=== PATIENT | male | born 1945 | race Caucasian/White ===

== ENCOUNTER 2019-12-16 12:06 | Outpatient (CLI) | payer OTHER, SELFPAY ==
--- NOTE | 2019-12-16 12:21 | XR_ITS ---
WS: [id number] Chest 2 views, 12/16/2019 Clinical Data: Shortness of breath Comparison: PA and lateral chest, 10/15/2019 Findings: No nodules, masses or effusions are seen. The heart is normal. The pulmonary vascularity is not increased. No pneumonia or pneumothorax is seen. The diaphragms are flattened. The aortic arch a nd descending aorta show tortuosity XR/XR chest 2V* [id number] Impression: Hyperinflation.
[2019-12-16 13:13] LABS: Alanine Aminotransferase 13 U/L (0-41); Albumin Level 4.6 g/dL (3.5-5.2); Alkaline Phosphatase 68 IU/L (40-130); Anion Gap 14.9 (5-19); Aspartate Amino Transferase 14 U/L (0-40); Blood Urea Nitrogen 10 mg/dL (8-23); Calcium 9.3 mg/dL (8.5-10.5); Carbon Dioxide 26 mmol/L (22-29); Chloride 103 mmol/L (98-107); Globulin 2.6 g/dL (1.3-4.6); Glucose 109 mg/dL (65-115); Osmolality Calculated 287 mOsm/kg (285-295); Potassium 3.9 mmol/L (3.5-5.1); Sodium 140 mmol/L (136-145); Total Bilirubin 0.4 mg/dL (0.15-1.2); Total Protein 7.2 g/dL (6.6-8.7)
[2019-12-16 13:24] LABS: Eosinophils # 0.1 10^3/uL (0.0-0.8); Hematocrit 39.5 % (42.0-52.0); Hemoglobin 13.3 g/dL (11.7-16.6); Lymphocytes # 1.2 10^3/uL (0.8-4.8); Lymphocytes % 23.9 %; Mean Corpuscular HGB Conc 33.7 g/dL (30.0-36.0); Mean Corpuscular Hemoglobin 33.4 pg (28.0-34.0); Mean Corpuscular Volume 99.2 fL (80-94); Mean Platelet Volume 10.9 fL (7.4-10.4); Monocytes # 0.5 10^3/uL (0.2-0.9); Monocytes % 10.8 %; Neutrophils # 3.1 10^3/uL (1.8-7.7); Neutrophils % 64.1 %; Nucleated Red Blood Cells % 0 %; Platelet Count 196 10^3/cmm (130-400); Red Blood Count 3.98 10^6/uL (4.1-5.3); Red Cell Distribution Width 11.4 % (12.1-15.1); White Blood Count 4.9 10^3/uL (4.0-10.0)
== END 2019-12-16 12:07 | disposition home or self-care (01) ==
LOC: RAD 12:09
PROVIDERS: Visit Provider Internal Medicine Critical Care Medicine
DX: R06.02 Shortness of breath (principal); J44.9 Chronic obstructive pulmonary disease, unspecified
CPT/HCPCS: 71046; 80053; 85025

== ENCOUNTER 2019-12-20 12:37 | Outpatient (CLI) | payer OTHER, SELFPAY ==
--- NOTE | 2019-12-20 12:45 | USCV_ITS ---
Doroteo Ba Age: 74 Gender: M : 1945 Exam Date: 12/20/2019 12:53 Ordering Phys: Anu Bah MD Technologist: Enrique Chou Exam Location: [facility] [place] Indication: CHEST PAIN BP: 120 / 73 HR: 77 Rhythm: Sinus Technical Quality: Adequate MEASUREMENTS (Male / Female) Normal Values 2D ECHO LV Diastolic Diameter PLAX 3.8 cm 4.2 - 5.9 / 3.9 - 5.3 cm LV Systolic Diameter PLAX 3.0 cm IVS Diastolic Thickness 0.8 cm 0.6 - 1.0 / 0.6 - 0.9 cm IVS Systolic Thickness 1.1 cm LVPW Diastolic Thickness 0.7 cm 0.6 - 1.0 / 0.6 - 0.9 cm LVPW Systolic Thickness 1.1 cm LVOT Diameter 2.1 cm LV Ejection Fraction 2D Teich 44.1 % LV Ejection Fraction MOD 2C 73.3 % LV Ejection Fraction 2C AL 72.4 % LA Diameter 4.2 cm LA Width 3.6 cm LA Height 3.1 cm RA Width 2.9 cm RA Height 3.7 cm Aorta at Sinotubular Diameter 3.4 cm M-MODE LV Diastolic Diameter MM 3.6 cm 4.2 - 5.9 / 3.9 - 5.3 cm LV Systolic Diameter MM 2.6 cm LV Ejection Fraction MM Teich 56.1 % IVS Diastolic Thickness MM 1.2 cm 0.6 - 1.0 / 0.6 - 0.9 cm IVS Systolic Thickness MM 1.3 cm LVPW Diastolic Thickness MM 1.0 cm 0.6 - 1.0 / 0.6 - 0.9 cm LVPW Systolic Thickness MM 1.6 cm RV Diastolic Diameter MM 1.4 cm Aortic Annulus Diameter 3.7 cm LA Ao Ratio MM 1.1 MV E Point Septal Separation 1.4 cm DOPPLER AV Peak Velocity 95.0 cm/s LVOT Peak Velocity 90.0 cm/s AV Area Cont Eq vti 2.7 cm squared AV Area Cont Eq pk 3.2 cm squared MV Area PHT 5.0 cm squared Mitral E to A Ratio 1.0 MV E' Velocity 8.0 cm/s Mitral E to MV E' Ratio 7.0 Mitral E to LV E' Lateral Ratio 8.3 Mitral E to LV E' Septal Ratio 6.0 TR Peak Velocity 121.0 cm/s TR Peak Gradient 5.9 mmHg TV Peak E Velocity 98.0 cm/s Right Atrial Pressure 3.0 mmHg Pulmonary Artery Systolic Pressu 8.9 mmHg FINDINGS Left Ventricle Normal left ventricular cavity size. Normal left ventricular systolic function. No regional wall motion abnormalities. Left ventricular ejection fraction is estimated at 60 %. Grade I/IV diastolic dysfunction (abnormal relaxation filling pattern), normal to mildly elevated filling pressures. Right Ventricle The right ventricle is normal in size and function. Right Atrium The right atrium is normal in size. Left Atrium The left atrium is normal in size. Mitral Valve Structurally normal mitral valve without significant stenosis or prolapse. There is no mitral regurgitation. Aortic Valve Structurally normal aortic valve without significant sclerosis or stenosis. There is no aortic regurgitation. Tricuspid Valve Structurally normal tricuspid valve without significant stenosis or regurgitation. Pulmonary artery systolic pressure is normal. Pulmonic Valve Structurally normal pulmonic valve without significant stenosis. There is no pulmonic regurgitation. Pericardium Normal pericardium without effusion. Aorta Normal ascending aorta dimension. CONCLUSIONS 1-Normal left ventricular cavity size. Normal left ventricular systolic function. No regional wall motion abnormalities. Left ventricular ejection fraction is estimated at 60 %. Grade I/IV diastolic dysfunction (abnormal relaxation filling pattern), normal to mildly elevated filling pressures. 2-No significant valve abnormalities. 3-There is no pericardial effusion. 4-Pulmonary artery systolic pressure is within normal limits. 5-There are no prior echocardiogram studies to compare. Carmen Mack MD (Electronically Signed) Final Date: 20 Dec 2019 16:28 S
== END 2019-12-20 12:38 | disposition home or self-care (01) ==
LOC: RAD 12:39
PROVIDERS: PCP Emergency Medicine Emergency Medical Services; Visit Provider Internal Medicine Critical Care Medicine
DX: R06.02 Shortness of breath (principal); I51.81 Takotsubo syndrome
CPT/HCPCS: 93306

== ENCOUNTER 2020-01-17 08:15 | Outpatient (CLI) | payer OTHER, SELFPAY ==
--- NOTE | 2020-01-17 09:59 | PFTS_ITS ---
Date of Study:01/17/20 Date of Dictation: MECHANICS: Forced vital capacity (FVC) is reduced. Forced expiratory volume in one second (FEV1) is reduced. FEV1/FVC is reduced. FLOW VOLUME LOOP: Reduced flow at all lung volumes with significant scooping. LUNG VOLUMES: Not performed DIFFUSING CAPACITY FOR CARBON MONOXIDE: Severely diminished. INTERPRETATION: The pulmonary function tests are consistent with very severe obstruction. There is significant postbronchodilator response. Gas exchange (DLCO) is severely diminished. MTDD
== END 2020-01-17 08:16 | disposition home or self-care (01) ==
LOC: RT 08:16
PROVIDERS: PCP Emergency Medicine Emergency Medical Services; Visit Provider Internal Medicine Critical Care Medicine
DX: J44.9 Chronic obstructive pulmonary disease, unspecified (principal)
CPT/HCPCS: 94060; 94729; J7611

== ENCOUNTER 2020-01-31 12:32 | Outpatient (CLI) | payer OTHER, SELFPAY ==
--- NOTE | 2020-01-31 13:00 | CT_ITS ---
WS: [id number] CT LUNG CANCER SCREENING DLP: 62.42 mGy.cm DIvol: 1.53 mGy CLINICAL INFORMATION SCREENING VISIT: Baseline COMPARISON: 12/16/2019 and 10/15/2019 FINDINGS Diagnostic quality: Satisfactory Comments: None. Lung Nodules: Round 7 mm nodule LEFT upper lobe. Image 144 of series 3. There are no additional nodul es. Soft tissue nodularity along the LEFT inferior trachea measures 6 mm. There is an additional more rou nded solid nodule in the proximal LEFT main bronchus. This nodule nearly completely obstructs the bro nchus measuring 12 x 10 mm. Lungs: Marked hyperinflation of the lungs from emphysema. There are a few subcentimeter micronodules scattered throughout the lungs. Scarring in the medial LEFT upper lobe. Heart: Normal size heart. Mild anterior pericardial thickening. Other findings: Mild atherosclerosis of aorta. No mediastinal or hilar adenopathy appreciated. Benign calcified RIGHT hilar and subcarinal lymph nodes. Cystic mass in the LEFT upper quadrant of uncertain etiology. Mass measures 9.3 x 7.1 cm. Mass is pos terior to the spleen. CT/CT lung screening [id number] IMPRESSION: LUNG-RADS: 4AS-Probably Suspicious with Significant Findings FOLLOW UP: See Report 1. Bronchoscopy is recommended to evaluate the nodules in the LEFT lateral tra avery and the proximal LEFT mainstem bronchus. 2. Six-month low-dose CT follow-up to reevaluate the LEFT upper lobe pulmonary nodule. This recommendation may change based upon the endobronchial lesion bio psy. 3. CT abdomen and pelvis recommended to evaluate cystic mass in the LEFT upper abdomen. Recommend study to be performed with IV and oral contrast. 4. Severe emphysema.
== END 2020-01-31 12:33 | disposition home or self-care (01) ==
PROVIDERS: PCP Emergency Medicine Emergency Medical Services; Visit Provider Internal Medicine Critical Care Medicine
DX: Z12.2 Encounter for screening for malignant neoplasm of respiratory organs (principal); Z87.891 Personal history of nicotine dependence; R91.1 Solitary pulmonary nodule; J43.9 Emphysema, unspecified
CPT/HCPCS: G0297

== ENCOUNTER 2020-02-13 06:01 | Day surgery (SDC) | payer OTHER, SELFPAY ==
[2020-02-13] VITALS (7 sets, daily range): BP systolic 97–143; BP diastolic 53–98; PULSE 56–93; RESP 17–20; TEMP 36.2–36.7; O2SAT 96–100
[2020-02-13] MEDS: sodium chloride 0.9% 1,000 ML 30 ML IV (06:36)
--- NOTE | 2020-02-13 06:39 | ANES.PREANE2 ---
Pre-Anesthetic Assessment Pre-Anesthetic Assessment: Height/Weight: Height 1.75 m Weight 54.431 kg Temp Pulse Resp BP Pulse Ox 98.0 F 79 17 140/98 96 02/13/20 06:19 02/13/20 06:19 02/13/20 06:19 02/13/20 06:19 02/13/20 06:19 Preop Diagnosis: Endobronchial lesions Proposed Procedure: Operation Date: 02/13/20 07:00 Proposed Procedures p Bronchoscopy(Not Applicable) - Anu Bah MD Was Beta Butch taken within 24 hours: N/A Last intake: Intake Last Liquid Date 02/12/20 Last Liquid Time 18:00 Last Solid Date 02/12/20 Last Solid Time 18:00 Social: Social History: Tobacco Packs per day: Smokes marijuana routinely Exam: Pre-Anes Outpt Exam: alert, oriented x 3, clear to auscultation bilaterally and regular rate & rhythm Airway: Submandibular: WNL Cervical ROM: WNL MP: 1 Pulmonary: Pulmonary: COPD and Cough CV/HEM: CV/HEM: None reported : : None reported Hepatic: Hepatic: None reported GI: GI: None reported Metabolic: Metabolic: None reported Musc/skel: Musc/skel: None reported Neuropsych: Neuropsych: None reported Anesthetic Plan: ASA status: 3 Anesthesia: General Meds/Allergies Current Medications: Current Medications Generic Name Dose Route Start Last Admin Trade Name Freq PRN Reason Stop Dose Admin Sodium Chloride 1,000 mls @ 30 ml s/hr 02/13/20 06:15 02/13/20 06:36 Sodium Chloride 0.9% IV 02/14/20 06:14 30 mls/hr .Q24H IMELDA Administration PFSH Anesthesia PFSH: Medical History Colon cancer COPD (chronic obstructive pulmonary disease) Surgical History History of colon resection Family History Father Lung disease Mother Cancer Social History Smoking and tobacco status: former smoker Quit status (tobacco): has quit using tobacco Year quit tobacco: 2007 - PPD x 50 Years Alcohol intake: never Lives independently: Yes Household members: spouse Marital status: Current occupational status: retired History of recent travel: No Current gender identity: Male Data Anesthesia Cardiac Studies: No Data to Display
--- NOTE | 2020-02-13 06:55 | P.HP_ITS ---
Same Day Surgery H&P Indication for Procedure/HPI DATE OF PROCEDURE: February 13, 2020 CHIEF COMPLAINT/INDICATIONFOR SURGICAL PROCEDURE: Patient with suspected endobronchial lesion on CT scan PREOP DIAGNOSIS: Endobronchial lesions PLANNED PROCEDRUE: Bronchoscopy inspection of the airway, endobronchial ultrasound-guided transbronchial aspiration of lymph nodes, possible endobronchial and transbronchial biopsies. Operation Date: 02/13/20 07:00 Proposed Procedures p Bronchoscopy(Not Applicable) - Anu Bah MD This is 74-year-old gentleman was evaluated in the office for COPD. As a part of low-dose CT scan for lung cancer screening the patient had a CT scan performed which revealed possible endotracheal and left mainstem endobronchial lesion. The patient is here today for bronchoscopic evaluation. Medications/Allergies* Home Medications Medication Instructions Recorded Confirmed Type albuterol sulfate 2.5 mg INHALATION Q4H PRN 11/27/19 02/13/20 History albuterol sulfate 90 mcg/actuation 2 inh INHALATION Q6H PRN 11/27/19 02/13/20 History breath activated powder inhaler budesonide-formoterol HFA 80 2 puff INHALATION BID 11/27/19 02/13/20 History mcg-4.5 mcg/actuation aerosol inhaler montelukast 10 mg tablet 10 mg PO DAILY 11/27/19 02/13/20 History tiotropium bromide 2.5 2 inh INHALATION QAM 11/27/19 02/13/20 History mcg/actuation mist for inhalation Allergies/Adverse Reactions Allergy/AdvReac Type Severity Reaction Status Date / Time morphine AdvReac Severe ADR-Halluci Verified 02/13/20 06:12 nating Current Medications: Generic Name Dose Route Start Last Admin Trade Name Freq PRN Reason Stop Dose Admin Sodium Chloride 1,000 mls @ 30 mls/hr 02/13/20 06:15 02/13/20 06:36 Sodium Chloride 0.9% IV 02/14/20 06:14 30 mls/hr .Q24H IMELDA Administration Pertinent History/Comorbid Conditions* Medical History (Updated 11/27/19 @ 13:47 by Anu Bah MD) Colon cancer COPD (chronic obstructive pulmonary disease) Surgical History (Updated 11/27/19 @ 13:47 by Anu Bah MD) History of colon resection Family History (Updated 11/27/19 @ 13:22 by Catina Lock LPN) Lung disease Father Cancer Mother Social History Smoking and tobacco status: former smoker Quit status (tobacco): has quit using tobacco Year quit tobacco: 2008 - PPD x 50 Years Alcohol intake: never Lives independently: Yes Household members: spouse Marital status: Current occupational status: retired History of recent travel: No Current gender identity: Male Pertinent Exam Findings alert, oriented x 3, clear to auscultation bilaterally and regular rate & rhythm Recommendations Surgery/Procedure today Coding Level of Care Code Acute Nurse Emergency for Blanca Vides
[2020-02-13] MEDS: lidocaine 1% INJ 20 mL XX (07:19)
--- NOTE | 2020-02-13 07:21 | P.OP_ITS ---
Operative Report Date of procedure: February 13, 2020 Pre-op Diagnosis: Endobronchial lesions Post-op Diagnosis: Mucus accumulation throughout the airways Brief History: This is a 74-year-old gentleman who is here today for bronchoscopic evaluation for suspected endobronchial lesion found on low-dose CT scan for lung cancer screening. The plan was to start with inspection bronchoscopy and if there was any evidence of endobronchial lesion the patient was to undergo endobronchial sound guided transbronchial needle aspiration of lymph nodes for staging purposes. Procedure: Name of the procedure: Bronchoscopy with inspection of the airway and control of bleeding. Indication: Questionable endobronchial lesion on the CT scan Anesthesia: General anesthesia Local anesthesia: 1% lidocaine instilled in the jaime and right and left mainstem bronchus. Description of the procedure: The patient was brought to the OR after consent was obtained. He underwent endotracheal intubation for general anesthesia. The bronchoscope was advanced through the ET tube. The jaime and right and left mainstem bronchus were anesthetized with 1% lidocaine. There was visible mucus in the left lower wall of the trachea. This was suctioned out. In a systematic manner the airways were then examined. The bronchoscope was advanced into the left mainstem bronchus and left upper lobe, lingula and lower lobe bronchi were examined up to the third subsegmental level. There was diffuse mucus deposition throughout his airways. The bronchoscope was then advanced into the right m ainstem bronchus. The right upper lobe, middle lobe and lower lobe bronchi were examined up to third subsegmental level. No endobronchial lesion, bleeding or airway abnormalities were identified. The patient was noted to have mucus throughout the airways. Complications: There is no immediate complications. Duration of the procedure: 4 minutes.
== END 2020-02-13 08:35 | disposition home or self-care (01) ==
PROVIDERS: PCP Emergency Medicine Emergency Medical Services; Visit Provider Internal Medicine Critical Care Medicine
PROC: 0BJ08ZZ Inspection of Tracheobronchial Tree, Via Natural or Artificial Opening Endoscopic (ICD-10-PCS; CPT 31622; principal; 2020-02-13 07:00)
DX: J39.8 Other specified diseases of upper respiratory tract (principal); Z85.038 Personal history of other malignant neoplasm of large intestine; J44.9 Chronic obstructive pulmonary disease, unspecified; Z83.6 Family history of other diseases of the respiratory system; Z87.891 Personal history of nicotine dependence; Z90.49 Acquired absence of other specified parts of digestive tract
CPT/HCPCS: 12345; 31625; J0330; J2001; J2250; J2370; J2704; J3010; J3490; J7030

== ENCOUNTER 2020-04-09 16:28 | Outpatient (RCR) | payer OTHER, SELFPAY | END 2020-04-29 23:59 | disposition home or self-care (01) | LOC: PULRHB 16:28 | PROVIDERS: PCP Emergency Medicine Emergency Medical Services; Visit Provider Internal Medicine Critical Care Medicine | DX: J44.9 Chronic obstructive pulmonary disease, unspecified (principal) | CPT/HCPCS: 94618; G0424 ==

== ENCOUNTER 2020-04-30 12:52 | Outpatient (RCR) | payer OTHER, SELFPAY | END 2020-05-30 23:59 | disposition home or self-care (01) | LOC: PULRHB 12:52 | PROVIDERS: PCP Emergency Medicine Emergency Medical Services; Visit Provider Internal Medicine Critical Care Medicine | DX: J44.9 Chronic obstructive pulmonary disease, unspecified (principal) | CPT/HCPCS: G0424 ==

== ENCOUNTER 2020-05-31 06:00 | Outpatient (RCR) | payer OTHER, SELFPAY | END 2020-06-29 23:59 | disposition home or self-care (01) | LOC: PULRHB 06:00 | PROVIDERS: PCP Emergency Medicine Emergency Medical Services; Visit Provider Internal Medicine Critical Care Medicine | DX: J44.9 Chronic obstructive pulmonary disease, unspecified (principal) | CPT/HCPCS: G0424 ==

== ENCOUNTER 2020-06-24 08:30 | Outpatient (CLI) | payer OTHER, SELFPAY ==
--- NOTE | 2020-06-24 08:39 | CT_ITS ---
WS: [id number] CT ABDOMEN AND PELVIS WITH CONTRAST HISTORY: MALIGNANT NEOPLASM OF COLON TECHNIQUE: Imaging performed of the abdomen and pelvis with IV contrast. Single phase imaging of the abdomen. Coronal and sagittal reformats are submitted. All CT scans at [facility] use at least one of these dose optimization techniques: automated exposure control; mA and/or kV adjustment per patient size (includes targeted exams where dose is matched to clinical indication); or iterativ e reconstruction. IV CONTRAST: Omnipaque 300; 95 mL IV. Oral contrast: Yes. DLP: 229.58 mGy.cm COMPARISON: None available. Lower thorax: Severe emphysematous changes at the lung bases. Heart is normal size. Small hiatal humaira ia. Liver/biliary system: Normal size liver. There are several small hypodensities scattered throughout t he liver. Some of these are too small to characterize. The largest measures 12 mm adjacent to the jeannie n portal vein. No bile duct dilatation. Gallbladder: Normal. No gallstones or wall thickening. No pericholecystic fluid. Pancreas: Poorly visualized pancreas. Spleen: Normal size with granulomata. There is a large cystic mass between the spleen and the superio r pole of the RIGHT kidney measuring 11 x 7.5 cm. Mass effect of both the spleen and the kidney. This is probably originating from the kidney. Adrenal glands: Neither very well visualized. Right kidney: Large extrarenal pelvis. No calyceal dilatation. Parapelvic cysts are also likely. Left kidney: Parapelvic cysts and extrarenal pelvis. No calyceal dilatation. Favor these changes are all secondary to cysts and not obstruction. Aorta: Atherosclerosis aorta with ectasia. Lymphadenopathy: Lack of mesenteric and intraperitoneal fat and retroperitoneal fat is limiting asses sment for lymph nodes. Free fluid: None. GI tract: Severe constipation. Patient has a colostomy in the LEFT abdomen. Evaluation of the colon i s significantly limited without fat the loops of GI tract. Abdominal wall: LEFT lower quadrant colostomy. Pelvis: Distended urinary bladder. No free fluid. There is mild thickening of the presacral soft tiss ues. Bones: Osteopenia. No osteoblastic or osteolytic destructive process. CT/CT abdomen pelvis w con* [id number] IMPRESSION: 1. Significantly limited evaluation of the abdomen and pelvic structures and t he colon. Very little fat loops of GI tract and patient is very cach ectic. No prior studies available for comparison. 2. LEFT lower quadrant colostomy. 3. Severe constipation. 4. Scattered hypodensities within the liver. Majority of these are cysts. Some are too small to characterize. Suggest 3-[address] follow-up with IV and oral contrast. 5. Bilateral parapelvic and extrarenal pelves. Favor these changes are not rel ated to hydronephrosis at this the calyces are not dilated. 6. Large cyst in the LEFT upper quadrant. I believe is originating from the RI GHT kidney about the spleen.
[2020-06-24] MEDS: iohexol 300 mg/mL 100 mL Btl IV (10:37)
== END 2020-06-24 08:31 | disposition home or self-care (01) ==
PROVIDERS: PCP Emergency Medicine Emergency Medical Services; Visit Provider Emergency Medicine Emergency Medical Services
DX: C18.9 Malignant neoplasm of colon, unspecified (principal); K59.00 Constipation, unspecified
CPT/HCPCS: 74177; 82565

== ENCOUNTER 2020-06-30 06:00 | Outpatient (RCR) | payer OTHER, SELFPAY | END 2020-07-30 23:59 | disposition home or self-care (01) | LOC: PULRHB 06:00 | PROVIDERS: PCP Emergency Medicine Emergency Medical Services; Visit Provider Internal Medicine Critical Care Medicine | DX: J44.9 Chronic obstructive pulmonary disease, unspecified (principal) | CPT/HCPCS: G0424 ==

== ENCOUNTER 2020-07-31 06:00 | Outpatient (RCR) | payer OTHER, SELFPAY | END 2020-08-30 23:59 | disposition home or self-care (01) | LOC: PULRHB 06:00 | PROVIDERS: PCP Emergency Medicine Emergency Medical Services; Visit Provider Internal Medicine Critical Care Medicine | DX: J44.9 Chronic obstructive pulmonary disease, unspecified (principal) | CPT/HCPCS: G0424 ==

== ENCOUNTER 2020-08-31 06:00 | Outpatient (RCR) | payer OTHER, SELFPAY | END 2020-09-27 23:59 | disposition home or self-care (01) | LOC: PULRHB 06:00 | PROVIDERS: PCP Emergency Medicine Emergency Medical Services; Visit Provider Internal Medicine Critical Care Medicine | DX: J44.9 Chronic obstructive pulmonary disease, unspecified (principal) | CPT/HCPCS: G0424 ==

== ENCOUNTER 2020-08-31 11:00 | Outpatient (CLI) | payer OTHER, SELFPAY | END 2020-08-31 11:01 | disposition home or self-care (01) | LOC: SLEEP 09-02 12:02 | PROVIDERS: PCP Emergency Medicine Emergency Medical Services; Visit Provider Internal Medicine Critical Care Medicine | DX: J44.9 Chronic obstructive pulmonary disease, unspecified (principal) | CPT/HCPCS: 94762 ==

== ENCOUNTER 2020-10-08 08:52 | Outpatient (CLI) | payer OTHER, SELFPAY ==
--- NOTE | 2020-10-08 09:03 | CT_ITS ---
WS: [id number] CT CHEST WITH INTRAVENOUS CONTRAST HISTORY: Endobronchial and nodular lesions. TECHNIQUE: Contiguous 5 mm axial imaging performed on the thorax. Coronal and sagittal reformats are submitted. All CT scans at [facility] use at least one of these dose optimization techniq ues: automated exposure control; mA and/or kV adjustment per patient size (includes targeted exams wh ere dose is matched to clinical indication); or iterative reconstruction. CONTRAST: Omnipaque 300; 95 mL IV. DLP: 763.79 mGycm COMPARISON: 09/23/2020 and 01/31/2020 Lungs and central airway: Marked pulmonary hyperinflation. Solid 7 mm nodule in the anterior LEFT upp er lobe has not changed in size. No new pulmonary nodules or mass. Pleura: Normal. No pleural effusion. Heart and pericardium: Normal size heart with no pericardial effusion. Mediastinum and jo: No mediastinal adenopathy. Densely calcified subcarinal lymph node. Again noted is a soft tissue nodule measuring 8 mm in the LEFT lateral tracheal. The nodule seen in the proximal LEFT mainstem bronchus is no longer present and may have been mucous. Vessels: Mild atherosclerosis aorta. Normal size pulmonary artery. Chest wall and lower neck: No soft tissue masses. Upper abdomen: Very large cyst ridging from the LEFT kidney measures 8.2 x 9.1 cm. No definite LEFT a drenal gland abnormality. There may be some very mild hyperplasia of the gland. RIGHT adrenal gland i s negative. Small cyst within the liver with the largest measuring 11 mm near the evgeny hepatis. No p ancreatic abnormality. Splenic granulomata. Diffuse constipation throughout the visualized colon. Ath erosclerosis aorta. Osseous structures: No destructive process. CT/CT chest w con* [id number] IMPRESSION: 1. Stable solid nodule anterior LEFT upper lobe measures 7 mm. Recommend [address] follow-up. 2. No change in 8mm nodule in the LEFT lateral trachea. Previously described n odule in the proximal LEFT mainstem bronchus is no longer present and this may have been mucous. 3. No adrenal gland mass identified. 4. LEFT renal and hepatic cysts. 5. Severe emphysema.
[2020-10-08] MEDS: iohexol 300 mg/mL 100 mL Btl IV (09:48)
== END 2020-10-08 08:53 | disposition home or self-care (01) ==
LOC: RADWPI 08:55
PROVIDERS: PCP Emergency Medicine Emergency Medical Services; Visit Provider Emergency Medicine Emergency Medical Services
DX: R93.89 Abnormal findings on diagnostic imaging of other specified body structures (principal); R91.1 Solitary pulmonary nodule; Q61.02 Congenital multiple renal cysts; K76.89 Other specified diseases of liver; J43.9 Emphysema, unspecified
CPT/HCPCS: 71260; Q9967

== ENCOUNTER 2020-12-29 06:00 | Outpatient (RCR) | payer OTHER, SELFPAY | END 2021-01-27 23:59 | disposition home or self-care (01) | LOC: PULRHB 06:00 | PROVIDERS: PCP Emergency Medicine Emergency Medical Services; Visit Provider Internal Medicine Critical Care Medicine | DX: J44.9 Chronic obstructive pulmonary disease, unspecified (principal) | CPT/HCPCS: G0424 ==

== ENCOUNTER 2021-01-28 06:00 | Outpatient (RCR) | payer OTHER, SELFPAY | END 2021-02-27 23:59 | disposition home or self-care (01) | LOC: PULRHB 06:00 | PROVIDERS: PCP Emergency Medicine Emergency Medical Services; Visit Provider Internal Medicine Critical Care Medicine | DX: J44.9 Chronic obstructive pulmonary disease, unspecified (principal) | CPT/HCPCS: G0424 ==

== ENCOUNTER 2021-02-28 06:00 | Outpatient (RCR) | payer OTHER, SELFPAY | END 2021-03-30 23:59 | disposition home or self-care (01) | LOC: PULRHB 06:00 | PROVIDERS: PCP Emergency Medicine Emergency Medical Services; Visit Provider Internal Medicine Critical Care Medicine | DX: J44.9 Chronic obstructive pulmonary disease, unspecified (principal) | CPT/HCPCS: G0424 ==

== ENCOUNTER 2021-03-31 06:00 | Outpatient (RCR) | payer OTHER, SELFPAY | END 2021-04-29 23:59 | disposition home or self-care (01) | LOC: PULRHB 06:00 | PROVIDERS: PCP Emergency Medicine Emergency Medical Services; Visit Provider Internal Medicine Critical Care Medicine | DX: J44.9 Chronic obstructive pulmonary disease, unspecified (principal) | CPT/HCPCS: G0424 ==

== ENCOUNTER 2021-04-30 06:00 | Outpatient (RCR) | payer OTHER, SELFPAY | END 2021-05-30 23:59 | disposition home or self-care (01) | LOC: PULRHB 06:00 | PROVIDERS: PCP Emergency Medicine Emergency Medical Services; Visit Provider Internal Medicine Critical Care Medicine | DX: J44.9 Chronic obstructive pulmonary disease, unspecified (principal) | CPT/HCPCS: G0424 ==

== ENCOUNTER 2021-12-07 12:56 | Outpatient (CLI) | payer OTHER, SELFPAY ==
--- NOTE | 2021-12-07 13:09 | US_ITS ---
WS: [id number] BILATERAL 3D TOMOSYNTHESIS DIGITAL DIAGNOSTIC MAMMOGRAPHY WITH CAD CLINICAL INFORMATION: LT BREAST LUMP TECHNIQUE: Bilateral CC, MLO, and ML views. FINDINGS: Scattered fibroglandular densities bilaterally. Palpable marker LEFT breast in the area of concern. U nderlying parenchymal breast tissue is similar in appearance but slightly more prominent compared to the RIGHT side. Ultrasound is pending. ULTRASOUND BREAST LEFT TECHNIQUE: Ultrasound left breast focused area of concern. CLINICAL INFORMATION: LT BREAST LUMP COMPARISON: None. FINDINGS: Ultrasound LEFT breast in the area of concern. Ultrasound subareolar 1:00 position. No discrete under lying mass or lesion. In the area of palpable abnormality is an ovoid region of shadowing and mixed e chogenicity slightly more prominent compared to the RIGHT. 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 Recommend 6 month follow-up to confirm stability. Comparison RIGHT subareolar region is unremarkable. US/US breast LT limited* [id number] IMPRESSION: BI-RADS: 3-Probably Benign FOLLOW UP: 6 Month Follow-up Recommend 6 month follow-up ultrasound LEFT breast to confirm stability.
--- NOTE | 2021-12-07 13:54 | MM_ITS ---
WS: [id number] BILATERAL 3D TOMOSYNTHESIS DIGITAL DIAGNOSTIC MAMMOGRAPHY WITH CAD CLINICAL INFORMATION: LT BREAST LUMP TECHNIQUE: Bilateral CC, MLO, and ML views. FINDINGS: Scattered fibroglandular densities bilaterally. Palpable marker LEFT breast in the area of concern. U nderlying parenchymal breast tissue is similar in appearance but slightly more prominent compared to the RIGHT side. Ultrasound is pending. ULTRASOUND BREAST LEFT TECHNIQUE: Ultrasound left breast focused area of concern. CLINICAL INFORMATION: LT BREAST LUMP COMPARISON: None. FINDINGS: Ultrasound LEFT breast in the area of concern. Ultrasound subareolar 1:00 position. No discrete under lying mass or lesion. In the area of palpable abnormality is an ovoid region of shadowing and mixed e chogenicity slightly more prominent compared to the RIGHT. 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 Recommend 6 month follow-up to confirm stability. Comparison RIGHT subareolar region is unremarkable. MM/[place] [id number] IMPRESSION: BI-RADS: 3-Probably Benign FOLLOW UP: 6 Month Follow-up Recommend 6 month follow-up ultrasound LEFT breast to confirm stability.
== END 2021-12-07 12:57 | disposition home or self-care (01) ==
LOC: RAD 12:59
PROVIDERS: PCP Emergency Medicine Emergency Medical Services; Visit Provider Emergency Medicine Emergency Medical Services
DX: N63.20 Unspecified lump in the left breast, unspecified quadrant (principal)
CPT/HCPCS: 76642; 77062

== ENCOUNTER 2022-03-15 19:58 | Inpatient (IN) | payer OTHER, MEDICARE, SELFPAY ==
[2022-03-15] VITALS (14 sets, daily range): BP systolic 122–161; BP diastolic 62–91; PULSE 81–107; RESP 14–23; TEMP 36.8; O2SAT 100; BMI 17.2; BMI 19.1
--- NOTE | 2022-03-15 20:17 | CTR_ITS ---
PROCEDURE INFORMATION: Exam: CT Abdomen And Pelvis With Contrast Exam date and time: 03/15/2022 8:49 PM Age: 76 years old Clinical indication: Abdominal pain; Prior surgery; Surgery date: 6+ months; Surgery type: Colon; Additional info: Abd pain TECHNIQUE: Imaging protocol: Computed tomography of the abdomen and pelvis with contrast. Radiation optimization: All CT scans at this facility use at least one of these dose optimization techniques: automated exposure control; mA and/or kV adjustment per patient size (includes targeted exams where dose is matched to clinical indication); or iterative reconstruction. Contrast material: OMNIPAQUE 350; Contrast volume: 80 ml; Contrast route: INTRAVENOUS (IV); COMPARISON: CT abdomen pelvis w con* [id number] 06/24/2020 10:26 AM RADIATION DOSE METRICS: Total DLP (mGy-cm): 334.56 FINDINGS: Tubes, catheters and devices: Interval placement of Garcia balloon catheter. Lungs: Hyperaerated lungs consistent with COPD . Liver: Multiple hepatic cysts at least one of which measures larger than 1.0 cm in size. Other low-attenuation lesions in the liver are too small to characterize. Calcified hepatic granulomas. Gallbladder and bile ducts: Normal. No calcified stones. No ductal dilation. Pancreas: Normal. No ductal dilation. Spleen: Calcified splenic granulomas. Adrenal glands: Normal. No mass. Kidneys and ureters: Left renal simple cyst measuring >1.0 cm. Interval resolution of bilateral hydronephrosis. Stomach and bowel: Interval appearance of dilated loops of small bowel up to 4.2 cm in diameter of with no obvious decompressed distal small bowel or transition point most consistent with occult small-bowel obstruction versus ileus/enteritis. Stable left colostomy. Stable rectosigmoid colon resection. Moderate retained feces in the transverse colon and right colon. Appendix: No evidence of appendicitis. Intraperitoneal space: Unremarkable. No free air. No significant fluid collection. Vasculature: Calcification of the abdominal aorta and/or iliac arteries consistent with atherosclerotic vessel disease. Lymph nodes: Unremarkable. No enlarged lymph nodes. Urinary bladder: Unremarkable as visualized. Reproductive: Unremarkable as visualized. Bones/joints: Unremarkable. No acute fracture. Soft tissues: Unremarkable. CT/CT abdomen pelvis w con* [id number] IMPRESSION: 1. Interval appearance of dilated loops of small bowel up to 4.2 cm in diameter of with no obvious decompressed distal small bowel or transition point most consistent with occult small-bowel obstruction versus ileus/enteritis. 2. Stable left colostomy. 3. Stable rectosigmoid colon resection. 4. Moderate retained feces in the transverse colon and right colon. 5. Interval placement of Garcia balloon catheter. 6. Interval resolution of bilateral hydronephrosis. COMMENTS: Consistent with the [employer]'s Incidental Findings Committee white paper (J Am Ar Radiol 2018): Any incidental renal lesion less than 1 cm or classified as too small to characterize, or any incidental cystic renal lesion characterized as simple-appearing, is likely benign. No follow-up imaging is recommended for these lesions per consensus recommendations based on imaging criteria.
--- NOTE | 2022-03-15 20:23 | ED_ITS ---
HPI - Abdominal Pain General: Chief Complaint: Abdominal Pain Stated Complaint: N/V/Coughing up phlegm-sent by Time Seen by Provider: 03/15/22 20:07 Source: patient Mode of arrival: ambulatory Limitations: no limitations History of Present Illness: 76-year-old male who states that he has been having abdominal pain along with nausea vomiting over the last 2 days. He states he is also had a bad taste in his mouth he had a history of a colectomy has a colostomy since 2004 due to colon cancer. He states he had bowel obstruction in the past and this feels similar he states he had some slight gas out of his colostomy but no stool today. States pain is currently a 7 out of 10 has no other complaints at this time. Associated Symptoms: Denies chills, dysuria and fever(s) Review of Systems Const: Denies: fever(s), chills, body aches or change in appetite Eyes: Denies: blurry vision or eye discomfort ENMT: Denies: throat pain or dental pain Card: Denies: chest pain Resp: Denies: dyspnea GI: Reports: abdominal pain : Denies: dysuria Musc: Denies: neck pain or back pain Skin/Breast: Denies: rash Neuro: Denies: headache(s) Psych: Denies: depression Oscar/Lymph: Denies: easy bruising All/Imm: Denies: urticaria PFSH ED PFSH: Medical History COPD (chronic obstructive pulmonary disease) Rectal cancer Surgical History History of colon resection OCT-2004 S/P bronchoscopy Family History Father Lung disease Mother Cancer Social History Smoking and tobacco status: former smoker Quit status (tobacco): has quit using tobacco Year quit tobacco: 2007 - PPD x 50 Years Alcohol intake: never Lives independently: Yes Household members: spouse Marital status: Current occupational status: retired History of recent travel: No Current gender identity: Male Physical Exam Const: COMMON NORMALS: no acute distress, patient oriented x3 and healthy appearing HENMT: COMMON NORMALS: normocephalic and atraumatic HEAD & SCALP: normocephalic and atraumatic Eye: COMMON NORMALS: Equal, round and reactive pupils present and EOMs intact bilaterally PUPIL: Yes Equal, round and reactive pupils present Neck/C-Spine: COMMON NORMALS: full ROM and supple Chest: COMMONS NORMALS: normal inspection of the chest and normal palpation of entire chest wall Resp: COMMON NORMALS: normal respiratory effort, No retractions, No use of accessory muscles and clear to auscultation bilaterally AUSCULTATION: clear to auscultation bilaterally Cardio: COMMON NORMALS: regular rate, regular rhythm and No murmurs present (Cardio) RATE: regular rate RHYTHM: regular rhythm GI: COMMON NORMALS: Normal to inspection, nondistended, normoactive bowel sounds present, Soft to palpation and no masses PALPATION: Yes Soft to palpation OTHER: diffuse tenderness Extremity: COMMON NORMALS: normal to inspection and full ROM Neuro: COMMON NORMALS: patient oriented x3, moves all extremities and no focal motor deficits Psych: COMMON NORMALS: mental status grossly normal, Normal thought process present and cooperative THOUGHT PROCESS: Normal thought process present Skin: COMMON NORMALS: no rashes or lesions noted and no wounds GENERAL SKIN EXAM: no rashes or lesions noted Course Vital Signs: Vital signs: Vital Signs Temperature 98.3 F 03/15/22 20:09 Pulse Rate 84 03/15/22 22:00 Respiratory Rate 14 03/15/22 22:00 Blood Pressure 127/84 03/15/22 22:00 Pulse Oximetry 100 03/15/22 22:00 Oxygen Delivery Me thod 03/15/22 22:00 Oxygen Flow Rate 3 03/15/22 22:00 MDM - Abdominal Pain Medical Decision Making Patient presents with abdominal pain CT shows a likely small bowel obstruction consistent with his symptoms as well patient NG tube placed I spoke to hospitalist surgeon will admit at this time. Lab Data : 03/15/22 20:22 03/15/22 20:22 Labs/Radiology: Radiology Impressions Abdomen/Pelvis CT 03/15/22 20:17 IMPRESSION: 1. Interval appearance of dilated loops of small bowel up to 4.2 cm in diameter of with no obvious decompressed distal small bowel or transition point most consistent with occult small-bowel obstruction versus ileus/enteritis. 2. Stable left colostomy. 3. Stable rectosigmoid colon resection. 4. Moderate retained feces in the transverse colon and right colon. 5. Interval placement of Garcia balloon catheter. 6. Interval resolution of bilateral hydronephrosis. COMMENTS: Consistent with the [employer]'s Incidental Findings Committee white paper (J Am Ar Radiol 2018): Any incidental renal lesion less than 1 cm or classified as too small to characterize, or any incidental cystic renal lesion characterized as simple-appearing, is likely benign. No follow-up imaging is recommended for these lesions per consensus recommendations based on imaging criteria. Laboratory Results WBC 8.9 10^3/uL (4.0-10.0) 03/15/22 20: RBC 3.27 10^6/uL (4.1-5.3) L 03/15/22: Hgb 12.0 g/dL (11.7-16.6) 03/15/22: Hct 34.6 % (42.0-52.0) L 03/15/22: MCV 105.8 fl (80-94) H 03/15/22: MCH 36.7 pg (28.0-34.0) H 03/15/22: MCHC 34.7 g/dL (30.0-36.0) 03/15/22: RDW 11.4 % (12.1-15.1) L 03/15/22 20:22 Plt Count 240 10^3/cmm (130-400) 03/15/22 20:22 MPV 9.6 fL (7.4-10.4) 03/15/22: Neut % (Auto) 85.6 % 03/15/22: Lymph % (Auto) 5.9 % 03/15/22:22 [place] % (Auto) 8.1 % 03/15/22: Eos % (Auto) 0.1 % 03/15/22: Baso % (Auto) 0.1 % 03/15/22:22 Neut # (Auto) 7.65 10^3/uL (1.8-7.7) 03/15/22 20: Lymph # (Auto) 0.5 10^3/uL (0.8-4.8) L 08/16/22 20:22 [place] # (Auto) 0.7 10^3/uL (0.2-0.9) 03/15/22 20:22 Eos # (Auto) 0.0 10^3/uL (0.0-0.8) 03/15/22 20:22 Baso # (Auto) 0.0 10^3/uL (0.0-0.1) 03/15/22 20: Nucleated RBC % (auto) 0 % 03/15/22: Nucleated RBCs # 0.0 /100WBC 03/15/22 20:22 Sodium 138 mmol/L (136-145) 03/15/22 20: Potassium 4.4 mmol/L (3.5-5.1) 03/15/22: Chloride 93 mmol/L (98-107) L 03/15/22 20: Carbon Dioxide 36 mmol/L (22-29) H 03/15/22 20: Anion Gap 13.4 (5-19) 03/15/22 20: BUN 18 mg/dL (8-23) 03/15/22 20: Creatinine 0.7 mg/dL (0.7-1.2) 03/15/22 20: GFR Calculation Not Reportable 03/15/22: Glucose 117 mg/dL (65-115) H 03/15/22 20: Calculated Osmolality 289 mOsm/kg (285-295) 03/15/22: Lactate 1.0 mmol/L (0.5-2.2) 03/15/22: Calcium 10.6 mg/dL (8.5-10.5) H 03/15/22 20:22 Total Bilirubin 0.3 mg/dL (0.15-1.2) 03/15/22 20: AST 15 U/L (0-40) 03/15/22 20: ALT 15 U/L (0-41) 03/15/22 20: Alkaline Phosphatase 76 U/L (40-130) 03/15/22 20:22 Total Protein 8.1 g/dL (6.6-8.7) 03/15/22 20: Albumin 4.6 g/dL (3.5-5.2) 03/15/22:22 Globulin 3.5 g/dL (1.3-4.6) 03/15/22 20:22 Lipase 20 U/L (13-60) 03/15/22 20:22 Discharge Plan Discharge Patient Disposition: Admitted As Inpatient Admit Provider: Blaise Dubose Clinical Impression: Small bowel obstruction Condition: Stable Coding Level of Care Code ED Reception Specialist for Chg Fwd Exam Comprehensive
[2022-03-15 20:29] LABS: Basophils % 0.1 %; Eosinophils % 0.1 %; Hematocrit 34.6 % (42.0-52.0); Lymphocytes # 0.5 10^3/uL (0.8-4.8); Lymphocytes % 5.9 %; Mean Corpuscular HGB Conc 34.7 g/dL (30.0-36.0); Mean Corpuscular Hemoglobin 36.7 pg (28.0-34.0); Mean Corpuscular Volume 105.8 fl (80-94); Mean Platelet Volume 9.6 fL (7.4-10.4); Monocytes # 0.7 10^3/uL (0.2-0.9); Monocytes % 8.1 %; Neutrophils # 7.65 10^3/uL (1.8-7.7); Neutrophils % 85.6 %; Nucleated Red Blood Cells % 0 %; Platelet Count 240 10^3/cmm (130-400); Red Blood Count 3.27 10^6/uL (4.1-5.3); Red Cell Distribution Width 11.4 % (12.1-15.1); White Blood Count 8.9 10^3/uL (4.0-10.0)
[2022-03-15] MEDS: iohexol 350 mg/mL 100 mL Btl IV (20:50)
[2022-03-15 21:07] LABS: Alanine Aminotransferase 15 U/L (0-41); Albumin Level 4.6 g/dL (3.5-5.2); Alkaline Phosphatase 76 U/L (40-130); Anion Gap 13.4 (5-19); Aspartate Amino Transferase 15 U/L (0-40); Blood Urea Nitrogen 18 mg/dL (8-23); Calcium 10.6 mg/dL (8.5-10.5); Carbon Dioxide 36 mmol/L (22-29); Chloride 93 mmol/L (98-107); Creatinine Clr Calc Pharmacy 58.0453; Globulin 3.5 g/dL (1.3-4.6); Glucose 117 mg/dL (65-115); Lipase 20 U/L (13-60); Osmolality Calculated 289 mOsm/kg (285-295); Potassium 4.4 mmol/L (3.5-5.1); Sodium 138 mmol/L (136-145); Total Bilirubin 0.3 mg/dL (0.15-1.2); Total Protein 8.1 g/dL (6.6-8.7)
[2022-03-15] MEDS: ondansetron 2 mg/ML SDV 2 mL 4 MG IVP (21:09)
[2022-03-15] MEDS: HYDROmorphone 1 mg/mL INJ 1 mL 0.5 MG IVP (21:09)
[2022-03-15] MEDS: sodium chloride 0.9% 500 ML IV (21:09)
[2022-03-15] MEDS: midazolam 1 mg/mL INJ 2 mL IVP (22:22)
--- NOTE | 2022-03-15 22:33 | XRR_ITS ---
PROCEDURE INFORMATION: Exam: XR Chest Exam date and time: 03/15/2022 10:35 PM Age: 76 years old Clinical indication: Device placement; Ng tube; Additional info: Ng tube placement TECHNIQUE: Imaging protocol: Radiologic exam of the chest. Views: 1 view. COMPARISON: CT chest w con* [id number] 04/12/2021 1:56 PM FINDINGS: Tubes, catheters and devices: Enteric tube tip is over the gastroesophageal junction. Lungs: Stable COPD . Pleural spaces: Unremarkable. No pleural effusion. No pneumothorax. Heart/Mediastinum: Unremarkable. No cardiomegaly. Bones/joints: Unremarkable. XR/XR chest 1V portable [id number] IMPRESSION: 1. Stable COPD . 2. Enteric tube tip is over the gastroesophageal junction.
--- NOTE | 2022-03-15 22:49 | P.HP_ITS ---
Providers/Chief Complaint Admitting Physician: Blaise Dubose MD Primary Care Provider: Andrea Santiago DO Chief Complaint: N/V/Coughing up phlegm-sent by History of Present Illness Doroteo Ba is a 76 year old male with a past medical history of colon resection for colon cancer, with colostomy in place, COPD, 3 of chronic suprapubic catheter which has recently been having issues and removed, now with Garcia catheter in place, who presents to [facility] due to nausea, vomiting, abdominal pain, decreased stool output from his colostomy. Patient was recently in [facility], seeing his urologist, his suprapubic catheter was having issues, he was placed on chronic antibiotics, he is not sure which exactly, to suppress UTIs, and the suprapubic catheter which was replaced for a Garcia catheter. On his way home he was not feeling well, feeling very nauseous, having diffuse abdominal pain and abdominal bloating. He is not been able to keep down liquids, cannot keep down solids, has nausea and vomiting episodes. He tells me over the next 24 hours, his stool output from his colostomy has dramatically declined, he is still getting some stool output from his colostomy but not as much. No fevers, no chills. He tells me that he has a history of small bowel obstruction, he is never required surgery to alleviate his bowel obstruction, bowel when he had surgery for his cancer he had multiple surgeries multiple complications. Review of Systems Const: Denies: fever(s) Card: Denies: chest pain Resp: Denies: dyspnea GI: Reports: abdominal pain, nausea and vomiting Medications/Allergies Home Medications Medication Instructions Recorded Confirmed Last Taken Type albuterol sulfate 2.5 mg inhalation Q4H PRN 11/27/19 09/28/21 02/12/20 History Shortness Of Breath Or Wheezing albuterol sulfate 90 mcg/actuation 2 inh inhalation Q6H PRN shortness 11/27/19 09/28/21 02/13/20 History breath activated powder inhaler 0400 montelukast 10 mg tablet 10 mg PO DAILY 11/27/19 09/28/21 02/12/20 05:00 History (Singulair) budesonide 0.5 mg/2 mL suspension 0.5 mg (2 mL) inhalation BID 90 05/25/20 09/28/21 Unknown Rx for nebulization (Pulmicort) days #360 mL ipratropium 0.5 mg-albuterol 3 mg 3 ml inhalation QID 30 days #360 mL 05/25/20 09/28/21 Unknown Rx (2.5 mg base)/3 mL nebulization soln Allergies Allergy/AdvReac Type Severity Reaction Status Date / Time morphine AdvReac Severe ADR-Halluci Verified 09/28/21 14:16 nating PFSH Acute PFSH: Medical History COPD (chronic obstructive pulmonary disease) Rectal cancer Surgical History History of colon resection OCT-2004 S/P bronchoscopy Family History Father Lung disease Mother Cancer Social History Smoking and tobacco status: former smoker Quit status (tobacco): has quit using tobacco Year quit tobacco: 2007 - PPD x 50 Years Alcohol intake: never Lives independently: Yes Household members: spouse Marital status: Current occupational status: retired History of recent travel: No Current gender identity: Male Vitals/I&O/Wt Last Vital Signs Temp 98.3 F 03/15/22 20:09 Pulse 84 03/15/22 22:00 Resp 14 03/15/22 22:00 BP 127/84 03/15/22 22:00 Pulse Ox 100 03/15/22 22:00 O2 Del Method 03/15/22 22:00 O2 Flow Rate 3 03/15/22 22:00 03/15/22 03/15/22 03/15/22 06:59 14:59 22:59 Intake Total 500 / 500 Balance 500 / 500 Weight last 48 hrs Weight 53.07 kg Physical Exam Const: COMMON NORMALS: no acute distress and patient oriented x3 HENMT: COMMON NORMALS: normocephalic HEAD & SCALP: normocephalic Eye: COMMON NORMALS: Equal, round and reactive pupils present and EOMs intact bilaterally Neck/C-Spine: COMMON NORMALS: no JVD Resp: COMMON NORMALS: normal respiratory effort, No retractions, No use of accessory muscles and clear to auscultation bilaterally AUSCULTATION: clear to auscultation bilaterally Cardio: COMMON NORMALS: no JVD, regular rate, regular rhythm, S1 normal heart sound present and S2 normal heart sound present RATE: regular rate RHYTHM: regular rhythm HEART SOUNDS: S1 normal heart sound present and S2 normal hea rt sound present GI: PALPATION: Yes Soft to palpation and Yes No hepatosplenomegaly present OTHER: Abdomen soft, distended, decreased bowel sounds, no guarding, no rebound, no rigidity, has diffuse tenderness Extremity: COMMON NORMALS: capillary refill normal, no clubbing, cyanosis or edema, no calf tenderness and no pedal edema Neuro: COMMON NORMALS: patient oriented x3 Psych: COMMON NORMALS: mental status grossly normal Data : 03/15/22 20:22 03/15/22 20:22 A&P Assessment and plan (1) Small bowel obstruction: Status: Acute (2) Chronic obstructive pulmonary disease: Status: Acute Plan Small bowel obstruction 1. Interval appearance of dilated loops of small bowel up to 4.2 cm in diameter of with no obvious decompressed distal small bowel or transition point most consistent with occult small-bowel obstruction versus ileus/enteritis. 2. Stable left colostomy. 3. Stable rectosigmoid colon resection. 4. Moderate retained feces in the transverse colon and right colon. 5. Interval placement of Garcia balloon catheter. 6. Interval resolution of bilateral hydronephrosis. Plan -Admit to general medical floors -IV fluids -Zofran for nausea -Dilaudid for pain control -Monitor colostomy output, serial abdominal exams -N.p.o. -General surgery consulted -Full code -Lovenox for DVT prophylaxis History of suprapubic catheter malfunction, now with Garcia catheter, will obtain a UA COPD, not in exacerbation Attestations Medical Necessity Statement*: Patient requires hospitalization, inpatient, greater than 2 midnights, for small bowel obstruction Coding Level of Care Code Acute Heel Edge Inker Machine for [facility] Fw Diagnoses Small bowel obstruction K56.609 Chronic obstructive pulmonary disease J44.9
[2022-03-15 23:21] LABS: Thyroid Stimulating Hormone 1.45 uIU/mL (0.27-4.20)
--- NOTE | 2022-03-15 23:30 | PC.NURSE ---
Transfer Note Patient transferred to ICU from ER via stretcher. Handoff received from DENISE Jean. Patient oriented to environment and equipment. Covering service notified. Orders reviewed and will continue to monitor. Family and/or sales representative rural power notified. Patient alert/oriented x4 on 3LNC at time of transfer. Patient belongings include house robe, shirt, oxygen tank, inhaler, glassess and house slippers.
[2022-03-15] MEDS: ipratropium-albuterol 3 mL Neb INHALATION (23:43)
[2022-03-15] MEDS: sodium chloride 0.9% 1,000 ML 125 ML IV (23:43)
[2022-03-15] MEDS: pantoprazole 40 mg SDV IVP (23:45)
[2022-03-15] MEDS: enoxaparin 40 mg/0.4 mL Syringe SUBCUT (23:45)
[2022-03-16] VITALS (101 sets, daily range): BP systolic 132–188; BP diastolic 70–99; PULSE 81–117; RESP 13–28; TEMP 36.8–36.9; O2SAT 92–100
[2022-03-16] MEDS: HYDROmorphone 1 mg/mL INJ 1 mL 0.5 MG IVP ×3 (02:55→19:32)
[2022-03-16] MEDS: ipratropium-albuterol 3 mL Neb INHALATION ×4 (03:06→19:55)
[2022-03-16 04:36] LABS: Alanine Aminotransferase 9 U/L (0-41); Albumin Level 3.7 g/dL (3.5-5.2); Alkaline Phosphatase 64 U/L (40-130); Anion Gap 8.4 (5-19); Aspartate Amino Transferase 13 U/L (0-40); Blood Urea Nitrogen 14 mg/dL (8-23); C Reactive Protein 3.8 mg/L (0.0-4.9); Calcium 9.4 mg/dL (8.5-10.5); Carbon Dioxide 38 mmol/L (22-29); Chloride 98 mmol/L (98-107); Globulin 3.1 g/dL (1.3-4.6); Glucose 105 mg/dL (65-115); Magnesium 1.7 mg/dL (1.7-2.3); Osmolality Calculated 291 mOsm/kg (285-295); Phosphorus 3.4 mg/dL (2.5-4.5); Potassium 4.4 mmol/L (3.5-5.1); Sodium 140 mmol/L (136-145); Total Bilirubin 0.3 mg/dL (0.15-1.2); Total Protein 6.8 g/dL (6.6-8.7)
[2022-03-16 05:04] LABS: Procalcitonin 0.07 ng/mL (0-0.5)
[2022-03-16 06:00] LABS: Basophils % 0.3 %; Eosinophils % 0.1 %; Hematocrit 33.1 % (42.0-52.0); Hemoglobin 10.5 g/dL (11.7-16.6); Lymphocytes # 0.6 10^3/uL (0.8-4.8); Lymphocytes % 7.1 %; Mean Corpuscular HGB Conc 31.7 g/dL (30.0-36.0); Mean Corpuscular Volume 100.9 fl (80-94); Monocytes # 0.7 10^3/uL (0.2-0.9); Monocytes % 9.2 %; Neutrophils # 6.57 10^3/uL (1.8-7.7); Neutrophils % 83.2 %; Nucleated Red Blood Cells % 0 %; Platelet Count 219 10^3/cmm (130-400); Red Blood Count 3.28 10^6/uL (4.1-5.3); Red Cell Distribution Width 11.3 % (12.1-15.1); White Blood Count 7.9 10^3/uL (4.0-10.0)
--- NOTE | 2022-03-16 06:52 | PM.CONSULT ---
Providers/Reason For Consult Consulting Physician/Specialty*: Sage Lee MD Reason for Consult*: Abdominal pain associated with bowel obstruction Requesting Physician: Dr. Green Attending Physician: Blaise Dubose MD Primary Care Provider: Andrea Santiago DO History of Present Illness History of Present Illness Mr. Doroteo Ba is a pleasant 76 year old male with abdominal perineal surgery with end colostomy. Patient presented yesterday to the ER with worsening abdominal pain and minimal output of stools per stoma. Patient is well-known with history of COPD and chronic constipation. Also he does have history of urological issues. Patient undergone a CT scan of the abdomen and pelvis in the ER upon evaluation And that did show; 1. Interval appearance of dilated loops of small bowel up to 4.2 cm in diameter of with no obvious decompressed distal small bowel or transition point most consistent with occult small-bowel obstruction versus ileus/enteritis. 2. Stable left colostomy. 3. Stable rectosigmoid colon resection. 4. Moderate retained feces in the transverse colon and right colon. 5. Interval placement of Garcia balloon catheter. 6. Interval resolution of bilateral hydronephrosis. Patient was admitted to the hospitalist service and general surgery was consulted for further evaluation and care.NG was placed in the ER and had minimal output. Patient was scheduled by my partner Dr. Rodrigues to get a colonoscopy but that did not take place ye tAnd the colonoscopy was for screening purposes. Review of Systems General: Reports: 10 or more systems reviewed and unremarkable except in HPI and below Medications/Allergies Home Medications Medication Instructions Recorded Confirmed Last Taken Type albuterol sulfate 2.5 mg inhalation Q6H PRN 11/27/19 03/16/22 02/12/20 History Shortness Of Breath Or Wheezing montelukast 10 mg tablet 10 mg PO QPM 11/27/19 03/16/22 02/12/20 05:00 History (Singulair) albuterol sulfate 90 mcg/actuation 2 puff inhalation QID PRN 03/16/22 03/16/22 Unknown History aerosol inhaler (Ventolin HFA) Shortness Of Breath cholecalciferol (vitamin D3) 50 50 mcg PO DAILY@12 03/16/22 03/16/22 Unknown History mcg (2,000 unit) capsule (Vitamin D3) ciprofloxacin HCl 500 mg tablet 500 mg PO Q12H 03/16/22 03/16/22 03/15/22 History ipratropium 0.5 mg-albuterol 3 mg 3 ml inhalation Q4H 03/16/22 03/16/22 Unknown History (2.5 mg base)/3 mL nebulization soln oxybutynin chloride 10 mg 10 mg PO DAILY 03/16/22 03/16/22 03/13/22 History tablet,extended release 24 hr Allergies Allergy/AdvReac Type Severity Reaction Status Date / Time morphine AdvReac Severe ADR-Halluci Verified 03/16/22 08:49 nating Current Medications Generic Name Dose Route Start Last Admin Trade Name Freq PRN Reason Stop Dose Admin Albuterol/Ipratropium 3 ml 03/15/22 22:55 03/16/22 03:06 Ipratropium-Albuterol 3 Ml Neb INHALATION 3 ml Q4H PRN Administration SHORTNESS OF BREATH Enoxaparin Sodium 40 mg 03/15/22 22:55 03/15/22 23:45 Enoxaparin 40 Mg/0.4 Ml Syringe SUBCUT 40 mg Q24H IMELDA Administration Hydromorphone HCl 0.5 mg 03/15/22 22:55 03/16/22 02:55 Hydromorphone 1 Mg/Ml Inj 1 Ml IVP 0.5 mg Q4H PRN Administration PAIN Sodium Chloride 1,000 mls @ 125 mls/hr 03/15/22 22:55 03/15/22 23:43 Sodium Chloride 0.9% IV 125 mls/hr .Q8H IMELDA Administration Pantoprazole Sodium 40 mg 03/15/22 22:55 03/15/22 23:45 Pantoprazole 40 Mg Sdv IVP 40 mg Q12H IMELDA Administration PFSH Acute PFSH: Medical History COPD (chronic obstructive pulmonary disease) Rectal cancer Surgical History History of colon resection OCT-2004 S/P bronchoscopy Family History Father Lung disease Mother Cancer Social History Smoking and tobacco status: former smoker Quit status (tobacco): has quit using tobacco Year quit tobacco: 2007 - PPD x 50 Years Alcohol intake: never Lives independently: Yes Household members: spouse Marital status: Current occupational status: retired History of recent travel: No Current gender identity: Male Vitals/I&O/Wt Last Vital Signs Temp 98.4 F 03/16/22 05:35 Pulse 85 03/16/22 06:00 Resp 22 H 03/16/22 05:35 BP 153/80 03/16/22 05:35 Pulse Ox 100 03/16/22 05:35 O2 Del Method 03/16/22 05:35 O2 Flow Rate 3 03/16/22 05:35 03/15/22 03/15/22 03/16/22 14:59 22:59 06:59 Intake Total 500 / 500 0 / 500 Output Total 500 / 500 Balance 500 / 500 -500 / 0 Weight last 48 hrs Weight 129 lb 4 oz Weight 117 lb Physical Exam Const: COMMON NORMALS: no acute distress and patient oriented x3 GENERAL APPEARANCE: cooperative ORIENTATION/CONSCIOUSNESS: Yes awake, Yes oriented to person, Yes oriented to place and Yes oriented to time HENMT: COMMON NORMALS: normocephalic HEAD & SCALP: normocephalic and other (NG in place) Eye: COMMON NORMALS: Equal, round and reactive pupils present and no scleral icterus PUPIL: Yes Equal, round and reactive pupils present Lymph: LYMPHATIC: no lymphadenopathy noted Chest: COMMONS NORMALS: normal inspection of the chest Resp: COMMON NORMALS: normal respiratory effort and clear to auscultation bilaterally AUSCULTATION: clear to auscultation bilaterally Cardio: COMMON NORMALS: S1 normal heart sound present and S2 normal heart sound present; negative for No murmurs present (Cardio) HEART SOUNDS: S1 normal heart sound present and S2 normal heart sound present GI: COMMON NORMALS: Soft to palpation; negative for No hepatosplenomegaly present INSPECTION: Yes normal to inspection PALPATION: Yes Soft to palpation, No Firmness to palpation present (GI), No Tenderness to palpation present (GI), No Guarding due to palpation present (GI), No Rigid due to palpation, No No hepatosplenomegaly present and Yes Other GI palpation findings present (Stoma at the left side of the abdomen with sticky brown stool) Neuro: COMMON NORMALS: patient oriented x3 SENSORIUM/ORIENTATION: Yes oriented to person, Yes oriented to place and Yes oriented to time Psych: COMMON NORMALS: mental status grossly normal Skin: COMMON NORMALS: no rashes or lesions noted GENERAL SKIN EXAM: no rashes or lesions noted Data : 03/16/22 03:25 03/16/22 03:25 A&P Assessment and plan (1) Small bowel obstruction: After thorough history physical examination reviewing the chart and images with my personal interpretation. I do not appreciate a transition point and likely the patient's condition is likely due to constipation that got worse. NG to low intermittent wall suction and we will start the patient gently on GoLytely. Repeated physical examination. Strict I's and O's IV fluid resuscitation Family updates Thank you for consulting general surgery to participate taking care Mr. Ba Status: Acute Consult Attestations Medical Necessity Statement: Patient requiring hospitalization in the form of inpatient passing 2 midnights for management of underlying concern about Time Spent in Patient Care: 16 - 35 minutes Coding Level of Care Code Acute Veterinary Technician for [facility] Fwd Exam Comprehensive Diagnoses Small bowel obstruction K56.609
[2022-03-16] MEDS: pantoprazole 40 mg SDV IVP ×2 (09:55→22:15)
[2022-03-16] MEDS: sodium chloride 0.9% 1,000 ML 125 ML IV ×2 (09:56→16:44)
[2022-03-16] MEDS: montelukast sodium 10 mg Tablet PO (09:56)
[2022-03-16] MEDS: peg /e-lyte soln 4,000 mL Btl 1500 ML PO (09:56)
[2022-03-16] MEDS: ondansetron 2 mg/ML SDV 2 mL 4 MG IVP ×2 (10:53→17:51)
--- NOTE | 2022-03-16 11:35 | PC.CHAP ---
Pastoral Care Encounter/Spiritual Assessment Type of Contact [] Declined burn center nurse visit [] Patient/Family/Request visit [] Outpatient visit [] Follow-up visit [] Physician referral [] Code/Alert [x] Routine visit [] Staff referral [] Actively dying [] Patient sleeping [] Family support [] [] Out of room [] Palliative care [] [x] Receiving care in room [] Pre-surgical visit [] Trauma [] Long length of stay x[x] ICU visit [] Other: Relational/Emotional Strength [] Patient feels connected with others/family/visitors/staff [] Distress [] Loneliness/isolation [] Abandonment Spirituality of Patient [] Person of Elif [] Attends Latter Day of their Elif [] Believes in Prayer [] Reads Bible or Quaker materials [] There are Spiritual issues to be addressed Structural Analysis Engineer Interventions [x] Prayer [] Active listening [] Non-anxious presence [] Spiritual/emotional support [] Crisis/trauma care [] Spiritual counseling [] Bereavement support [] Provided bereavement packet [] Provided Bible/devotional materials [] Provided toy/stuffed animal, coloring book to patient or family member [] Provided Communion [] Anointing/[place] [] Salvation [x] Completed spiritual assessment [] Other: Impact on Illness or Injury [] Angry [] Fearful [] Anxious [] Often cries [] Exhaustion [] Unable to work [] Unable to attend druze [] Unable to walk/stand [] Unable to read [] Unable to drive [] Unable to eat/drink [] Unable to sleep [] Unable to be with family [] Patient intubated [] Other: Summary Time spent with patient
[2022-03-16 18:01] LABS: Bilirubin Urine Neg (Negative); Blood Urine 3+ (Negative); Glucose Urine UA Norm (Normal); Ketones Urine 1+ (Negative); Nitrate Urine Negative (Negative); Protein Urine Neg (Negative); Urine Appearance Hazy (CLEAR); Urine Color Yellow (Yellow); pH Urine 6 (5-7)
[2022-03-16 18:02] LABS: Add Urine Microscopic? YES; Leukocyte Esterase Urine Negative (Negative); Urobilinogen Urine Norm (Negative)
[2022-03-16 18:06] LABS: Bacteria Urine 1+ /hpf; RBC Urine 40-50 /hpf (0-2); Squamous Epithelial Cell Urine 0-4 /hpf (0-5); WBC Urine 0-4 /hpf (0-5)
[2022-03-16 18:07] LABS: Add Urine Culture? No
--- NOTE | 2022-03-16 20:33 | PM.PN ---
Subjective Subjective: This morning he initially denied any additional nausea or vomiting. However, later on with GoLytely had an episode of vomiting. Vitals/I&O/Wt Last Vital Signs Temp 98.4 F 03/16/22 05:35 Pulse 92 03/16/22 20:03 Resp 21 H 03/16/22 19:55 BP 173/90 03/16/22 17:00 Pulse Ox 97 03/16/22 19:55 O2 Del Method 03/16/22 19:55 O2 Flow Rate 4 03/16/22 19:55 03/16/22 03/16/22 03/16/22 06:59 14:59 22:59 Intake Total 0 / 500 1000 / 1000 902 / 1902 Output Total 500 / 500 475 / 475 Balance -500 / 0 1000 / 1000 427 / 1427 Weight last 48 hrs Weight 58.627 kg Weight 53.07 kg Physical Exam Const: COMMON NORMALS: patient oriented x3 and alert GENERAL APPEARANCE: cooperative ORIENTATION/CONSCIOUSNESS: Yes awake HENMT: COMMON NORMALS: oropharynx normal OTHER: NGT in place Neck/C-Spine: COMMON NORMALS: no JVD Resp: COMMON NORMALS: normal respiratory effort and clear to auscultation bilaterally AUSCULTATION: clear to auscultation bilaterally Cardio: COMMON NORMALS: no JVD, regular rhythm, S1 normal heart sound present, S2 normal heart sound present and No murmurs present (Cardio) RHYTHM: regular rhythm HEART SOUNDS: S1 normal heart sound present and S2 normal heart sound present GI: COMMON NORMALS: Normal to inspection, nondistended, normoactive bowel sounds present, Soft to palpation and non-tender PALPATION: Yes Soft to palpation Extremity: COMMON NORMALS: no joint enlargement and no pedal edema Neuro: COMMON NORMALS: patient oriented x3 and moves all extremities SENSORIUM/ORIENTATION: Yes alert Skin: COMMON NORMALS: no rashes or lesions noted GENERAL SKIN EXAM: no rashes or lesions noted Data : 03/16/22 03:25 03/16/22 03:25 A&P Assessment and plan (1) Small bowel obstruction: NGT to LIS. This morning had trial of GoLytely, although accompanied with episode of vomiting. Continue n.p.o. bowel rest. Gentle IV hydration. Supportive care, antiemetics. Surgical follow-up. Status: Acute (2) Chronic obstructive pulmonary disease: Status: Acute Plan History of suprapubic catheter malfunction, now with Garcia catheter, will obtain a UA. Was supposed to have suprapubic catheter reinserted on , but canceled the appointment due to need to stay in the hospital. COPD, not in exacerbation Attestations Medical Necessity Statement*: Continue admission for assessment of management of small bowel obstruction. Coding Level of Care Code Acute Bottling Line Attendant for [facility] Diagnoses Small bowel obstruction K56.609 Chronic obstructive pulmonary disease J44.9
[2022-03-16] MEDS: promethazine 25 mg/mL SDV 1 mL IM (21:17)
[2022-03-16] MEDS: enoxaparin 40 mg/0.4 mL Syringe SUBCUT (22:15)
[2022-03-17] VITALS (37 sets, daily range): BP systolic 118–185; BP diastolic 59–101; PULSE 90–126; RESP 16–31; TEMP 36.8–37.4; O2SAT 90–97
[2022-03-17] MEDS: sodium chloride 0.9% 1,000 ML 125 ML IV ×2 (02:29→10:32)
[2022-03-17] MEDS: ipratropium-albuterol 3 mL Neb INHALATION ×4 (02:35→21:07)
[2022-03-17] MEDS: HYDROmorphone 1 mg/mL INJ 1 mL 0.5 MG IVP ×4 (02:51→20:40)
[2022-03-17 04:15] LABS: Basophils % 0.2 %; Hematocrit 32.6 % (42.0-52.0); Hemoglobin 10.3 g/dL (11.7-16.6); Lymphocytes # 0.7 10^3/uL (0.8-4.8); Lymphocytes % 5.8 %; Mean Corpuscular HGB Conc 31.6 g/dL (30.0-36.0); Mean Corpuscular Hemoglobin 33.2 pg (28.0-34.0); Mean Corpuscular Volume 105.2 fl (80-94); Mean Platelet Volume 11.6 fL (7.4-10.4); Monocytes # 0.9 10^3/uL (0.2-0.9); Monocytes % 7.9 %; Neutrophils % 85.7 %; Nucleated Red Blood Cells % 0 %; Platelet Count 162 10^3/cmm (130-400); Red Cell Distribution Width 11.5 % (12.1-15.1); White Blood Count 11.3 10^3/uL (4.0-10.0)
[2022-03-17 06:19] LABS: Alanine Aminotransferase 11 U/L (0-41); Albumin Level 3.7 g/dL (3.5-5.2); Alkaline Phosphatase 63 U/L (40-130); Anion Gap 11.5 (5-19); Aspartate Amino Transferase 19 U/L (0-40); Blood Urea Nitrogen 21 mg/dL (8-23); C Reactive Protein 28.4 mg/L (0.0-4.9); Calcium 8.8 mg/dL (8.5-10.5); Carbon Dioxide 36 mmol/L (22-29); Chloride 97 mmol/L (98-107); Globulin 2.5 g/dL (1.3-4.6); Glucose 114 mg/dL (65-115); Magnesium 1.9 mg/dL (1.7-2.3); Osmolality Calculated 294 mOsm/kg (285-295); Phosphorus 2.9 mg/dL (2.5-4.5); Potassium 4.5 mmol/L (3.5-5.1); Sodium 140 mmol/L (136-145); Total Bilirubin 0.4 mg/dL (0.15-1.2); Total Protein 6.2 g/dL (6.6-8.7)
[2022-03-17 06:25] LABS: Procalcitonin 0.13 ng/mL (0-0.5)
--- NOTE | 2022-03-17 07:10 | PC.NURSE ---
Physician communication Dr. Lee at patient bedside. Colostomy output and decreased urinary output relayed. Verbal order to administer 1500 ml Golytely PO via NG tube over 8 hours. Following administration, permissable to leave NG clamped unless patient complains of nausea; if nauseous, low intermittent suction for comfort.
[2022-03-17] MEDS: peg /e-lyte soln 4,000 mL Btl 1500 ML PO (07:54)
[2022-03-17] MEDS: montelukast sodium 10 mg Tablet PO (08:00)
--- NOTE | 2022-03-17 09:09 | P.PN_ITS ---
Subjective Subjective: Patient was seen and examined today, little progress in response to the GoLytely. Yet patient passing gas Medications: Reviewed: Yes Vitals/I&O/Wt Last Vital Signs Temp 99.3 F 03/17/22 04:00 Pulse 107 H 03/17/22 08:30 Resp 16 03/17/22 08:30 BP 160/87 03/17/22 08:00 Pulse Ox 97 03/17/22 08:30 O2 Del Method 03/17/22 08:30 O2 Flow Rate 3.5 03/17/22 08:30 03/16/22 03/17/22 03/17/22 22:59 06:59 14:59 Intake Total 977 / 1976 1090 / 3067 Output Total 475 / 475 430 / 905 Balance 502 / 1502 660 / 2162 Weight last 48 hrs Weight 129 lb 4 oz Weight 117 lb Physical Exam Narrative: Patient is conscious alert oriented X3 No apparent distress BMI 19 Head and neck examination PERRLA no masses no cervical lymphadenopathy no jaundice NG in place Abdomen nontender mildly distended soft no organomegaly guarding or rigidity/no signs of peritonitis Stoma in place with gas in the bag and minimal output Urinary Catheter Management: Garcia: Cath Placed During This Visit: no Reason for Continuing Indwelling Catheter: Accurate Measurement of Urinary Output in Critically Ill Patients Data : 03/17/22 03:17 03/17/22 05:34 A&P Assessment and plan (1) Small bowel obstruction: We will continue GoLytely slowly Repeated physical examination. Strict I's and O's Continue IV fluid resuscitation Thank you for consulting general surgery to participate taking care Mr. Ba Status: Acute Attestations Medical Necessity Statement*: Patient requiring admission passing 2 midnights during this hospitalization till resolution of bowel obstruction Coding Level of Care Code Acute Branch Lead for [facility] Fwd Diagnoses Small bowel obstruction K56.609
[2022-03-17] MEDS: pantoprazole 40 mg SDV IVP ×2 (10:33→22:12)
--- NOTE | 2022-03-17 12:10 | P.PN_ITS ---
Subjective Subjective: Reports having some vomiting yesterday, no vomiting today. Required pain medication and breathing treatment this morning, and feels now should be able to try to get some sleep. Vitals/I&O/Wt Last Vital Signs Temp 99.3 F 03/17/22 04:00 Pulse 107 H 03/17/22 08:30 Resp 16 03/17/22 08:30 BP 160/87 03/17/22 08:00 Pulse Ox 97 03/17/22 08:30 O2 Del Method 03/17/22 08:30 O2 Flow Rate 3.5 03/17/22 08:30 03/16/22 03/17/22 03/17/22 22:59 06:59 14:59 Intake Total 977 / 1977 1090 / 3067 1000 / 1000 Output Total 475 / 475 430 / 905 Balance 502 / 1502 660 / 2162 1000 / 1000 Weight last 48 hrs Weight 58.627 kg Weight 53.07 kg Physical Exam Const: COMMON NORMALS: patient oriented x3 and alert GENERAL APPEARANCE: cooperative and frail appearing ORIENTATION/CONSCIOUSNESS: Yes awake HENMT: COMMON NORMALS: oropharynx normal OTHER: NGT in place Neck/C-Spine: COMMON NORMALS: no JVD Resp: COMMON NORMALS: normal respiratory effort and clear to auscultation bilaterally AUSCULTATION: clear to auscultation bilaterally Cardio: COMMON NORMALS: no JVD, regular rhythm, S1 normal heart sound present, S2 normal heart sound present and No murmurs present (Cardio) RHYTHM: regular rhythm HEART SOUNDS: S1 normal heart sound present and S2 normal heart sound present GI: COMMON NORMALS: Normal to inspection, nondistended, normoactive bowel sounds present, Soft to palpation and non-tender AUSCULTATION: Yes Hypoactive bowel sounds present PALPATION: Yes Soft to palpation Extremity: COMMON NORMALS: no joint enlargement and no pedal edema Neuro: COMMON NORMALS: patient oriented x3 and moves all extremities SENSORIUM/ORIENTATION: Yes alert Skin: COMMON NORMALS: no rashes or lesions noted GENERAL SKIN EXAM: no latoya hes or lesions noted Urinary Catheter Management: Garcia: Cath Placed During This Visit: no Reason for Continuing Indwelling Catheter: Accurate Measurement of Urinary Output in Critically Ill Patients Data : 03/17/22 03:17 03/17/22 05:34 A&P Assessment and plan (1) Small bowel obstruction: Output from NGT appears lower. Continue bowel rest. Continues with trial of GoLytely per surgery. Gentle IV hydration. Supportive care, antiemetics. Surgical follow-up. Status: Acute (2) Chronic obstructive pulmonary disease: Status: Acute Plan History of suprapubic catheter malfunction, now with Garcia catheter, will obtain a UA. Was supposed to have suprapubic catheter reinserted on , but canceled the appointment due to need to stay in the hospital. COPD, not in exacerbation Attestations Medical Necessity Statement*: Continue admission for assessment management of SBO. Coding Level of Care Code Acute Machine Or Machinery Mechanic for [facility] Fwd Diagnoses Small bowel obstruction K56.609 Chronic obstructive pulmonary disease J44.9
[2022-03-17] MEDS: ondansetron 2 mg/ML SDV 2 mL 4 MG IVP ×3 (12:37→20:40)
[2022-03-17] MEDS: enoxaparin 40 mg/0.4 mL Syringe SUBCUT (22:13)
[2022-03-18] VITALS (16 sets, daily range): BP systolic 129–155; BP diastolic 65–68; PULSE 85–120; RESP 12–24; TEMP 36.7–37.7; O2SAT 91–99
[2022-03-18] MEDS: ipratropium-albuterol 3 mL Neb INHALATION ×5 (00:39→20:53)
[2022-03-18] MEDS: ondansetron 2 mg/ML SDV 2 mL 4 MG IVP (02:36)
[2022-03-18] MEDS: HYDROmorphone 1 mg/mL INJ 1 mL 0.5 MG IVP (02:36)
[2022-03-18 05:04] LABS: Hemoglobin 8.5 g/dL (11.7-16.6); Lymphocytes # 0.4 10^3/uL (0.8-4.8); Lymphocytes % 3.5 %; Mean Corpuscular HGB Conc 30.4 g/dL (30.0-36.0); Mean Corpuscular Hemoglobin 32.1 pg (28.0-34.0); Mean Corpuscular Volume 105.7 fl (80-94); Mean Platelet Volume 10.3 fL (7.4-10.4); Monocytes # 1.1 10^3/uL (0.2-0.9); Monocytes % 10.4 %; Neutrophils # 8.72 10^3/uL (1.8-7.7); Neutrophils % 85.4 %; Nucleated Red Blood Cells % 0 %; Platelet Count 160 10^3/cmm (130-400); Red Blood Count 2.65 10^6/uL (4.1-5.3); Red Cell Distribution Width 11.8 % (12.1-15.1); White Blood Count 10.2 10^3/uL (4.0-10.0)
[2022-03-18 05:11] LABS: Procalcitonin 0.29 ng/mL (0-0.5)
[2022-03-18 05:23] LABS: Alanine Aminotransferase 11 U/L (0-41); Alkaline Phosphatase 48 U/L (40-130); Anion Gap 9.9 (5-19); Aspartate Amino Transferase 18 U/L (0-40); Blood Urea Nitrogen 24 mg/dL (8-23); C Reactive Protein 86.7 mg/L (0.0-4.9); Carbon Dioxide 35 mmol/L (22-29); Chloride 102 mmol/L (98-107); Globulin 2.2 g/dL (1.3-4.6); Glucose 82 mg/dL (65-115); Magnesium 1.8 mg/dL (1.7-2.3); Osmolality Calculated 299 mOsm/kg (285-295); Phosphorus 2.3 mg/dL (2.5-4.5); Potassium 3.9 mmol/L (3.5-5.1); Sodium 143 mmol/L (136-145); Total Bilirubin 0.2 mg/dL (0.15-1.2); Total Protein 5.2 g/dL (6.6-8.7)
[2022-03-18] MEDS: pantoprazole 40 mg SDV IVP ×2 (08:45→21:29)
--- NOTE | 2022-03-18 08:56 | PC.SOCIAL ---
IMM updated Copy of page 2 provided to pt at bedside. Patient verbalized understanding. Initialed, dated, & timed a copy & placed in chart
--- NOTE | 2022-03-18 16:03 | XRR_ITS ---
PROCEDURE INFORMATION: Exam: XR Chest Exam date and time: 03/18/2022 4:09 PM Age: 76 years old Clinical indication: Dyspnea TECHNIQUE: Imaging protocol: Radiologic exam of the chest. Views: 1 view. COMPARISON: CR (CHEST, ) 03/15/2022 10:35 PM FINDINGS: Tubes, catheters and devices: Enteric tube tip terminates in the proximal aspect of the stomach. Side port is located within the distal esophagus. Lungs: Hyperinflated lungs. Medial left basilar opacity, likely reflecting atelectasis. Pleural spaces: Bilateral small volume pleural effusions. Left chest tube noted at the left lung base. No pneumothorax. Heart/Mediastinum: No cardiomegaly. Bones/joints: Visualized osseous structures are intact. XR/XR chest 1V portable [id number] IMPRESSION: 1. Bilateral small volume pleural effusions with left chest tube in place. Medial left basilar opacity, likely reflecting atelectasis. 2. Enteric tube tip is within the proximal stomach with the side port in the distal esophagus. Would suggest advancement of at least 7 cm.
--- NOTE | 2022-03-18 16:06 | P.PN_ITS ---
Subjective Subjective: He has not had any further vomiting. He is trialing some ice chips. He reports he had 2 loose bowel movements yesterday. GoLytely has been stopped. He has been more dyspneic and feels has not been getting oxygen due to clogged right nostril, and NG in the left nostril with a nasal cannula. Discussed with him if needed may hold cannula in his mouth which he tried and it is working for him for now until NG can come out. Vitals/I&O/Wt Last Vital Signs Temp 98.1 F 03/18/22 11:27 Pulse 89 03/18/22 15:14 Resp 22 H 03/18/22 15:14 BP 131/68 03/18/22 11:27 Pulse Ox 99 03/18/22 15:14 O2 Del Method 03/18/22 15:14 O2 Flow Rate 5 03/18/22 15:14 03/18/22 03/18/22 03/18/22 06:59 14:59 22:59 Intake Total 0 / 1000 Output Total 2600 / 2600 Balance -2600 / -1600 Weight last 48 hrs Weight 59.874 kg Physical Exam Const: COMMON NORMALS: patient oriented x3 and alert GENERAL APPEARANCE: cooperative and frail appearing ORIENTATION/CONSCIOUSNESS: Yes awake HENMT: COMMON NORMALS: oropharynx normal OTHER: NGT in place Neck/C-Spine: COMMON NORMALS: no JVD Resp: COMMON NORMALS: normal respiratory effort AUSCULTATION: diminished lung sounds Cardio: COMMON NORMALS: no JVD, regular rhythm, S1 normal heart sound present, S2 normal heart sound present and No murmurs present (Cardio) RHYTHM: regular rhythm HEART SOUNDS: S1 normal heart sound present and S2 normal heart sound present GI: COMMON NORMALS: Normal to inspection, nondistended, normoactive bowel sounds present, Soft to palpation and non-tender AUSCULTATION: Yes Hypoactive bowel sounds present PALPATION: Yes Soft to palpation Extremity: COMMON NORMALS: no joint enlargement and no pedal edema Neuro: COMMON NORMALS: patient oriented x3 and moves all extremities SEN SORIUM/ORIENTATION: Yes alert Skin: COMMON NORMALS: no rashes or lesions noted GENERAL SKIN EXAM: no rashes or lesions noted Urinary Catheter Management: Garcia: Cath Placed During This Visit: no Reason for Continuing Indwelling Catheter: Accurate Measurement of Urinary Output in Critically Ill Patients Data : 03/18/22 03:35 03/18/22 03:35 Micro: Microbiology 03/16/22 17:45 Urine Culture - Preliminary Urine Suprapubic Staphylococcus sp coag neg A&P Assessment and plan (1) Small bowel obstruction: Has had a bowel movement. GoLytely stopped. NG is clamped. He is trialing s ome ice chips. IVF were discontinued as he had no further vomiting, and also was becoming dyspneic. Supportive care, antiemetics. Surgical follow-up. Status: Acute (2) Chronic obstructive pulmonary disease: He is having dyspnea, in part due to congestion in the right nostril, NGT in the left nostril, and feels he is not getting oxygen well enough through the nasal cannula. We tried wearing thickened on his mouth and it is working for him for now. Hopefully NGT may be able to come out soon. As he is more dyspneic, hypoxia requiring more oxygen, 5 L nasal cannula currently, discussed with him also assessing chest x-ray. Aspiration pneumonitis also possibility given recent vomiting episodes. Add scheduled breathing treatments. Status: Acute Plan History of suprapubic catheter malfunction, now with Garcia catheter, will obtain a UA. Was supposed to have suprapubic catheter reinserted on , but canceled the appointment due to need to stay in the hospital. Attestations Medical Necessity Statement*: Continue admission for assessment management of partial bowel obstruction, hypoxia. Coding Level of Care Code Acute Computer Video Game Designer for [facility] Fwd Exam Comprehensive Diagnoses Small bowel obstruction K56.609 Chronic obstructive pulmonary disease J44.9
--- NOTE | 2022-03-18 17:26 | P.PN_ITS ---
Subjective Subjective: Patient had multiple bowel movements per stoma and feels a whole lot better, NG output is minimal and has been clamped Medications: Reviewed: Yes Vitals/I&O/Wt Last Vital Signs Temp 98.2 F 03/18/22 16:00 Pulse 92 03/18/22 16:00 Resp 16 03/18/22 16:00 BP 152/65 03/18/22 16:00 Pulse Ox 96 03/18/22 16:00 O2 Del Method 03/18/22 16:00 O2 Flow Rate 5 03/18/22 16:00 03/18/22 03/18/22 03/18/22 06:59 14:59 22:59 Intake Total 0 / 1000 Output Total 2600 / 2600 800 / 800 Balance -2600 / -1600 -800 / -800 Weight last 48 hrs Weight 132 lb Physical Exam Narrative: Patient is conscious alert oriented X3 No apparent distress BMI 19 Head and neck examination PERRLA no masses no cervical lymphadenopathy no jaundice NG in place Abdomen nontender,nondistended soft no organomegaly guarding or rigidity/no signs of peritonitis Stoma in place with gas in the bag and minimal output Urinary Catheter Management: Garcia: Cath Placed During This Visit: no Reason for Continuing Indwelling Catheter: Accurate Measurement of Urinary Output in Critically Ill Patients Data : 03/18/22 03:35 03/18/22 03:35 Micro: Microbiology 03/16/22 17:45 Urine Culture - Preliminary Urine Suprapubic Staphylococcus sp coag neg A&P Assessment and plan (1) Small bowel obstruction: DC NG tube Start the patient on clear liquid Patient can be discharged home tomorrow once he continues to tolerate p.o. in take Education regarding stool softeners and hydration Return to surgery office for colonoscopy arrangement Thank you for consulting general surgery to participate taking care Mr. Ba Status: Acute Attestations Medical Necessity Statement*: Per admitting service Coding Level of Care Code Acute Float Builder for [facility] Diagnoses Small bowel obstruction K56.609
[2022-03-18] MEDS: enoxaparin 40 mg/0.4 mL Syringe SUBCUT (21:30)
[2022-03-19] VITALS (17 sets, daily range): BP systolic 75–179; BP diastolic 67–86; PULSE 68–90; RESP 13–22; TEMP 36.6–37.1; O2SAT 95–98
[2022-03-19] MEDS: ipratropium-albuterol 3 mL Neb INHALATION ×7 (00:19→23:16)
[2022-03-19 04:52] LABS: Basophils % 0.1 %; Eosinophils % 0.1 %; Hematocrit 28.3 % (42.0-52.0); Hemoglobin 9.2 g/dL (11.7-16.6); Lymphocytes # 0.6 10^3/uL (0.8-4.8); Lymphocytes % 6.5 %; Mean Corpuscular HGB Conc 32.5 g/dL (30.0-36.0); Mean Corpuscular Hemoglobin 35.4 pg (28.0-34.0); Mean Corpuscular Volume 108.8 fl (80-94); Mean Platelet Volume 9.8 fL (7.4-10.4); Monocytes # 0.8 10^3/uL (0.2-0.9); Monocytes % 8.7 %; Neutrophils # 7.22 10^3/uL (1.8-7.7); Neutrophils % 84.1 %; Nucleated Red Blood Cells % 0 %; Platelet Count 154 10^3/cmm (130-400); Red Cell Distribution Width 11.7 % (12.1-15.1); White Blood Count 8.6 10^3/uL (4.0-10.0)
[2022-03-19 05:22] LABS: Anion Gap 9.7 (5-19); Blood Urea Nitrogen 18 mg/dL (8-23); Calcium 8.5 mg/dL (8.5-10.5); Carbon Dioxide 36 mmol/L (22-29); Chloride 100 mmol/L (98-107); Glucose 81 mg/dL (65-115); Osmolality Calculated 295 mOsm/kg (285-295); Potassium 3.7 mmol/L (3.5-5.1); Sodium 142 mmol/L (136-145)
[2022-03-19] MEDS: pantoprazole 40 mg SDV IVP ×2 (12:27→21:56)
--- NOTE | 2022-03-19 15:34 | PM.PN ---
Subjective Subjective: His NGT has been removed. He is tolerating clear liquid diet. However, he has been persistently dyspneic. Getting dyspneic with minimal activity. Without chest pain or pressure. Vitals/I&O/Wt Last Vital Signs Temp 97.9 F 03/19/22 12:00 Pulse 79 03/19/22 12:00 Resp 19 H 03/19/22 12:00 BP 75/71 03/19/22 12:00 Pulse Ox 97 03/19/22 12:00 O2 Del Method 03/19/22 11:46 O2 Flow Rate 4 03/19/22 11:46 03/19/22 03/19/22 03/19/22 06:59 14:59 22:59 Intake Total 120 / 1480 720 / 720 Output Total 350 / 1500 Balance -230 / -20 720 / 720 Weight last 48 hrs Weight 59.874 kg Physical Exam Const: COMMON NORMALS: patient oriented x3 and alert GENERAL APPEARANCE: cooperative and frail appearing ORIENTATION/CONSCIOUSNESS: Yes awake HENMT: COMMON NORMALS: oropharynx normal OTHER: NGT in place Neck/C-Spine: COMMON NORMALS: no JVD Resp: COMMON NORMALS: normal respiratory effort AUSCULTATION: wheezes (Faint wheeze RLE) and diminished lung sounds Cardio: COMMON NORMALS: no JVD, regular rhythm, S1 normal heart sound present, S2 normal heart sound present and No murmurs present (Cardio) RHYTHM: regular rhythm HEART SOUNDS: S1 normal heart sound present and S2 normal heart sound present GI: COMMON NORMALS: Normal to inspection, nondistended, normoactive bowel sounds present, Soft to palpation and non-tender AUSCULTATION: Yes Hypoactive bowel sounds present PALPATION: Yes Soft to palpation Extremity: COMMON NORMALS: no joint enlargement and no pedal edema Neuro: COMMON NORMALS: patient oriented x3 and moves all extremities SENSORIUM/ORIENTATION: Yes alert Skin: COMMON NORMALS: no rashes or lesions noted GENERAL SKIN EXAM: no rashes or lesions noted Urinary Catheter Management: Garcia: Cath Placed During This Visit: no Reason for Continuing Indwelling Catheter: Acute Urinary Retention or Obstruction Data : 03/19/22 04:35 03/19/22 04:35 A&P Assessment and plan (1) Chronic obstructive pulmonary disease: COPD with exacerbation, more wheezing, dyspnea with minimal exertion. Does not appear fluid overloaded at least at this time. Discussed with him and his spouse. We will add IV steroid, empirically add ceftriaxone for now as well. Breathing treatments were added scheduled, continue as needed as well. Continue his home oxygen 4 L nasal cannula. Aspiration pneumonitis also possibility given recent vomiting episodes. Status: Acute (2) Small bowel obstruction: So far is improved. NGT had been removed. Tolerating clear liquids. From this perspective he is doing better. Status: Acute Plan History of suprapubic catheter malfunction, now with Garcia catheter, will obtain a UA. Was supposed to have suprapubic catheter reinserted on , but canceled the appointment due to need to stay in the hospital. Attestations Medical Necessity Statement*: Continue admission for this management of worsened dyspnea, COPD exacerbation, possible aspiration pneumonitis. Coding Level of Care Code Acute Form Setter Steel Pan Forms for [facility] Fwd Exam Comprehensive Diagnoses Chronic obstructive pulmonary disease J44.9 Small bowel obstruction K56.609
[2022-03-19] MEDS: cefTRIAXone 1,000 MG in sodium chloride 0.9% (plus) 50 ML 100 MG IV (17:53)
[2022-03-19] MEDS: enoxaparin 40 mg/0.4 mL Syringe SUBCUT (21:56)
[2022-03-20] VITALS (12 sets, daily range): BP systolic 156–184; BP diastolic 64–87; PULSE 76–88; RESP 16–18; TEMP 36.5–36.8; O2SAT 93–100
[2022-03-20] MEDS: ipratropium-albuterol 3 mL Neb INHALATION ×6 (03:08→23:36)
[2022-03-20 04:42] LABS: Hemoglobin 10.5 g/dL (11.7-16.6); Lymphocytes # 0.2 10^3/uL (0.8-4.8); Lymphocytes % 4.3 %; Mean Corpuscular HGB Conc 32.8 g/dL (30.0-36.0); Mean Corpuscular Hemoglobin 33.8 pg (28.0-34.0); Mean Corpuscular Volume 102.9 fl (80-94); Monocytes # 0.1 10^3/uL (0.2-0.9); Monocytes % 1.2 %; Neutrophils # 4.79 10^3/uL (1.8-7.7); Neutrophils % 94.1 %; Nucleated Red Blood Cells % 0 %; Platelet Count 162 10^3/cmm (130-400); Red Blood Count 3.11 10^6/uL (4.1-5.3); Red Cell Distribution Width 11.4 % (12.1-15.1); White Blood Count 5.1 10^3/uL (4.0-10.0)
[2022-03-20 07:48] LABS: Anion Gap 7.5 (5-19); Blood Urea Nitrogen 11 mg/dL (8-23); Calcium 8.5 mg/dL (8.5-10.5); Carbon Dioxide 40 mmol/L (22-29); Chloride 97 mmol/L (98-107); Glucose 152 mg/dL (65-115); Osmolality Calculated 292 mOsm/kg (285-295); Potassium 4.5 mmol/L (3.5-5.1); Sodium 140 mmol/L (136-145)
--- NOTE | 2022-03-20 09:17 | PC.SOCIAL ---
IMM Updated Updated pt on IMM. No questions voiced. Provided pt a copy. Initialed, dated, & timed copy in chart.
[2022-03-20] MEDS: pantoprazole 40 mg SDV IVP ×2 (09:27→22:10)
--- NOTE | 2022-03-20 12:16 | PM.PN ---
Subjective Subjective: Pain controlled. Denies any nausea or emesis. Positive BM/flatus Vitals/I&O/Wt Last Vital Signs Temp 98.2 F 03/20/22 08:00 Pulse 80 03/20/22 11:23 Resp 18 03/20/22 11:23 BP 184/84 03/20/22 08:00 Pulse Ox 99 03/20/22 11:23 O2 Del Method 03/20/22 11:23 O2 Flow Rate 4 03/20/22 11:23 03/19/22 03/20/22 03/20/22 22:59 06:59 14:59 Intake Total 530 / 1250 140 / 1390 Output Total 850 / 850 375 / 1225 Balance -320 / 400 -235 / 165 Physical Exam Narrative: Patient is conscious alert oriented X3 No apparent distress BMI 19 Head and neck examination PERRLA no masses no cervical lymphadenopathy no jaundice Abdomen nontender,nondistended soft no organomegaly guarding or rigidity/no signs of peritonitis Stoma in place with gas in the bag and minimal output Urinary Catheter Management: Garcia: Cath Placed During This Visit: no Reason for Continuing Indwelling Catheter: Acute Urinary Retention or Obstruction Data : 03/20/22 04:06 03/20/22 06:53 Micro: Microbiology 03/16/22 17:45 Urine Culture - Final Urine Suprapubic Staphylococcus epidermidis A&P Assessment and plan (1) Small bowel obstruction: Advance to soft diet Surgically stable for discharge if tolerating soft diet Follow-up in office with Dr. Lee for colonoscopy Status: Acute Attestations Medical Necessity Statement*: Further hospitalization per hospitalist Coding Level of Care Code Acute Retail Service Specialist for [facility] Diagnoses Small bowel obstruction K56.609
[2022-03-20] MEDS: cefTRIAXone 1,000 MG in sodium chloride 0.9% (plus) 50 ML 100 MG IV (18:18)
--- NOTE | 2022-03-20 20:24 | PM.PN ---
Subjective Subjective: He is feeling somewhat better today. He is coughing up thick beige/red purulent appearing sputum. Today he feels he is not getting quite as dyspneic with exertion. Tolerating oral intake. Requests to advance his diet. Vitals/I&O/Wt Last Vital Signs Temp 98 F 03/20/22 20:00 Pulse 77 03/20/22 20:00 Resp 16 03/20/22 20:00 BP 171/64 03/20/22 20:00 Pulse Ox 98 03/20/22 20:00 O2 Del Method 03/20/22 19:59 O2 Flow Rate 4 03/20/22 19:59 03/20/22 03/20/22 03/20/22 06:59 14:59 22:59 Intake Total 140 / 1390 120 / 120 50 / 170 Output Total 375 / 1225 Balance -235 / 165 120 / 120 50 / 170 Physical Exam Narrative: at bedside. Const: COMMON NORMALS: patient oriented x3 and alert GENERAL APPEARANCE: cooperative and frail appearing ORIENTATION/CONSCIOUSNESS: Yes awake HENMT: COMMON NORMALS: oropharynx normal Neck/C-Spine: COMMON NORMALS: no JVD Resp: COMMON NORMALS: normal respiratory effort AUSCULTATION: wheezes (Faint BL LL wheeze) and diminished lung sounds Cardio: COMMON NORMALS: no JVD, regular rhythm, S1 normal heart sound present, S2 normal heart sound present and No murmurs present (Cardio) RHYTHM: regular rhythm HEART SOUNDS: S1 normal heart sound present and S2 normal heart sound present GI: COMMON NORMALS: Normal to inspection, nondistended, normoactive bowel sounds present, Soft to palpation and non-tender AUSCULTATION: Yes Hypoactive bowel sounds present PALPATION: Yes Soft to palpation Extremity: COMMON NORMALS: no joint enlargement and no pedal edema Neuro: COMMON NORMALS: patient oriented x3 and moves all extremities SENSORIUM/ORIENTATION: Yes alert Skin: COMMON NORMALS: no rashes or lesions noted GENERAL SKIN EXAM: no rashes or lesions noted Urinary Catheter Management: Garcia: Cath Placed During This Visit: no Reason for Continuing Indwelling Catheter: Acute Urinary Retention or Obstruction Data : 03/20/22 04:06 03/20/22 06:53 Micro: Microbiology 03/16/22 17:45 Urine Culture - Final Urine Suprapubic Staphylococcus epidermidis A&P Assessment and plan (1) Chronic obstructive pulmonary disease: COPD exacerbation showing gradual improvement. He is still coughing, coughing up thick purulent appearing sputum with mixed red blood. Requesting sputum culture. Add Mucinex. Monitor for any worsening of hemoptysis. Symptomatically he is feeling better, not quite as dyspneic, not with minimal exertion. If continues to do better, perhaps may be able to transition to oral steroid, possibly discharge home within the next day or 2. COPD with exacerbation, more wheezing, dyspnea with minimal exertion. Does not appear fluid overloaded at least at this time. Ceftriaxone, breathing treatments Continue his home oxygen 4 L nasal cannula. Aspiration pneumonitis also possibility given recent vomiting episodes. Status: Acute (2) Small bowel obstruction: So far is improved. NGT had been removed. Trial of advancing diet. Status: Acute Plan History of suprapubic catheter malfunction, now with Garcia catheter, will obtain a UA. Was supposed to have suprapubic catheter reinserted on , but canceled the appointment due to need to stay in the hospital. Attestations Medical Necessity Statement*: Continue admission for assessment of management of COPD exacerbation with severe dyspnea. Coding Level of Care Code Acute Riffler Tender for [facility] Fwd Diagnoses Chronic obstructive pulmonary disease J44.9 Small bowel obstruction K56.609
[2022-03-20] MEDS: enoxaparin 40 mg/0.4 mL Syringe SUBCUT (22:10)
[2022-03-21] VITALS (12 sets, daily range): BP systolic 147–156; BP diastolic 70–80; PULSE 71–91; RESP 16–19; TEMP 36.7–37.1; O2SAT 95–100
[2022-03-21] MEDS: ipratropium-albuterol 3 mL Neb INHALATION ×5 (03:28→21:25)
[2022-03-21 05:06] LABS: Hematocrit 28.2 % (42.0-52.0); Hemoglobin 9.6 g/dL (11.7-16.6); Lymphocytes # 0.2 10^3/uL (0.8-4.8); Lymphocytes % 3.1 %; Mean Corpuscular Volume 105.6 fl (80-94); Mean Platelet Volume 10.3 fL (7.4-10.4); Monocytes # 0.5 10^3/uL (0.2-0.9); Monocytes % 6.9 %; Neutrophils # 6.74 10^3/uL (1.8-7.7); Neutrophils % 89.7 %; Nucleated Red Blood Cells % 0 %; Platelet Count 205 10^3/cmm (130-400); Red Blood Count 2.67 10^6/uL (4.1-5.3); Red Cell Distribution Width 11.1 % (12.1-15.1); White Blood Count 7.5 10^3/uL (4.0-10.0)
[2022-03-21 05:36] LABS: Blood Urea Nitrogen 13 mg/dL (8-23); Calcium 8.4 mg/dL (8.5-10.5); Chloride 97 mmol/L (98-107); Glucose 141 mg/dL (65-115); Osmolality Calculated 290 mOsm/kg (285-295); Sodium 139 mmol/L (136-145)
[2022-03-21 05:42] LABS: Carbon Dioxide 41 mmol/L (22-29)
[2022-03-21] MEDS: pantoprazole 40 mg SDV IVP ×2 (08:37→21:33)
--- NOTE | 2022-03-21 16:24 | XRR_ITS ---
PROCEDURE INFORMATION: Exam: XR Chest Exam date and time: 03/21/2022 4:38 PM Age: 76 years old Clinical indication: Dyspnea; Additional info: Worsening dyspnea TECHNIQUE: Imaging protocol: Radiologic exam of the chest. Views: 1 view. COMPARISON: CR XR chest 1V portable [id number] 03/18/2022 4:09 PM FINDINGS: Lungs: Hyperinflated lungs. Curvilinear opacity along the peripheral left lung base likely atelectasis or scarring. Pleural spaces: No evident pleural effusion. No pneumothorax. Heart/Mediastinum: Unremarkable. No cardiomegaly. Bones/joints: Visualized osseous structures are intact. XR/XR chest 1V portable [id number] IMPRESSION: No acute findings.
[2022-03-21] MEDS: cefTRIAXone 1,000 MG in sodium chloride 0.9% (plus) 50 ML 100 MG IV (16:26)
--- NOTE | 2022-03-21 16:26 | USCV_ITS ---
BaWalkerDoroteo Age: 76 Gender: M : 1945 Exam Date: 03/21/2022 19:51 Ordering Phys: Rebecca Crespo MD Technologist: BELKIS [place] [facility] [place]: worsening dyspnea BP: 150 / 71 HR: 84 Rhythm: Sinus Technical Quality: Adequate MEASUREMENTS (Male / Female) Normal Values 2D ECHO LV Diastolic Diameter PLAX 3.4 cm 4.2 - 5.9 / 3.9 - 5.3 cm LV Systolic Diameter PLAX 2.1 cm IVS Diastolic Thickness 1.4 cm 0.6 - 1.0 / 0.6 - 0.9 cm IVS Systolic Thickness 1.7 cm LVPW Diastolic Thickness 1.0 cm 0.6 - 1.0 / 0.6 - 0.9 cm LVPW Systolic Thickness 1.5 cm LVOT Diameter 2.0 cm LV Ejection Fraction 2D Teich 70.7 % LV Ejection Fraction MOD 2C 62.1 % LV Ejection Fraction 2C AL 63.6 % LA Diameter 3.0 cm LA Width 3.1 cm LA Height 3.2 cm RA Width 4.5 cm RA Height 3.9 cm Aorta at Sinotubular Diameter 3.4 cm IVC Diameter 1.8 cm M-MODE Aortic Annulus Diameter 3.8 cm LA Ao Ratio MM 0.8 MV E Point Septal Separation 0.4 cm DOPPLER AV Peak Velocity 108.0 cm/s LVOT Peak Velocity 74.0 cm/s AV Area Cont Eq vti 2.2 cm squared AV Area Cont Eq pk 2.1 cm squared MV Peak Velocity 103.0 cm/s MV Area PHT 4.4 cm squared Mitral E to A Ratio 0.7 MV E' Velocity 34.0 cm/s Mitral E to MV E' Ratio 15.1 Mitral E to LV E' Lateral Ratio 11.7 Mitral E to LV E' Septal Ratio 21.9 TR Peak Velocity 269.0 cm/s TR Peak Gradient 28.9 mmHg TV Peak E Velocity 60.0 cm/s Right Atrial Pressure 5.0 mmHg Pulmonary Artery Systolic Pressu 33.9 mmHg PV Peak Velocity 94.0 cm/s RV Acceleration Time 0.1 s RV Ejection Time 0.3 s RV AcT/ET 0.4 FINDINGS Left Ventricle Left ventricle is normal in size. LV systolic function is normal with EF 60 to 65%. No regional wall motion abnormalities are seen. Mild left ventricular hypertrophy is noted. Grade 1 diastolic dysfunction is seen Right Ventricle Normal in size and function Right Atrium Normal in size Left Atrium Normal in size Mitral Valve Structurally normal mitral valve. Mild mitral regurgitation. Aortic Valve Aortic valve is thickened. No significant aortic stenosis or regurgitation is seen. Tricuspid Valve Trace tricuspid regurgitation. Insufficient TR jet to calculate RVSP Pulmonic Valve Grossly normal. Trace pulmonary insufficiency seen Pericardium Trace pericardial effusion is seen Aorta Normal in size IVC CONCLUSIONS LV systolic function is normal with EF of 60 to 65%. Mild left ventricular hypertrophy is seen. Grade 1 diastolic dysfunction is noted Mild mitral regurgitation seen. Trace tricuspid regurgitation seen. Trace pulmonary insufficiency noted. Trace pericardial effusion is noted. Compared to prior echocardiogram from 2019, no significant changes seen Marquis Mishra MD (Electronically Signed) Final Date: 22 March 2022 11:25 S
--- NOTE | 2022-03-21 16:27 | PM.PN ---
Subjective Subjective: Complains of worsening dyspnea. Patient has required extra nebulization today. He has bilateral wheezing at the time of examination. Also bringing up more sputum than usual. Medications: Reviewed: Yes Vitals/I&O/Wt Last Vital Signs Temp 98.7 F 03/21/22 12:00 Pulse 89 03/21/22 15:53 Resp 16 03/21/22 15:50 BP 150/71 03/21/22 15:48 Pulse Ox 98 03/21/22 15:50 O2 Del Method 03/21/22 15:50 O2 Flow Rate 4 03/21/22 15:50 03/21/22 03/21/22 03/21/22 06:59 14:59 22:59 Intake Total 550 / 550 Output Total 900 / 900 Balance -900 / -610 550 / 550 Physical Exam Narrative: General: No acute distress, AO x3 HEENT: PERRLA, pupils bilaterally equal and reactive, pallors not present Chest: Bilateral wheezing to auscultation CVS: S1-S2 regular, no murmurs, no tachycardia, no gallops, no rubs Abdomen: Soft, nontender, no organomegaly, bowel sounds present Neuro: No focal deficits, no facial deformity, AO x3, power 5/5 in all limbs Urinary Catheter Management: Garcia: Cath Placed During This Visit: no Reason for Continuing Indwelling Catheter: Acute Urinary Retention or Obstruction Data : 03/21/22 04:45 03/21/22 04:45 A&P Assessment and plan (1) Chronic obstructive pulmonary disease: COPD exacerbation showing gradual improvement. He is still coughing, coughing up thick purulent appearing sputum with mixed red blood. Requesting sputum culture. Add Mucinex. Monitor for any worsening of hemoptysis. Symptomatically he is feeling better, not quite as dyspneic, not with minimal exertion. If continues to do better, perhaps may be able to transition to oral steroid, possibly discharge home within the next day or 2. COPD with exacerbation, more wheezing, dyspnea with minimal exertion. Does not appear fluid overloaded at least at this time. Ceftriaxone, breathing treatments Continue his home oxygen 4 L nasal cannula. Aspiration pneumonitis also possibility given recent vomiting episodes. Plan for today: Add levofloxacin for atypical coverage, check EKG, echocardiogram to assess for pulmonary hypertension as being the cause of progressively worsening dyspnea in a patient with advanced COPD. Check COVID rapid antigen, influenza antigen which may be driving COPD exacerbation. Additionally screen with D-dimer for possibility of PE. Status: Acute (2) Small bowel obstruction: Resolved, he is tolerating p.o. intake Status: Acute Plan History of suprapubic catheter malfunction, now with Garcia catheter, will obtain a UA. Was supposed to have suprapubic catheter reinserted on , but canceled the appointment due to need to stay in the hospital. 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
--- NOTE | 2022-03-21 16:34 | ECG_ITS ---
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 Measurements Intervals [place] Rate: 91 P: 88 WI: 119 QRS: 70 QRSD: 110 T: 80 QT: 323 QTc: 399 Interpretive Statements SINUS RHYTHM WITH SHORT WI INTERVAL POSSIBLE ANTERIOR MYOCARDIAL INFARCTION , OF INDETERMINATE AGE [30 ms Q WAVE IN V3/V4, OR R < 0.2 mV IN V4] No previous ECG available for comparison Electronically Signed On 03-22-2022 7:31:07 CDT by Aspen Caba M.D. [id number]
[2022-03-21 17:59] LABS: D Dimer 4.67 ug/mIFEU (0-0.59)
[2022-03-21 20:34] LABS: Influenza A by IFA Negative (Negative); Influenza B by IFA Negative (Negative); SARS Covid-2 Antigen Negative (Negative)
[2022-03-21] MEDS: enoxaparin 40 mg/0.4 mL Syringe SUBCUT (21:33)
[2022-03-21] MEDS: hyDROXYzine 25 mg Capsule PO (21:33)
--- NOTE | 2022-03-21 22:56 | CTR_ITS ---
PROCEDURE INFORMATION: Exam: CTA Chest With Contrast Exam date and time: 03/21/2022 11:23 PM Age: 76 years old Clinical indication: Dyspnea; Additional info: Worsening dyspnea, elevated d dimer TECHNIQUE: Imaging protocol: Computed tomographic angiography of the chest with contrast. 3D rendering (Not supervised by radiologist): MIP and/or 3D reconstructed images were created by the technologist. Radiation optimization: All CT scans at this facility use at least one of these dose optimization techniques: automated exposure control; mA and/or kV adjustment per patient size (includes targeted exams where dose is matched to clinical indication); or iterative reconstruction. Contrast material: OMNI 350; Contrast volume: 95 ml; Contrast route: INTRAVENOUS (IV); COMPARISON: CT chest w con* [id number] 04/12/2021 1:56 PM RADIATION DOSE METRICS: Total DLP (mGy-cm): 209.21 FINDINGS: Pulmonary arteries: Small burden of acute pulmonary emboli in a segmental branch of the right upper lobe. Aorta: Unremarkable. No aortic aneurysm. No aortic dissection. Lungs: Calcified pulmonary nodule/nodules, consistent with prior granulomatous disease. Left lower lobe consolidation concerning for pneumonia. Pleural spaces: Small bilateral pleural effusions. Heart: Unremarkable. No cardiomegaly. No pericardial effusion. Heart RV/LV ratio: RV/LV ratio = 0.8. Lymph nodes: Calcified lymph nodes are present, secondary to prior granulomatous disease. Liver: 1.9 cm hepatic cyst. Kidneys and ureters: 10 cm left renal cyst. Bones/joints: Unremarkable. No acute fracture. Soft tissues: Unremarkable. CT/CT angio chest PE protcl [id number] IMPRESSION: 1. Small burden of acute pulmonary emboli. No right heart strain. 2. Small bilateral pleural effusions. 3. Left lower lobe consolidation concerning for pneumonia. COMMENTS: Consistent with the [employer]'s Incidental Findings Committee white paper (J Am Ar Radiol 2018): Any incidental renal lesion less than 1 cm or classified as too small to characterize, or any incidental cystic renal lesion characterized as simple-appearing, is likely benign. No follow-up imaging is recommended for these lesions per consensus recommendations based on imaging criteria.
[2022-03-21] MEDS: iohexol 350 mg/mL 100 mL Btl 95 ML IV (23:31)
[2022-03-22] VITALS (16 sets, daily range): BP systolic 132–166; BP diastolic 71–92; PULSE 77–96; RESP 16–20; TEMP 36.3–36.8; O2SAT 91–99
--- NOTE | 2022-03-22 00:23 | PC.NURSE ---
Patient asking for something to help him sleep. Dr. Dubose ordered Vistaril x1.
[2022-03-22] MEDS: enoxaparin 60 mg/0.6 mL Syringe 20 MG SUBCUT (00:33)
[2022-03-22] MEDS: ipratropium-albuterol 3 mL Neb INHALATION ×5 (03:16→20:49)
[2022-03-22] MEDS: predniSONE 20 mg Tablet 40 MG PO (04:16)
[2022-03-22] MEDS: pantoprazole 40 mg SDV IVP ×2 (08:56→20:29)
[2022-03-22] MEDS: levoFLOXacin 750 mg Tablet PO (08:57)
--- NOTE | 2022-03-22 09:12 | USCV_ITS ---
Doroteo Ba Age: 76 Gender: M : 1945 Exam Date: 03/22/2022 09:33 Ordering Phys: Rebecca Crespo MD Technologist: SAM [place] [facility] [place]/O PE HISTORY: Pulmonary embolism. PROCEDURES: Venous duplex imaging was performed in bilateral lower extremities. The following venous structures were evaluated: common femoral vein, profunda vein, proximal portion of the greater saphenous vein, superficial femoral vein, and the popliteal vein. In addition, the posterior tibial and peroneal trunk were evaluated. Serial compression, augmentation maneuvers, and spectral Doppler flow evaluation were performed. FINDINGS: Normal 2-D Doppler and augmentation and compressibility throughout the lower extremity venous structures. Additional imaging through the proximal calf veins also reveals no thrombus. Limited evaluation of the greater saphenous vein is patent with no thrombus. CONCLUSIONS No DVT bilateral lower extremities. Dr. Katherine James DO (Electronically Signed) Final Date: 22 March 2022 09:59 S
--- NOTE | 2022-03-22 10:53 | PC.SOCIAL ---
IMM update IMM updated with patient. Verbalized an understanding. Copy pg 2 provided. Initialled, dated, timed, and placed in chart.
--- NOTE | 2022-03-22 11:47 | PM.PN ---
Subjective Subjective: Patient continues to feel short of breath. Yesterday evening additional work-up was ordered given dyspnea that was out of proportion to physical findings. D-dimer was elevated which was followed up with a CTA and patient has been found to have a pulmonary embolism. Lower extremity Doppler has been ordered and taken this morning. Results are still pending. He was started on Lovenox overnight. Echocardiogram results are additionally pending to assess for right heart strain. Additionally noted to have left lower lobe consolidation. Medications: Reviewed: Yes Vitals/I&O/Wt Last Vital Signs Temp 98.0 F 03/22/22 11:40 Pulse 79 03/22/22 11:44 Resp 18 03/22/22 11:42 BP 132/73 03/22/22 11:40 Pulse Ox 96 03/22/22 11:42 O2 Del Method 03/22/22 11:42 O2 Flow Rate 4 03/22/22 11:42 03/21/22 03/22/22 03/22/22 22:59 06:59 14:59 Intake Total 490 / 1040 360 / 360 Output Total 1250 / 1250 Balance 490 / 1040 -1250 / -210 360 / 360 Physical Exam Narrative: General: No acute distress, AO x3 HEENT: PERRLA, pupils bilaterally equal and reactive, pallors not present Chest: Bilateral wheezing lower lung lucas. CVS: S1-S2 regular, no murmurs, no tachycardia, no gallops, no rubs Abdomen: Soft, nontender, no organomegaly, bowel sounds present, colostomy in place Neuro: No focal deficits, no facial deformity, AO x3, power 5/5 in all limbs Urinary Catheter Management: Garcia: Cath Placed During This Visit: no Reason for Continuing Indwelling Catheter: Acute Urinary Retention or Obstruction Data : 03/21/22 04:45 03/21/22 04:45 Other Labs: Radiology Impressions Abdomen/Pelvis CT 03/15/22 20:17 IMPRESSION: 1. Interval appearance of dilated loops of small bowel up to 4.2 cm in diameter of with no obvious decompressed distal small bowel or transition point most consistent with occult small-bowel obstruction versus ileus/enteritis. 2. Stable left colostomy. 3. Stable rectosigmoid colon resection. 4. Moderate retained feces in the transverse colon and right colon. 5. Interval placement of Garcia balloon catheter. 6. Interval resolution of bilateral hydronephrosis. COMMENTS: Consistent with the [employer]'s Incidental Findings Committee white paper (J Am Ar Radiol 2018): Any incidental renal lesion less than 1 cm or classified as too small to characterize, or any incidental cystic renal lesion characterized as simple-appearing, is likely benign. No follow-up imaging is recommended for these lesions per consensus recommendations based on imaging criteria. Chest X-Ray 03/21/22 16:24 IMPRESSION: No acute findings. Chest CTA 03/21/22 22:56 IMPRESSION: 1. Small burden of acute pulmonary emboli. No right heart strain. 2. Small bilateral pleural effusions. 3. Left lower lobe consolidation concerning for pneumonia. COMMENTS: Consistent with the [employer]'s Incidental Findings Committee white paper (J Am Ar Radiol 2018): Any incidental renal lesion less than 1 cm or classified as too small to characterize, or any incidental cystic renal lesion characterized as simple-appearing, is likely benign. No follow-up imaging is recommended for these lesions per consensus recommendations based on imaging criteria. ADDENDUM: 03/22/22 0023 THIS REPORT CONTAINS FINDINGS THAT MAY BE CRITICAL TO PATIENT CARE. The findings were verbally communicated by me to Dr euceda via telephone conference at 12:22 AM CDT on 03/22/2022. The findings were acknowledged and understood. Laboratory Results WBC 7.5 10^3/uL (4.0-10.0) 03/21/22 04:45 RBC 2.67 10^6/uL (4.1-5.3) L 03/21/22 04:45 Hgb 9.6 g/dL (11.7-16.6) L 03/21/22 04:45 Hct 28.2 % (42.0-52.0) L 03/21/22 04:45 MCV 105.6 fl (80-94) H 03/21/22 04:45 MCH 36.0 pg (28.0-34.0) H 03/21/22 04:45 MCHC 34.0 g/dL (30.0-36.0) 03/21/22 04:45 RDW 11.1 % (12.1-15.1) L 03/21/22 04:45 Plt Count 205 10^3/cmm (130-400) 03/21/22 04:45 MPV 10.3 fL (7.4-10.4) 03/21/22 04:45 Neut % (Auto) 89.7 % 03/21/22 04:45 Lymph % (Auto) 3.1 % 03/21/22 04:45 [place] % (Auto) 6.9 % 03/21/22 04:45 Eos % (Auto) 0.0 % 03/21/22 04:45 Baso % (Auto) 0.0 % 03/21/22 04:45 Neut # (Auto) 6.74 10^3/uL (1.8-7.7) 03/21/22 04:45 Lymph # (Auto) 0.2 10^3/uL (0.8-4.8) L 03/21/22 04:45 [facility] # (Auto) 0.5 10^3/uL (0.2-0.9) 03/21/22 04:45 Eos # (Auto) 0.0 10^3/uL (0.0-0.8) 03/21/22 04:45 Baso # (Auto) 0.0 10^3/uL (0.0-0.1) 03/21/22 04:45 Nucleated RBC % (auto) 0 % 03/21/22 04:45 Nucleated RBCs # 0.0 /100WBC 03/21/22 04:45 D-Dimer 4.67 ug/mIFEU (0-0.59) H 03/21/22 16:46 Sodium 139 mmol/L (136-145) 03/21/22 04:45 Potassium 4.0 mmol/L (3.5-5.1) 03/21/22 04:45 Chloride 97 mmol/L (98-107) L 03/21/22 04:45 Carbon Dioxide 41 mmol/L (22-29) H 03/21/22 04:45 Anion Gap 5.0 (5-19) 03/21/22 04:45 BUN 13 mg/dL (8-23) 03/21/22 04:45 Creatinine 0.5 mg/dL (0.7-1.2) L 03/21/22 04:45 GFR Calculation Not Reportable 03/21/22 04:45 Glucose 141 mg/dL (65-115) H 03/21/22 04:45 Calculated Osmolality 290 mOsm/kg (285-295) 03/21/22 04:45 Lactate 1.0 mmol/L (0.5-2.2) 03/15/22 20:22 Calcium 8.4 mg/dL (8.5-10.5) L 03/21/22 04:45 Phosphorus 2.3 mg/dL (2.5-4.5) L 03/18/22 03:35 Magnesium 1.8 mg/dL (1.7-2.3) 03/18/22 03:35 Total Bilirubin 0.2 mg/dL (0.15-1.2) 03/18/22 03:35 AST 18 U/L (0-40) 03/18/22 03:35 ALT 11 U/L (0-41) 03/18/22 03:35 Alkaline Phosphatase 48 U/L (40-130) 03/18/22 03:35 C-Reactive Protein 86.7 mg/L (0.0-4.9) H 03/18/22 03:35 Total Protein 5.2 g/dL (6.6-8.7) L 03/18/22 03:35 Albumin 3.0 g/dL (3.5-5.2) L 03/18/22 03:35 Globulin 2.2 g/dL (1.3-4.6) 03/18/22 03:35 Lipase 20 U/L (13-60) 03/15/22 20:22 Procalcitonin 0.29 ng/mL (0-0.5) 03/18/22 03:35 TSH 1.45 uIU/mL (0.27-4.20) 03/15/22 20:22 Urine Color Yellow (Yellow) 03/16/22 17:45 Urine Appearance Hazy (CLEAR) A 03/16/22 17:45 Urine pH 6 (5-7) 03/16/22 17:45 Ur Specific [place] 1.020 (1.005-1.030) 03/16/22 17:45 Urine Protein Neg (Negative) 03/16/22 17:45 Urine Glucose (UA) Norm (Normal) 03/16/22 17:45 Urine Ketones 1+ (Negative) H 03/16/22 17:45 Urine Blood 3+ (Negative) H 03/16/22 17:45 Urine Nitrate Negative (Negative) 03/16/22 17:45 Urine Bilirubin Neg (Negative) 03/16/22 17:45 Urine Urobilinogen Norm mg/dL (Negative) 03/16/22 17:45 Ur Leukocyte Esterase Negative (Negative) 03/16/22 17:45 Urine RBC 40-50 /hpf (0-2) H 03/16/22 17:45 Urine WBC 0-4 /hpf (0-5) H 03/16/22 17:45 Ur Squamous Epith Cells 0-4 /hpf (0-5) H 03/16/22 17:45 Amorphous Sediment Not Reportable 03/16/22 17:45 Urine Bacteria 1+ /hpf (NONE) H 03/16/22 17:45 Influenza Type A Ag Negative (Negative) 03/21/22 18:30 Influenza Type B Ag Negative (Negative) 03/21/22 18:30 SARS-CoV-2 Ag (Rapid) Negative (Negative) 03/21/22 18:30 A&P Assessment and plan (1) Chronic obstructive pulmonary disease: Status: Acute (2) Small bowel obstruction: Status: Acute Plan Patient admitted to the hospital on March 15, 2022 with [facility] colon cancer, with colostomy in place, COPD, chronic suprapubic catheter?recently changed for a Garcia, presented with SBO which has since resolved with medical management. Hospital course has been complicated by persisting dyspnea which has worsened during the course of his admission here. Patient was being treated for a COPD exacerbation with scheduled nebulization and IV steroids transition to p.o., however continued to have worsening dyspnea. Given that his dyspnea. Out of proportion with his wheezing and other COPD type symptoms, screening D-dimer was obtained which was elevated and a follow-up CTA was performed. His CTA shows he does have a PE and a left lower lobe consolidation. He is currently on antibiotic coverage with ceftriaxone and levofloxacin for the left lower lobe pneumonia. Sputum culture was taken 2 days ago, however it appears the specimen is not currently in the lab. We will send the specimen again today. For the PE he has been started on anticoagulation with Lovenox 1 mg/kg every 12 hours subcutaneously. Plan to transition this to Eliquis at the time of discharge. Covid Ag and influenza Ag negative. Echocardiogram has been ordered to evaluate for right heart strain and pulmonary hypertension given his advanced COPD which could additionally explain his persisting and worsening dyspnea. Results are currently awaited. 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
[2022-03-22] MEDS: enoxaparin 100 mg/mL Syringe 60 MG SUBCUT ×2 (12:31→20:29)
[2022-03-22] MEDS: cefTRIAXone 1,000 MG in sodium chloride 0.9% (plus) 50 ML 100 MG IV (16:29)
[2022-03-22] MEDS: ALPRAZolam 0.5 mg Tablet PO (20:29)
[2022-03-23] VITALS (14 sets, daily range): BP systolic 121–158; BP diastolic 64–79; PULSE 75–102; RESP 15–20; TEMP 36.3–36.6; O2SAT 94–100
[2022-03-23] MEDS: ipratropium-albuterol 3 mL Neb INHALATION ×5 (00:16→20:35)
[2022-03-23 05:06] LABS: Eosinophils # 0.1 10^3/uL (0.0-0.8); Eosinophils % 1.3 %; Hematocrit 29.4 % (42.0-52.0); Hemoglobin 9.1 g/dL (11.7-16.6); Lymphocytes # 0.7 10^3/uL (0.8-4.8); Lymphocytes % 16.1 %; Mean Corpuscular Volume 103.5 fl (80-94); Mean Platelet Volume 9.7 fL (7.4-10.4); Monocytes # 0.7 10^3/uL (0.2-0.9); Monocytes % 15.5 %; Neutrophils # 3.02 10^3/uL (1.8-7.7); Neutrophils % 66.7 %; Nucleated Red Blood Cells % 0 %; Platelet Count 208 10^3/cmm (130-400); Red Blood Count 2.84 10^6/uL (4.1-5.3); White Blood Count 4.5 10^3/uL (4.0-10.0)
[2022-03-23 05:25] LABS: Alanine Aminotransferase 16 U/L (0-41); Albumin Level 2.7 g/dL (3.5-5.2); Alkaline Phosphatase 47 U/L (40-130); Anion Gap 1.4 (5-19); Aspartate Amino Transferase 12 U/L (0-40); Blood Urea Nitrogen 11 mg/dL (8-23); Calcium 8.1 mg/dL (8.5-10.5); Chloride 95 mmol/L (98-107); Globulin 2.5 g/dL (1.3-4.6); Glucose 89 mg/dL (65-115); Osmolality Calculated 287 mOsm/kg (285-295); Potassium 3.4 mmol/L (3.5-5.1); Sodium 139 mmol/L (136-145); Total Bilirubin 0.2 mg/dL (0.15-1.2); Total Protein 5.2 g/dL (6.6-8.7)
[2022-03-23 05:45] LABS: Carbon Dioxide 46 mmol/L (22-29)
[2022-03-23] MEDS: predniSONE 20 mg Tablet 40 MG PO (09:25)
[2022-03-23] MEDS: levoFLOXacin 750 mg Tablet PO (09:25)
[2022-03-23] MEDS: pantoprazole 40 mg SDV IVP (09:26)
[2022-03-23 10:02] LABS: ABG PH Result 7.42 (7.35-7.45); Base Excess ABG 17.5 mmol/L (-2.0-2.0); Blood Gas Allen Test Pos; Blood Gas Operator Identificat GD; Blood Gas Sample Site Radial, left; Blood Gas Sample Type Arterial; HCO3 ABG 44.6 mmol/L (22-26); Oxygen Device NC
[2022-03-23 10:03] LABS: ABG PCO2 69.2 mmHg (35-45)
[2022-03-23] MEDS: enoxaparin 100 mg/mL Syringe 60 MG SUBCUT (12:10)
--- NOTE | 2022-03-23 12:30 | PM.PN ---
Subjective Subjective: Patient reports his breathing is slightly better today, however he is still noted to be extremely dyspneic right after working with PT. His respiratory rate at the current time is 36/min and he looks winded. There is minimal airflow bilaterally. Lower extremity Doppler performed yesterday was negative for DVT. Echocardiogram returned with EF of 60 to 65%, grade 1 diastolic function, trace tricuspid regurgitation and trace pulmonary insufficiency. No significant change compared to echocardiogram from 2020. Medications: Reviewed: Yes Vitals/I&O/Wt Last Vital Signs Temp 97.9 F 03/23/22 11:34 Pulse 102 H 03/23/22 11:34 Resp 18 03/23/22 11:34 BP 132/68 03/23/22 11:34 Pulse Ox 96 03/23/22 11:34 O2 Del Method 03/23/22 11:34 O2 Flow Rate 4 03/23/22 08:00 03/22/22 03/23/22 03/23/22 22:59 06:59 14:59 Intake Total 490 / 1090 120 / 1210 360 / 360 Output Total 225 / 925 Balance 490 / 390 -105 / 285 360 / 360 Physical Exam Narrative: General: Tachypneic on exam having recently just worked with physical therapy. Respiratory rate is at 36. HEENT: PERRLA, pupils bilaterally equal and reactive, pallors not present, NC in place Chest: Normal vesicular breath sounds, no added sounds, equal good air entry bilaterally CVS: S1-S2 regular, no murmurs, no tachycardia, no gallops, no rubs Abdomen: Soft, nontender, no organomegaly, bowel sounds present Neuro: No focal deficits, no facial deformity, AO x3, power 5/5 in all limbs Extremities: No clubbing edema or lymphadenopathy. Urinary Catheter Management: Garcia: Cath Placed During This Visit: no Reason for Continuing Indwelling Catheter: Acute Urinary Retention or Obstruction Data : 03/23/22 04:53 03/23/22 04:53 Micro: Microbiology 03/22/22 12:25 Legionella Urinary Antigen - Final Urine,Voided Bacterial Antigens - Final A&P Assessment and plan (1) Chronic obstructive pulmonary disease: Status: Acute (2) Small bowel obstruction: Status: Acute (3) Pulmonary embolism: Status: Acute (4) Chronic respiratory failure with hypoxia: Status: Acute Plan Patient admitted to the hospital on March 15, 2022 with PMH colon cancer, with colostomy in place, COPD, chronic suprapubic catheter?recently changed for a Garcia, presented with SBO which has since resolved with medical management. Hospital course has been complicated by persisting dyspnea which has worsened during the course of his admission here. Patient was being treated for a COPD exacerbation with scheduled nebulization and IV steroids transition to p.o., however continued to have worsening dyspnea. CTA was performed which showed PE and a left lower lobe consolidation. He is currently on antibiotic coverage with ceftriaxone and levofloxacin for the left lower lobe pneumonia. Sputum culture is pending. Bacterial antigen and urine Legionella antigen are negative. For the PE he has been started on anticoagulation with Lovenox 1 mg/kg every 12 hours subcutaneously. This will be transitioned to Eliquis 10 mg p.o. twice daily Covid Ag and influenza Ag negative. Echocardiogram negative for right heart strain and pulmonary hypertension Lower extremity [place] initially negative. Patient is still significantly dyspneic with minimal exertion. We will transition anticoagulation today and monitor him over the next 24 hours. Additionally noted to have increasing bicarb on his CMP. ABG was obtained which shows compensated chronic hypercapnic respiratory failure. Attestations Medical Necessity Statement*: Transition anticoagulation today. 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
[2022-03-23] MEDS: cefTRIAXone 1,000 MG in sodium chloride 0.9% (plus) 50 ML 100 MG IV (17:54)
[2022-03-23] MEDS: pantoprazole DR 40 mg Tablet PO (17:55)
[2022-03-23] MEDS: ALPRAZolam 0.5 mg Tablet PO (20:44)
[2022-03-24] VITALS (11 sets, daily range): BP systolic 126–177; BP diastolic 71–103; PULSE 62–102; RESP 15–22; TEMP 36.6–36.7; O2SAT 96–99
[2022-03-24] MEDS: enoxaparin 100 mg/mL Syringe 60 MG SUBCUT (00:52)
[2022-03-24] MEDS: ipratropium-albuterol 3 mL Neb INHALATION ×6 (04:00→21:16)
[2022-03-24] MEDS: montelukast sodium 10 mg Tablet PO (09:42)
[2022-03-24] MEDS: levoFLOXacin 750 mg Tablet PO (09:42)
[2022-03-24] MEDS: predniSONE 20 mg Tablet 40 MG PO (09:42)
[2022-03-24] MEDS: pantoprazole DR 40 mg Tablet PO ×2 (09:42→18:21)
--- NOTE | 2022-03-24 13:05 | PM.PN ---
Subjective Subjective: Patient seen after working with physical therapy again today. Tachypneic with minimal exertion with respiratory rate at 40/min. He is having small-volume hemoptysis over the last 5 to 6 days. Not worsened since starting enoxaparin however no improvement either. Noted to have less wheezing today. Better aeration bilateral lungs. Medications: Reviewed: Yes Vitals/I&O/Wt Last Vital Signs Temp 97.9 F 03/24/22 08:00 Pulse 92 03/24/22 11:31 Resp 17 03/24/22 11:25 BP 126/71 03/24/22 08:00 Pulse Ox 98 03/24/22 11:25 O2 Del Method 03/24/22 11:25 O2 Flow Rate 4 03/24/22 11:25 03/23/22 03/24/22 03/24/22 22:59 06:59 14:59 Intake Total 290 / 890 Output Total 1400 / 1400 950 / 2350 Balance -1110 / -510 -950 / -1460 Physical Exam Narrative: General: Tachypneic on exam. HEENT: PERRLA, pupils bilaterally equal and reactive, pallors not present, NC in place Chest: Normal vesicular breath sounds, aeration appears to be improved bilaterally today. CVS: S1-S2 regular, no murmurs, no tachycardia, no gallops, no rubs Abdomen: Soft, nontender, no organomegaly, colostomy in place Neuro: No focal deficits, no facial deformity, AO x3, power 5/5 in all limbs Extremities: No clubbing edema or lymphadenopathy. Urinary Catheter Management: Garcia: Cath Placed During This Visit: no Reason for Continuing Indwelling Catheter: Acute Urinary Retention or Obstruction Data : 03/23/22 04:53 03/23/22 04:53 Micro: Microbiology 03/21/22 Unknown Gram Stain - Final Sputum - Expectorated Sputum Sputum Culture - Preliminary 03/22/22 12:25 Legionella Urinary Antigen - Final Urine,Voided Bacterial Antigens - Final A&P Assessment and plan (1) Chronic obstructive pulmonary disease: Status: Acute (2) Small bowel obstruction: Status: Acute (3) Pulmonary embolism: Status: Acute (4) Chronic respiratory failure with hypoxia: Status: Acute Plan Patient admitted to the hospital on March 15, 2022 with H colon cancer, with colostomy in place, COPD, chronic suprapubic catheter?recently changed for a Garcia, presented with SBO which has since resolved with medical management. Hospital course has been complicated by persisting dyspnea which has worsened during the course of his admission here. He has additionally developed small-volume hemoptysis over the past 5 days. Patient was being treated for a COPD exacerbation with scheduled nebulization and IV steroids transitioned to p.o., however continued to have worsening dyspnea. CTA was performed which small segmental PE and a left lower lobe consolidation. He is currently on antibiotic coverage with ceftriaxone and levofloxacin for the left lower lobe pneumonia. Sputum culture is pending. Bacterial antigen and urine Legionella antigen are negative. For the PE he has been started on anticoagulation with Lovenox 1 mg/kg every 12 hours subcutaneously. He continues to have intermittent small volume hemoptysis. Holding anticoagulation today. We will consult pulmonology. Covid Ag and influenza Ag negative. Echocardiogram negative for right heart strain and pulmonary hypertension Lower extremity duplex negative. Patient is still significantly dyspneic with minimal exertion. Continues to have hemoptysis additionally. Attestations Medical Necessity Statement*: Continues to be significantly dyspneic, having hemoptysis. Consult pulmonology. Coding Level of Care Code Acute Insights Manager for [facility] Diagnoses Chronic obstructive pulmonary disease J44.9 Small bowel obstruction K56.609 Pulmonary embolism I26.99 Chronic respiratory failure with hypoxia J96.11
--- NOTE | 2022-03-24 14:27 | PC.SOCIAL ---
IMM Update pg 2 of IMM updated and reviewed w/ patient. Copy provided and copy in chart dated and initialed.
--- NOTE | 2022-03-24 15:35 | PM.CONSULT ---
Providers/Reason For Consult Consulting Physician/Specialty*: Pulmonary critical care medicine Reason for Consult*: Worsening respiratory failure Requesting Physician: Rebecca Crespo MD Attending Physician: Rebecca Crespo MD Primary Care Provider: Andrea Santiago DO History of Present Illness History of Present Illness Doroteo Ba is a 76 year old male who is well-known to me from his previous office visits. The patient has gold class B COPD. His pulmonary function test from December 2019 revealed very severe airflow obstruction with an FEV1 of 28%. His DLCO is severely reduced at 35%. The patient has severe emphysema on chest imaging. When I last saw him in September 2021, the patient was on 2 L oxygen at baseline. The patient was on DuoNeb and Pulmicort nebulization at home. The patient was hospitalized on March 15 with small bowel obstruction. The CT scan of the abdomen and pelvis did not reveal any transition point. The patient was managed conservatively with subsequent improvement. Unfortunately, although his small bowel obstruction had gotten better, the patient has been developing worsening respiratory failure. The patient had a CT angiogram of the chest on March 21 which revealed left lower lobe pneumonia, bilateral pleural effusion and small right upper lobe segmental pulmonary embolism. Lower extremity Doppler was negative for any DVT. There was no evidence of RV dysfunction. The patient has an ejection fraction of 60 to 65%. Grade 1 diastolic dysfunction. Mild left ventricular hypertrophy and mild mitral regurgitation. He has been receiving antibiotic and was treated for COPD exacerbation since then. Unfortunately, the patient has been extremely short of breath with minimal exertion. His oxygen requirement has been approximately 4 L with oxygen saturation between 94 to 98%. The patient complained of cough, hemoptysis, wheezing and exertional shortness of breath. The patient started having hemoptysis approximately 5 days ago. This is before any anticoagulation was started for the right upper lobe pulmonary embolism. On admission his hemoglobin was 12 today at 9.1. The more acute rate initial starting point is likely 10.5. I had performed a bedside ultrasound. The patient has bilateral pleural effusion with lung atelectasis. I did not appreciate any air bronchogram. His IVC is dilated without any respirophasic variation. Review of Systems Narrative: General: No fevers or chills. The patient reports fatigue Skin: No rash HEENT: No nasal congestion, rhinitis, sinusitis Neck: There is no neck swelling Respiratory: Cough, sputum production, hemoptysis, wheezing and exertional shortness of breath Cardiovascular: No chest pain, positive for orthopnea palpitation or lower extremity edema. Gastrointestinal: No abdominal pain, nausea, vomiting Musculoskeletal: No joint pain or swelling Neurological: Patient is awake alert and oriented x3, no paralysis, gross motor function is normal. Psychiatric: No anxiety or depression. Medications/Allergies Home Medications Medication Instructions Recorded Confirmed Last Taken Type albuterol sulfate 2.5 mg inhalation Q6H PRN 11/27/19 03/16/22 02/12/20 History Shortness Of Breath Or Wheezing montelukast 10 mg tablet 10 mg PO QPM 11/27/19 03/16/22 02/12/20 05:00 History (Singulair) albuterol sulfate 90 mcg/actuation 2 puff inhalation QID PRN 03/16/22 03/16/22 Unknown History aerosol inhaler (Ventolin HFA) Shortness Of Breath cholecalciferol (vitamin D3) 50 50 mcg PO DAILY@12 03/16/22 03/16/22 Unknown History mcg (2,000 unit) capsule (Vitamin D3) ciprofloxacin HCl 500 mg tablet 500 mg PO Q12H 03/16/22 03/16/22 03/15/22 History ipratropium 0.5 mg-albuterol 3 mg 3 ml inhalation Q4H 03/16/22 03/16/22 Unknown History (2.5 mg base)/3 mL nebulization soln oxybutynin chloride 10 mg 10 mg PO DAILY 03/16/22 03/16/22 03/13/22 History tablet,extended release 24 hr Allergies Allergy/AdvReac Type Severity Reaction Status Date / Time morphine AdvReac Severe ADR-Halluci Verified 03/16/22 08:49 nating Current Medications Generic Name Dose Route Start Last Admin Trade Name Freq PRN Reason Stop Dose Admin Albuterol/Ipratropium 3 ml 03/15/22 22:55 03/21/22 21:25 Ipratropium-Albuterol 3 Ml Neb INHALATION 3 ml Q4H PRN Administration SHORTNESS OF BREATH Albuterol/Ipratropium 3 ml 03/18/22 20:00 03/24/22 11:25 Ipratropium-Albuterol 3 Ml Neb INHALATION 3 ml Q4H.RESPIRATORY IMELDA Administration Alprazolam 0.5 mg 03/22/22 09:13 03/23/22 20:44 Alprazolam 0.5 Mg Tablet PO 0.5 mg BEDTIME PRN Administration anxiety Enoxaparin Sodium 60 mg 03/22/22 12:20 03/24/22 00:52 Enoxaparin 100 Mg/Ml Syringe 1 mg/kg (60 mg) 60 mg SUBCUT Administration Q12H IMELDA Hydroxyzine Pamoate 25 mg 03/21/22 21:23 03/21/22 21:33 Hydroxyzine 25 Mg Capsule PO 25 mg ONCE PRN Administration ANXIETY Ceftriaxone Sodium 1,000 mg/ 50 mls @ 100 mls/hr 03/19/22 16:00 03/23/22 18:24 Sodium Chloride IV Infused Q24H IMELDA Infusion Protocol Levofloxacin 750 mg 03/22/22 09:00 03/24/22 09:42 Levofloxacin 750 Mg Tablet PO 750 mg DAILY IMELDA Administration Protocol Montelukast Sodium 10 mg 03/16/22 09:00 03/24/22 09:42 Montelukast Sodium 10 Mg Tablet PO 10 mg DAILY IMELDA Administration Pantoprazole Sodium 40 mg 03/23/22 18:00 03/24/22 09:[address] 40 Mg Tablet PO 40 mg BID IMELDA Administration Prednisone 40 mg 03/22/22 06:00 03/24/22 09:42 Prednisone 20 Mg Tablet PO 40 mg DAILY IMELDA Administration PFSH Acute PFSH: Medical History COPD (chronic obstructive pulmonary disease) Rectal cancer Surgical History History of colon resection OCT-2004 S/P bronchoscopy Family History Father Lung disease Mother Cancer Social History Smoking and tobacco status: former smoker Quit status (tobacco): has quit using tobacco Year quit tobacco: 2007 - PPD x 50 Years Alcohol intake: never Lives independently: Yes Household members: spouse Marital status: Current occupational status: retired History of recent travel: No Current gender identity: Male Vitals/I&O/Wt Last Vital Signs Temp 97.9 F 03/24/22 08:00 Pulse 90 03/24/22 12:00 Resp 18 08/25/22 12:00 BP 131/75 03/24/22 12:00 Pulse Ox 98 03/24/22 12:00 O2 Del Method 03/24/22 11:25 O2 Flow Rate 4 03/24/22 11:25 03/24/22 03/24/22 03/24/22 06:59 14:59 22:59 Intake Total 480 / 480 Output Total 950 / 2350 Balance -950 / -1460 480 / 480 Physical Exam Narrative: General: Patient is awake alert and oriented, short of breath with minimal exertion Neck: Jugular venous distention Respiratory: Auscultation: Reduced breath sound bilaterally, no crackles wheezing or rhonchi Cardiovascular: Regular rate and rhythm, S1-S2 present, distant heart sound, no murmur, no peripheral edema. Abdomen: Soft, nontender, nondistended, positive bowel sound, colostomy site is intact Musculoskeletal: No obvious joint deformity Skin: No rash Neuro: Mental status is normal, no gross cranial nerve deficit, normal motor and coordination. Urinary Catheter Management: Garcia: Cath Placed During This Visit: no Reason for Continuing Indwelling Catheter: Acute Urinary Retention or Obstruction Data : 03/23/22 04:53 03/23/22 04:53 Micro: Microbiology 03/21/22 Unknown Gram Stain - Final Sputum - Expectorated Sputum Sputum Culture - Final Other data: I have reviewed the patient's laboratory, microbiologic and radiologic data. The patient does not have any significant leukocytosis. The patient has chronic hypercapnic respiratory failure and additional metabolic alkalosis. His creatinine is normal. A&P Assessment and plan (1) Acute and chronic respiratory failure with hypoxia: The patient has developed acute on chronic hypoxic respiratory failure. At baseline, the patient used to be on 2 L oxygen. Currently the patient is on 4 L oxygen. His oxygen saturation is in the mid to high 90s. The primary problem that the patient is experiencing is severe exertional shortness of breath. The patient has an FEV1 of 28% and is likely developing dynamic hyperinflation with tachypnea associated with exertion. Additionally, the patient has been in bed for nearly 10 days and the associated deconditioning is also contributing to his shortness of breath. Patient does not seem to be suffering from an acute exacerbation at this time. I think we can safely stop the prednisone and continue with budesonide and DuoNeb nebulization. The bedside ultrasound did reveal bilateral pleural effusion, dilated IVC. The patient likely has some degree of fluid retention likely secondary to pulmonary hypertension which would be expected in a patient with an FEV1 of 28%. Going to start the patient on 20 mg of IV Lasix given his creatinine of 0.5. He will receive a one-time dose of acetazolamide which will likely prevent further increase in the bicarb level. I am giving him 40 mEq of KCl orally as well. Once the patient is negative we will reassess. Status: Acute (2) Chronic hypercapnic respiratory failure: The patient has chronic hypercapnic respiratory failure. His baseline PCO2 is 70 at this point. I have discussed the possibility of starting him on BiPAP tonight and see how he does. We will start that today. Status: Acute (3) Pleural effusion: The patient has bilateral pleural effusion. This was also present on the CT scan on the for pulmonary embolism evaluation. However there was no pleural effusion when the patient presented to the hospital with small bowel obstruction. In the pleural space there was very mild fibrinous stranding on the left side. The patient however does not have any clinical findings that would be consistent with empyema. For now, we will diurese the patient and then reassess. Status: Acute (4) Pulmonary embolism: The patient has small right upper lobe segmental pulmonary embolism. The patient is clearly having hemoptysis that has worsened in the setting of diuretics. Given the absence of any DVT and any right ventricular strain, I think for the time being we can give the patient prophylactic dose Lovenox. In the next 48 hours once the hemoptysis has resolved, we can start with more intense anticoagulation. Status: Acute (5) Pneumonia: The patient was found to have left lower lobe pneumonia on the CT scan of the chest. He has been receiving antibiotic therapy. Status: Acute Coding Level of Care Code Acute Process Validation Engineer for [facility] Diagnoses Acute and chronic respiratory failure with hypoxia J96.21 Chronic hypercapnic respiratory failure J96.12 Pleural effusion J90 Pulmonary embolism I26.99 Pneumonia J18.9
[2022-03-24] MEDS: potassium chloride oral liq 20 mEq/15 mL UDC 40 MEQ PO (16:56)
[2022-03-24] MEDS: benzonatate 100 mg Capsule PO ×2 (16:57→20:53)
[2022-03-24] MEDS: FUROsemide 10 mg/mL SDV 2mL 20 MG IVP (16:57)
[2022-03-24] MEDS: acetaZOLAMIDE 250 mg Tablet 500 MG PO (17:10)
[2022-03-24] MEDS: cefTRIAXone 1,000 MG in sodium chloride 0.9% (plus) 50 ML 100 MG IV (17:10)
[2022-03-24] MEDS: ALPRAZolam 0.5 mg Tablet PO (20:53)
[2022-03-24] MEDS: budesonide 0.5 mg/2 mL Neb INHALATION (21:16)
[2022-03-25] VITALS (19 sets, daily range): BP systolic 120–132; BP diastolic 69–79; PULSE 73–97; RESP 13–23; TEMP 36.4–37.2; O2SAT 94–100
[2022-03-25] MEDS: ipratropium-albuterol 3 mL Neb INHALATION ×7 (00:12→23:47)
[2022-03-25 05:10] LABS: Alanine Aminotransferase 31 U/L (0-41); Alkaline Phosphatase 51 U/L (40-130); Anion Gap 8.3 (5-19); Aspartate Amino Transferase 21 U/L (0-40); Blood Urea Nitrogen 15 mg/dL (8-23); Calcium 8.5 mg/dL (8.5-10.5); Carbon Dioxide 35 mmol/L (22-29); Chloride 96 mmol/L (98-107); Globulin 2.7 g/dL (1.3-4.6); Glucose 104 mg/dL (65-115); Osmolality Calculated 283 mOsm/kg (285-295); Potassium 3.3 mmol/L (3.5-5.1); Sodium 136 mmol/L (136-145); Total Bilirubin 0.2 mg/dL (0.15-1.2); Total Protein 5.7 g/dL (6.6-8.7)
[2022-03-25 05:19] LABS: Basophils % 0.2 %; Eosinophils % 0.3 %; Hematocrit 33.5 % (42.0-52.0); Hemoglobin 10.4 g/dL (11.7-16.6); Lymphocytes # 0.8 10^3/uL (0.8-4.8); Lymphocytes % 11.9 %; Mean Corpuscular Hemoglobin 31.8 pg (28.0-34.0); Mean Corpuscular Volume 102.4 fl (80-94); Mean Platelet Volume 9.8 fL (7.4-10.4); Monocytes # 0.7 10^3/uL (0.2-0.9); Monocytes % 10.5 %; Neutrophils # 4.89 10^3/uL (1.8-7.7); Neutrophils % 76.8 %; Nucleated Red Blood Cells % 0 %; Platelet Count 271 10^3/cmm (130-400); Red Blood Count 3.27 10^6/uL (4.1-5.3); White Blood Count 6.4 10^3/uL (4.0-10.0)
[2022-03-25] MEDS: budesonide 0.5 mg/2 mL Neb INHALATION ×2 (08:01→20:34)
[2022-03-25] MEDS: pantoprazole DR 40 mg Tablet PO ×2 (08:18→18:03)
[2022-03-25] MEDS: montelukast sodium 10 mg Tablet PO (08:18)
[2022-03-25] MEDS: levoFLOXacin 750 mg Tablet PO (08:18)
[2022-03-25] MEDS: benzonatate 100 mg Capsule PO ×3 (08:18→20:16)
[2022-03-25] MEDS: FUROsemide 10 mg/mL SDV 2mL 40 MG IVP (10:23)
[2022-03-25] MEDS: potassium chloride ER 20 mEq Tablet 60 MEQ PO (10:23)
--- NOTE | 2022-03-25 14:58 | PM.PN ---
Subjective Subjective: Patient thinks his breathing is easier today than the past 2 days. He did receive diuresis with acetazolamide and Lasix yesterday. Lasix is being continued today. Medications: Reviewed: Yes Vitals/I&O/Wt Last Vital Signs Temp 98.2 F 03/25/22 11:16 Pulse 89 03/25/22 11:59 Resp 18 03/25/22 11:53 BP 125/78 03/25/22 11:16 Pulse Ox 99 03/25/22 11:53 O2 Del Method 03/25/22 11:53 O2 Flow Rate 4 03/25/22 11:53 03/24/22 03/25/22 03/25/22 22:59 06:59 14:59 Intake Total 650 / 1530 240 / 1770 480 / 480 Output Total 1025 / 1025 Balance 650 / 1530 -785 / 745 480 / 480 Physical Exam Narrative: General: No acute distress, AO x3, sitting in bed comfortably. He does become tachypneic in conversation, however appears slightly better compared to yesterday. HEENT: PERRLA, pupils bilaterally equal and reactive, pallors not present Chest: Normal vesicular breath sounds, no added sounds, equal good air entry bilaterally CVS: S1-S2 regular, no murmurs, no tachycardia, no gallops, no rubs Abdomen: Soft, nontender, no organomegaly, bowel sounds present Neuro: No focal deficits, no facial deformity, AO x3, power 5/5 in all limbs Extremities: No edema clubbing or cyanosis Urinary Catheter Management: Garcia: Cath Placed During This Visit: no Reason for Continuing Indwelling Catheter: Acute Urinary Retention or Obstruction Data : 03/25/22 04:23 03/25/22 04:23 Micro: Microbiology 03/21/22 Unknown Gram Stain - Final Sputum - Expectorated Sputum Sputum Culture - Final A&P Assessment and plan (1) Chronic obstructive pulmonary disease: Status: Acute (2) Small bowel obstruction: Status: Acute (3) Pulmonary embolism: Status: Acute (4) Chronic respiratory failure with hypoxia: Status: Acute (5) Pulmonary embolism: Status: Acute Plan Patient admitted to the hospital on March 15, 2022 with H colon cancer, with colostomy in place, COPD, chronic suprapubic catheter?recently changed for a Garcia, presented with SBO which has since resolved with medical management. Hospital course has been complicated by persisting dyspnea which has worsened during the course of his admission here. He has additionally developed small-volume hemoptysis. He has been treated for a COPD exacerbation with scheduled nebulization and IV steroids transitioned to p.o., steroids have now been discontinued. Additionally noted to have small segmental PE for which a/c was initiated but currently on hold due to persisting hemoptysis. B/L pleural effusions on CTA chest TRial of iv diuresis with lasix while monitoring renal function. He received 40mg iv lasix and acetazolamide, states feeling better today. Continue iv lasix 40mg daily Overall also noted to have deconditioning from prolonged hospitalization. He received antibiotic coverage with ceftriaxone and levofloxacin for left lower lobe pneumonia. Sputum culture with resp bartolome on gram stain. Bacterial antigen and urine Legionella antigen are negative. D/c ceftriaxone. Covid Ag and influenza Ag negative. Echocardiogram negative for right heart strain and pulmonary hypertension, however has dilated IVC on bedside US. Lower extremity duplex negative. Appreciate pulmonology recommendations Trial of Bipap overnight DVT ppx: Lovenox 40 GI ppx: protonix 40mg Attestations Medical Necessity Statement*: ongoing iv diuresis, trial of bipap, monitor respiratory status Coding Level of Care Code Acute Air Export Logistics Manager for [facility] Fwd Diagnoses Chronic obstructive pulmonary disease J44.9 Small bowel obstruction K56.609 Pulmonary embolism I26.99 Chronic respiratory failure with hypoxia J96.11 Pulmonary embolism I26.99
[2022-03-25] MEDS: enoxaparin 40 mg/0.4 mL Syringe SUBCUT (18:03)
[2022-03-25] MEDS: ALPRAZolam 0.5 mg Tablet PO (20:16)
[2022-03-26] VITALS (18 sets, daily range): BP systolic 121–138; BP diastolic 69–84; PULSE 81–101; RESP 15–23; TEMP 36.4–37.3; O2SAT 93–100
[2022-03-26] MEDS: ipratropium-albuterol 3 mL Neb INHALATION ×6 (03:16→23:33)
[2022-03-26 06:36] LABS: Alanine Aminotransferase 45 U/L (0-41); Albumin Level 3.5 g/dL (3.5-5.2); Alkaline Phosphatase 62 U/L (40-130); Aspartate Amino Transferase 32 U/L (0-40); Blood Urea Nitrogen 21 mg/dL (8-23); Calcium 9.4 mg/dL (8.5-10.5); Carbon Dioxide 34 mmol/L (22-29); Chloride 98 mmol/L (98-107); Globulin 2.8 g/dL (1.3-4.6); Glucose 107 mg/dL (65-115); Total Bilirubin 0.3 mg/dL (0.15-1.2); Total Protein 6.3 g/dL (6.6-8.7)
[2022-03-26 06:50] LABS: Anion Gap 8.9 (5-19); Osmolality Calculated 287 mOsm/kg (285-295); Potassium 3.9 mmol/L (3.5-5.1); Sodium 137 mmol/L (136-145)
[2022-03-26 07:10] LABS: Basophils % 0.2 %; Eosinophils # 0.2 10^3/uL (0.0-0.8); Eosinophils % 2.6 %; Hematocrit 36.4 % (42.0-52.0); Hemoglobin 11.1 g/dL (11.7-16.6); Lymphocytes # 0.6 10^3/uL (0.8-4.8); Mean Corpuscular Hemoglobin 31.5 pg (28.0-34.0); Mean Corpuscular Volume 103.4 fl (80-94); Mean Platelet Volume 10.1 fL (7.4-10.4); Monocytes # 0.6 10^3/uL (0.2-0.9); Monocytes % 10.4 %; Neutrophils # 4.34 10^3/uL (1.8-7.7); Neutrophils % 75.5 %; Nucleated Red Blood Cells % 0 %; Platelet Count 286 10^3/cmm (130-400); Red Blood Count 3.52 10^6/uL (4.1-5.3); Red Cell Distribution Width 11.6 % (12.1-15.1); White Blood Count 5.8 10^3/uL (4.0-10.0)
[2022-03-26 07:13] LABS: Mean Corpuscular HGB Conc 30.5 g/dL (30.0-36.0)
[2022-03-26] MEDS: budesonide 0.5 mg/2 mL Neb INHALATION ×2 (07:18→19:43)
[2022-03-26] MEDS: pantoprazole DR 40 mg Tablet PO ×2 (08:47→16:28)
[2022-03-26] MEDS: levoFLOXacin 750 mg Tablet PO (08:47)
[2022-03-26] MEDS: montelukast sodium 10 mg Tablet PO (08:47)
[2022-03-26] MEDS: benzonatate 100 mg Capsule PO ×3 (08:47→20:52)
--- NOTE | 2022-03-26 09:53 | PC.SOCIAL ---
IMM update IMM Updated with patient at bedside. Verbalized understanding. Copy Pg 2 provided. Initialled, dated, timed, and placed in chart
[2022-03-26] MEDS: enoxaparin 40 mg/0.4 mL Syringe SUBCUT (16:28)
--- NOTE | 2022-03-26 17:25 | P.PN_ITS ---
Subjective Subjective: Patient reports feeling subjectively improved today. He has had total output of 1700 cc, he is net -860 mL. Hemoptysis is also improving. He has had 1 episode last night but none since. Medications: Reviewed: Yes Vitals/I&O/Wt Last Vital Signs Temp 97.8 F 03/26/22 16:00 Pulse 100 03/26/22 16:00 Resp 18 03/26/22 16:00 BP 135/80 03/26/22 16:00 Pulse Ox 99 03/26/22 16:00 O2 Del Method 03/26/22 16:00 O2 Flow Rate 4 03/26/22 15:31 FiO2 35 03/26/22 11:21 03/26/22 03/26/22 03/26/22 06:59 14:59 22:59 Intake Total 240 / 840 600 / 600 Output Total 400 / 1600 900 / 900 Balance -160 / -760 600 / 600 -900 / -300 Weight last 48 hrs Weight 53.751 kg Physical Exam Narrative: General: No acute distress, AO x3, sitting in bed comfortably. He does become tachypneic in conversation, however appears slightly better compared to yesterday. HEENT: PERRLA, pupils bilaterally equal and reactive, pallors not present Chest: Normal vesicular breath sounds, no added sounds, equal good air entry bilaterally CVS: S1-S2 regular, no murmurs, no tachycardia, no gallops, no rubs Abdomen: Soft, nontender, no organomegaly, bowel sounds present Neuro: No focal deficits, no facial deformity, AO x3, power 5/5 in all limbs Extremities: No edema clubbing or cyanosis Urinary Catheter Management: Garcia: Cath Placed During This Visit: no Reason for Continuing Indwelling Catheter: Acute Urinary Retention or Obstruction Data : 03/26/22 05:08 03/26/22 05:08 A&P Assessment and plan (1) Chronic obstructive pulmonary disease: Status: Acute (2) Small bowel obstruction: Status: Acute (3) Pulmonary embolism: Status: Acute (4) Chronic respiratory failure with hypoxia: Status: Acute Plan Patient admitted to the hospital on March 15, 2022 with PMH colon cancer, with colostomy in place, COPD, chronic suprapubic catheter?recently changed for a Garcia, presented with SBO which has since resolved with medical management. Hospital course has been complicated by persisting dyspnea which has worsened during the course of his admission here. He has additionally developed small- volume hemoptysis. He has been treated for a COPD exacerbation with scheduled nebulization and IV steroids transitioned to p.o., steroids have now been discontinued. Additionally noted to have small segmental PE for which a/c was initiated but currently on hold due to persisting hemoptysis. B/L pleural effusions on CTA chest TRial of iv diuresis with lasix while monitoring renal function. He received 40mg iv lasix and acetazolamide, states feeling better today. Continue iv lasix 40mg daily Overall also noted to have deconditioning from prolonged hospitalization. He received antibiotic coverage with ceftriaxone and levofloxacin for left lower lobe pneumonia. Sputum culture with resp bartolome on gram stain. Bacterial antigen and urine Legionella antigen are negative. D/c ceftriaxone. Covid Ag and influenza Ag negative. Echocardiogram negative for right heart strain and pulmonary hypertension, however has dilated IVC on bedside US. Lower extremity duplex negative. Appreciate pulmonology recommendations Trial of Bipap overnight Plan for today: Lasix 40 mg IV again today with goal to keep patient net negative, follow kidney function. Discontinue levofloxacin. BiPAP at night. DVT ppx: Lovenox 40 GI ppx: protonix 40mg Attestations Medical Necessity Statement*: Ongoing need for IV diuresis, slowly appears to be improving today. Coding Level of Care Code Acute Spring Assembler Supervisor for [facility] Diagnoses Chronic obstructive pulmonary disease J44.9 Small bowel obstruction K56.609 Pulmonary embolism I26.99 Chronic respiratory failure with hypoxia J96.11
[2022-03-26] MEDS: FUROsemide 10 mg/mL SDV 4mL 40 MG IVP (17:39)
[2022-03-26] MEDS: ALPRAZolam 0.5 mg Tablet PO (20:52)
[2022-03-27] VITALS (15 sets, daily range): BP systolic 127–149; BP diastolic 71–84; PULSE 75–97; RESP 14–24; TEMP 36.2–36.7; O2SAT 98–100
[2022-03-27] MEDS: ipratropium-albuterol 3 mL Neb INHALATION ×6 (03:31→23:47)
[2022-03-27] MEDS: acetaminophen 325 mg Tablet 650 MG PO (05:20)
[2022-03-27 05:24] LABS: Alanine Aminotransferase 39 U/L (0-41); Albumin Level 3.3 g/dL (3.5-5.2); Alkaline Phosphatase 63 U/L (40-130); Aspartate Amino Transferase 21 U/L (0-40); Blood Urea Nitrogen 24 mg/dL (8-23); Carbon Dioxide 33 mmol/L (22-29); Chloride 95 mmol/L (98-107); Globulin 2.7 g/dL (1.3-4.6); Glucose 87 mg/dL (65-115); Osmolality Calculated 283 mOsm/kg (285-295); Sodium 135 mmol/L (136-145); Total Bilirubin 0.2 mg/dL (0.15-1.2)
[2022-03-27 07:26] LABS: Basophils % 0.2 %; Eosinophils # 0.1 10^3/uL (0.0-0.8); Eosinophils % 1.6 %; Hematocrit 35.4 % (42.0-52.0); Hemoglobin 10.9 g/dL (11.7-16.6); Lymphocytes # 0.7 10^3/uL (0.8-4.8); Lymphocytes % 11.2 %; Mean Corpuscular HGB Conc 30.8 g/dL (30.0-36.0); Mean Corpuscular Hemoglobin 31.8 pg (28.0-34.0); Mean Corpuscular Volume 103.2 fl (80-94); Mean Platelet Volume 9.8 fL (7.4-10.4); Monocytes # 0.8 10^3/uL (0.2-0.9); Monocytes % 12.8 %; Neutrophils % 73.7 %; Nucleated Red Blood Cells % 0 %; Platelet Count 275 10^3/cmm (130-400); Red Blood Count 3.43 10^6/uL (4.1-5.3); Red Cell Distribution Width 11.7 % (12.1-15.1); White Blood Count 6.2 10^3/uL (4.0-10.0)
[2022-03-27] MEDS: montelukast sodium 10 mg Tablet PO (07:37)
[2022-03-27] MEDS: benzonatate 100 mg Capsule PO ×3 (07:38→20:25)
[2022-03-27] MEDS: pantoprazole DR 40 mg Tablet PO ×2 (07:38→16:55)
[2022-03-27] MEDS: budesonide 0.5 mg/2 mL Neb INHALATION ×2 (07:56→19:28)
--- NOTE | 2022-03-27 13:30 | XRR_ITS ---
PROCEDURE INFORMATION: Exam: XR Abdomen Exam date and time: 03/27/2022 2:09 PM Age: 76 years old Clinical indication: Constipation and other: Constipation; Additional info: Evalute for ileus TECHNIQUE: Imaging protocol: Radiologic exam of the abdomen. Views: Frontal supine view of the abdomen. 1 View. COMPARISON: CT abdomen pelvis w con* [id number] 03/15/2022 8:49 PM FINDINGS: Lungs: probable pulmonary hyperinflation/emphysema. Gastrointestinal tract: Moderate-large stool burden. No obvious bowel obstruction or pneumatosis however prior CT demonstrated dilated small bowel loops suspicious for obstruction which could not be well seen on the waste duster image due to fluid-filled lumen. An ostomy is noted in the left mid abdomen. Bones/joints: No acute findings. Other findings: Two views submitted. XR/XR abdomen 1V* [id number] IMPRESSION: Moderate-large stool burden with no obvious bowel dilatation however please see discussion above. Clinical correlation should be obtained. CT correlation may be helpful.
[2022-03-27] MEDS: FUROsemide 10 mg/mL SDV 4mL 40 MG IVP (14:46)
[2022-03-27] MEDS: enoxaparin 40 mg/0.4 mL Syringe SUBCUT (14:47)
[2022-03-27] MEDS: polyethylene glycol 3350 Pkt 17 gm PO (14:47)
--- NOTE | 2022-03-27 15:22 | PM.PN ---
Subjective Subjective: Patient continues to report improvement. Renal function is stable. Urine output of 2.8 L. Net -1.2 L thus far. Has been constipated for 4 days. No abdominal distention or abdominal pain. He is passing gas into his colostomy. Hemoptysis improving. Had a few blood streak bouts of expectoration today. Medications: Reviewed: Yes Vitals/I&O/Wt Last Vital Signs Temp 98.1 F 03/27/22 12:00 Pulse 88 03/27/22 15:03 Resp 18 03/27/22 15:03 BP 130/76 03/27/22 12:00 Pulse Ox 98 03/27/22 15:03 O2 Del Method 03/27/22 15:03 O2 Flow Rate 4 03/27/22 15:03 FiO2 35 03/26/22 19:51 03/27/22 03/27/22 03/27/22 06:59 14:59 22:59 Intake Total 360 / 1720 460 / 460 Output Total 350 / 2850 Balance 10 / -1130 460 / 460 Weight last 48 hrs Weight 53.751 kg Physical Exam Narrative: General: No acute distress, AO x3, sitting comfortably in chair, getting up to work with PT. HEENT: PERRLA, pupils bilaterally equal and reactive, pallors not present Chest: Normal vesicular breath sounds, no added sounds, equal good air entry bilaterally CVS: S1-S2 regular, no murmurs, no tachycardia, no gallops, no rubs Abdomen: Soft, nontender colostomy in place. No gross distention. Neuro: No focal deficits, no facial deformity, AO x3, power 5/5 in all limbs Extremities: No edema clubbing or cyanosis Urinary Catheter Management: Agrcia: Cath Placed During This Visit: no Reason for Continuing Indwelling Catheter: Acute Urinary Retention or Obstruction Data : 03/27/22 04:22 03/27/22 04:22 A&P Assessment and plan (1) Chronic obstructive pulmonary disease: Status: Acute (2) Small bowel obstruction: Status: Acute (3) Pulmonary embolism: Status: Acute (4) Chronic respiratory failure with hypoxia: Status: Acute Plan Patient admitted to the hospital on March 15, 2022 with H colon cancer, with colostomy in place, COPD, chronic suprapubic catheter?recently changed for a Garcia, presented with SBO which has since resolved with medical management. Hospital course has been complicated by persisting dyspnea which has worsened during the course of his admission here. He has additionally developed small-volume hemoptysis. He has been treated for a COPD exacerbation with scheduled nebulization and IV steroids transitioned to p.o., steroids have now been discontinued. Additionally noted to have small segmental PE for which a/c was initiated but currently on hold due to persisting hemoptysis. B/L pleural effusions on CTA chest Trial of IV Lasix is being given due to suspected pulmonary hypertension and pleural effusions. Patient reports feeling better after initiation of diuresis. He is currently net -1.2 L. Continue iv lasix 40mg today, transition to oral Lasix dosing tomorrow. Overall also noted to have deconditioning from prolonged hospitalization. He received antibiotic coverage with ceftriaxone and levofloxacin for left lower lobe pneumonia for 7 days. Sputum culture with resp bartolome on gram stain. Bacterial antigen and urine Legionella antigen are negative. Antibiotics have now been discontinued as he has completed an adequate empiric course. Covid Ag and influenza Ag negative. Echocardiogram LV systolic function is normal with EF of 60 to 65%. Mild left ventricular hypertrophy is seen. ?Grade 1 diastolic dysfunction is noted Lower extremity duplex negative. Appreciate pulmonology recommendations Doing well with BiPAP overnight He has now also developed constipation. No signs of recurrent SBO currently. He is passing flatus and his colostomy bag. Will obtain abdominal x-ray to rule out underlying ileus or recurrent SBO. Start MiraLAX and docusate for constipation. DVT ppx: Lovenox 40 GI ppx: protonix 40mg Disposition: Working with physical therapy. Significant deconditioning due to prolonged hospitalization. Dispo will be home with home health versus SNF. Attestations Medical Necessity Statement*: Starting to improve with regard to dyspnea. Transition diuretics to oral tomorrow. If hemoptysis remains improving, will reinitiate anticoagulation. Coding Level of Care Code Acute Support Group Manager for [facility] Fwd Diagnoses Chronic obstructive pulmonary disease J44.9 Small bowel obstruction K56.609 Pulmonary embolism I26.99 Chronic respiratory failure with hypoxia J96.11
[2022-03-27] MEDS: docusate sodium 100 mg Capsule PO (16:55)
[2022-03-27] MEDS: ALPRAZolam 0.5 mg Tablet PO (20:25)
[2022-03-28] VITALS (13 sets, daily range): BP systolic 120–146; BP diastolic 64–78; PULSE 72–104; RESP 13–18; TEMP 36.6–36.8; O2SAT 92–100
[2022-03-28] MEDS: ipratropium-albuterol 3 mL Neb INHALATION ×4 (03:29→15:14)
[2022-03-28 05:52] LABS: Alanine Aminotransferase 29 U/L (0-41); Albumin Level 3.2 g/dL (3.5-5.2); Alkaline Phosphatase 64 U/L (40-130); Anion Gap 8.3 (5-19); Aspartate Amino Transferase 16 U/L (0-40); Blood Urea Nitrogen 23 mg/dL (8-23); Calcium 8.9 mg/dL (8.5-10.5); Carbon Dioxide 39 mmol/L (22-29); Chloride 93 mmol/L (98-107); Globulin 2.7 g/dL (1.3-4.6); Glucose 84 mg/dL (65-115); Osmolality Calculated 285 mOsm/kg (285-295); Potassium 4.3 mmol/L (3.5-5.1); Sodium 136 mmol/L (136-145); Total Bilirubin 0.3 mg/dL (0.15-1.2); Total Protein 5.9 g/dL (6.6-8.7)
[2022-03-28 07:05] LABS: Basophils % 0.1 %; Eosinophils # 0.2 10^3/uL (0.0-0.8); Eosinophils % 2.2 %; Hemoglobin 10.7 g/dL (11.7-16.6); Lymphocytes # 0.6 10^3/uL (0.8-4.8); Lymphocytes % 9.3 %; Mean Corpuscular HGB Conc 31.5 g/dL (30.0-36.0); Mean Corpuscular Hemoglobin 31.9 pg (28.0-34.0); Mean Corpuscular Volume 101.5 fl (80-94); Mean Platelet Volume 9.8 fL (7.4-10.4); Monocytes # 0.9 10^3/uL (0.2-0.9); Monocytes % 12.7 %; Neutrophils # 5.02 10^3/uL (1.8-7.7); Neutrophils % 75.4 %; Nucleated Red Blood Cells % 0 %; Platelet Count 286 10^3/cmm (130-400); Red Blood Count 3.35 10^6/uL (4.1-5.3); Red Cell Distribution Width 11.7 % (12.1-15.1); White Blood Count 6.7 10^3/uL (4.0-10.0)
[2022-03-28] MEDS: budesonide 0.5 mg/2 mL Neb INHALATION (08:00)
[2022-03-28] MEDS: polyethylene glycol 3350 Pkt 17 gm PO (09:56)
[2022-03-28] MEDS: benzonatate 100 mg Capsule PO ×2 (09:57→15:05)
[2022-03-28] MEDS: montelukast sodium 10 mg Tablet PO (09:57)
[2022-03-28] MEDS: docusate sodium 100 mg Capsule PO (09:57)
[2022-03-28] MEDS: pantoprazole DR 40 mg Tablet PO (09:57)
--- NOTE | 2022-03-28 11:26 | PC.SOCIAL ---
IMM Update pg 2 of IMM updated and reviewed w/ patient. Copy provided and Copy in chart dated and initialed.
--- NOTE | 2022-03-28 14:02 | PC.NURSE ---
Report called Gerson at [facility] at this time.
--- NOTE | 2022-03-28 14:48 | PM.DCS ---
Discharge Providers Date of Admission: 03/15/22 21:57 Date of Discharge: March 28, 2022 Attending Provider at Admission: Blaise Dubose MD Attending Provider at Discharge: Rebecca Crespo MD Consults: Anu Bah MD/pulmonary medicine Keven Patterson MD/ General surgery Primary Care Provider: Andrea Santiago DO Diagnoses at Discharge Discharge Diagnosis (1) Chronic obstructive pulmonary disease: Status: Acute (2) Small bowel obstruction: Status: Acute (3) Pulmonary embolism: Status: Acute (4) Chronic respiratory failure with hypoxia: Status: Acute Reason for Visit Reason for Visit: N/V/Coughing up phlegm-sent by dr Keri Course Hospital Course 76M with h/o gold class B COPD, colon resection for colon cancer, with colostomy in place, chronic suprapubic catheter (changed to Renteria recently) admitted to the hospital on March 15, 2022 with SBO which has since resolved with medical management. Hospital course was complicated by persisting dyspnea which worsened during the course of his admission here.? He additionally developed small-volume hemoptysis. He was treated for COPD exacerbation with scheduled nebulization and IV steroids transitioned to p.o., steroids have now been discontinued. Additionally noted to have small segmental PE for which a/c was initiated with Lovenox and transitioned to Eliquis 5mg po BID at discharge once hemoptysis improved. Loading dose of 10mg BID not given due to recent hemoptysis and small clot size. B/L pleural effusions additionally noted on CTA chest. He was started on diuresis with IV Lasix due to suspected pulmonary hypertension and pleural effusions.? He had dilated IVC on beside US. Patient reports feeling much better after initiation of diuresis.?He is transitioned to Lasix 40mg po daily at discharge. Additionally was given trial of Bipap at night time which also improved his symptoms. Bipap for home use is being arranged by pulmonology office. He is noted to have deconditioning from prolonged hospitalization. He received antibiotic coverage with ceftriaxone and levofloxacin for left lower lobe pneumonia for 7 days.? Sputum culture with resp bartolome. ? Bacterial antigen and urine Legionella antigen are negative.? Covid Ag and influenza Ag negative. Echocardiogram?showed LV systolic function is normal with EF of 60 to 65%. Mild left ventricular hypertrophy is seen. ?Grade 1 diastolic dysfunction is noted Lower extremity duplex negative. Patient improved with above interventions and is being discharged in stable condition. Physical Exam Narrative: General: No acute distress, AO x3 HEENT: PERRLA, pupils bilaterally equal and reactive, pallors not present Chest: Normal vesicular breath sounds, no added sounds, equal good air entry bilaterally CVS: S1-S2 regular, no murmurs, no tachycardia, no gallops, no rubs Abdomen: Soft, nontender, no organomegaly, bowel sounds present Neuro: No focal deficits, no facial deformity, AO x3, power 5/5 in all limbs Urinary Catheter Management: Renteria: Cath Placed During This Visit: no Reason for Continuing Indwelling Catheter: Acute Urinary Retention or Obstruction Discharge Data Studies Completed and Pending Completed Studies During Hospitalization Category Date Time Status CT abdomen pelvis w con* [id number] Stat Cat Scan 03/15/22 20:17 Completed CTA PE [CT angio chest PE protcl [id number]] Routine Cat Scan 03/21/22 22:56 Completed CXRP [XR chest 1V portable [id number]] Routine Exams 03/18/22 16:03 Completed CXRP [XR chest 1V portable [id number]] Routine Exams 03/21/22 16:24 Completed XR abdomen 1V* [id number] Routine Exams 03/27/22 13:30 Completed XR chest 1V portable [id number] Routine Exams 03/15/22 22:33 [place] [id number] Routine Ultrasound 03/22/22 09:12 Completed CV. echo complete* [id number] Routine Ultrasound 03/21/22 16:26 Completed Radiology Impressions Abdomen/Pelvis CT 03/15/22 20:17 IMPRESSION: 1. Interval appearance of dilated loops of small bowel up to 4.2 cm in diameter of with no obvious decompressed distal small bowel or transition point most consistent with occult small-bowel obstruction versus ileus/enteritis. 2. Stable left colostomy. 3. Stable rectosigmoid colon resection. 4. Moderate retained feces in the transverse colon and right colon. 5. Interval placement of Renteria balloon catheter. 6. Interval resolution of bilateral hydronephrosis. COMMENTS: Consistent with the [employer]'s Incidental Findings Committee white paper (J Am Ar Radiol 2018): Any incidental renal lesion less than 1 cm or classified as too small to characterize, or any incidental cystic renal lesion characterized as simple-appearing, is likely benign. No follow-up imaging is recommended for these lesions per consensus recommendations based on imaging criteria. Chest X-Ray 03/21/22 16:24 IMPRESSION: No acute findings. Chest CTA 03/21/22 22:56 IMPRESSION: 1. Small burden of acute pulmonary emboli. No right heart strain. 2. Small bilateral pleural effusions. 3. Left lower lobe consolidation concerning for pneumonia. COMMENTS: Consistent with the [employer]'s Incidental Findings Committee white paper (J Am Ar Radiol 2018): Any incidental renal lesion less than 1 cm or classified as too small to characterize, or any incidental cystic renal lesion characterized as simple-appearing, is likely benign. No follow-up imaging is recommended for these lesions per consensus recommendations based on imaging criteria. ADDENDUM: 03/22/22 0023 THIS REPORT CONTAINS FINDINGS THAT MAY BE CRITICAL TO PATIENT CARE. The findings were verbally communicated by me to Dr dubose via telephone conference at 12:22 AM CDT on 03/22/2022. The findings were acknowledged and understood. Abdomen X-Ray 03/27/22 13:30 IMPRESSION: Moderate-large stool burden with no obvious bowel dilatation however please see discussion above. Clinical correlation should be obtained. CT correlation may be helpful. Laboratory Results WBC 6.7 10^3/uL (4.0-10.0) 03/28/22 05:17 RBC 3.35 10^6/uL (4.1-5.3) L 03/28/22 05:17 Hgb 10.7 g/dL (11.7-16.6) L 03/28/22 05:17 Hct 34.0 % (42.0-52.0) L 03/28/22 05:17 MCV 101.5 fl (80-94) H 03/28/22 05:17 MCH 31.9 pg (28.0-34.0) 03/28/22 05:17 MCHC 31.5 g/dL (30.0-36.0) 03/28/22 05:17 RDW 11.7 % (12.1-15.1) L 03/28/22 05:17 Plt Count 286 10^3/cmm (130-400) 03/28/22 05:17 MPV 9.8 fL (7.4-10.4) 03/28/22 05:17 Neut % (Auto) 75.4 % 03/28/22 05:17 Lymph % (Auto) 9.3 % 03/28/22 05:17 Coleman % (Auto) 12.7 % 03/28/22 05:17 Eos % (Auto) 2.2 % 03/28/22 05:17 Baso % (Auto) 0.1 % 03/28/22 05:17 Neut # (Auto) 5.02 10^3/uL (1.8-7.7) 03/28/22 05:17 Lymph # (Auto) 0.6 10^3/uL (0.8-4.8) L 03/28/22 05:17 Coleman # (Auto) 0.9 10^3/uL (0.2-0.9) 03/28/22 05:17 Eos # (Auto) 0.2 10^3/uL (0.0-0.8) 03/28/22 05:17 Baso # (Auto) 0.0 10^3/uL (0.0-0.1) 03/28/22 05:17 Nucleated RBC % (auto) 0 % 03/28/22 05:17 Nucleated RBCs # 0.0 /100WBC 03/28/22 05:17 D-Dimer 4.67 ug/mIFEU (0-0.59) H 03/21/22 16:46 Specimen Type Arterial 03/23/22 09:45 Sample Site Radial, left 03/23/22 09:45 ABG pH 7.42 (7.35-7.45) 03/23/22 09:45 ABG pCO2 69.2 mmHg (35-45) H* 03/23/22 09:45 ABG pO2 103.0 mmHg (80.0-100.0) H 03/23/22 09:45 ABG HCO3 44.6 mmol/L (22-26) H 03/23/22 09:45 ABG Base Excess 17.5 mmol/L (-2.0-2.0) H 03/23/22 09:45 Payam Test Pos 03/23/22 09:45 Hematocrit 29.0 % (42-52) L 03/23/22 09:45 O2 Delivery Device Nc 03/23/22 09:45 O2 Liters/Min 4.0 % 03/23/22 09:45 FiO2 36.0 % 03/23/22 09:45 Independent Contractor ID Gd 03/23/22 09:45 Sodium 136 mmol/L (136-145) 03/28/22 05:17 Potassium 4.3 mmol/L (3.5-5.1) 03/28/22 05:17 Chloride 93 mmol/L (98-107) L 03/28/22 05:17 Carbon Dioxide 39 mmol/L (22-29) H 03/28/22 05:17 Anion Gap 8.3 (5-19) 03/28/22 05:17 BUN 23 mg/dL (8-23) 03/28/22 05:17 Creatinine 0.6 mg/dL (0.7-1.2) L 03/28/22 05:17 GFR Calculation Not Reportable 03/28/22 05:17 Glucose 84 mg/dL (65-115) 03/28/22 05:17 Calculated Osmolality 285 mOsm/kg (285-295) 03/28/22 05:17 Lactate 1.0 mmol/L (0.5-2.2) 03/15/22 20:22 Calcium 8.9 mg/dL (8.5-10.5) 03/28/22 05:17 Phosphorus 2.3 mg/dL (2.5-4.5) L 03/18/22 03:35 Magnesium 1.8 mg/dL (1.7-2.3) 03/18/22 03:35 Total Bilirubin 0.3 mg/dL (0.15-1.2) 03/28/22 05:17 AST 16 U/L (0-40) 03/28/22 05:17 ALT 29 U/L (0-41) 03/28/22 05:17 Alkaline Phosphatase 64 U/L (40-130) 03/28/22 05:17 C-Reactive Protein 86.7 mg/L (0.0-4.9) H 03/18/22 03:35 Total Protein 5.9 g/dL (6.6-8.7) L 03/28/22 05:17 Albumin 3.2 g/dL (3.5-5.2) L 03/28/22 05:17 Globulin 2.7 g/dL (1.3-4.6) 03/28/22 05:17 Lipase 20 U/L (13-60) 03/15/22 20:22 Procalcitonin 0.29 ng/mL (0-0.5) 03/18/22 03:35 TSH 1.45 uIU/mL (0.27-4.20) 03/15/22 20:22 Urine Color Yellow (Yellow) 03/16/22 17:45 Urine Appearance Hazy (CLEAR) A 03/16/22 17:45 Urine pH 6 (5-7) 03/16/22 17:45 Ur Specific Sanford 1.020 (1.005-1.030) 03/16/22 17:45 Urine Protein Neg (Negative) 03/16/22 17:45 Urine Glucose (UA) Norm (Normal) 03/16/22 17:45 Urine Ketones 1+ (Negative) H 03/16/22 17:45 Urine Blood 3+ (Negative) H 03/16/22 17:45 Urine Nitrate Negative (Negative) 03/16/22 17:45 Urine Bilirubin Neg (Negative) 03/16/22 17:45 Urine Urobilinogen Norm mg/dL (Negative) 03/16/22 17:45 Ur Leukocyte Esterase Negative (Negative) 03/16/22 17:45 Urine RBC 40-50 /hpf (0-2) H 03/16/22 17:45 Urine WBC 0-4 /hpf (0-5) H 03/16/22 17:45 Ur Squamous Epith Cells 0-4 /hpf (0-5) H 03/16/22 17:45 Amorphous Sediment Not Reportable 03/16/22 17:45 Urine Bacteria 1+ /hpf (NONE) H 03/16/22 17:45 Influenza Type A Ag Negative (Negative) 03/21/22 18:30 Influenza Type B Ag Negative (Negative) 03/21/22 18:30 SARS-CoV-2 Ag (Rapid) Negative (Negative) 03/21/22 18:30 Vitals Last Vital Signs Temp 98.0 F 03/28/22 11:22 Pulse 104 H 03/28/22 11:37 Resp 18 03/28/22 11:29 BP 120/64 03/28/22 11:22 Pulse Ox 99 03/28/22 11:29 O2 Del Method 03/28/22 11:29 O2 Flow Rate 4 03/28/22 11:29 FiO2 35 03/27/22 19:37 Discharge Plan Discharge Patient Disposition: Home Health Service Condition: Stable Prescriptions: New furosemide 40 mg Tablet 40 mg PO DAILY@0800 15 Days Qty: 15 0RF polyethylene glycol 3350 17 gram Powder In Packet 17 g PO DAILY 14 Days Qty: 14 0RF alprazolam 0.5 mg Tablet 0.5 mg PO BEDTIME PRN (Reason: anxiety) 7 Days Qty: 7 0RF benzonatate 100 mg Capsule 100 mg PO TID 15 Days Qty: 45 0RF pantoprazole 40 mg Tablet,Delayed Release (Dr/Ec) 40 mg PO BID 15 Days Qty: 30 0RF budesonide 0.5 mg/2 mL Suspension For Nebulization 0.5 mg inhalation BID.RESPIRATORY 14 Days Qty: 28 0RF Eliquis 5 mg tablet 5 mg PO BID 30 Days Qty: 60 0RF Continued montelukast [Singulair] 10 mg tablet 10 mg PO QPM albuterol sulfate 2.5 mg /3 mL (0.083 %) solution for nebulization 2.5 mg INHALATION Q6H PRN (Reason: Shortness Of Breath Or Wheezing) ipratropium-albuterol 0.5 mg-3 mg(2.5 mg base)/3 mL Solution For Nebulization 3 ml INHALATION Q4H oxybutynin chloride 10 mg tablet extended release 24 hr 10 mg PO DAILY Ventolin HFA 90 mcg/actuation Hfa Aerosol Inhaler 2 puff INHALATION QID PRN (Reason: Shortness Of Breath) Vitamin D3 50 mcg (2,000 unit) Capsule 50 mcg PO DAILY@12 Discontinued ciprofloxacin HCl 500 mg tablet 500 mg PO Q12H Rx Instructions: for 10 days (rx filled 03/09/22) Discharge Orders: Discharge Order (Routine); Ordered 03/28/22 Ordered By: Rebecca Crespo Other Ambulatory Orders: DME: [facility] (Order) Location: None Selected Ordered By: Kodi MCKINNEY: [facility] (Order) Location: None Selected Ordered By: Rebecca Crespo Referrals: [facility] [Other] Sage Lee MD [Physician] - 04/06/22 1:00 pm (Return to surgery office in 1 week to discuss colonoscopy) Andrea Santiago DO [Primary Care Provider] - 04/05/22 11:30 am Anu Bah MD [Physician] - 04/06/22 10:45 am (per Dr. Bah. Hospital discharge follow up to be seen in one week ) Discharge Diet: Usual diet Discharge Activity: Resume usual activity Patient Instructions: Benzonatate (By mouth), Furosemide (By mouth), Alprazolam (By mouth), Pantoprazole (By mouth), Polyethylene Glycol 3350 (By mouth), Budesonide (By mouth), Apixaban (By mouth), Pulmonary Embolism (ED), Opioid Safety, Pneumonia Stoplight, Pneumonia - Viral Discharge Attestations Time Spent in Discharge Care*: greater than 30 min Quality Metrics Clinical Quality Measures [ Venous Thromboembolism { Contraindication to Overlap Therapy: None; Overlap threrpy ordered; VTE Discharge Education: Education about anticoagulant therapy/Care Notes given;}] Coding Level of Care Code Acute Chg [facility] note Diagnoses Chronic obstructive pulmonary disease J44.9 Small bowel obstruction K56.609 Pulmonary embolism I26.99 Chronic respiratory failure with hypoxia J96.11
[2022-03-28] MEDS: FUROsemide 40 mg Tablet PO (15:05)
--- NOTE | 2022-03-28 15:59 | PC.NURSE ---
IV removed. Patient tolerated well. Patient is A&Ox3. Respirations even and non-labored on 4 liters via NC. Patient's discharge reviewed with patient and . Patient and verbalized understanding of discharge instruction and follow up appointments and changes to medications. Patient was assisted into wheel chair and pushed to private car. Patient's colostomy bag was changed before discharge.
== END 2022-03-28 16:00 | disposition home health service (06) | DRG 388 ==
LOC: ER 22:05 → ICU 22:09 → MEDSURG 03-17 14:58
PROVIDERS: Internal Medicine; Admitting Provider Family Medicine; Emergency Provider Emergency Medicine; PCP Emergency Medicine Emergency Medical Services; Visit Provider Student in an Organized Health Care Education/Training Program
DX: K56.600 Partial intestinal obstruction, unspecified as to cause (principal); I26.99 Other pulmonary embolism without acute cor pulmonale; J18.9 Pneumonia, unspecified organism; J96.21 Acute and chronic respiratory failure with hypoxia; J44.0 Chronic obstructive pulmonary disease with (acute) lower respiratory infection; J44.1 Chronic obstructive pulmonary disease with (acute) exacerbation; R04.2 Hemoptysis; J90 Pleural effusion, not elsewhere classified; J98.11 Atelectasis; Z85.048 Personal history of other malignant neoplasm of rectum, rectosigmoid junction, and anus; Z90.49 Acquired absence of other specified parts of digestive tract; Z93.3 Colostomy status; Z96.0 Presence of urogenital implants; Z87.891 Personal history of nicotine dependence; K59.00 Constipation, unspecified; Z99.81 Dependence on supplemental oxygen; Z79.51 Long term (current) use of inhaled steroids; I27.20 Pulmonary hypertension, unspecified
CPT/HCPCS: 36415; 36600; 71045; 71275; 74018; 74177; 80048; 80053; 81001; 82803; 83605; 83690; 83735; 84100; 84145; 84443; 85025; 85378; 86140; 86403; 87070; 87077; 87086; 87186; 87205; 87426; 87449; 87804; 93005; 93306; 93970; 94640; 94660; 94762; 96361; 96372; 96374; 96375; 97110; 97116; 97161; 97530; 99285; C9113; J0696; J1170; J1650; J1940; J2250; J2405; J2550; J2930; J3475; J7030; J7040; J7512; J7626; Q9967

== ENCOUNTER → 2022-04-06 11:02 | Outpatient (BNVA) | payer OTHER, SELFPAY | PROVIDERS: PCP Emergency Medicine Emergency Medical Services; Visit Provider Internal Medicine Critical Care Medicine | DX: J44.9 Chronic obstructive pulmonary disease, unspecified (principal); J90 Pleural effusion, not elsewhere classified; J96.12 Chronic respiratory failure with hypercapnia; R91.1 Solitary pulmonary nodule; J96.11 Chronic respiratory failure with hypoxia; Z87.891 Personal history of nicotine dependence; Z86.711 Personal history of pulmonary embolism; Z79.01 Long term (current) use of anticoagulants; Z99.81 Dependence on supplemental oxygen; N28.1 Cyst of kidney, acquired; Z09 Encounter for follow-up examination after completed treatment for conditions other than malignant neoplasm; R19.4 Change in bowel habit | CPT/HCPCS: 36415; 85025; 99213; 99214 ==

== ENCOUNTER 2022-06-07 10:01 | Outpatient (CLI) | payer OTHER, SELFPAY ==
--- NOTE | 2022-06-07 10:13 | FL_ITS ---
WS: [id number] Barium enema, 06/07/2022 Clinical Data: CONSTIPATION Comparison: None. Fluoroscopy time: 4min [id number] # of spot films: 4 Findings: The barium was introduced in a retrograde fashion through the left lower quadrant colostomy. The molina um proceeded very slowly. The barium did traverse much of the transverse colon but no barium achieved the ascending colon. The visualized colon was the transverse colon and the descending colon to the c olostomy site. No polyps, masses or obstruction was seen. The haustral pattern was normal. The patien t asked to terminate the examination because he did not feel comfortable completing the examination. FL/FL barium enema [id number] Impression: 1. Limited barium enema outlining much of the transverse colon and the remainin g descending colon to the colostomy. 2. Negative for mucosal abnormalities or obstructive lesions.
== END 2022-06-07 10:02 | disposition home or self-care (01) ==
LOC: RAD 10:02
PROVIDERS: PCP Emergency Medicine Emergency Medical Services; Visit Provider Surgery
DX: K59.00 Constipation, unspecified (principal); Z93.3 Colostomy status
CPT/HCPCS: 74270

== ENCOUNTER → 2022-06-15 16:42 | Outpatient (BNVA) | payer OTHER, SELFPAY | PROVIDERS: PCP Emergency Medicine Emergency Medical Services; Visit Provider Surgery | DX: Z09 Encounter for follow-up examination after completed treatment for conditions other than malignant neoplasm (principal); R19.4 Change in bowel habit | CPT/HCPCS: 99212 ==

== ENCOUNTER 2022-07-06 13:02 | Outpatient (CLI) | payer OTHER, SELFPAY ==
--- NOTE | 2022-07-06 13:10 | MM_ITS ---
WS: [id number] LEFT 3D TOMOSYNTHESIS DIGITAL MAMMOGRAPHY WITH CAD CLINICAL INFORMATION: 6M FOLLOW UP COMPARISON: December 07, 2021 TECHNIQUE: 3 views of the left breast were obtained. FINDINGS: Scattered fibroglandular densities of the left breast. Underlying parenchymal tissue in the LEFT grec[address] is similar in appearance to prior examination. No other new findings. Ultrasound described below. ULTRASOUND BREAST LEFT TECHNIQUE: Ultrasound left breast focused area of concern. CLINICAL INFORMATION: 6M FOLLOW UP FINDINGS: Ultrasound LEFT areola. RIGHT for comparison. Normal underlying parenchymal tissue. Previously descri bed prominent breast tissue appears more symmetric today. No suspicious underlying mass or lesion. Fi ndings have a benign appearance. No suspicious cystic or solid lesion to target for biopsy. No need f or further follow-up unless new symptoms arise. MM/[place] [id number] BI-RADS: 2-Benign FOLLOW UP: See Report
== END 2022-07-06 13:03 | disposition home or self-care (01) ==
LOC: RAD 13:04
PROVIDERS: PCP Emergency Medicine Emergency Medical Services; Visit Provider Emergency Medicine Emergency Medical Services
DX: R92.8 Other abnormal and inconclusive findings on diagnostic imaging of breast (principal)
CPT/HCPCS: 76642; 77061; G0279

== ENCOUNTER → 2022-12-07 15:07 | Outpatient (BNVA) | payer OTHER, SELFPAY | PROVIDERS: PCP Emergency Medicine Emergency Medical Services; Visit Provider Internal Medicine Pulmonary Disease | DX: J44.9 Chronic obstructive pulmonary disease, unspecified (principal); I26.99 Other pulmonary embolism without acute cor pulmonale; J90 Pleural effusion, not elsewhere classified; J96.12 Chronic respiratory failure with hypercapnia; R91.1 Solitary pulmonary nodule; J96.11 Chronic respiratory failure with hypoxia; Z99.81 Dependence on supplemental oxygen; Z87.891 Personal history of nicotine dependence; Z79.01 Long term (current) use of anticoagulants | CPT/HCPCS: 99214 ==

== ENCOUNTER → 2023-04-10 14:08 | Outpatient (BNVA) | payer OTHER, SELFPAY | PROVIDERS: PCP Emergency Medicine Emergency Medical Services; Visit Provider Internal Medicine Pulmonary Disease | DX: I26.99 Other pulmonary embolism without acute cor pulmonale (principal); J44.9 Chronic obstructive pulmonary disease, unspecified; J90 Pleural effusion, not elsewhere classified; J96.12 Chronic respiratory failure with hypercapnia; R91.1 Solitary pulmonary nodule; J96.11 Chronic respiratory failure with hypoxia; N28.1 Cyst of kidney, acquired; Z79.01 Long term (current) use of anticoagulants; Z87.891 Personal history of nicotine dependence | CPT/HCPCS: 99214 ==

== ENCOUNTER 2023-07-08 12:01 | Inpatient (IN) | payer OTHER, SELFPAY ==
[2023-07-08] VITALS (42 sets, daily range): BP systolic 86–200; BP diastolic 56–106; PULSE 82–125; RESP 15–36; TEMP 36.7–36.8; O2SAT 86–100; BMI 17.4
--- NOTE | 2023-07-08 12:23 | XRR_ITS ---
PROCEDURE INFORMATION: Exam: XR Chest Exam date and time: 07/08/2023 12:43 PM Age: 77 years old Clinical indication: Cough and dyspnea; Additional info: Dyspnea/cough TECHNIQUE: Imaging protocol: Radiologic exam of the chest. Views: 1 view. COMPARISON: 1. CT angio chest PE protcl [id number] 03/21/2022 11:23 PM 2. CR XR chest 1V portable [id number] 03/21/2022 4:38 PM 3. CR XR chest 1V portable [id number] 03/18/2022 4:09 PM FINDINGS: Lungs: Hyperinflated lungs with flattening of the hemidiaphragms. No consolidation. Pleural spaces: Mild blunting of the costophrenic sulci. No pneumothorax. Heart/Mediastinum: Unremarkable. No cardiomegaly. Bones/joints: Unremarkable. XR/XR chest 1V portable [id number] IMPRESSION: 1. Possible small bilateral pleural effusions versus atelectasis or scarring. 2. Emphysema.
--- NOTE | 2023-07-08 12:23 | ECG_ITS ---
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 Measurements Intervals [place] Rate: 101 P: 86 TN: 182 QRS: 87 QRSD: 106 T: 83 QT: 328 QTc: 426 Interpretive Statements SINUS TACHYCARDIA POSSIBLE RIGHT ATRIAL ENLARGEMENT [0.25mV P-WAVE] LEFT ATRIAL ENLARGEMENT [-0.15mV P-WAVE IN V1/V2] INCOMPLETE RIGHT BUNDLE BRANCH BLOCK [90+ ms QRS DURATION, TERMINAL R IN V1/V2, 40+ ms S IN I/aVL/V4/V5/V6] ANTEROSEPTAL MYOCARDIAL INFARCTION , OF INDETERMINATE AGE [40+ ms Q WAVE IN V1-V4] Compared to ECG 03/21/2022 16:34:26 Atrial abnormality now present Incomplete right bundle-branch block now present Sinus rhythm no longer present Myocardial infarct finding still present Electronically Signed On 07-09-2023 8:35:12 LCSW by Renato Bronson M.D. [email or web address] [email or web address]/store/[id number] [email or web address]
--- NOTE | 2023-07-08 12:32 | ED_ITS ---
HPI - SOB/Dyspnea 2 General: Chief Complaint: Shortness of Breath/Dyspnea Stated Complaint: sob,cough,fever Time Seen by Provider: 07/08/23 12:12 Source: patient Mode of arrival: ambulatory History of Present Illness: HPI Narrative: 77-year-old male presents to the emergen cy room shortness of breath the last several days with increasing oxygen need. He has a history of end-stage COPD and is normally on 2 L by nasal cannula he is on multiple inhalers. He is reporting a subjective fever with increasing thick tenacious sputum in the last several days denies chest or abdominal pain. In addition to his COPD he has a history of colon cancer which resulted in a colostomy he had difficulty with urination and had a suprapubic catheter placed. A few months ago during an attempt to change his suprapubic catheter the catheter dissected out of the fistula and perforated part of his bowel this was treated conservatively and he now has a Garcia in place. He has noted significant weight loss the last several months as well. MD elicited complaint: shortness of breath and cough Pertinent past history: COPD Onset (ago): day(s) (3) Timing: constant Severity: moderate Exacerbating factors: exertion and coughing Relieving factors: nothing Known history of: COPD Associated symptoms: Reports chest congestion, chest pain, cough and nausea; Deny abdominal pain, diaphoresis, dizziness, extremity pain, fever(s), hemoptysis, lightheadedness, myalgias, orthopnea, palpitations, paresthesias, polydipsia, polyuria, rash, sense of impending doom, syncope or vomiting Treatment prior to arrival: none Related Data: Home oxygen amount: 2 liters Review of Systems 2 Const: Denies: fever(s), chills or diaphoresis Card: Reports: chest pain; Denies: palpitations, lightheadedness, syncope or orthopnea Resp: Reports: chest congestion; Denies: dyspnea or hemoptysis GI: Reports: nausea; Denies: abdominal pain or vomiting : Denies: dysuria, urinary frequency or urinary urgency Musc: Denies: neck pain, back pain or extremity pain Skin/Breast: Denies: rash Neuro: Denies: dizziness Endo: Denies: polyuria or polydipsia PFSH ED 2 PFSH: Medical History Rectal cancer COPD (chronic obstructive pulmonary disease) Surgical History S/P bronchoscopy History of colon resection OCT-2004 Family History Father Lung disease Mother Cancer Social History Smoking and tobacco/nicotine status: former use of tobacco/nicotine Quit status (tobacco/nicotine): has quit using Year quit tobacco: 2007 PPD x 50 Years Alcohol intake: never Substance/Drug Use: never Lives independently: Yes Household members: spouse Marital status: Current occupational status: retired Do you think of yourself as: Straight/Heterosexual Current gender identity: Male Physical Exam 2 Const: COMMON NORMALS: no acute distress GENERAL APPEARANCE: cooperative and comfortable ORIENTATION/CONSCIOUSNESS: Yes awake, Yes oriented to person, Yes oriented to place and Yes oriented to time HENMT: COMMON NORMALS: normocephalic, atraumatic and hearing grossly normal bilaterally HEAD & SCALP: normocephalic and atraumatic Resp: COMMON NORMALS: normal respiratory effort, No retractions, No use of accessory muscles and clear to auscultation bilaterally AUSCULTATION: clear to auscultation bilaterally Cardio: COMMON NORMALS: regular rate, regular rhythm and No murmurs present (Cardio) RATE: regular rate RHYTHM: regular rhythm GI: COMMON NORMALS: Soft to palpation and No hepatosplenomegaly present A USCULTATION: Yes normoactive bowel sounds PALPATION: Yes Soft to palpation, No Tenderness to palpation present (GI), No Guarding due to palpation present (GI) and Yes No hepatosplenomegaly present Extremity: COMMON NORMALS: normal to inspection, capillary refill normal, no clubbing, cyanosis or edema, no calf tenderness and no pedal edema Neuro: SENSORIUM/ORIENTATION: Yes oriented to person, Yes oriented to place and Yes oriented to time Skin: COMMON NORMALS: no rashes or lesions noted GENERAL SKIN EXAM: no rashes or lesions noted Course 2 Vital Signs: Vital signs: Vital Signs Temperature 98.2 F 07/08/23 12:03 Pulse Rate 106 H 07/08/23 12:37 Respiratory Rate 18 07/08/23 12:37 Blood Pressure 167/100 07/08/23 12:37 Pulse Oximetry 97 07/08/23 12:37 Oxygen Delivery Me thod Nasal Cannula 07/08/23 12:37 Oxygen Flow Rate 3 07/08/23 12:37 MDM - SOB/Dyspnea Medical Decision Making Chest x-ray does not show any acute infiltrates or effusions. He does have hyperexpansion of the lungs as it be anticipated with his history. Given his productive cough and his blood gas which shows hypercapnia will admit. He is been started on BiPAP will cover with Zithromax and ceftriaxone appropriate cultures including sputum and blood have been done or pending swabs on COVID and flu as well. Discussed with Dr. Polanco. Also discussed with family about CODE STATUS they are uncertain about what they wish to do at this time or tending to think they wish to have all available efforts if you should worsen. For now we will admit him to the ICU as I think he may further deteriorate. Reviewing his chart it list previous pulmonary embolism and his history he had told me not had clots in the past she is not on any anticoagulants. He relates that about a year ago he was admitted for congestive heart failure in the course of the workup they found he had pulmonary embolism he was on anticoagulants for 6 months and they were stopped. Pulmonology note 04/10/23 stated that he was to continue the Eliquis - his state he is no longer taking it. Medical Records I reviewed the patient's medical records. Lab Data I reviewed the patient's lab results. 07/08/23 12:32 07/08/23 12:32 Labs/Radiology: Radiology Impressions Chest X-Ray 07/08/23 12:23 IMPRESSION: 1. Possible small bilateral pleural effusions versus atelectasis or scarring. 2. Emphysema. Laboratory Results WBC 7.11 10^3/uL (3.29-11.43) 07/08/23 12:32 RBC 3.25 10^6/uL (3.85-5.65) L 07/08/23 12:32 Hgb 11.00 g/dL (11.27-16.99) L 07/08/23 12:32 Hct 35.4 % (37-53) L 07/08/23 12:32 MCV 108.9 fl (82-101) H 07/08/23 12:32 MCH 33.8 pg (27-33) H 07/08/23 12:32 MCHC 31.1 g/dL (30-55) 07/08/23 12:32 RDW 12.6 % (12.1-15.1) 07/08/23 12:32 Plt Count 184 10^3/cmm (157-399) 07/08/23 12:32 MPV 9.9 fL (7.4-10.4) 07/08/23 12:32 Neut % (Auto) 81.9 % 07/08/23 12:32 Lymph % (Auto) 3.2 % 07/08/23 12:32 [place] % (Auto) 14.3 % 07/08/23 12:32 Eos % (Auto) 0.0 % 07/08/23 12:32 Baso % (Auto) 0.3 % 07/08/23 12:32 Neut # (Auto) 5.82 10^3/uL (1.8-7.7) 07/08/23 12:32 Lymph # (Auto) 0.2 10^3/uL (0.8-4.8) L 07/08/23 12:32 [place] # (Auto) 1.0 10^3/uL (0.2-0.9) H 07/08/23 12:32 Eos # (Auto) 0.0 10^3/uL (0.0-0.8) 07/08/23 12:32 Baso # (Auto) 0.0 10^3/uL (0.0-0.1) 07/08/23 12:32 Nucleated RBC % (auto) 0 % 07/08/23 12:32 Nucleated RBCs # 0.0 /100WBC 07/08/23 12:32 Specimen Type Arterial 07/08/23 12:50 Sample Site Brachial, right 07/08/23 12:50 ABG pH 7.30 (7.35-7.45) L 07/08/23 12:50 ABG pCO2 85.7 mmHg (35-45) H* 07/08/23 12:50 ABG pO2 83.3 mmHg (80.0-100.0) 07/08/23 12:50 ABG PO2/FiO2 Ratio 0 07/08/23 12:50 ABG HCO3 42.4 mmol/L (22-26) H 07/08/23 12:50 ABG O2 Saturation 97.1 07/08/23 12:50 ABG Base Excess 12.9 mmol/L (-2.0-2.0) H 07/08/23 12:50 Payam Test N/a 07/08/23 12:50 A-a O2 Gradient 5.4 mmHg (5-10) 07/08/23 12:50 Hematocrit 34.2 % (42-52) L 07/08/23 12:50 Hgb O2 Saturation 94.6 % (95-100) L 07/08/23 12:50 Carboxyhemoglobin 2.1 %THgb (0.4-20.1) 07/08/23 12:50 Methemoglobin 0.5 % (0.4-1.5) 07/08/23 12:50 Total Hemoglobin 11.2 g/dL (14-18) L 07/08/23 12:50 Sodium 144.0 mmol/L (131-143) H 07/08/23 12:50 Potassium 4.4 mmol/L (3.5-5.0) 07/08/23 12:50 Glucose 123.0 mg/dL (70-115) H 07/08/23 12:50 Ionized Calcium 1.3 mmol/L (1.1-1.4) 07/08/23 12:50 O2 Delivery Device Nc 07/08/23 12:50 O2 Liters/Min 3.0 % 07/08/23 12:50 FiO2 32.0 % 07/08/23 12:50 Kettle Coordinator ID Amh 07/08/23 12:50 Sodium 136 mmol/L (136-145) 07/08/23 12:32 Potassium 4.5 mmol/L (3.5-5.1) 07/08/23 12:32 Chloride 92 mmol/L (98-107) L 07/08/23 12:32 Carbon Dioxide 38 mmol/L (22-29) H 07/08/23 12:32 Anion Gap 10.5 (5-19) 07/08/23 12:32 BUN 20 mg/dL (8-23) 07/08/23 12:32 Creatinine 0.6 mg/dL (0.7-1.2) L 07/08/23 12:32 GFR Calculation Not Reportable 07/08/23 12:32 Glucose 124 mg/dL (65-115) H 07/08/23 12:32 Calculated Osmolality 286 mOsm/kg (285-295) 07/08/23 12:32 Lactic Acid 1.1 mmol/L (0.5-2.2) 07/08/23 12:32 Calcium 9.8 mg/dL (8.5-10.5) 07/08/23 12:32 Total Bilirubin 0.4 mg/dL (0.15-1.2) 07/08/23 12:32 AST 12 U/L (0-40) 07/08/23 12:32 ALT 11 U/L (0-41) 07/08/23 12:32 Alkaline Phosphatase 82 U/L (40-130) 07/08/23 12:32 Total Protein 8.1 g/dL (6.6-8.7) 07/08/23 12:32 Albumin 3.9 g/dL (3.5-5.2) 07/08/23 12:32 Globulin 4.2 g/dL (1.3-4.6) 07/08/23 12:32 Influenza Type A Ag Cancelled 07/08/23 12:40 Influenza Type B Ag Cancelled 07/08/23 12:40 All radiology interpretation(s) finalized by discharge Discharge Plan Discharge Patient Disposition: Admitted As Inpatient Clinical Impression: Acute and chronic respiratory failure with hypercapnia, Pulmonary embolism, Colon cancer, Acute exacerbation of chronic obstructive airways disease Condition: Stable Prescriptions: No Action (DME) BIPAP See Rx Instructions .Route .MEDSUPPLY Qty: 1 0RF Rx Instructions: Standard Bi-level IPAP 10, EPAP 5 (DME) oxygen See Rx Instructions .Route .MEDSUPPLY Qty: 1 0RF Rx Instructions: 2 LPM in line BIPAP montelukast [Singulair] 10 mg tablet 10 mg PO QPM albuterol sulfate 2.5 mg /3 mL (0.083 %) solution for nebulization 2.5 mg INHALATION Q6H PRN (Reason: Shortness Of Breath Or Wheezing) furosemide 40 mg tablet 40 mg PO DAILY paroxetine HCl 10 mg tablet 10 mg PO DAILY trazodone 50 mg tablet 25 mg PO DAILY pantoprazole 40 mg tablet,delayed release (DR/EC) 40 mg PO DAILY formoterol fumarate [Perforomist] 20 mcg/2 mL solution for nebulization 2 ml inhalation BID Qty: 120 6RF fluticasone propionate [Flonase Allergy Relief] 50 mcg/actuation spray,suspension 1 spray intranasal BID Qty: 18 3RF Rx Instructions: administer into each nostril budesonide 0.5 mg/2 mL suspension for nebulization 0.5 mg inhalation BID Qty: 120 6RF Spiriva Respimat 1.25 mcg/actuation mist 2 puff inhalation DAILY Qty: 4 6RF ipratropium-albuterol 0.5 mg-3 mg(2.5 mg base)/3 mL Solution For Nebulization 3 ml INHALATION Q4H Vitamin D3 50 mcg (2,000 unit) Capsule 50 mcg PO DAILY@12 Referrals: Andrea Santiago DO [Primary Care Provider] - Patient Instructions: Opioid Safety, Pain Management Coding Level of Care Code ED [employer] for Blanca Vides
[2023-07-08 13:01] LABS: Alveolar-Arterial Oxygen Gradi 5.4 mmHg (5-10); Arterial Blood Gas Hematocrit 34.2 % (42-52); Base Excess ABG 12.9 mmol/L (-2.0-2.0); Blood Gas Operator Identificat AMH; Blood Gas Sample Site Brachial, right; Blood Gas Sample Type Arterial; Carboxyhemoglobin 2.1 %THgb (0.4-20.1); HCO3 ABG 42.4 mmol/L (22-26); HGB O2 Sat 94.6 % (95-100); Ionized Calcium Level - ABG 1.3 mmol/L (1.1-1.4); Methemoglobin 0.5 % (0.4-1.5); Oxygen Device NC; Oxygen Saturation ABG 97.1; PO2 ABG 83.3 mmHg (80.0-100.0); PO2 FiO2 Ratio Arterial Blood 0; Potassium Level - ABG 4.4 mmol/L (3.5-5.0); Total Hemoglobin 11.2 g/dL (14-18)
[2023-07-08 13:02] LABS: ABG PCO2 85.7 mmHg (35-45)
[2023-07-08 13:03] LABS: Basophils % 0.3 %; Hematocrit 35.4 % (37-53); Lymphocytes # 0.2 10^3/uL (0.8-4.8); Lymphocytes % 3.2 %; Mean Corpuscular HGB Conc 31.1 g/dL (30-55); Mean Corpuscular Hemoglobin 33.8 pg (27-33); Mean Corpuscular Volume 108.9 fl (82-101); Mean Platelet Volume 9.9 fL (7.4-10.4); Monocytes % 14.3 %; Neutrophils # 5.82 10^3/uL (1.8-7.7); Neutrophils % 81.9 %; Nucleated Red Blood Cells % 0 %; Platelet Count 184 10^3/cmm (157-399); Red Blood Count 3.25 10^6/uL (3.85-5.65); Red Cell Distribution Width 12.6 % (12.1-15.1); White Blood Count 7.11 10^3/uL (3.29-11.43)
[2023-07-08 13:05] LABS: Alanine Aminotransferase 11 U/L (0-41); Albumin Level 3.9 g/dL (3.5-5.2); Alkaline Phosphatase 82 U/L (40-130); Anion Gap 10.5 (5-19); Aspartate Amino Transferase 12 U/L (0-40); Blood Urea Nitrogen 20 mg/dL (8-23); Calcium 9.8 mg/dL (8.5-10.5); Carbon Dioxide 38 mmol/L (22-29); Chloride 92 mmol/L (98-107); Globulin 4.2 g/dL (1.3-4.6); Glucose 124 mg/dL (65-115); Osmolality Calculated 286 mOsm/kg (285-295); Potassium 4.5 mmol/L (3.5-5.1); Sodium 136 mmol/L (136-145); Total Bilirubin 0.4 mg/dL (0.15-1.2); Total Protein 8.1 g/dL (6.6-8.7)
[2023-07-08 13:06] LABS: Creatinine Clr Calc Pharmacy 57.6126; Lactic Sepsis W/Reflex 1.1 mmol/L (0.5-2.2)
[2023-07-08] MEDS: cefTRIAXone 1,000 MG in sodium chloride 0.9% (plus) 50 ML 100 MG IV (13:18)
[2023-07-08 13:22] LABS: D Dimer 5.38 ug/mLFEU (0-0.59)
[2023-07-08] MEDS: ipratropium-albuterol 3 mL Neb 6 ML INHALATION (13:32)
--- NOTE | 2023-07-08 13:39 | CTR_ITS ---
PROCEDURE INFORMATION: Exam: CTA Chest With Contrast Exam date and time: 07/08/2023 2:55 PM Age: 77 years old Clinical indication: Hyperventilation; Additional info: Hypoxia, HX pe TECHNIQUE: Imaging protocol: Computed tomographic angiography of the chest with contrast. Exam focused on the arteries. 3D rendering (Not supervised by radiologist): MIP and/or 3D reconstructed images were created by the technologist. Radiation optimization: All CT scans at this facility use at least one of these dose optimization techniques: automated exposure control; mA and/or kV adjustment per patient size (includes targeted exams where dose is matched to clinical indication); or iterative reconstruction. Contrast material: OMNI 350; Contrast volume: 73 ml; Contrast route: INTRAVENOUS (IV); REPORTING DATA: Count of CT and Cardiac NM exams in prior 12 months: This patient has received 0 known CTs and 0 known cardiac nuclear medicine studies in the 12 months prior to the current study. COMPARISON: 1. CT angio chest PE protcl [id number] 03/21/2022 11:[address] chest w con* [id number] 04/12/2021 1:[address] chest w con* [id number] 10/08/2020 9:39 AM RADIATION DOSE METRICS: Total DLP (mGy-cm): 209.95 FINDINGS: Pulmonary arteries: Normal. No pulmonary emboli. Aorta: Moderate systemic atherosclerosis without aortic aneurysm. Lungs: Mild layering secretions within the trachea and left bronchus with patchy multifocal bilateral airway filling defects and diffuse bronchial thickening. Advanced emphysematous change. 8 mm left upper lobe solid noncalcified nodule on axial image 323 of series 7, previously 7 mm in September 2020. Mild right middle lobe and left greater than right basilar scarring versus subsegmental atelectasis. No consolidation. Pleural spaces: Unremarkable. No pneumothorax. No pleural effusion. Heart: Unremarkable. No cardiomegaly. No pericardial effusion. Lymph nodes: Calcified subcarinal lymph node in keeping with sequela of old granulomatous disease. Enlarged right hilar lymph nodes with index measuring 1 cm in the short axis on axial image 345 of series 7. Prominent left hilar lymph node measures 8 mm on axial image 321 of series 7. Liver: Tiny hepatic calcifications in keeping with sequela of old granulomatous disease. Stable small hepatic cysts. Gallbladder and bile ducts: Mild layering hyperdensity in the gallbladder compatible with sludge. Spleen: Tiny splenic calcifications in keeping with sequela of old granulomatous disease. Adrenal glands: Bilateral adrenal thickening redemonstrated, may be seen in the setting of hyperplasia. Kidneys and ureters: Redemonstrated large fluid density left renal cyst. Bones/joints: No acute fracture. Mild degenerative changes along the spine. Soft tissues: Partially visualized right lower posterior neck/upper back ovoid hypodense subcutaneous lesion with broad dermal abutment suggestive of epidermal inclusion cyst. Bilateral gynecomastia. CT/CT angio chest PE protcl [id number] IMPRESSION: 1. No acute pulmonary emboli. 2. COPD with findings of acute bronchitis with increased diffuse bronchial wall thickening and patchy secretions/mucous impaction. 3. Prominent bilateral hilar lymph nodes are nonspecific but suspected reactive. 4. Slightly increased size of left upper lobe nodule now measuring 8 mm. 5. Additional chronic and incidental findings as above.
--- NOTE | 2023-07-08 13:46 | P.HP_ITS ---
Providers/Chief Complaint 2 Primary Care Provider: Andrea Santiago DO Chief Complaint: sob,cough,fever History of Present Illness Doroteo aB is a 77 year old male With past medical history of COPD, respiratory failure nodules, smoker 2 pack/day x 50 years, Gold class B COPD, small bowel obstruction managed nonsurgically, pulmonary embolism in February 2022, hemoptysis in the past, colon cancer status post colostomy bag, suprapubic catheter which was later converted to a Bolden due to causing a perforation in the colon presented to the hospital today for productive cough with tenacious sputum, fever, shortness of breath which is getting worse. He is chronically on 2 L at home but now requiring 3 L. Over the last few days he has been requiring more more oxygen. Denies chest pain, abdominal pain night sweats, chills. He states his Bolden and colostomy bag are functioning okay. He is supposed to follow-up with colorectal surgery at some point as an outpatient. ED course: Blood pressure 167/100, pulse 106, temperature 98.2, respirate 18, placed on bipap. Checks x-ray does not show any acute infiltrates or effusions. Patient hypercapnic. ER doc had a talk with family about code status, they are undecided on code status. Apparently patient also had a PE last year and was still on Eliquis. Patient's states that he is not taking it anymore. D- dimer is 5.03. CTA chest has been ordered which is pending at this time. COVID test, flu is pending at this time. Medications/Allergies Home Medications Medication Instructions Recorded Confirmed Last Taken Type albuterol sulfate 2.5 mg/3 mL 2.5 mg inhalation Q6H PRN 11/27/19 04/10/23 02/12/20 History (0.083 %) solution for nebulization Shortness Of Breath Or Wheezing montelukast 10 mg tablet 10 mg PO QPM 11/27/19 04/10/23 02/12/20 05:00 History (Singulair) cholecalciferol (vitamin D3) 50 50 mcg PO DAILY@12 03/16/22 04/10/23 Unknown History mcg (2,000 unit) capsule (Vitamin D3) ipratropium 0.5 mg-albuterol 3 mg 3 ml inhalation Q4H 03/16/22 04/10/23 Unknown History (2.5 mg base)/3 mL nebulization soln BIPAP #1 ea 04/06/22 04/10/23 Unknown Rx oxygen #1 ea 04/06/22 04/10/23 Unknown Rx fluticasone propionate 50 1 spray intranasal BID #18 mL 08/17/22 04/10/23 Unknown Rx mcg/actuation nasal spray,suspension (Flonase Allergy Relief) furosemide 40 mg tablet 40 mg PO DAILY 12/07/22 04/10/23 Unknown History pantoprazole 40 mg tablet,delayed 40 mg PO DAILY 12/07/22 04/10/23 Unknown History release paroxetine HCl 10 mg tablet 10 mg PO DAILY 12/07/22 04/10/23 Unknown History trazodone 50 mg tablet 25 mg PO DAILY 12/07/22 04/10/23 Unknown History budesonide 0.5 mg/2 mL suspension 0.5 mg (2 mL) inhalation BID #120 12/28/22 04/10/23 Unknown Rx for nebulization mL formoterol fumarate 20 mcg/2 mL 2 ml inhalation BID #120 mL 04/10/23 04/10/23 Unknown Rx solution for nebulization (Perforomist) tiotropium bromide 1.25 2 puff inhalation DAILY #4 grams 05/08/23 Unknown Rx mcg/actuation mist for inhalation (Spiriva Respimat) Allergies Allergy/AdvReac Type Severity Reaction Status Date / Time morphine AdvReac Severe ADR-Halluci Verified 04/10/23 14:40 nating PFSH Acute 2 PFSH: Medical History Rectal cancer COPD (chronic obstructive pulmonary disease) Surgical History S/P bronchoscopy History of colon resection OCT-2004 Family History Father Lung disease Mother Cancer Social History Smoking and tobacco/nicotine status: former use of tobacco/nicotine Quit status (tobacco/nicotine): has quit using Year quit tobacco: 2007 - PPD x 50 Years Alcohol intake: never Substance/Drug Use: never Lives independently: Yes Household members: spouse Marital status: Current occupational status: retired Do you think of yourself as: Straight/Heterosexual Current gender identity: Male Vitals/I&O/Wt Last Vital Signs Temp 98.2 F 07/08/23 12:03 Pulse 97 07/08/23 13:33 Resp 33 H 07/08/23 13:33 BP 167/100 07/08/23 12:37 Pulse Ox 92 07/08/23 13:33 O2 Del Method BiPAP 07/08/23 13:33 O2 Flow Rate 3 07/08/23 12:37 FiO2 30 07/08/23 13:33 Weight last 48 hrs Weight 53.524 kg Physical Exam 2 Narrative: General: Alert oriented , patient seen sitting up in bed, cachectic appearing HEENT: Normocephalic, atraumatic, EOMI, breathing on bipap 30% fio2 Cardio: Regular rate rhythm, normal S1-S2, Respiratory: decreased b/l air entry, no wheezes but diffuse mild ronchi throughout lung lucas GI: Abdomen soft, nontender, nondistended, bowel sounds +, colostomy bag in place Extremities: no edema Data 07/08/23 12:32 07/08/23 12:32 Micro: Microbiology 07/08/23 12:34 Blood Culture - Preliminary Blood SPECIMEN COLLECTED 07/08/23 12:32 Blood Culture - Preliminary Blood SPECIMEN COLLECTED A&P Assessment and plan (1) Acute exacerbation of chronic obstructive airways disease: (2) Acute and chronic respiratory failure with hypercapnia: (3) Chronic hypercapnic respiratory failure: (4) Chronic respiratory failure with hypoxia: (5) Chronic obstructive pulmonary disease: (6) Colon cancer: (7) Pulmonary nodule: (8) Acute and chronic respiratory failure with hypoxia: (9) Chronic hypercapnic respiratory failure: (10) Fever: (11) Sputum production: Plan #Shortness of breath, fever #COPD #History of respiratory failure #Smoker 2 pack/day x 50 years #History of small bowel obstruction managed conservatively #History of PE in February 2022 #History of colon cancer status post colostomy #Chronic Bolden -D-dimer elevated 5.03, CTA chest pending to rule out PE ? Patient no longer taking Eliquis. Will start on heparin drip ? Chronically on 2 L of oxygen now requiring 3 L. Continue oxygen as needed and wean down to baseline as able ? Check bacterial antigen for Legionella, Streptococcus ? Fever at home. Pneumonia not ruled out. Tenacious sputum production ? Placed on ceftriaxone and azithromycin ? Check MRSA nares swab ? Check flu, COVID swab ? Check echocardiogram ? Continue on DuoNeb every 6 hours as needed ? Solu-Medrol 40 every 8 hours IV ? Patient appears euvolemic. Will continue home Lasix 40 daily ? Check BNP ? Continue Protonix 40 daily - Check blood cultures, sputum culture gram stain, check urine culture, has chronic bolden Full code. Family is okay with intubating the patient if needed. ? DVT prophylaxis: Heparin drip ? GI prophylaxis: Protonix 40 daily Attestations 2 Medical Necessity Statement*: requires inpatient hospitalization for sob Diagnoses Acute exacerbation of chronic obstructive airways disease J44.1 Acute and chronic respiratory failure with hypercapnia J96.22 Chronic hypercapnic respiratory failure J96.12 Chronic respiratory failure with hypoxia J96.11 Chronic obstructive pulmonary disease J44.9 Colon cancer C18.9 Pulmonary nodule R91.1 Acute and chronic respiratory failure with hypoxia J96.21 Fever R50.9 Sputum production R05.8
[2023-07-08] MEDS: azithromycin 500 MG in sodium chloride 0.9% 250 ML 250 MG IV (13:58)
[2023-07-08 14:32] LABS: Adenovirus Not Detected (NOT DETECT); Chlamydia Pneumoniae Not Detected (NOT DETECT); Coronavirus 229E,HKU1,NL63,OC4 Not Detected (NOT DETECT); Human Metapneumovirus Not Detected (NOT DETECT); Human Rhinovirus/Enterovirus Not Detected (NOT DETECT); Influenza A Not Detected (NOT DETECT); Influenza A H1 Not Detected (NOT DETECT); Influenza A H1-2009 Not Detected (NOT DETECT); Influenza A H3 Not Detected (NOT DETECT); Influenza B Not Detected (NOT DETECT); Mycoplasma Pneumoniae Not Detected (NOT DETECT); Parainfluenza Virus Type 1 Not Detected (NOT DETECT); Parainfluenza Virus Type 2 Not Detected (NOT DETECT); Parainfluenza Virus Type 3 Not Detected (NOT DETECT); Parainfluenza Virus Type 4 Not Detected (NOT DETECT); Respiratory Syncytial Virus A Not Detected (NOT DETECT); Respiratory Syncytial Virus B Not Detected (NOT DETECT)
[2023-07-08 14:37] LABS: SARS-COV-2 Detected (NOT DETECT)
[2023-07-08 14:38] LABS: Results from Genmark
[2023-07-08 14:56] LABS: ABG PCO2 69.4 mmHg (35-45); ABG PH Result 7.38 (7.35-7.45); Alveolar-Arterial Oxygen Gradi 7.1 mmHg (5-10); Arterial Blood Gas Hematocrit 30.3 % (42-52); Blood Gas Operator Identificat AMH; Blood Gas Sample Site Brachial, right; Blood Gas Sample Type Arterial; Carboxyhemoglobin 2.1 %THgb (0.4-20.1); HCO3 ABG 41.4 mmol/L (22-26); HGB O2 Sat 94.1 % (95-100); Ionized Calcium Level - ABG 1.3 mmol/L (1.1-1.4); Methemoglobin 0.7 % (0.4-1.5); Oxygen Device BIPAP; Oxygen Saturation ABG 96.8; PO2 ABG 75.2 mmHg (80.0-100.0); PO2 FiO2 Ratio Arterial Blood 0; Potassium Level - ABG 4.2 mmol/L (3.5-5.0); Total Hemoglobin 9.9 g/dL (14-18)
--- NOTE | 2023-07-08 14:57 | PC.PHAR ---
pts verified pts medications-[facility]ed [facility] not open on weekends so medications entered are what pts and pt states he takes
[2023-07-08] MEDS: iohexol 350 mg/mL 500 mL Btl (per mL) IV (15:02)
[2023-07-08] MEDS: remdesivir 200 MG in sodium chloride 0.9% (100 ml) 100 ML 100 MG IV (15:23)
[2023-07-08] MEDS: dexamethasone 4 mg/mL INJ 6 MG IVP (15:25)
--- NOTE | 2023-07-08 15:31 | PC.NURSE ---
PT TAKEN TO ICU ON 4 L NC AND MANUFACTURING AUTOMATION ENGINEER BY THIS NURSE. PATIENT STABLE UPON TRANSFER. RESPIRATORY INFORMED THAT PATIENT GOING TO THE FLOOR. RESPIRATORY VERBALIZED UNDERSTANDING AND STATED SHE WOULD BE THERE SHORTLY WITH BIPAP.
[2023-07-08 15:34] LABS: NT Pro B Type Natriuretic Pept 4189 pg/mL (0-450); Procalcitonin 0.15 ng/mL (0-0.5); Thyroid Stimulating Hormone 1.11 uIU/mL (0.27-4.20)
[2023-07-08] MEDS: dexmedeTOMIDine 0.9 % NaCL 400 MCG/100 ML PREMIX IV (16:15)
--- NOTE | 2023-07-08 16:20 | P.HP_ITS ---
Providers/Chief Complaint 2 Admitting Physician: Palma Polanco MD Primary Care Provider: Andrea Santiago DO Chief Complaint: sob,cough,fever History of Present Illness Doroteo Ba is a 77 year old male with previous history of COPD, oxygen dependent, uses 2 L at baseline, follows up with urology at [facility], recently had bowel perforation when suprapubic catheter was inserted by nurse practitioner, patient is being followed by colorectal surgeon at [facility], they have not recommended any surgical intervention, patient has not experienced any signs of obstruction or bleeding, presenting with chief complaint of worsening of shortness of breath. is at the bedside stating that at baseline Mr. Ba uses 2 L of oxygen, his symptoms started on Monday when they went to the doctor's appointment he was not able to lay flat he was severely anxious and short of breath, he started spiking fever on , for his COPD he uses inhalers and nebulizers, his oxygen requirement worsened a little bit, today in the ER he has been diagnosed with COVID-19, CTA chest rule out PE but it is showing excessive airway secretions no active mucous plug, patient was in hypoxic hypercapnic respiratory failure required BiPAP which showed improvement 1 with change settings to AVAPS At the time of my evaluation patient is on Precedex, no respiratory distress, he is calm able to answer simple questions, is at the bedside, patient is full code, no previous history of CHF or coronary disease, rectal cancer was treated in 2003 and that is in remission, he does have a chronic indwelling catheter Had a detailed discussion with the regarding current clinical scenario and risk of future complications including mucous plug, acute hypoxia worsening, indication for intubation, chances of developing clots, A-fib, cardiac arrest, all questions were answered to her satisfaction, I did encourage her to tell rest of her family members that Mr. Ba is severely sick with COVID-19 infection At baseline he is not a very healthy individual, he has been losing weight, he has significant muscle mass loss, not very physically active at home Review of Systems 2 Const: Reports: fever(s) and chills Eyes: Denies: change in vision ENMT: Denies: throat pain Card: Denies: chest pain Resp: Reports: dyspnea and productive cough GI: Denies: abdominal pain : Denies: difficulty urinating Musc: Denies: neck pain Skin/Breast: Denies: rash Neuro: Denies: headache(s) Psych: Reports: anxiety Endo: Denies: polyuria Medications/Allergies Home Medications Medication Instructions Recorded Confirmed Last Taken Type albuterol sulfate 2.5 mg/3 mL 2.5 mg inhalation Q4H 11/27/19 07/08/23 07/08/23 History (0.083 %) solution for nebulization cholecalciferol (vitamin D3) 50 50 mcg PO BEDTIME 03/16/22 07/08/23 07/07/23 History mcg (2,000 unit) capsule (Vitamin D3) BIPAP #1 ea 04/06/22 07/08/23 Unknown Rx oxygen #1 ea 04/06/22 07/08/23 Unknown Rx furosemide 40 mg tablet 40 mg PO DAILY PRN Edema 12/07/22 07/08/23 Unknown History pantoprazole 40 mg tablet,delayed 40 mg PO BID 12/07/22 07/08/23 Unknown History release paroxetine HCl 10 mg tablet 10 mg PO QAM 12/07/22 07/08/23 07/08/23 History trazodone 50 mg tablet 25 - 50 mg PO BEDTIME 12/07/22 07/08/23 Unknown History budesonide 0.5 mg/2 mL suspension 0.5 mg (2 mL) inhalation BID #120 12/28/22 07/08/23 07/08/23 Rx for nebulization mL tiotropium bromide 1.25 2 puff inhalation DAILY #4 grams 05/08/23 07/08/23 Unknown Rx mcg/actuation mist for inhalation (Spiriva Respimat) albuterol sulfate 90 mcg/actuation 2 puff inhalation QID PRN 07/08/23 07/08/23 Unknown History aerosol inhaler (Ventolin HFA) Shortness Of Breath arformoterol 15 mcg/2 mL solution 2 ml inhalation BID 07/08/23 07/08/23 07/08/23 History for nebulization Allergies Allergy/AdvReac Type Severity Reaction Status Date / Time morphine AdvReac Severe ADR-Halluci Verified 04/10/23 14:40 nating PFSH Acute 2 PFSH: Medical History (Updated 07/08/23 @ 16:43 by Carmen Blankenship MD) Change in bowel habit Chronic hypercapnic respiratory failure Pulmonary embolism Pleural effusion Pulmonary embolism Chronic respiratory failure with hypoxia Colon cancer Pulmonary nodule Rectal cancer COPD (chronic obstructive pulmonary disease) Surgical History S/P bronchoscopy History of colon resection OCT-2004 Family History Father Lung disease Mother Cancer Social History Smoking and tobacco/nicotine status: former use of tobacco/nicotine Quit status (tobacco/nicotine): has quit using Year quit tobacco: 2007 - PPD x 50 Years Alcohol intake: never Substance/Drug Use: never Lives independently: Yes Household members: spouse Marital status: Current occupational status: retired Do you think of yourself as: Straight/Heterosexual Current gender identity: Male Vitals/I&O/Wt Last Vital Signs Temp 98.2 F 07/08/23 12:03 Pulse 125 H 07/08/23 15:57 Resp 36 H 07/08/23 15:45 BP 200/106 07/08/23 15:45 Pulse Ox 86 L 07/08/23 15:45 O2 Del Method Nasal Cannula 07/08/23 16:02 O2 Flow Rate 3 07/08/23 12:37 FiO2 30 07/08/23 14:45 07/08/23 07/08/23 07/08/23 06:59 14:59 22:59 Intake Total 50 / 50 250.089 / 300.089 Balance 50 / 50 250.089 / 300.089 Weight last 48 hrs Weight 53.524 kg Weight 53.524 kg Physical Exam 2 Narrative: Cachectic malnourished male Currently on 30% AVAPS Saturating well Tachycardia sinus rhythm Awake and alert able to answer simple questions Slightly lethargic however able to protect airways Abdomen soft Garcia catheter in place No lower extremity edema is at the bedside S1, S2 tachycardia Bilateral breath sounds with rhonchi Data 07/08/23 12:32 07/08/23 12:32 Micro: Microbiology 07/08/23 12:34 Blood Culture - Preliminary Blood SPECIMEN COLLECTED 07/08/23 12:32 Blood Culture - Preliminary Blood SPECIMEN COLLECTED A&P Assessment and plan (1) Sputum production: (2) Fever: (3) Acute exacerbation of chronic obstructive airways disease: (4) Acute and chronic respiratory failure with hypercapnia: (5) Acute and chronic respiratory failure with hypoxia: (6) Abdominal cyst: (7) COVID-19 determined by clinical diagnostic criteria: (8) Protein calorie malnutrition: Plan Acute on chronic hypoxic hypercarbic respite failure Related to COVID-19 Patient has a lot of airway secretions related to COPD High risk for mucous plug Currently requiring 30% AVAPS Hypercarbic respite failure compensated with AVAPS high risk for intubation he is full code Had detailed discussion with the at the bedside Will use Mucomyst, Xopenex, ipratropium, Decadron, remdesivir, empirical antibiotic coverage Chest vest Wean off Precedex if possible Rectal cancer: Was treated in 2001, currently in remission Recently had colon perforation when suprapubic catheter was being inserted at [place] by a nurse practitioner, patient is following up with the colorectal surgeon at [facility], no plan for intervention as of yet BPH, patient has chronic indwelling catheter Severe protein calorie malnourishment Will benefit from dietary consultation Will recommend Ensure Plus 3 times daily Patient has muscle mass loss with prominent interossei muscle wasting of hands bilaterally Patient not physically very active at home Uses 2 L of oxygen at baseline He is full code was updated and educated about current scenario prognosis future complications risk All questions were answered to his satisfaction Repeat ABG in 1 hour Attestations 2 Medical Necessity Statement*: More than 2 midnights anticipated for management of COVID-19, severe hypoxia hypercapnic respite failure Coding Level of Care Code Critical Care >/= 30 minutes Critical care time (in minutes): 60 The high probability of a clinically significant, sudden or life threatening deterioration, as referenced in this documentation, required my full and direct attention, intervention and personal management. The critical care time shown is in addition to time spent performing any reported separately billable procedures and includes the following: [x] Data and vital sign review and interpretation [x ] Patient assessment, examination and intervention [x] Medication orders and management [x] Patient/Family updates as able [x] Care Coordination and Documentation. Diagnoses Sputum production R05.8 Fever R50.9 Acute exacerbation of chronic obstructive airways disease J44.1 Acute and chronic respiratory failure with hypercapnia J96.22 Acute and chronic respiratory failure with hypoxia J96.21 Abdominal cyst COVID-19 determined by clinical diagnostic criteria U07.1 Protein calorie malnutrition E46
[2023-07-08] MEDS: ipratropium-albuterol 3 mL Neb INHALATION (16:24)
[2023-07-08 17:02] LABS: Lactic Sepsis W/Reflex 1.7 mmol/L (0.5-2.2)
[2023-07-08] MEDS: enoxaparin 60 mg/0.6 mL Syringe 50 MG SUBCUT (17:26)
[2023-07-08 17:51] LABS: ABG PH Result 7.41 (7.35-7.45); Arterial Blood Gas Hematocrit 31.6 % (42-52); Base Excess ABG 12.1 mmol/L (-2.0-2.0); Blood Gas Allen Test Pos; Blood Gas Operator Identificat GD; Blood Gas Sample Site Radial, right; Blood Gas Sample Type Arterial; HCO3 ABG 38.9 mmol/L (22-26); Oxygen Device BIPAP; PO2 ABG 65.6 mmHg (80.0-100.0)
[2023-07-08] MEDS: ipratropium 0.5 mg/2.5 mL Neb INHALATION (19:48)
[2023-07-08] MEDS: levalbuterol 1.25 mg/3 mL Neb INHALATION (19:48)
--- NOTE | 2023-07-08 20:30 | XRR_ITS ---
PROCEDURE INFORMATION: Exam: XR Chest Exam date and time: 07/08/2023 9:44 PM Age: 77 years old Clinical indication: Device placement; Patient HX: Picc placemenet only TECHNIQUE: Imaging protocol: Radiologic exam of the chest. Views: 1 view. COMPARISON: CT angio chest PE protcl [id number] 07/08/2023 2:55 PM FINDINGS: Tubes, catheters and devices: Right PICC with tip near the upper SVC. Lungs: COPD. Refer to same-day CT chest report. Pleural spaces: No pneumothorax. Heart/Mediastinum: Unchanged cardiomediastinal silhouette. Bones/joints: No acute abnormality. XR/XR chest 1V portable [id number] IMPRESSION: Right PICC with tip near the upper SVC.
--- NOTE | 2023-07-08 20:42 | PC.NURSE ---
Consent obtained by myself, , and patient. All risk and benefits discussed. Risk included but not limited to dvt and infection. RUE scanned with US an basilic vein was the best option. Vein was straight, 5 mm, and free of visible clot. Pt draped in usual sterile fashion. Using real time US, lidocaine injected, vein accessed, and picc floated into position. Chest xray obtained and waiting tip confirmation. No bleeding no hematoma. EBL less then 5 ml.
[2023-07-09] VITALS (69 sets, daily range): BP systolic 96–183; BP diastolic 56–98; PULSE 75–114; RESP 9–28; TEMP 36.6–37.4; O2SAT 81–100; BMI 16.7
[2023-07-09] MEDS: ipratropium 0.5 mg/2.5 mL Neb INHALATION ×4 (02:00→19:35)
[2023-07-09] MEDS: levalbuterol 1.25 mg/3 mL Neb INHALATION ×4 (02:00→19:35)
[2023-07-09 04:46] LABS: ABG PCO2 51.2 mmHg (35-45); Arterial Blood Gas Hematocrit 29.5 % (42-52); Base Excess ABG 14.5 mmol/L (-2.0-2.0); Blood Gas Allen Test Pos; Blood Gas Operator Identificat CAK; Blood Gas Sample Site Radial, left; Blood Gas Sample Type Arterial; HCO3 ABG 39.5 mmol/L (22-26); Oxygen Device BIPAP; PO2 FiO2 Ratio Arterial Blood 0
[2023-07-09] MEDS: enoxaparin 60 mg/0.6 mL Syringe 50 MG SUBCUT ×2 (04:49→15:58)
[2023-07-09 06:58] LABS: Alanine Aminotransferase 10 U/L (0-41); Albumin Level 3.6 g/dL (3.5-5.2); Alkaline Phosphatase 71 U/L (40-130); Anion Gap 12.7 (5-19); Aspartate Amino Transferase 11 U/L (0-40); Blood Urea Nitrogen 32 mg/dL (8-23); C Reactive Protein 187.5 mg/L (0.0-4.9); Calcium 9.8 mg/dL (8.5-10.5); Carbon Dioxide 36 mmol/L (22-29); Chloride 97 mmol/L (98-107); Glucose 110 mg/dL (65-115); Magnesium 2.1 mg/dL (1.7-2.3); Osmolality Calculated 302 mOsm/kg (285-295); Potassium 3.7 mmol/L (3.5-5.1); Sodium 142 mmol/L (136-145); Total Bilirubin 0.3 mg/dL (0.15-1.2); Total Protein 7.6 g/dL (6.6-8.7)
[2023-07-09 07:08] LABS: Lymphocytes # 0.5 10^3/uL (0.8-4.8); Lymphocytes % 9.9 %; Mean Corpuscular HGB Conc 31.5 g/dL (30-55); Mean Corpuscular Hemoglobin 32.7 pg (27-33); Mean Corpuscular Volume 103.8 fl (82-101); Monocytes # 0.8 10^3/uL (0.2-0.9); Monocytes % 15.7 %; Neutrophils # 3.88 10^3/uL (1.8-7.7); Neutrophils % 74.2 %; Nucleated Red Blood Cells % 0 %; Platelet Count 209 10^3/cmm (157-399); Red Blood Count 3.18 10^6/uL (3.85-5.65); Red Cell Distribution Width 12.9 % (12.1-15.1); White Blood Count 5.23 10^3/uL (3.29-11.43)
[2023-07-09] MEDS: cefTRIAXone 1,000 MG in sodium chloride 0.9% (plus) 50 ML 100 MG IV (09:55)
--- NOTE | 2023-07-09 13:48 | P.PN_ITS ---
Subjective 2 Subjective: Seen this morning. Patient is currently on BiPAP. Does not tolerate being off of BiPAP for more than a few seconds. Therefore unable to eat. 30% FiO2. Unable to bring up much phlegm. CT chest reviewed. It shows COPD with findings of acute bronchitis with increased diffuse bronchial wall thickening and patchy secretions mucus impaction. Also COVID-positive. Vitals/I&O/Wt Last Vital Signs Temp 98.2 F 07/08/23 12:03 Pulse 89 07/08/23 23:04 Resp 16 07/08/23 19:50 BP 146/88 07/08/23 16:15 Pulse Ox 96 07/08/23 23:04 O2 Del Method BiPAP 07/08/23 19:50 O2 Flow Rate 3 07/08/23 12:37 FiO2 30 07/08/23 23:04 07/08/23 07/08/23 07/09/23 14:59 22:59 06:59 Intake Total 50 / 50 350.089 / 400.089 Balance 50 / 50 350.089 / 400.089 Weight last 48 hrs Weight 53.524 kg Weight 53.524 kg Physical Exam 2 Narrative: Cachectic malnourished male Currently on 30% AVAPS Saturating well Tachycardia sinus rhythm Awake and alert able to answer simple questions Awake alert able to protect airway at this time. Abdomen soft Garcia catheter in place No lower extremity edema is at the bedside, daughter at bedside. S1, S2 tachycardia Bilateral breath sounds with rhonchi Data 07/09/23 06:20 07/09/23 06:20 Micro: Microbiology 07/08/23 17:30 Bacterial Antigens - Final Urine,Clean Catch 07/08/23 17:30 Legionella Urinary Antigen - Final Urine Catheterized 07/08/23 12:34 Blood Culture - Preliminary Blood SPECIMEN COLLECTED 07/08/23 12:32 Blood Culture - Preliminary Blood SPECIMEN COLLECTED A&P Assessment and plan (1) Sputum production: (2) Fever: (3) Acute exacerbation of chronic obstructive airways disease: (4) Acute and chronic respiratory failure with hypercapnia: (5) Acute and chronic respiratory failure with hypoxia: (6) Abdominal cyst: (7) COVID-19 determined by clinical diagnostic criteria: (8) Protein calorie malnutrition: Plan Acute on chronic hypoxic hypercarbic respite failure Related to COVID-19 Patient has a lot of airway secretions related to COPD High risk for mucous plug Currently requiring 30% AVAPS Hypercarbic respite failure compensated with AVAPS high risk for intubation he is full code Had detailed discussion with the at the bedside Will use Mucomyst, Xopenex, ipratropium, Decadron, remdesivir, empirical antibiotic coverage Chest vest Wean off Precedex if possible Continue management as above at this time. Patient may require repeat bronchoscopy for therapeutic purposes however we do not have a roll on worker available today. He has had a history of mucous before. Patient on DuoNeb 4 times daily and Pulmicort nebulization daily at home. Consider pulmonology consult in AM. He sees Dr. Duarte as an outpatient. Rectal cancer: Was treated in 2001, currently in remission Recently had colon perforation when suprapubic catheter was being inserted at [place] by a nurse practitioner, patient is following up with the colorectal surgeon at [facility], no plan for intervention as of yet BPH, patient has chronic indwelling catheter Severe protein calorie malnourishment Will benefit from dietary consultation Will recommend Ensure Plus 3 times daily Patient has muscle mass loss with prominent interossei muscle wasting of hands bilaterally Patient not physically very active at home Uses 2 L of oxygen at baseline He is full code Had a goals of care discussion with patient and family. He is to remain a full code at this time and they are okay with intubation if needed. I did however make clear that due to patient's underlying baseline lungs he will be a very difficult extubation. Patient may do poorly. Patient does have severe emphysema. He has had a bronc done in the past as well which revealed mucus. Family understands the situation but would like to proceed with intubation if required. Attestations 2 Medical Necessity Statement*: Requires ICU level stay at this time. Critical Care Time: The high probability of a clinically significant, sudden or life threatening deterioration of the patient's [respiratory] system(s) required my full and direct attention, intervention and personal management. The critical care time is as shown. This time is in addition to time spent performing any reported procedures but includes the following: [x] Data and vital sign review and interpretation [x] Patient assessment, examination and intervention [x] Documentation [x] Medication orders and management Critical Care Time (min): 45 Coding Level of Care Code Critical Care >/= 30 minutes Critical care time (in minutes): 45 The high probability of a clinically significant, sudden or life threatening deterioration, as referenced in this documentation, required my full and direct attention, intervention and personal management. The critical care time shown is in addition to time spent performing any reported separately billable procedures and includes the following: [x] Data and vital sign review and interpretation [x ] Patient assessment, examination and intervention [x] Medication orders and management [x] Patient/Family updates as able [x] Care Coordination and Documentation. Diagnoses Sputum production R05.8 Fever R50.9 Acute exacerbation of chronic obstructive airways disease J44.1 Acute and chronic respiratory failure with hypercapnia J96.22 Acute and chronic respiratory failure with hypoxia J96.21 Abdominal cyst COVID-19 determined by clinical diagnostic criteria U07.1 Protein calorie malnutrition E46
[2023-07-09] MEDS: dexamethasone 4 mg/mL INJ 6 MG IVP (15:57)
[2023-07-09] MEDS: dexmedeTOMIDine 0.9 % NaCL 400 MCG/100 ML PREMIX 5.35 MCG IV (15:58)
[2023-07-09] MEDS: remdesivir 100 MG in sodium chloride 0.9% (100 ml) 100 ML IV (17:52)
[2023-07-09] MEDS: piperacillin-tazobactam 3.375 GM in sodium chloride 0.9% (plus) 50 ML IV (19:07)
[2023-07-10] VITALS (59 sets, daily range): BP systolic 129–171; BP diastolic 73–118; PULSE 83–124; RESP 10–24; TEMP 36.4–36.9; O2SAT 93–100; BMI 16.0
[2023-07-10] MEDS: levalbuterol 1.25 mg/3 mL Neb INHALATION ×4 (01:59→19:54)
[2023-07-10] MEDS: ipratropium 0.5 mg/2.5 mL Neb INHALATION ×4 (01:59→19:54)
[2023-07-10] MEDS: enoxaparin 60 mg/0.6 mL Syringe 50 MG SUBCUT ×2 (03:48→15:07)
[2023-07-10] MEDS: piperacillin-tazobactam 3.375 GM in sodium chloride 0.9% (plus) 50 ML IV ×3 (03:48→18:26)
--- NOTE | 2023-07-10 04:39 | PC.NURSE ---
Dilaudid Patient complaining of severe abdominal pain at a 7 on a numerical 1-[address] Blankenship notified of increasing pain, allergy to morphine, and NPO status; order received for 0.2 mg dilaudid IVP Q4HR PRN for pain. See MAR for details.
[2023-07-10] MEDS: HYDROmorphone 1 mg/mL INJ 1 mL 0.2 MG IVP ×2 (05:25→10:51)
[2023-07-10 06:03] LABS: Anion Gap 14.1 (5-19); Blood Urea Nitrogen 35 mg/dL (8-23); Calcium 10.1 mg/dL (8.5-10.5); Carbon Dioxide 37 mmol/L (22-29); Chloride 101 mmol/L (98-107); Glucose 99 mg/dL (65-115); Magnesium 2.4 mg/dL (1.7-2.3); Osmolality Calculated 314 mOsm/kg (285-295); Potassium 4.1 mmol/L (3.5-5.1); Sodium 148 mmol/L (136-145)
[2023-07-10] MEDS: FUROsemide 40 mg Tablet PO (07:54)
[2023-07-10] MEDS: acetaminophen 325 mg Tablet 650 MG PO (07:54)
[2023-07-10] MEDS: ascorbic acid 500 mg Tablet 1000 MG PO ×2 (07:55→18:25)
[2023-07-10] MEDS: metoprolol tartrate 25 mg Tablet PO ×2 (10:50→20:04)
[2023-07-10 11:46] LABS: Basophils % 0.2 %; Hematocrit 35.9 % (37-53); Lymphocytes # 0.7 10^3/uL (0.8-4.8); Lymphocytes % 6.6 %; Mean Corpuscular HGB Conc 30.6 g/dL (30-55); Mean Corpuscular Hemoglobin 33.2 pg (27-33); Mean Corpuscular Volume 108.5 fl (82-101); Mean Platelet Volume 12.3 fL (7.4-10.4); Monocytes # 0.9 10^3/uL (0.2-0.9); Monocytes % 8.6 %; Neutrophils # 8.82 10^3/uL (1.8-7.7); Neutrophils % 84.3 %; Nucleated Red Blood Cells % 0 %; Platelet Count 167 10^3/cmm (157-399); Red Blood Count 3.31 10^6/uL (3.85-5.65); Red Cell Distribution Width 16.9 % (12.1-15.1); White Blood Count 10.46 10^3/uL (3.29-11.43)
--- NOTE | 2023-07-10 12:01 | PC.SOCIAL ---
IMM Update pg 2 of IMM updated and reviewed w/ patient and his . Copy left @ bedside and copy dated, initialed and placed in chart.
[2023-07-10] MEDS: dexamethasone 4 mg/mL INJ 6 MG IVP (15:07)
[2023-07-10] MEDS: ALPRAZolam 0.5 mg Tablet PO (15:10)
[2023-07-10] MEDS: remdesivir 100 MG in sodium chloride 0.9% (100 ml) 100 ML IV (18:26)
--- NOTE | 2023-07-10 18:57 | PC.NURSE ---
Shift summary: Pt has rested in bed throughout the shift. He was able to work with PT some today. He wore the BIPAP at 30% FIO2 until about. Then he wore NC at 2-3lpm until shortly before 1800 when he expressed he was getting tire and would like the mask back on. He was started on clear liquid diet this evening, but by that time he was wearing BIPap again. He did drink water today. He asked for chicken broth this afternoon but picked at it. He is very thin. His bottom is very bony, blanchable reddened areas noted. He is using an egg crate from home to sit on. 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 Colostomy reinforced with tape today. urine output only 275ml this shift. Family has been at bedside throughout the shift.
[2023-07-10] MEDS: ondansetron 2 mg/ML SDV 2 mL 4 MG IVP (20:12)
--- NOTE | 2023-07-10 20:40 | XRR_ITS ---
PROCEDURE INFORMATION: Exam: XR Abdomen Exam date and time: 07/10/2023 10:43 PM Age: 77 years old Clinical indication: Abdominal pain; Acute; Prior surgery; Surgery date: 6+ months; Surgery type: Colon; Additional info: N/v, recent bowel perf; HX of suprapub cath, colostomy TECHNIQUE: Imaging protocol: Radiologic exam of the abdomen. Views: Frontal supine view of the abdomen. 1 View. COMPARISON: CR XR abdomen 1V* [id number] 03/27/2022 2:09 PM FINDINGS: Gastrointestinal tract: Multiple loops of dilated small bowel up to 3.7 cm. There is mildly increased fecal retention in the right colon measuring up to 5.6 cm. However no generalized fecal retention. An ostomy is again noted in the left abdomen. Intraperitoneal space: A catheter lies transversely across the pelvis Bones/joints: Mild degenerative change. XR/XR abdomen 1V* [id number] IMPRESSION: Dilated small bowel which could be due to distal obstruction or ileus.
--- NOTE | 2023-07-10 21:00 | PC.NURSE ---
Nausea Patient complained of nausea; bipap mask removed and nasal cannula placed on patient. Patient vomited brown liquid. Zofran administered per SEP. Dr. Hayes notified of perfed bowel, abdominal pain throughout the day, and new nausea. Order received for abdominal xray.
--- NOTE | 2023-07-10 23:57 | P.PN_ITS ---
Subjective 2 Subjective: feeling improved today. trasitioned bipap to 3lpm via HFNC today. Medications: Reviewed: Yes Vitals/I&O/Wt Last Vital Signs Temp 98.4 F 07/10/23 20:00 Pulse 83 07/10/23 23:09 Resp 16 07/10/23 21:30 BP 152/80 07/10/23 21:30 Pulse Ox 95 07/10/23 23:09 O2 Del Method BiPAP 07/10/23 21:30 O2 Flow Rate 3 07/10/23 16:30 FiO2 30 07/10/23 23:09 07/10/23 07/10/23 07/11/23 14:59 22:59 06:59 Intake Total 210 / 210 250 / 460 Output Total 275 / 275 Balance 210 / 210 -25 / 185 Weight last 48 hrs Weight 49.232 kg Weight 51.5 kg Physical Exam 2 Urinary Catheter Management: Garcia: Cath Placed During This Visit: no Reason for Continuing Indwelling Catheter: Chronic Indwelling Urinary Catheter on Admission Data 07/10/23 08:56 07/10/23 03:29 Micro: Microbiology 07/08/23 13:21 Gram Stain - Final Sputum - Expectorated Sputum Sputum Culture - Final Klebsiella pneumoniae Haemophilus Influenzae A&P Assessment and plan (1) Sputum production: (2) Fever: (3) Acute exacerbation of chronic obstructive airways disease: (4) Acute and chronic respiratory failure with hypercapnia: (5) Acute and chronic respiratory failure with hypoxia: (6) Abdominal cyst: (7) COVID-19 determined by clinical diagnostic criteria: (8) Protein calorie malnutrition: Plan Acute on chronic hypoxic hypercarbic respite failure Related to COVID-19 Patient has a lot of airway secretions related to COPD High risk for mucous plug Currently requiring 30% AVAPS Hypercarbic respite failure compensated with AVAPS high risk for intubation he is full code Had detailed discussion with the at the bedside Will use Mucomyst, Xopenex, ipratropium, Decadron, remdesivir, empirical antibiotic coverage Chest vest Wean off Precedex if possible Continue management as above at this time. Patient may require repeat bronchoscopy for therapeutic purposes however we do not have a horticulture supervisor available today. He has had a history of mucous before. Patient on DuoNeb 4 times daily and Pulmicort nebulization daily at home. Consider pulmonology consult in AM. He sees Dr. Duarte as an outpatient. Rectal cancer: Was treated in 2001, currently in remission Recently had colon perforation when suprapubic catheter was being inserted at [place] by a nurse practitioner, patient is following up with the colorectal surgeon at [facility], no plan for intervention as of yet BPH, patient has chronic indwelling catheter Severe protein calorie malnourishment Will benefit from dietary consultation Will recommend Ensure Plus 3 times daily Patient has muscle mass loss with prominent interossei muscle wasting of hands bilaterally Patient not physically very active at home Uses 2 L of oxygen at baseline He is full code Had a goals of care discussion with patient and family. He is to remain a full code at this time and they are okay with intubation if needed. I did however make clear that due to patient's underlying baseline lungs he will be a very difficult extubation. Patient may do poorly. Patient does have severe emphysema. He has had a bronc done in the past as well which revealed mucus. Family understands the situation but would like to proceed with intubation if required. PLAN for today: feels improved today, weaned off bipap to HFNC today. continue current management with iv abx , remdisivir, iv steroids, trend CRP, standing nebs Attestations 2 Medical Necessity Statement*: continued admisiion for optimization of respiratory status, covid pneumonia Coding Level of Care Code Acute Code for Chg Fwd Diagnoses Sputum production R05.8 Fever R50.9 Acute exacerbation of chronic obstructive airways disease J44.1 Acute and chronic respiratory failure with hypercapnia J96.22 Acute and chronic respiratory failure with hypoxia J96.21 Abdominal cyst COVID-19 determined by clinical diagnostic criteria U07.1 Protein calorie malnutrition E46
[2023-07-11] VITALS (56 sets, daily range): BP systolic 119–178; BP diastolic 65–95; PULSE 71–101; RESP 12–31; TEMP 36.2–37.7; O2SAT 79–100; BMI 16.4
[2023-07-11] MEDS: dexamethasone 4 mg/mL INJ 6 MG IVP ×2 (01:00→11:00)
[2023-07-11] MEDS: ipratropium 0.5 mg/2.5 mL Neb INHALATION ×4 (01:14→19:51)
[2023-07-11] MEDS: levalbuterol 1.25 mg/3 mL Neb INHALATION ×4 (01:14→19:51)
[2023-07-11] MEDS: ondansetron 2 mg/ML SDV 2 mL 4 MG IVP ×3 (01:43→22:37)
--- NOTE | 2023-07-11 02:00 | PC.NURSE ---
Nausea Patient complaining of additional nausea; zofran not due to be administered yet. Dr. Hayes contacted and order received to administer 4 mg zofran IV dose early. See MAR for details.
[2023-07-11] MEDS: enoxaparin 60 mg/0.6 mL Syringe 50 MG SUBCUT (04:03)
[2023-07-11] MEDS: piperacillin-tazobactam 3.375 GM in sodium chloride 0.9% (plus) 50 ML IV ×3 (04:03→18:25)
[2023-07-11 04:47] LABS: Alanine Aminotransferase 10 U/L (0-41); Albumin Level 3.2 g/dL (3.5-5.2); Alkaline Phosphatase 75 U/L (40-130); Blood Urea Nitrogen 45 mg/dL (8-23); C Reactive Protein 208.1 mg/L (0.0-4.9); Calcium 9.7 mg/dL (8.5-10.5); Carbon Dioxide 33 mmol/L (22-29); Chloride 98 mmol/L (98-107); Globulin 4.3 g/dL (1.3-4.6); Glucose 121 mg/dL (65-115); Osmolality Calculated 311 mOsm/kg (285-295); Sodium 144 mmol/L (136-145); Total Bilirubin 0.3 mg/dL (0.15-1.2); Total Protein 7.5 g/dL (6.6-8.7)
[2023-07-11 04:49] LABS: Anion Gap 17.3 (5-19); Aspartate Amino Transferase 17 U/L (0-40); Potassium 4.3 mmol/L (3.5-5.1)
[2023-07-11 04:53] LABS: Basophils % 0.1 %; Hematocrit 35.4 % (37-53); Lymphocytes # 0.4 10^3/uL (0.8-4.8); Lymphocytes % 4.2 %; Mean Corpuscular HGB Conc 32.8 g/dL (30-55); Mean Corpuscular Hemoglobin 32.1 pg (27-33); Mean Corpuscular Volume 98.1 fl (82-101); Mean Platelet Volume 10.2 fL (7.4-10.4); Monocytes # 0.4 10^3/uL (0.2-0.9); Monocytes % 3.5 %; Neutrophils # 9.29 10^3/uL (1.8-7.7); Neutrophils % 91.7 %; Nucleated Red Blood Cells % 0 %; Platelet Count 249 10^3/cmm (157-399); Red Blood Count 3.61 10^6/uL (3.85-5.65); Red Cell Distribution Width 13.2 % (12.1-15.1); White Blood Count 10.13 10^3/uL (3.29-11.43)
--- NOTE | 2023-07-11 06:54 | PC.NURSE ---
Nausea Patient complaining of nausea; zofran not due for administration yet. Dr. Hayes contacted and order received for 25 mg phenergan IM once. See MAR for details.
[2023-07-11] MEDS: promethazine 25 mg/mL SDV 1 mL IM (07:25)
--- NOTE | 2023-07-11 08:05 | PC.NURSE ---
Bed not inflation under his bottom very well so beds swapped out
[2023-07-11] MEDS: FUROsemide 40 mg Tablet PO (09:03)
[2023-07-11] MEDS: ascorbic acid 500 mg Tablet 1000 MG PO ×2 (09:03→18:01)
[2023-07-11] MEDS: azithromycin 250 mg Tablet 500 MG PO (09:03)
[2023-07-11] MEDS: metoprolol tartrate 25 mg Tablet PO ×2 (09:03→21:07)
--- NOTE | 2023-07-11 11:24 | CTR_ITS ---
PROCEDURE INFORMATION: Exam: CT Abdomen And Pelvis With Contrast Exam date and time: 07/11/2023 2:27 PM Age: 77 years old Clinical indication: Abdominal pain; Generalized; Prior surgery; Surgery date: 6+ months; Surgery type: Colon, stoma; Patient HX: HX of colon cancer; Additional info: Evalte for obstrcution, C/O abdominal pain, S/P colostomy, S/P spc with ? bladder rupture vs TECHNIQUE: Imaging protocol: Computed tomography of the abdomen and pelvis with contrast. Radiation optimization: All CT scans at this facility use at least one of these dose optimization techniques: automated exposure control; mA and/or kV adjustment per patient size (includes targeted exams where dose is matched to clinical indication); or iterative reconstruction. Contrast material: OMNI 350; Contrast volume: 100 ml; Contrast route: INTRAVENOUS (IV); REPORTING DATA: Count of CT and Cardiac NM exams in prior 12 months: This patient has received [address] and 0 known cardiac nuclear medicine studies in the 12 months prior to the current study. COMPARISON: CT abdomen pelvis w con* [id number] 03/15/2022 8:49 PM RADIATION DOSE METRICS: Total DLP (mGy-cm): 300.77 FINDINGS: Tubes, catheters and devices: Drainage catheter in place with its tip in what appears to be the cecum. Colostomy noted the left abdomen. Lungs: Left lower lobe infiltrate. Liver: Stable small hepatic cysts. Gallbladder and bile ducts: Sludge in gallbladder. Pancreas: Normal. No ductal dilation. Spleen: Calcified splenic granulomata. Adrenal glands: Normal. No mass. Kidneys and ureters: Unchanged large left renal cyst. Stomach and bowel: A number of collapsed small bowel loops are seen in the pelvis in the presacral region. There appears to be a small bowel transition point in this location. Colon is collapsed. Diffuse small bowel dilatation. Appendix: No evidence of appendicitis. Intraperitoneal space: Small amount of free fluid in the pelvis. No free air. Vasculature: Aortoiliac atherosclerotic disease. Lymph nodes: Unremarkable. No enlarged lymph nodes. Urinary bladder: Garcia catheter in bladder. The dome of the bladder is tented by the tip of the Garcia catheter. Air within the bladder likely related to Garcia catheter. Reproductive: Unremarkable as visualized. Bones/joints: Unremarkable. No acute fracture. Soft tissues: Unremarkable. Other findings: Emphysema. CT/CT abdomen pelvis w con* [id number] IMPRESSION: Findings consistent with small bowel obstruction with transition point in presacral region with adjacent free fluid in the pelvis. No free air seen. Air within the urinary bladder with Garcia catheter in place.
[2023-07-11] MEDS: ALPRAZolam 0.5 mg Tablet 0.25 MG PO (11:33)
--- NOTE | 2023-07-11 14:27 | P.PN_ITS ---
Subjective 2 Subjective: Currently requiring 10 L/min supplemental O2. Pain is about the same. Intermittently on BiPAP and nasal cannula oxygen supplementation. Tmax 100 Fahrenheit overnight. Medications: Reviewed: Yes Vitals/I&O/Wt Last Vital Signs Temp 97.8 F 07/11/23 07:30 Pulse 77 07/11/23 13:30 Resp 18 07/11/23 13:30 BP 119/71 07/11/23 13:30 Pulse Ox 97 07/11/23 13:30 O2 Del Method BiPAP 07/11/23 13:30 O2 Flow Rate 8 07/11/23 12:30 FiO2 30 07/11/23 13:30 07/10/23 07/11/23 07/11/23 22:59 06:59 14:59 Intake Total 400 / 610 630 / 1240 320 / 320 Output Total 275 / 275 600 / 875 20 / 20 Balance 125 / 335 30 / 365 300 / 300 Weight last 48 hrs Weight 50.5 kg Weight 49.232 kg Physical Exam 2 Narrative: General: No acute distress, AO x3, chronically ill-appearing HEENT: PERRLA, pupils bilaterally equal and reactive, pallors not present Chest: Diffuse wheezing bilaterally CVS: S1-S2 regular, no murmurs, no tachycardia, no gallops, no rubs Abdomen: Soft, nontender, no organomegaly, bowel sounds present Neuro: No focal deficits, no facial deformity, AO x3, power 5/5 in all limbs Extremities: No clubbing edema or cyanosis Urinary Catheter Management: Garcia: Cath Placed During This Visit: no Reason for Continuing Indwelling Catheter: Chronic Indwelling Urinary Catheter on Admission Data 07/11/23 04:16 07/11/23 04:16 Micro: Microbiology 07/08/23 13:21 Gram Stain - Final Sputum - Expectorated Sputum Sputum Culture - Final Klebsiella pneumoniae Haemophilus Influenzae A&P Assessment and plan (1) COVID-19 determined by clinical diagnostic criteria: (2) Chronic obstructive pulmonary disease: (3) Acute and chronic respiratory failure with hypoxia: (4) Acute and chronic respiratory failure with hypercapnia: (5) Acute exacerbation of chronic obstructive airways disease: (6) Colovesical fistula: Plan Patient is a 77-year-old male with a past medical history of class B COPD, chronic hypoxic hypercapnic respiratory failure typically on home oxygen, 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 History, history of recurrent SBO's notes, past medical history of PE in February 2022. He is not on anticoagulation due to history of disease with anticoagulation on Eliquis. Currently admitted since 07/08/2023 after presenting to the hospital with worsening shortness of breath. Current hospital course is notable for COVID-19 pneumonia and acute on chronic COPD exacerbation. # COVID-19 pneumonia Currently remdisivir 200mg iv x 1 followed by 100mg iv daily Dexamethasone 6mg IVP daily duoneb q6h, budesonide q12h empiric piperacillin/tazobactam and azithromycin sputum culture with Klebsiella pneumoniae and haemophilus influenza. Above antibiotics with adequate coverage. Flutter valve/spirometer at bedside trend inflammatory markers including CRP CTA 07/08 negative for PE, findings of acute bronchitis with increased diffuse bronchial wall thickening and secretions. Nonspecific hilar lymphadenopathy. Slightly increased known left upper lobe nodule. # Acute bronchitis Likely triggered by acute viral infection with COVID-19 Possibility of superadded bacterial infection not excluded. Empiric antibiotic coverage as above. # CRP continues to be persistently elevated at 208. Patient additionally complaining of abdominal pain. Elevated CRP in the 200 range does not appear to correlate clinically with CT and x-ray findings. Will obtain CT of the abdomen and pelvis with contrast today. He has a complicated history of what appears to be colovesical fistula for which she is following with a colorectal surgeon in [place]. Currently he has a suprapubic catheter which has not been in place since February however is nonfunctioning. He also has a Garcia catheter which is changed every 3 weeks or so. He has a colostomy from past history of colon cancer with reduced output currently. X-ray of the abdomen performed earlier today showed dilated bowel loops, nonspecific. CT will further characterize if there may be recurrent SBO versus ileus currently. Additionally possible that patient may have chronic cystitis given his history of recurrent infections. UA and urine culture. Possibly both of these which show early microbes as anticipated with a colovesical fistula. Getting the cultures to a certain if patient may be colonized with any particularly resistant organisms which would warrant broadening of his current antibiotic coverage DVT ppx: Currently on full dose Lovenox which we will discontinue given that CTA is negative for PE. To resume prophylactic dose of Lovenox today. PUD prophylaxis: Start Protonix 40 mg p.o. daily alongside steroids. Full code Attestations 2 Medical Necessity Statement*: continued admission for COVID 19 pNA, optimization of respiratory status, tires easily, high requirements at 10lpm, CT abdomen today Coding Level of Care Code Acute Code for Chg Fwd High MDM includes number and complexity of problems actively addressed during encounter, amount and/or complexity of data reviewed/ordered and described risk of complication, morbidity or mortality of management as documented Diagnoses COVID-19 determined by clinical diagnostic criteria U07.1 Chronic obstructive pulmonary disease J44.9 Acute and chronic respiratory failure with hypoxia J96.21 Acute and chronic respiratory failure with hypercapnia J96.22 Acute exacerbation of chronic obstructive airways disease J44.1 Colovesical fistula N32.1
[2023-07-11] MEDS: iohexol 350 mg/mL 500 mL Btl (per mL) IV (14:35)
--- NOTE | 2023-07-11 14:41 | XR_ITS ---
WS: [id number] Exam: XR chest 1V portable [id number] Date/Time of Exam: 07/11/2023 2:44 PM Reason For Exam: serial follow up on COVID PNA Comparison 07/08/2023. The lungs are hyperinflated and clear. Normal cardiomediastinal silhouette. No pleural effusions. Rig ht-sided PICC line ends in the upper SVC unchanged in location. Monitoring leads superimpose the ches t. Bony structures are intact. IMPRESSION: 1. Pulmonary hyperinflation. No acute process.
[2023-07-11 15:12] LABS: Urine Appearance SL Hazy (CLEAR); Urine Color Yellow (Yellow); pH Urine 5 (5-7)
[2023-07-11 15:13] LABS: Blood Urine 3+ (Negative); Glucose Urine UA Norm (Normal); Ketones Urine 1+ (Negative); Nitrate Urine Negative (Negative); Protein Urine 1+ (Negative)
[2023-07-11 15:14] LABS: Add Urine Microscopic? YES; Bilirubin Urine Neg (Negative); Leukocyte Esterase Urine 1+ (Negative); Urobilinogen Urine Norm (Negative)
[2023-07-11 15:21] LABS: Bacteria Urine TRACE /hpf; Hyaline Casts Urine 0-4 /lpf; Mucus Urine 1+ /hpf; RBC Urine 0-4 /hpf (0-2); Squamous Epithelial Cell Urine 0-4 /hpf (0-5)
[2023-07-11 15:22] LABS: Add Urine Culture? Yes
[2023-07-11 15:23] LABS: Uric Acid Crystals Urine 25-40 /hpf
[2023-07-11] MEDS: pantoprazole DR 40 mg Tablet PO (16:17)
[2023-07-11] MEDS: remdesivir 100 MG in sodium chloride 0.9% (100 ml) 100 ML IV (18:26)
--- NOTE | 2023-07-11 19:00 | XRR_ITS ---
PROCEDURE INFORMATION: Exam: XR Chest Exam date and time: 07/11/2023 8:14 PM Age: 77 years old Clinical indication: Device placement; Ng tube; Prior surgery; Surgery date: 6+ months; Surgery type: Colon; Additional info: Ng placement TECHNIQUE: Imaging protocol: Radiologic exam of the chest. Views: 1 view. COMPARISON: CR XR chest 1V portable [id number] 07/11/2023 3:51 PM FINDINGS: Tubes, catheters and devices: The NG tube is positioned with its tip in the proximal stomach and its side-hole in the distal esophagus. Consider advancing the NG tube 8 cm for optimal positioning. Right-sided PICC redemonstrated. Lungs: Unremarkable. No consolidation. Pleural spaces: Unremarkable. No pleural effusion. No pneumothorax. Heart/Mediastinum: Unremarkable. No cardiomegaly. Bones/joints: Unremarkable. XR/XR chest 1V portable [id number] IMPRESSION: The NG tube is positioned with its tip in the proximal stomach and its side-hole in the distal esophagus. Consider advancing the NG tube 8 cm for optimal positioning.
--- NOTE | 2023-07-11 19:29 | PC.NURSE ---
Shift summary: pt rested in bed throughout the shift. His O2 needs are 6-8 lpm/HFNC. he had more nausea today than yesterday. He was stated back on clear liquid diet today, which he has had an adequate amount each meal. He would try to get as much oral intake aas he could even with the nausea. His abdomen is firm to palpation. NO drainage noted from colostomy this shift. NG inserted at end of shift due to CT/xray results. urine output of 670ml.
[2023-07-11] MEDS: budesonide 0.5 mg/2 mL Neb INHALATION (19:51)
--- NOTE | 2023-07-11 22:20 | PC.NURSE ---
This nurse was in the room when patient was trying to vomit. This nurse immediately took off the patient's Bipap because of aspiration possibility and then Dr. Blankenship was contacted. Doctor ordered for intermittent suction to be initiated and to be taken off Bipap and put on nasal cannula.
[2023-07-12] VITALS (44 sets, daily range): BP systolic 120–174; BP diastolic 64–96; PULSE 75–105; RESP 10–26; TEMP 36.2–37.5; O2SAT 91–100
[2023-07-12] MEDS: dexamethasone 4 mg/mL INJ 6 MG IVP ×2 (00:27→11:21)
--- NOTE | 2023-07-12 00:58 | XRR_ITS ---
PROCEDURE INFORMATION: Exam: XR Abdomen Exam date and time: 07/12/2023 1:41 AM Age: 77 years old Clinical indication: Device placement; Gi device; Nasogastric tube; Additional info: Ng tube placement TECHNIQUE: Imaging protocol: Radiologic exam of the abdomen. Views: Frontal supine view of the abdomen. 1 View. COMPARISON: CT abdomen pelvis w con* [id number] 07/11/2023 2:27 PM FINDINGS: Tubes, catheters and devices: Nasogastric tube with side hole and tip in the stomach. Garcia catheter. Gastrointestinal tract: Multiple dilated loops of small bowel, as seen on same day CT. Bones/joints: No acute findings. XR/XR KUB portable [id number] IMPRESSION: Nasogastric tube with side hole and tip in the stomach. Dilated small bowel loops.
--- NOTE | 2023-07-12 01:59 | PC.NURSE ---
Patient was still nauseated and vomiting even after zofran was given. NG tube was advanced per X-ray. 700 ml of stomach content was aspirated and left out of stomach. Nausea and vomiting were resolved.
[2023-07-12] MEDS: piperacillin-tazobactam 3.375 GM in sodium chloride 0.9% (plus) 50 ML IV ×3 (03:00→18:22)
[2023-07-12] MEDS: metoclopramide 5 mg/mL SDV 2 mL IVP ×2 (03:01→10:48)
[2023-07-12] MEDS: ipratropium 0.5 mg/2.5 mL Neb INHALATION ×4 (03:19→20:02)
[2023-07-12] MEDS: levalbuterol 1.25 mg/3 mL Neb INHALATION ×4 (03:19→20:02)
[2023-07-12 04:59] LABS: C Reactive Protein 134.3 mg/L (0.0-4.9)
[2023-07-12 05:02] LABS: Alanine Aminotransferase 10 U/L (0-41); Albumin Level 3.5 g/dL (3.5-5.2); Alkaline Phosphatase 69 U/L (40-130); Anion Gap 12.7 (5-19); Aspartate Amino Transferase 10 U/L (0-40); Blood Urea Nitrogen 44 mg/dL (8-23); Calcium 9.7 mg/dL (8.5-10.5); Carbon Dioxide 40 mmol/L (22-29); Chloride 97 mmol/L (98-107); Globulin 3.3 g/dL (1.3-4.6); Glucose 130 mg/dL (65-115); Osmolality Calculated 315 mOsm/kg (285-295); Potassium 3.7 mmol/L (3.5-5.1); Sodium 146 mmol/L (136-145); Total Bilirubin 0.3 mg/dL (0.15-1.2); Total Protein 6.8 g/dL (6.6-8.7)
[2023-07-12 05:05] LABS: Basophils % 0.1 %; Hematocrit 36.1 % (37-53); Lymphocytes # 0.5 10^3/uL (0.8-4.8); Mean Corpuscular HGB Conc 31.9 g/dL (30-55); Mean Corpuscular Hemoglobin 32.3 pg (27-33); Mean Corpuscular Volume 101.4 fl (82-101); Monocytes # 0.6 10^3/uL (0.2-0.9); Monocytes % 4.5 %; Neutrophils # 11.64 10^3/uL (1.8-7.7); Nucleated Red Blood Cells % 0 %; Platelet Count 295 10^3/cmm (157-399); Red Blood Count 3.56 10^6/uL (3.85-5.65); White Blood Count 12.79 10^3/uL (3.29-11.43)
[2023-07-12] MEDS: budesonide 0.5 mg/2 mL Neb INHALATION ×2 (08:01→20:02)
[2023-07-12] MEDS: enoxaparin 40 mg/0.4 mL Syringe SUBCUT (08:40)
[2023-07-12] MEDS: metoprolol tartrate 25 mg Tablet PO ×2 (08:40→21:28)
[2023-07-12] MEDS: azithromycin 250 mg Tablet 500 MG PO (08:40)
[2023-07-12] MEDS: pantoprazole DR 40 mg Tablet PO (08:40)
[2023-07-12] MEDS: ascorbic acid 500 mg Tablet 1000 MG PO ×2 (08:40→17:57)
[2023-07-12] MEDS: FUROsemide 40 mg Tablet PO (08:40)
--- NOTE | 2023-07-12 08:40 | PC.NURSE ---
Oral meds admin with little sips of waer. NG clamped. Will monitor for N/V
--- NOTE | 2023-07-12 09:57 | P.CONIM_ITS ---
Providers/Reason For Consult 2 Consulting Physician/Specialty*: Dr. Keven Patterson, D.O./ General Surgery Reason for Consult*: Small bowel obstruction Attending Physician: Rebecca Crespo MD Primary Care Provider: Andrea Santiago DO History of Present Illness History of Present Illness Doroteo Ba is a 77 year old male with a history of rectal cancer status post APR with chemoradiation in 2004. He has an end colostomy and a known suprapubic catheter perforating the bladder and going into the colon. This is being managed by a colorectal surgeon in [place]. He presents the hospital this time with shortness of breath. While in the hospital he developed low output in his colostomy. Eventually output stopped. He reports that he was having impaction at his colostomy site prior to coming to the hospital. He denies any significant abdominal pain nausea or emesis. Review of Systems 2 General: Reports: 10 or more systems reviewed and unremarkable except in HPI and below Medications/Allergies Home Medications Medication Instructions Recorded Confirmed Last Taken Type albuterol sulfate 2.5 mg/3 mL 2.5 mg inhalation Q4H 11/27/19 07/08/23 07/08/23 History (0.083 %) solution for nebulization cholecalciferol (vitamin D3) 50 50 mcg PO BEDTIME 03/16/22 07/08/23 07/07/23 History mcg (2,000 unit) capsule (Vitamin D3) BIPAP #1 ea 04/06/22 07/08/23 Unknown Rx oxygen #1 ea 04/06/22 07/08/23 Unknown Rx furosemide 40 mg tablet 40 mg PO DAILY PRN Edema 12/07/22 07/08/23 Unknown History pantoprazole 40 mg tablet,delayed 40 mg PO BID 12/07/22 07/08/23 Unknown History release paroxetine HCl 10 mg tablet 10 mg PO QAM 12/07/22 07/08/23 07/08/23 History trazodone 50 mg tablet 25 - 50 mg PO BEDTIME 12/07/22 07/08/23 Unknown History budesonide 0.5 mg/2 mL suspension 0.5 mg (2 mL) inhalation BID #120 12/28/22 07/08/23 07/08/23 Rx for nebulization mL tiotropium bromide 1.25 2 puff inhalation DAILY #4 grams 05/08/23 07/08/23 Unknown Rx mcg/actuation mist for inhalation (Spiriva Respimat) albuterol sulfate 90 mcg/actuation 2 puff inhalation QID PRN 07/08/23 07/08/23 Unknown History aerosol inhaler (Ventolin HFA) Shortness Of Breath arformoterol 15 mcg/2 mL solution 2 ml inhalation BID 07/08/23 07/08/23 07/08/23 History for nebulization Allergies Allergy/AdvReac Type Severity Reaction Status Date / Time morphine AdvReac Severe ADR-Halluci Verified 04/10/23 14:40 nating Current Medications Generic Name Dose Route Start Last Admin Trade Name Freq PRN Reason Stop Dose Admin Acetaminophen 650 mg 07/08/23 14:44 07/10/23 07:54 Acetaminophen 325 Mg Tablet PO 650 mg Q6H PRN Administration Mild/Mod Pain Or Temp >/= 101 Alprazolam 0.25 mg 07/10/23 16:05 07/13/23 02:00 Alprazolam 0.5 Mg Tablet PO 0.25 mg TID PRN Administration ANXIETY Ascorbic Acid 1,000 mg 07/08/23 18:00 07/12/23 17:57 Ascorbic Acid 500 Mg Tablet PO 1,000 mg BID IMELDA Administration Azithromycin 500 mg 07/11/23 09:00 07/12/23 08:40 Azithromycin 250 Mg Tablet PO 500 mg DAILY IMELDA Administration Protocol Budesonide 0.5 mg 07/11/23 08:00 07/12/23 20:02 Budesonide 0.5 Mg/2 Ml Neb INHALATION 0.5 mg BID.RESPIRATORY IMELDA Administration Dexamethasone 6 mg 07/10/23 23:57 07/13/23 00:37 Dexamethasone 4 Mg/Ml Inj IVP 6 mg Q12H IMELDA Administration Enoxaparin Sodium 40 mg 07/12/23 08:00 07/12/23 08:40 Enoxaparin 40 Mg/0.4 Ml Syringe SUBCUT 40 mg Q24H IMELDA Administration Furosemide 40 mg 07/09/23 09:00 07/12/23 08:40 Furosemide 40 Mg Tablet PO 40 mg DAILY IMELDA Administration Hydromorphone HCl 0.2 mg 07/10/23 04:37 07/10/23 10:51 Hydromorphone 1 Mg/Ml Inj 1 Ml IVP 0.2 mg Q4H PRN Administration PAIN Dexmedetomidine/Sodium Chloride 400 mcg in 100 mls @ 0 mls/hr 07/08/23 16:00 07/10/23 04:00 Precedex IV 0 mcg/kg/hr .Q0M IMELDA 0 mls/hr Titration Protocol Per Protocol Piperacillin Sod/Tazobactam 50 mls @ 12.5 mls/hr 07/09/23 19:00 07/13/23 03:49 Sod 3.375 gm/ Sodium Chloride IV 12.5 mls/hr Q8H IMELDA Administration Protocol Ipratropium [place] 0.5 mg 07/08/23 20:00 07/13/23 01:56 Ipratropium 0.5 Mg/2.5 Ml Neb INHALATION 0.5 mg Q6H.RESP IMELDA Administration Levalbuterol HCl 1.25 mg 07/08/23 20:00 07/13/23 01:56 Levalbuterol 1.25 Mg/3 Ml Neb INHALATION 1.25 mg Q6H.RESP IMELDA Administration Metoclopramide HCl 5 mg 07/12/23 00:59 07/12/23 10:48 Metoclopramide 5 Mg/Ml Sdv 2 Ml IVP 5 mg Q6H PRN Administration NAUSEA AND VOMITING Metoprolol Tartrate 25 mg 07/10/23 10:25 07/12/23 21:28 Metoprolol Tartrate 25 Mg Tablet PO 25 mg BID@0900,2100 IMELDA Administration Pantoprazole Sodium 40 mg 07/11/23 14:45 07/12/23 08:[address] 40 Mg Tablet PO 40 mg DAILY IMELDA Administration Sodium Chloride 1 spray 07/12/23 10:36 07/12/23 11:19 Saline Nasal [place] 44ml Btl NASAL 1 spray PRN PRN Administration DRYNESS PFSH Acute 2 PFSH: Medical History Change in bowel habit Chronic hypercapnic respiratory failure Pulmonary embolism Pleural effusion Pulmonary embolism Chronic respiratory failure with hypoxia Colon cancer Pulmonary nodule Rectal cancer COPD (chronic obstructive pulmonary disease) Surgical History S/P bronchoscopy History of colon resection OCT-2004 Family History Father Lung disease Mother Cancer Social History Smoking and tobacco/nicotine status: former use of tobacco/nicotine Quit status (tobacco/nicotine): has quit using Year quit tobacco: 2008 - 2 PPD x 50 Years Alcohol intake: never Substance/Drug Use: never Lives independently: Yes Household members: spouse Marital status: Current occupational status: retired Do you think of yourself as: Straight/Heterosexual Current gender identity: Male Vitals/I&O/Wt Last Vital Signs Temp 97.9 F 07/12/23 22:00 Pulse 83 07/13/23 04:00 Resp 25 H 07/13/23 04:00 BP 138/75 07/13/23 04:00 Pulse Ox 99 07/13/23 04:00 O2 Del Method Nasal Cannula 07/13/23 04:00 O2 Flow Rate 4 07/13/23 02:02 FiO2 30 07/11/23 20:30 07/12/23 07/12/23 07/13/23 14:59 22:59 06:59 Intake Total 150 / 150 300 / 450 Output Total 375 / 375 1650 / 5 150 / 2175 Balance -225 / -225 -1350 / -1575 -150 / -1725 Weight last 48 hrs Weight 112 lb Weight 111 lb 5.335 oz Physical Exam 2 Narrative: General : Patient is well developed , no acute distress, oriented x3 Head : Normal cephalic, a-traumatic. Ears : Pinnae and external canal are normal. Hearing is normal. Eyes : PERRLA, Sclera and injection are normal. No conjunctival discharge. Nose : Mucous membranes are without erythema. Throat : buccal mucosa is normal, gums are without significant recession or hypertrophy. Lungs : Equal chest rise bilaterally, no use of accessory muscles, trachea is midline. Cor : Rate and rhythm are normal. Abdomen : Soft, mildly distended, NT, no g/r/m ostomy is pink and patent. It has a very narrow diameter and is difficult to get my pinky finger and it Extremities : No edema, no cyanosis or clubbing, dorsalis pedis pulses are present bilaterally, non-tender to palpation of calves. Upper extremities are normal bilaterally. Back : non-tender to palpation, no CVA tenderness. Neuro : CN II - XII intact, Upper and lower extremities have equal and full strength Urinary Catheter Management: Garcia: Cath Placed During This Visit: no Reason for Continuing Indwelling Catheter: Accurate Measurement of Urinary Output in Critically Ill Patients Data 07/13/23 06:06 07/13/23 06:06 Micro: Microbiology 07/11/23 11:40 Urine Culture - Preliminary Urine Catheterized Gram Negative Rods A&P Assessment and plan (1) Small bowel obstruction: Plan NPO/ NGT to [facility] Conservative management for now. If he does end up needing surgery during this hospital stay, I recommend transfer. Will likely encounter his colovesicular fistula containing a suprapubic catheter that needs to be taken down and we do not have urology at this hospital. Medical management per hospitalist Coding Level of Care Code 98760 Diagnoses Small bowel obstruction K56.609
--- NOTE | 2023-07-12 10:35 | ECG_ITS ---
[facility] Test Date: 2023-07-12 Pat Name: Doroteo Ba Department: Room: ICU10 Gender: Male Flight Data Technician: : 1945 Requested By: Rebecca Crespo Order Number: [id number] Debra MD: Keron Powers M.D. Measurements Intervals [place] Rate: 97 P: 87 FL: 157 QRS: 84 QRSD: 92 T: 76 QT: 322 QTc: 410 Interpretive Statements SINUS RHYTHM RIGHT ATRIAL ENLARGEMENT [0.3mV P-WAVE] POSSIBLE LEFT ATRIAL ENLARGEMENT [-0.1mV P-WAVE IN V1/V2] INCOMPLETE RIGHT BUNDLE BRANCH BLOCK [90+ ms QRS DURATION, TERMINAL R IN V1/V2, 40+ ms S IN I/aVL/V4/V5/V6] ANTEROSEPTAL MYOCARDIAL INFARCTION , OF INDETERMINATE AGE [40+ ms Q WAVE IN V1-V4] Compared to ECG 07/08/2023 12:27:15 Sinus tachycardia no longer present Myocardial infarct finding still present Electronically Signed On 07-12-2023 21:47:14 [employer] S[employer]IOR [employer]GEANT by Keron Powers M.D. [email or web address]
[2023-07-12 10:54] LABS: Methicillin-Resist S.aureu PCR NOT DETECTED (NOT DETECTED)
--- NOTE | 2023-07-12 11:16 | PM.PN ---
Subjective Subjective: 02 requirements improving today. Down tto [address] revealed SBO yesterday, HAs NGT to suction now, put out 350 cc. Wishes to start eating. C/o central chest pressure. Crp trending down Medications: Reviewed: Yes Vitals/I&O/Wt Last Vital Signs Temp 99.5 F 07/12/23 08:09 Pulse 92 07/12/23 10:00 Resp 10 L 07/12/23 10:00 BP 153/86 07/12/23 10:00 Pulse Ox 98 07/12/23 10:00 O2 Del Method High Flow Nasal Cannula 07/12/23 10:00 O2 Flow Rate 5 07/12/23 10:00 FiO2 30 07/11/23 20:30 07/11/23 07/12/23 07/12/23 22:59 06:59 14:59 Intake Total 200 / 520 50 / 50 Output Total 1050 / 1070 1400 / 2470 375 / 375 Balance -850 / -550 -1400 / -1950 -325 / -325 Weight last 48 hrs Weight 50.802 kg Weight 50.5 kg Physical Exam Narrative: General: No acute distress, AO x3, chronically ill-appearing HEENT: PERRLA, pupils bilaterally equal and reactive, pallors not present Chest: Diffuse wheezing bilaterally CVS: S1-S2 regular, no murmurs, no tachycardia, no gallops, no rubs Abdomen: Soft, nontender, no organomegaly, bowel sounds present Neuro: No focal deficits, no facial deformity, AO x3, power 5/5 in all limbs Extremities: No clubbing edema or cyanosis Urinary Catheter Management: Garcia: Cath Placed During This Visit: no Reason for Continuing Indwelling Catheter: Accurate Measurement of Urinary Output in Critically Ill Patients Data 07/12/23 03:51 07/12/23 03:51 Micro: Microbiology 07/11/23 11:40 Urine Culture - Preliminary Urine Catheterized Gram Negative Rods A&P Assessment and plan (1) COVID-19 determined by clinical diagnostic criteria: (2) Chronic obstructive pulmonary disease: (3) Acute and chronic respiratory failure with hypoxia: (4) Acute and chronic respiratory failure with hypercapnia: (5) Acute exacerbation of chronic obstructive airways disease: (6) Colovesical fistula: Plan Patient is a 77-year-old male with a past medical history of class B COPD, chronic hypoxic hypercapnic respiratory failure typically on home oxygen, 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 History, history of recurrent SBO's notes, past medical history of PE in February 2022. He is not on anticoagulation due to history of disease with anticoagulation on Eliquis. Currently admitted since 07/08/2023 after presenting to the hospital with worsening shortness of breath. Current hospital course is notable for COVID-19 pneumonia and acute on chronic COPD exacerbation. # COVID-19 pneumonia Currently remdisivir 200mg iv x 1 followed by 100mg iv daily Dexamethasone 6mg IVP daily duoneb q6h, budesonide q12h empiric piperacillin/tazobactam and azithromycin sputum culture with Klebsiella pneumoniae and haemophilus influenza. Above antibiotics with adequate coverage. Flutter valve/spirometer at bedside trend inflammatory markers including CRP CTA 07/08 negative for PE, findings of acute bronchitis with increased diffuse bronchial wall thickening and secretions. Nonspecific hilar lymphadenopathy. Slightly increased known left upper lobe nodule. # Acute bronchitis Likely triggered by acute viral infection with COVID-19 Possibility of superadded bacterial infection not excluded. Empiric antibiotic coverage as above. # CRP continues to be persistently elevated at 208. Patient additionally complaining of abdominal pain. Elevated CRP in the 200 range does not appear to correlate clinically with CT and x-ray findings. Will obtain CT of the abdomen and pelvis with contrast today. He has a complicated history of what appears to be colovesical fistula for which she is following with a colorectal surgeon in [place]. Currently he has a suprapubic catheter which has not been in place since February however is nonfunctioning. He also has a Garcia catheter which is changed every 3 weeks or so. He has a colostomy from past history of colon cancer with reduced output currently. X-ray of the abdomen performed earlier today showed dilated bowel loops, nonspecific. CT will further characterize if there may be recurrent SBO versus ileus currently. Additionally possible that patient may have chronic cystitis given his history of recurrent infections. UA and urine culture. Possibly both of these which show early microbes as anticipated with a colovesical fistula. Getting the cultures to a certain if patient may be colonized with any particularly resistant organisms which would warrant broadening of his current antibiotic coverage DVT ppx: Currently on full dose Lovenox which we will discontinue given that CTA is negative for PE. To resume prophylactic dose of Lovenox today. PUD prophylaxis: Start Protonix 40 mg p.o. daily alongside steroids. Full code Plan for today 07/12 : oxygen requirements improving. Continue to wean down as tolerated. NGT to suction for SBO. No stool output yet in stoma. General surgery consulted. 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 GNR on urine. No intra abdominal abscess. Pertinent to see if ESBL colonizers. Await cx and susceptibility. continue abx, iv steroids, increased dose to 6mg iv q12h due to persistent high CRP ~200. Trending down today. High CRP may be contributed by SBO additionally. Holding on tocilizumab given clincal improvement. CXR with stable findings, no new infiltrates. Family updated at bedside. Discussed that anticipate prolonged recovery time given baseline severe COPD with severe airflow obstruction. 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 Attestations Medical Necessity Statement*: continued admission for reasons as above, iv steroids, abx, respiratory support . NGT Coding Level of Care Code Acute Code for Chg Fwd High MDM includes number and complexity of problems actively addressed during encounter, amount and/or complexity of data reviewed/ordered and described risk of complication, morbidity or mortality of management as documented Diagnoses COVID-19 determined by clinical diagnostic criteria U07.1 Chronic obstructive pulmonary disease J44.9 Acute and chronic respiratory failure with hypoxia J96.21 Acute and chronic respiratory failure with hypercapnia J96.22 Acute exacerbation of chronic obstructive airways disease J44.1 Colovesical fistula N32.1
[2023-07-12] MEDS: saline nasal spray 44mL Btl 1 SPRAY NASAL (11:19)
[2023-07-12] MEDS: Fleet Enema 133 mL Enema XX (13:02)
[2023-07-12 13:26] LABS: Troponin(5th) Baseline 42 ng/L (0-15)
--- NOTE | 2023-07-12 14:32 | PC.SOCIAL ---
IMM Update pg 2 of IMM updated and reviewed w/ patient. Copy provided and copy dated, initialed and placed in chart.
[2023-07-12 14:34] LABS: Troponin 5 2HR 45.32 ng/L (0-15); Troponin 5 2HR Delta 3.32 ABS# (0-10)
--- NOTE | 2023-07-12 15:09 | ECG_ITS ---
[facility] Test Date: 2023-07-12 Pat Name: Doroteo Ba Department: Room: ICU10 Gender: Male Feed Mill Supervisor: : 1945 Requested By: Rebecca Crespo Order Number: [id number] Debra MD: Keron Powers M.D. Measurements Intervals [place] Rate: 95 P: 88 [place]: 149 QRS: 88 QRSD: 96 T: 80 QT: 353 QTc: 446 Interpretive Statements SINUS RHYTHM WITH SINUS ARRHYTHMIA RIGHT ATRIAL ENLARGEMENT [0.3mV P-WAVE] INDETERMINATE AXIS PATTERN CONSISTENT WITH PULMONARY DISEASE Compared to ECG 07/12/2023 10:50:47 Indeterminate axis now present Incomplete right bundle-branch block no longer present Myocardial infarct finding no longer present Electronically Signed On 07-12-2023 21:53:03 SYSTEMS SUPPORT OFFICER by Keron Powers M.D. [id number]
[2023-07-12] MEDS: remdesivir 100 MG in sodium chloride 0.9% (100 ml) 100 ML IV (17:57)
--- NOTE | 2023-07-12 18:01 | ECG_ITS ---
[facility] Test Date: 2023-07-12 Pat Name: Doroteo Ba Department: Room: ICU10 Gender: Male Production Tester: : 1945 Requested By: Rebecca Crespo Order Number: [id number] Debra MD: Keron Powers M.D. Measurements Intervals [place] Rate: 95 P: 88 VA: 154 QRS: 86 QRSD: 102 T: 77 QT: 340 QTc: 428 Interpretive Statements SINUS RHYTHM WITH SINUS ARRHYTHMIA RIGHT ATRIAL ENLARGEMENT [0.3mV P-WAVE] LEFT ATRIAL ENLARGEMENT [-0.15mV P-WAVE IN V1/V2] INDETERMINATE AXIS INCOMPLETE RIGHT BUNDLE BRANCH BLOCK [90+ ms QRS DURATION, TERMINAL R IN V1/V2, 40+ ms S IN I/aVL/V4/V5/V6] ANTEROSEPTAL MYOCARDIAL INFARCTION , OF INDETERMINATE AGE [40+ ms Q WAVE IN V1-V4] Compared to ECG 07/12/2023 15:09:26 Incomplete right bundle-branch block now present Myocardial infarct finding now present Electronically Signed On 07-12-2023 21:54:59 RAILROAD TRACK INSPECTOR by Keron Powers M.D. [id number]
--- NOTE | 2023-07-12 19:23 | PC.NURSE ---
Shift summary: Pt rested in be for most of the shift. he did want to standup for a few minutes to scratch his bottom' He stood and stretched but no scratching. his O2 needs have decreased to 5lpm/HFNC. His voice sounds much stronger and he can speak longer without getting short of breath today. He ad greenish brown drainage form the NG. He abd is much softer today but BS still very very hypoactive. Per Dr Patterson, pt has hard stool at the stoma sote, so an enema was ordered and admin. Mostly watery output, there were maybe 6 pea to grape size clumps noted in colostomy this evening. Urine output o 650 ml this shift. Per Dr Sheffield Ok for pt to have sips and ice chips, pt going through 16 oz in less than an hour, after pt had be encouraged throughout the day to be sparinly with this as it might cause more nausea. He did have one bout of =nausea today, 2 hr after morning medication admin, his NG had been clamped for 1.5hrs after medications given. reglan admin and seemed effective.
[2023-07-13] VITALS (33 sets, daily range): BP systolic 99–162; BP diastolic 62–89; PULSE 70–100; RESP 16–29; TEMP 36.2–37.6; O2SAT 78–100
[2023-07-13] MEDS: dexamethasone 4 mg/mL INJ 6 MG IVP ×3 (00:37→23:22)
[2023-07-13] MEDS: ipratropium 0.5 mg/2.5 mL Neb INHALATION ×4 (01:56→20:32)
[2023-07-13] MEDS: levalbuterol 1.25 mg/3 mL Neb INHALATION ×4 (01:56→20:32)
[2023-07-13] MEDS: ALPRAZolam 0.5 mg Tablet 0.25 MG PO (02:00)
[2023-07-13] MEDS: piperacillin-tazobactam 3.375 GM in sodium chloride 0.9% (plus) 50 ML IV ×3 (03:49→18:10)
[2023-07-13 06:11] LABS: Basophils % 0.1 %; Hematocrit 39.5 % (37-53); Lymphocytes # 0.5 10^3/uL (0.8-4.8); Lymphocytes % 5.2 %; Mean Corpuscular HGB Conc 31.1 g/dL (30-55); Mean Corpuscular Volume 102.9 fl (82-101); Mean Platelet Volume 9.1 fL (7.4-10.4); Monocytes # 0.4 10^3/uL (0.2-0.9); Neutrophils # 9.16 10^3/uL (1.8-7.7); Neutrophils % 90.2 %; Nucleated Red Blood Cells % 0 %; Platelet Count 300 10^3/cmm (157-399); Red Blood Count 3.84 10^6/uL (3.85-5.65); Red Cell Distribution Width 12.9 % (12.1-15.1); White Blood Count 10.16 10^3/uL (3.29-11.43)
[2023-07-13 06:33] LABS: Alanine Aminotransferase 10 U/L (0-41); Albumin Level 3.4 g/dL (3.5-5.2); Alkaline Phosphatase 72 U/L (40-130); Anion Gap 10.7 (5-19); Aspartate Amino Transferase 10 U/L (0-40); Blood Urea Nitrogen 42 mg/dL (8-23); Calcium 9.7 mg/dL (8.5-10.5); Carbon Dioxide 40 mmol/L (22-29); Chloride 98 mmol/L (98-107); Globulin 3.8 g/dL (1.3-4.6); Glucose 135 mg/dL (65-115); Osmolality Calculated 313 mOsm/kg (285-295); Potassium 3.7 mmol/L (3.5-5.1); Sodium 145 mmol/L (136-145); Total Bilirubin 0.5 mg/dL (0.15-1.2); Total Protein 7.2 g/dL (6.6-8.7)
[2023-07-13] MEDS: budesonide 0.5 mg/2 mL Neb INHALATION ×2 (08:18→20:32)
[2023-07-13] MEDS: ascorbic acid 500 mg Tablet 1000 MG PO ×2 (09:24→18:10)
[2023-07-13] MEDS: FUROsemide 40 mg Tablet PO (09:24)
[2023-07-13] MEDS: metoprolol tartrate 25 mg Tablet PO ×2 (09:25→20:44)
[2023-07-13] MEDS: enoxaparin 40 mg/0.4 mL Syringe SUBCUT (09:25)
[2023-07-13] MEDS: pantoprazole DR 40 mg Tablet PO (09:25)
[2023-07-13] MEDS: azithromycin 250 mg Tablet 500 MG PO (09:25)
--- NOTE | 2023-07-13 12:28 | P.PN_ITS ---
Subjective 2 Subjective: Patient is symptomatically improving today. His stoma has output. NGT has since been removed. SBO appears to be resolving. He has been cleared to tolerated oral intake today. Working with physical therapy this morning. Oxygen requirement at 5 L/min today. Tmax 99.6 Fahrenheit. Urine culture showing Serratia susceptible to Zosyn. Medications: Reviewed: Yes Vitals/I&O/Wt Last Vital Signs Temp 99.6 F 07/13/23 10:12 Pulse 87 07/13/23 08:18 Resp 20 H 07/13/23 08:18 BP 151/82 07/13/23 06:00 Pulse Ox 96 07/13/23 08:18 O2 Del Method Nasal Cannula 07/13/23 08:18 O2 Flow Rate 4 07/13/23 08:18 FiO2 30 07/11/23 20:30 07/12/23 07/13/23 07/13/23 22:59 06:59 14:59 Intake Total 300 / 450 Output Total 1650 / 2025 150 / 2175 Balance -1350 / -1575 -150 / -1725 Weight last 48 hrs Weight 50.802 kg Weight 50.802 kg Physical Exam 2 Narrative: General: No acute distress, AO x3, chronically ill-appearing HEENT: PERRLA, pupils bilaterally equal and reactive, pallors not present Chest: Diffuse wheezing bilaterally CVS: S1-S2 regular, no murmurs, no tachycardia, no gallops, no rubs Abdomen: Soft, nontender, no organomegaly, bowel sounds present Neuro: No focal deficits, no facial deformity, AO x3, power 5/5 in all limbs Extremities: No clubbing edema or cyanosis Urinary Catheter Management: Garcia: Cath Placed During This Visit: no Reason for Continuing Indwelling Catheter: Accurate Measurement of Urinary Output in Critically Ill Patients Data 07/13/23 06:06 07/13/23 06:06 Micro: Microbiology 07/11/23 11:40 Urine Culture - Final Urine Catheterized Serratia marcescens A&P Assessment and plan (1) COVID-19 determined by clinical diagnostic criteria: (2) Chronic obstructive pulmonary disease: (3) Acute and chronic respiratory failure with hypoxia: (4) Acute and chronic respiratory failure with hypercapnia: (5) Acute exacerbation of chronic obstructive airways disease: (6) Colovesical fistula: Plan Patient is a 77-year-old male with a past medical history of class B COPD, chronic hypoxic hypercapnic respiratory failure typically on home oxygen, 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 History, history of recurrent SBO's notes, past medical history of PE in February 2022. He is not on anticoagulation due to history of disease with anticoagulation on Eliquis. Currently admitted since 07/08/2023 after presenting to the hospital with worsening shortness of breath. Current hospital course is notable for COVID-19 pneumonia and acute on chronic COPD exacerbation. # COVID-19 pneumonia Currently remdisivir 200mg iv x 1 followed by 100mg iv daily Dexamethasone 6mg IVP daily duoneb q6h, budesonide q12h empiric piperacillin/tazobactam and azithromycin sputum culture with Klebsiella pneumoniae and haemophilus influenza. Above antibiotics with adequate coverage. Flutter valve/spirometer at bedside trend inflammatory markers including CRP CTA 07/08 negative for PE, findings of acute bronchitis with increased diffuse bronchial wall thickening and secretions. Nonspecific hilar lymphadenopathy. Slightly increased known left upper lobe nodule. # Acute bronchitis Likely triggered by acute viral infection with COVID-19 Possibility of superadded bacterial infection not excluded. Empiric antibiotic coverage as above. # CRP continues to be persistently elevated at 208. Patient additionally complaining of abdominal pain. Elevated CRP in the 200 range does not appear to correlate clinically with CT and x-ray findings. Will obtain CT of the abdomen and pelvis with contrast today. He has a complicated history of what appears to be colovesical fistula for which she is following with a colorectal surgeon in [place]. Currently he has a suprapubic catheter which has not been in place since February however is nonfunctioning. He also has a Garcia catheter which is changed every 3 weeks or so. He has a colostomy from past history of colon cancer with reduced output currently. X-ray of the abdomen performed earlier today showed dilated bowel loops, nonspecific. CT will further characterize if there may be recurrent SBO versus ileus currently. Additionally possible that patient may have chronic cystitis given his history of recurrent infections. UA and urine culture. Possibly both of these which show early microbes as anticipated with a colovesical fistula. Getting the cultures to a certain if patient may be colonized with any particularly resistant organisms which would warrant broadening of his current antibiotic coverage DVT ppx: Currently on full dose Lovenox which we will discontinue given that CTA is negative for PE. To resume prophylactic dose of Lovenox today. PUD prophylaxis: Start Protonix 40 mg p.o. daily alongside steroids. Full code Plan for today 07/12 : oxygen requirements improving. Continue to wean down as tolerated. NGT to suction for SBO. No stool output yet in stoma. General surgery consulted. 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 GNR on urine. No intra abdominal abscess. Pertinent to see if ESBL colonizers. Await cx and susceptibility. continue abx, iv steroids, increased dose to 6mg iv q12h due to persistent high CRP ~200. Trending down today. High CRP may be contributed by SBO additionally. Holding on tocilizumab given clincal improvement. CXR with stable findings, no new infiltrates. Family updated at bedside. Discussed that anticipate prolonged recovery time given baseline severe COPD with severe airflow obstruction. 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 Plan for today 07/13/2023: Oxygen requirements improving. CRP trending down to 130 for now. SBO is resolved. Patient has stool output in the colostomy. NGT removed. Trial of clears. He is participating with physical therapy. Urine culture showing Serratia susceptible to Zosyn. We will continue the same for now. Depending on how patient does with therapy further disposition planning ongoing. Hopefully he is nearing the time he can leave the hospital if he continues to show sustained improvement. Attestations 2 Medical Necessity Statement*: PT OT today. Finishing IV remdesivir. Plan to complete a total 5-day course discharge planning depending on clinical course over the next 24 hours. Coding Level of Care Code Acute Code for Chg Fwd High MDM includes number and complexity of problems actively addressed during encounter, amount and/or complexity of data reviewed/ordered and described risk of complication, morbidity or mortality of management as documented Diagnoses COVID-19 determined by clinical diagnostic criteria U07.1 Chronic obstructive pulmonary disease J44.9 Acute and chronic respiratory failure with hypoxia J96.21 Acute and chronic respiratory failure with hypercapnia J96.22 Acute exacerbation of chronic obstructive airways disease J44.1 Colovesical fistula N32.1
--- NOTE | 2023-07-13 14:21 | P.PN_ITS ---
Subjective 2 Subjective: Patient seen and examined. He has had his ostomy bag emptied 3 times. Denies any nausea Vitals/I&O/Wt Last Vital Signs Temp 99.6 F 07/13/23 10:12 Pulse 83 07/13/23 14:00 Resp 29 H 07/13/23 14:00 BP 99/76 07/13/23 14:00 Pulse Ox 78 L 07/13/23 14:00 O2 Del Method Nasal Cannula 07/13/23 08:18 O2 Flow Rate 4 07/13/23 08:18 FiO2 30 07/11/23 20:30 07/12/23 07/13/23 07/13/23 22:59 06:59 14:59 Intake Total 300 / 450 450 / 450 Output Total 1650 / 2025 150 / 2175 1125 / 1125 Balance -1350 / -1575 -150 / -1725 -675 / -675 Weight last 48 hrs Weight 112 lb Weight 112 lb Physical Exam 2 Narrative: General: No acute distress, awake alert and oriented x 3 Abdomen: Soft, nontender, nondistended, no guarding rebound or masses Ostomy pink patent and producing Urinary Catheter Management: Garcia: Cath Placed During This Visit: no Reason for Continuing Indwelling Catheter: Accurate Measurement of Urinary Output in Critically Ill Patients Data 07/13/23 06:06 07/13/23 06:06 Micro: Microbiology 07/08/23 12:34 Blood Culture - Final Blood NO GROWTH AFTER 5 DAYS 07/08/23 12:32 Blood Culture - Final Blood NO GROWTH AFTER 5 DAYS 07/11/23 11:40 Urine Culture - Final Urine Catheterized Serratia marcescens A&P Assessment and plan (1) Small bowel obstruction: (2) Colovesical fistula: Plan Small bowel obstruction is resolving Discontinue nasogastric tube Clear liquid diet Will follow Medical management per hospitalist I am going on vacation today and Dr. Gardenia andrea will be taking over for me Attestations 2 Medical Necessity Statement*: per primary Coding Level of Care Code 79209 Diagnoses Small bowel obstruction K56.609 Colovesical fistula N32.1
--- NOTE | 2023-07-13 22:12 | PC.NURSE ---
Report was given to DENISE Carr from [facility]. Patient was transported by bed up to [facility]. All belongings were with the patient upon transfer. Transfer was smooth and uneventful.
[2023-07-14] VITALS (15 sets, daily range): BP systolic 114–142; BP diastolic 61–80; PULSE 62–82; RESP 16–17; TEMP 36.3–37.1; O2SAT 96–100; BMI 17.1
[2023-07-14] MEDS: piperacillin-tazobactam 3.375 GM in sodium chloride 0.9% (plus) 50 ML IV ×3 (02:30→18:14)
[2023-07-14] MEDS: ALPRAZolam 0.5 mg Tablet 0.25 MG PO (02:30)
[2023-07-14] MEDS: levalbuterol 1.25 mg/3 mL Neb INHALATION ×4 (04:42→19:58)
[2023-07-14 06:05] LABS: Basophils % 0.1 %; Hematocrit 35.5 % (37-53); Lymphocytes # 0.5 10^3/uL (0.8-4.8); Lymphocytes % 5.3 %; Mean Corpuscular HGB Conc 31.8 g/dL (30-55); Mean Corpuscular Hemoglobin 32.2 pg (27-33); Mean Corpuscular Volume 101.1 fl (82-101); Mean Platelet Volume 9.7 fL (7.4-10.4); Monocytes # 0.4 10^3/uL (0.2-0.9); Monocytes % 4.4 %; Neutrophils # 8.68 10^3/uL (1.8-7.7); Neutrophils % 89.7 %; Nucleated Red Blood Cells % 0 %; Platelet Count 259 10^3/cmm (157-399); Red Blood Count 3.51 10^6/uL (3.85-5.65); Red Cell Distribution Width 12.5 % (12.1-15.1); White Blood Count 9.68 10^3/uL (3.29-11.43)
[2023-07-14 06:27] LABS: Alanine Aminotransferase 9 U/L (0-41); Albumin Level 3.1 g/dL (3.5-5.2); Alkaline Phosphatase 62 U/L (40-130); Anion Gap 11.5 (5-19); Aspartate Amino Transferase 9 U/L (0-40); Blood Urea Nitrogen 38 mg/dL (8-23); C Reactive Protein 34.6 mg/L (0.0-4.9); Carbon Dioxide 36 mmol/L (22-29); Chloride 97 mmol/L (98-107); Globulin 3.2 g/dL (1.3-4.6); Glucose 148 mg/dL (65-115); Osmolality Calculated 304 mOsm/kg (285-295); Potassium 3.5 mmol/L (3.5-5.1); Sodium 141 mmol/L (136-145); Total Bilirubin 0.6 mg/dL (0.15-1.2); Total Protein 6.3 g/dL (6.6-8.7)
[2023-07-14] MEDS: ipratropium 0.5 mg/2.5 mL Neb INHALATION ×3 (07:46→19:58)
[2023-07-14] MEDS: budesonide 0.5 mg/2 mL Neb INHALATION ×2 (07:46→19:58)
[2023-07-14] MEDS: azithromycin 250 mg Tablet 500 MG PO (09:51)
[2023-07-14] MEDS: enoxaparin 40 mg/0.4 mL Syringe SUBCUT (09:51)
[2023-07-14] MEDS: metoprolol tartrate 25 mg Tablet PO ×2 (09:52→21:21)
[2023-07-14] MEDS: pantoprazole DR 40 mg Tablet PO (09:52)
[2023-07-14] MEDS: ascorbic acid 500 mg Tablet 1000 MG PO ×2 (09:52→17:31)
[2023-07-14] MEDS: FUROsemide 40 mg Tablet PO (09:52)
[2023-07-14] MEDS: dexamethasone 4 mg/mL INJ 6 MG IVP ×2 (11:29→15:27)
--- NOTE | 2023-07-14 14:36 | P.PN_ITS ---
Subjective 2 Subjective: Feels well today. On 2 L/min supplemental O2. No new acute events. Stoma has adequate output. Family indicates today that they would like patient to transition to SNF given his extensive deconditioning. Medications: Reviewed: Yes Vitals/I&O/Wt Last Vital Signs Temp 98.7 F 07/14/23 07:54 Pulse 64 07/14/23 13:44 Resp 16 07/14/23 13:44 BP 142/80 07/14/23 12:00 Pulse Ox 96 07/14/23 13:44 O2 Del Method Room Air 07/14/23 13:44 O2 Flow Rate 2 07/14/23 13:44 FiO2 30 07/11/23 20:30 07/13/23 07/14/23 07/14/23 22:59 06:59 14:59 Intake Total 100 / 550 50 / 600 560 / 560 Output Total 1550 / 2675 600 / 3275 Balance -1450 / -2125 -550 / -2675 560 / 560 Weight last 48 hrs Weight 52.662 kg Weight 50.802 kg Physical Exam 2 Narrative: General: No acute distress, AO x3, chronically ill-appearing HEENT: PERRLA, pupils bilaterally equal and reactive, pallors not present Chest: Diffuse wheezing bilaterally CVS: S1-S2 regular, no murmurs, no tachycardia, no gallops, no rubs Abdomen: Soft, nontender, no organomegaly, bowel sounds present Neuro: No focal deficits, no facial deformity, AO x3, power 5/5 in all limbs Extremities: No clubbing edema or cyanosis Urinary Catheter Management: Garcia: Cath Placed During This Visit: no Reason for Continuing Indwelling Catheter: Other Data 07/14/23 06:00 07/14/23 06:00 Micro: Microbiology 07/08/23 12:34 Blood Culture - Final Blood NO GROWTH AFTER 5 DAYS 07/08/23 12:32 Blood Culture - Final Blood NO GROWTH AFTER 5 DAYS 07/11/23 11:40 Urine Culture - Final Urine Catheterized Serratia marcescens A&P Assessment and plan (1) COVID-19 determined by clinical diagnostic criteria: (2) Chronic obstructive pulmonary disease: (3) Acute and chronic respiratory failure with hypoxia: (4) Acute and chronic respiratory failure with hypercapnia: (5) Acute exacerbation of chronic obstructive airways disease: (6) Colovesical fistula: Plan Patient is a 77-year-old male with a past medical history of class B COPD, chronic hypoxic hypercapnic respiratory failure typically on home oxygen, 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 History, history of recurrent SBO's notes, past medical history of PE in February 2022. He is not on anticoagulation due to history of disease with anticoagulation on Eliquis. Currently admitted since 07/08/2023 after presenting to the hospital with worsening shortness of breath. Current hospital course is notable for COVID-19 pneumonia and acute on chronic COPD exacerbation. # COVID-19 pneumonia Currently remdisivir 200mg iv x 1 followed by 100mg iv daily Dexamethasone 6mg IVP daily duoneb q6h, budesonide q12h empiric piperacillin/tazobactam and azithromycin sputum culture with Klebsiella pneumoniae and haemophilus influenza. Above antibiotics with adequate coverage. Flutter valve/spirometer at bedside trend inflammatory markers including CRP CTA 07/08 negative for PE, findings of acute bronchitis with increased diffuse bronchial wall thickening and secretions. Nonspecific hilar lymphadenopathy. Slightly increased known left upper lobe nodule. # Acute bronchitis Likely triggered by acute viral infection with COVID-19 Possibility of superadded bacterial infection not excluded. Empiric antibiotic coverage as above. # CRP continues to be persistently elevated at 208. Patient additionally complaining of abdominal pain. Elevated CRP in the 200 range does not appear to correlate clinically with CT and x-ray findings. Will obtain CT of the abdomen and pelvis with contrast today. He has a complicated history of what appears to be colovesical fistula for which she is following with a colorectal surgeon in [place]. Currently he has a suprapubic catheter which has not been in place since February however is nonfunctioning. He also has a Garcia catheter which is changed every 3 weeks or so. He has a colostomy from past history of colon cancer with reduced output currently. X-ray of the abdomen performed earlier today showed dilated bowel loops, nonspecific. CT will further characterize if there may be recurrent SBO versus ileus currently. Additionally possible that patient may have chronic cystitis given his history of recurrent infections. UA and urine culture. Possibly both of these which show early microbes as anticipated with a colovesical fistula. Getting the cultures to a certain if patient may be colonized with any particularly resistant organisms which would warrant broadening of his current antibiotic coverage DVT ppx: Currently on full dose Lovenox which we will discontinue given that CTA is negative for PE. To resume prophylactic dose of Lovenox today. PUD prophylaxis: Start Protonix 40 mg p.o. daily alongside steroids. Full code Plan for today 07/12 : oxygen requirements improving. Continue to wean down as tolerated. NGT to suction for SBO. No stool output yet in stoma. General surgery consulted. 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 GNR on urine. No intra abdominal abscess. Pertinent to see if ESBL colonizers. Await cx and susceptibility. continue abx, iv steroids, increased dose to 6mg iv q12h due to persistent high CRP ~200. Trending down today. High CRP may be contributed by SBO additionally. Holding on tocilizumab given clincal improvement. CXR with stable findings, no new infiltrates. Family updated at bedside. Discussed that anticipate prolonged recovery time given baseline severe COPD with severe airflow obstruction. 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 Plan for today 07/13/2023: Oxygen requirements improving. CRP trending down to 130 for now. SBO is resolved. Patient has stool output in the colostomy. NGT removed. Trial of clears. He is participating with physical therapy. Urine culture showing Serratia susceptible to Zosyn. We will continue the same for now. Depending on how patient does with therapy further disposition planning ongoing. Hopefully he is nearing the time he can leave the hospital if he continues to show sustained improvement. Plan for today: 07/14/2023. Patient's respiratory status is stable. He is on 2 L/min supplemental O2. CRP continues to trend down. SBO is resolved. Advance diet from clear liquid to GI soft today and assess for tolerability. Participating with PT OT. He is minimum to moderate assist, one-person assist per review of PT notes. Patient was planned to be discharged home this weekend, however now states she feels he is too weak for her to take care of her adequately. Would like to consider patient transitioning to SNF since he has therapy needs. Case management has been updated and working on the same. Attestations 2 Medical Necessity Statement*: Appropriate disposition planning ongoing. Advance diet today. Coding Level of Care Code Acute Code for Chg Fwd Diagnoses COVID-19 determined by clinical diagnostic criteria U07.1 Chronic obstructive pulmonary disease J44.9 Acute and chronic respiratory failure with hypoxia J96.21 Acute and chronic respiratory failure with hypercapnia J96.22 Acute exacerbation of chronic obstructive airways disease J44.1 Colovesical fistula N32.1
--- NOTE | 2023-07-14 16:46 | P.PN_ITS ---
Subjective 2 Subjective: Is a 77-year-old male who has a complex history including a colovesical fistula after placement of suprapubic catheter, for which he is following with colorectal surgery. He currently is admitted for [facility] and he had an episode of SBO, my colleague Dr. Patterson was following the patient and I have been asked to see the patient as he will go medication starting today. Over the last 24 hours patient has been feeling much better abdominal distention resolved ostomy bag was productive of stool and gas. And has been emptied multiple times. Patient overall feeling better, tolerating clear liquid diet plan to give him regular food. Vitals/I&O/Wt Last Vital Signs Temp 98.7 F 07/14/23 07:54 Pulse 64 07/14/23 13:44 Resp 16 07/14/23 13:44 BP 142/80 07/14/23 12:00 Pulse Ox 96 07/14/23 16:00 O2 Del Method Nasal Cannula 07/14/23 16:00 O2 Flow Rate 2 07/14/23 16:00 FiO2 30 07/11/23 20:30 07/14/23 07/14/23 07/14/23 06:59 14:59 22:59 Intake Total 50 / 600 800 / 800 50 / 850 Output Total 600 / 3275 Balance -550 / -2675 800 / 800 50 / 850 Weight last 48 hrs Weight 116 lb 1.6 oz Weight 112 lb Physical Exam 2 GI: OTHER: Abdomen is soft, nontender, ostomy is productive of gas in the stool, there are some feculent material draining around the suprapubic catheter which is consistent with his history of colovesical fistula. Urinary Catheter Management: Garcia: Cath Placed During This Visit: no Reason for Continuing Indwelling Catheter: Other Data 07/14/23 06:00 07/14/23 06:00 Micro: Microbiology 07/08/23 12:34 Blood Culture - Final Blood NO GROWTH AFTER 5 DAYS 07/08/23 12:32 Blood Culture - Final Blood NO GROWTH AFTER 5 DAYS A&P Assessment and plan (1) Small bowel obstruction: (2) Colovesical fistula: Plan I agree with the plan of advancing patient diet, after discharge patient will need to follow-up with colorectal surgery for possible resection, in the case of recurrent SBO consideration to transfer to higher level of care should be made as any type of surgery will also involve a takedown of his colovesical fistula for which urology support and colorectal evaluation are indicated. No interventions planned from the general surgery standpoint at this moment. Attestations 2 Medical Necessity Statement*: Length of the stay guided by primary team, if tolerating diet patient is cleared for placement. Coding Level of Care Code Acute Code for Chg Fwd Diagnoses Small bowel obstruction K56.609 Colovesical fistula N32.1
[2023-07-15] VITALS (15 sets, daily range): BP systolic 123–151; BP diastolic 67–84; PULSE 63–114; RESP 15–22; TEMP 36.5–36.9; O2SAT 93–100; BMI 16.0
[2023-07-15] MEDS: ipratropium 0.5 mg/2.5 mL Neb INHALATION ×4 (02:40→20:47)
[2023-07-15] MEDS: levalbuterol 1.25 mg/3 mL Neb INHALATION ×4 (02:41→20:47)
[2023-07-15] MEDS: piperacillin-tazobactam 3.375 GM in sodium chloride 0.9% (plus) 50 ML IV ×3 (03:07→18:03)
[2023-07-15 05:49] LABS: Basophils % 0.2 %; Hematocrit 31.6 % (37-53); Lymphocytes # 0.8 10^3/uL (0.8-4.8); Lymphocytes % 7.3 %; Mean Corpuscular HGB Conc 32.6 g/dL (30-55); Mean Corpuscular Hemoglobin 31.9 pg (27-33); Mean Corpuscular Volume 97.8 fl (82-101); Mean Platelet Volume 9.6 fL (7.4-10.4); Monocytes # 0.7 10^3/uL (0.2-0.9); Monocytes % 6.5 %; Neutrophils # 9.32 10^3/uL (1.8-7.7); Neutrophils % 85.6 %; Nucleated Red Blood Cells % 0 %; Platelet Count 206 10^3/cmm (157-399); Red Blood Count 3.23 10^6/uL (3.85-5.65); Red Cell Distribution Width 11.9 % (12.1-15.1); White Blood Count 10.88 10^3/uL (3.29-11.43)
[2023-07-15 06:07] LABS: Alanine Aminotransferase 10 U/L (0-41); Albumin Level 2.9 g/dL (3.5-5.2); Alkaline Phosphatase 59 U/L (40-130); Anion Gap 6.3 (5-19); Aspartate Amino Transferase 11 U/L (0-40); Blood Urea Nitrogen 31 mg/dL (8-23); Calcium 8.7 mg/dL (8.5-10.5); Carbon Dioxide 38 mmol/L (22-29); Chloride 97 mmol/L (98-107); Globulin 2.9 g/dL (1.3-4.6); Glucose 120 mg/dL (65-115); Osmolality Calculated 294 mOsm/kg (285-295); Potassium 3.3 mmol/L (3.5-5.1); Sodium 138 mmol/L (136-145); Total Bilirubin 0.4 mg/dL (0.15-1.2); Total Protein 5.8 g/dL (6.6-8.7)
[2023-07-15] MEDS: budesonide 0.5 mg/2 mL Neb INHALATION ×2 (07:32→20:47)
[2023-07-15] MEDS: ascorbic acid 500 mg Tablet 1000 MG PO ×2 (09:30→17:06)
[2023-07-15] MEDS: azithromycin 250 mg Tablet 500 MG PO (09:30)
[2023-07-15] MEDS: metoprolol tartrate 25 mg Tablet PO ×2 (09:30→21:11)
[2023-07-15] MEDS: FUROsemide 40 mg Tablet PO (09:30)
[2023-07-15] MEDS: pantoprazole DR 40 mg Tablet PO (09:31)
[2023-07-15] MEDS: enoxaparin 40 mg/0.4 mL Syringe SUBCUT (09:31)
[2023-07-15 14:27] LABS: C Reactive Protein 16.9 mg/L (0.0-4.9)
[2023-07-15] MEDS: dexamethasone 4 mg/mL INJ 6 MG IVP (16:19)
[2023-07-15] MEDS: ALPRAZolam 0.5 mg Tablet 0.25 MG PO (21:17)
--- NOTE | 2023-07-15 23:11 | PM.PN ---
Subjective Subjective: feels well, no new complains today Vitals/I&O/Wt Last Vital Signs Temp 98.4 F 07/15/23 20:00 Pulse 75 07/15/23 20:47 Resp 20 H 07/15/23 20:47 BP 123/67 07/15/23 20:00 Pulse Ox 99 07/15/23 20:47 O2 Del Method Nasal Cannula 07/15/23 20:47 O2 Flow Rate 2 07/15/23 20:47 FiO2 30 07/11/23 20:30 07/15/23 07/15/23 07/16/23 14:59 22:59 06:59 Intake Total 530 / 530 1070 / 1600 50 / 1650 Output Total 750 / 750 Balance 530 / 530 320 / 850 50 / 900 Weight last 48 hrs Weight 49.442 kg Weight 52.662 kg Physical Exam Narrative: General: No acute distress, AO x3, chronically ill-appearing HEENT: PERRLA, pupils bilaterally equal and reactive, pallors not present Chest: Diffuse wheezing bilaterally CVS: S1-S2 regular, no murmurs, no tachycardia, no gallops, no rubs Abdomen: Soft, nontender, no organomegaly, bowel sounds present Neuro: No focal deficits, no facial deformity, AO x3, power 5/5 in all limbs Extremities: No clubbing edema or cyanosis Urinary Catheter Management: Garcia: Cath Placed During This Visit: no Reason for Continuing Indwelling Catheter: Chronic Indwelling Urinary Catheter on Admission Data 07/16/23 05:45 07/16/23 05:45 A&P Assessment and plan (1) COVID-19 determined by clinical diagnostic criteria: (2) Chronic obstructive pulmonary disease: (3) Acute and chronic respiratory failure with hypoxia: (4) Acute and chronic respiratory failure with hypercapnia: (5) Acute exacerbation of chronic obstructive airways disease: (6) Colovesical fistula: Plan Patient is a 77-year-old male with a past medical history of class B COPD, chronic hypoxic hypercapnic respiratory failure typically on home oxygen, 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 History, history of recurrent SBO's notes, past medical history of PE in February 2022. He is not on anticoagulation due to history of disease with anticoagulation on Eliquis. Currently admitted since 07/08/2023 after presenting to the hospital with worsening shortness of breath. Current hospital course is notable for COVID-19 pneumonia and acute on chronic COPD exacerbation. # COVID-19 pneumonia Currently remdisivir 200mg iv x 1 followed by 100mg iv daily Dexamethasone 6mg IVP daily duoneb q6h, budesonide q12h empiric piperacillin/tazobactam and azithromycin sputum culture with Klebsiella pneumoniae and haemophilus influenza. Above antibiotics with adequate coverage. Flutter valve/spirometer at bedside trend inflammatory markers including CRP CTA 07/08 negative for PE, findings of acute bronchitis with increased diffuse bronchial wall thickening and secretions. Nonspecific hilar lymphadenopathy. Slightly increased known left upper lobe nodule. # Acute bronchitis Likely triggered by acute viral infection with COVID-19 Possibility of superadded bacterial infection not excluded. Empiric antibiotic coverage as above. # CRP continues to be persistently elevated at 208. Patient additionally complaining of abdominal pain. Elevated CRP in the 200 range does not appear to correlate clinically with CT and x-ray findings. Will obtain CT of the abdomen and pelvis with contrast today. He has a complicated history of what appears to be colovesical fistula for which she is following with a colorectal surgeon in [place]. Currently he has a suprapubic catheter which has not been in place since February however is nonfunctioning. He also has a Garcia catheter which is changed every 3 weeks or so. He has a colostomy from past history of colon cancer with reduced output currently. X-ray of the abdomen performed earlier today showed dilated bowel loops, nonspecific. CT will further characterize if there may be recurrent SBO versus ileus currently. Additionally possible that patient may have chronic cystitis given his history of recurrent infections. UA and urine culture. Possibly both of these which show early microbes as anticipated with a colovesical fistula. Getting the cultures to a certain if patient may be colonized with any particularly resistant organisms which would warrant broadening of his current antibiotic coverage DVT ppx: Currently on full dose Lovenox which we will discontinue given that CTA is negative for PE. To resume prophylactic dose of Lovenox today. PUD prophylaxis: Start Protonix 40 mg p.o. daily alongside steroids. Full code Plan for today 07/12 : oxygen requirements improving. Continue to wean down as tolerated. NGT to suction for SBO. No stool output yet in stoma. General surgery consulted. 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 GNR on urine. No intra abdominal abscess. Pertinent to see if ESBL colonizers. Await cx and susceptibility. continue abx, iv steroids, increased dose to 6mg iv q12h due to persistent high CRP ~200. Trending down today. High CRP may be contributed by SBO additionally. Holding on tocilizumab given clincal improvement. CXR with stable findings, no new infiltrates. Family updated at bedside. Discussed that anticipate prolonged recovery time given baseline severe COPD with severe airflow obstruction. 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 Plan for today 07/13/2023: Oxygen requirements improving. CRP trending down to 130 for now. SBO is resolved. Patient has stool output in the colostomy. NGT removed. Trial of clears. He is participating with physical therapy. Urine culture showing Serratia susceptible to Zosyn. We will continue the same for now. Depending on how patient does with therapy further disposition planning ongoing. Hopefully he is nearing the time he can leave the hospital if he continues to show sustained improvement. Plan for today: 07/14/2023. Patient's respiratory status is stable. He is on 2 L/min supplemental O2. CRP continues to trend down. SBO is resolved. Advance diet from clear liquid to GI soft today and assess for tolerability. Participating with PT OT. He is minimum to moderate assist, one-person assist per review of PT notes. Patient was planned to be discharged home this weekend, however now states she feels he is too weak for her to take care of her adequately. Would like to consider patient transitioning to SNF since he has therapy needs. Case management has been updated and working on the same. Plan for today 07.15.23. : clinically better. Continues to feel better. Attempting increased ambulation. Discharge pending disposition planning Attestations Medical Necessity Statement*: ongoing disposiiton planning Coding Level of Care Code Acute Code for Chg Fwd Diagnoses COVID-19 determined by clinical diagnostic criteria U07.1 Chronic obstructive pulmonary disease J44.9 Acute and chronic respiratory failure with hypoxia J96.21 Acute and chronic respiratory failure with hypercapnia J96.22 Acute exacerbation of chronic obstructive airways disease J44.1 Colovesical fistula N32.1
[2023-07-16] VITALS (13 sets, daily range): BP systolic 124–146; BP diastolic 67–80; PULSE 66–88; RESP 14–20; TEMP 36.4–36.8; O2SAT 94–100
[2023-07-16] MEDS: piperacillin-tazobactam 3.375 GM in sodium chloride 0.9% (plus) 50 ML IV ×2 (02:56→11:06)
[2023-07-16] MEDS: ipratropium 0.5 mg/2.5 mL Neb INHALATION ×4 (03:06→21:11)
[2023-07-16] MEDS: levalbuterol 1.25 mg/3 mL Neb INHALATION ×4 (03:06→21:12)
[2023-07-16 05:57] LABS: Eosinophils % 0.1 %; Hematocrit 30.4 % (37-53); Lymphocytes # 0.7 10^3/uL (0.8-4.8); Lymphocytes % 9.3 %; Mean Corpuscular HGB Conc 31.9 g/dL (30-55); Mean Corpuscular Hemoglobin 31.6 pg (27-33); Mean Platelet Volume 10.2 fL (7.4-10.4); Monocytes # 0.5 10^3/uL (0.2-0.9); Monocytes % 6.5 %; Neutrophils # 6.02 10^3/uL (1.8-7.7); Neutrophils % 83.7 %; Nucleated Red Blood Cells % 0 %; Platelet Count 194 10^3/cmm (157-399); Red Blood Count 3.07 10^6/uL (3.85-5.65)
[2023-07-16 06:17] LABS: Alanine Aminotransferase 6 U/L (0-41); Albumin Level 2.9 g/dL (3.5-5.2); Alkaline Phosphatase 61 U/L (40-130); Anion Gap 7.2 (5-19); Aspartate Amino Transferase 11 U/L (0-40); Blood Urea Nitrogen 23 mg/dL (8-23); Calcium 8.5 mg/dL (8.5-10.5); Carbon Dioxide 37 mmol/L (22-29); Chloride 96 mmol/L (98-107); Globulin 2.9 g/dL (1.3-4.6); Glucose 132 mg/dL (65-115); Osmolality Calculated 290 mOsm/kg (285-295); Potassium 3.2 mmol/L (3.5-5.1); Sodium 137 mmol/L (136-145); Total Bilirubin 0.3 mg/dL (0.15-1.2); Total Protein 5.8 g/dL (6.6-8.7)
[2023-07-16] MEDS: ascorbic acid 500 mg Tablet 1000 MG PO ×2 (08:48→16:58)
[2023-07-16] MEDS: metoprolol tartrate 25 mg Tablet PO ×2 (08:48→21:09)
[2023-07-16] MEDS: pantoprazole DR 40 mg Tablet PO (08:48)
[2023-07-16] MEDS: azithromycin 250 mg Tablet 500 MG PO (08:48)
[2023-07-16] MEDS: FUROsemide 40 mg Tablet PO (08:48)
[2023-07-16] MEDS: enoxaparin 40 mg/0.4 mL Syringe SUBCUT (08:48)
[2023-07-16] MEDS: budesonide 0.5 mg/2 mL Neb INHALATION ×2 (09:05→21:11)
[2023-07-16] MEDS: ALPRAZolam 0.5 mg Tablet 0.25 MG PO ×2 (15:00→23:03)
[2023-07-16] MEDS: predniSONE 20 mg Tablet 40 MG PO (16:58)
--- NOTE | 2023-07-16 18:21 | P.PN_ITS ---
Subjective 2 Subjective: He is noted to have some increased wheezing today. He is getting anxious that he may be worsening again. He has a dry nose and had some streaks of blood. Reassured that he is still on 2 L/min. He has scattered wheezing for which we will increase his steroids. No other alarming sign noted. Continues to have good output from his stoma. Medications: Reviewed: Yes Vitals/I&O/Wt Last Vital Signs Temp 98.0 F 07/16/23 16:00 Pulse 78 07/16/23 16:00 Resp 18 07/16/23 16:00 BP 134/73 07/16/23 16:00 Pulse Ox 94 07/16/23 16:00 O2 Del Method Oxymask 07/16/23 16:00 O2 Flow Rate 2 07/16/23 14:00 FiO2 30 07/11/23 20:30 07/16/23 07/16/23 07/16/23 06:59 14:59 22:59 Intake Total 50 / 1650 770 / 770 530 / 1300 Output Total 550 / 1300 350 / 350 400 / 750 Balance -500 / 350 420 / 420 130 / 550 Weight last 48 hrs Weight 51.573 kg Weight 49.442 kg Physical Exam 2 Narrative: General: No acute distress, AO x3, chronically ill-appearing HEENT: PERRLA, pupils bilaterally equal and reactive, pallors not present Chest: Diffuse wheezing bilaterally CVS: S1-S2 regular, no murmurs, no tachycardia, no gallops, no rubs Abdomen: Soft, nontender, no organomegaly, bowel sounds present Neuro: No focal deficits, no facial deformity, AO x3, power 5/5 in all limbs Extremities: No clubbing edema or cyanosis Urinary Catheter Management: Garcia: Cath Placed During This Visit: no Reason for Continuing Indwelling Catheter: Acute Urinary Retention or Obstruction Data 07/16/23 05:45 07/16/23 05:45 A&P Assessment and plan (1) COVID-19 determined by clinical diagnostic criteria: (2) Chronic obstructive pulmonary disease: (3) Acute and chronic respiratory failure with hypoxia: (4) Acute and chronic respiratory failure with hypercapnia: (5) Acute exacerbation of chronic obstructive airways disease: (6) Colovesical fistula: Plan Patient is a 77-year-old male with a past medical history of class B COPD, chronic hypoxic hypercapnic respiratory failure typically on home oxygen, 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 History, history of recurrent SBO's notes, past medical history of PE in February 2022. He is not on anticoagulation due to history of disease with anticoagulation on Eliquis. Currently admitted since 07/08/2023 after presenting to the hospital with worsening shortness of breath. Current hospital course is notable for COVID-19 pneumonia and acute on chronic COPD exacerbation. # COVID-19 pneumonia Currently remdisivir 200mg iv x 1 followed by 100mg iv daily Dexamethasone 6mg IVP daily duoneb q6h, budesonide q12h empiric piperacillin/tazobactam and azithromycin sputum culture with Klebsiella pneumoniae and haemophilus influenza. Above antibiotics with adequate coverage. Flutter valve/spirometer at bedside trend inflammatory markers including CRP CTA 07/08 negative for PE, findings of acute bronchitis with increased diffuse bronchial wall thickening and secretions. Nonspecific hilar lymphadenopathy. Slightly increased known left upper lobe nodule. # Acute bronchitis Likely triggered by acute viral infection with COVID-19 Possibility of superadded bacterial infection not excluded. Empiric antibiotic coverage as above. # CRP continues to be persistently elevated at 208. Patient additionally complaining of abdominal pain. Elevated CRP in the 200 range does not appear to correlate clinically with CT and x-ray findings. Will obtain CT of the abdomen and pelvis with contrast today. He has a complicated history of what appears to be colovesical fistula for which she is following with a colorectal surgeon in [place]. Currently he has a suprapubic catheter which has not been in place since February however is nonfunctioning. He also has a Garcia catheter which is changed every 3 weeks or so. He has a colostomy from past history of colon cancer with reduced output currently. X-ray of the abdomen performed earlier today showed dilated bowel loops, nonspecific. CT will further characterize if there may be recurrent SBO versus ileus currently. Additionally possible that patient may have chronic cystitis given his history of recurrent infections. UA and urine culture. Possibly both of these which show early microbes as anticipated with a colovesical fistula. Getting the cultures to a certain if patient may be colonized with any particularly resistant organisms which would warrant broadening of his current antibiotic coverage DVT ppx: Currently on full dose Lovenox which we will discontinue given that CTA is negative for PE. To resume prophylactic dose of Lovenox today. PUD prophylaxis: Start Protonix 40 mg p.o. daily alongside steroids. Full code Plan for today 07/12 : oxygen requirements improving. Continue to wean down as tolerated. NGT to suction for SBO. No stool output yet in stoma. General surgery consulted. 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 GNR on urine. No intra abdominal abscess. Pertinent to see if ESBL colonizers. Await cx and susceptibility. continue abx, iv steroids, increased dose to 6mg iv q12h due to persistent high CRP ~200. Trending down today. High CRP may be contributed by SBO additionally. Holding on tocilizumab given clincal improvement. CXR with stable findings, no new infiltrates. Family updated at bedside. Discussed that anticipate prolonged recovery time given baseline severe COPD with severe airflow obstruction. 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 Plan for today 07/13/2023: Oxygen requirements improving. CRP trending down to 130 for now. SBO is resolved. Patient has stool output in the colostomy. NGT removed. Trial of clears. He is participating with physical therapy. Urine culture showing Serratia susceptible to Zosyn. We will continue the same for now. Depending on how patient does with therapy further disposition planning ongoing. Hopefully he is nearing the time he can leave the hospital if he continues to show sustained improvement. Plan for today: 07/14/2023. Patient's respiratory status is stable. He is on 2 L/min supplemental O2. CRP continues to trend down. SBO is resolved. Advance diet from clear liquid to GI soft today and assess for tolerability. Participating with PT OT. He is minimum to moderate assist, one-person assist per review of PT notes. Patient was planned to be discharged home this weekend, however now states she feels he is too weak for her to take care of her adequately. Would like to consider patient transitioning to SNF since he has therapy needs. Case management has been updated and working on the same. Plan for today 07.15.23. : clinically better. Continues to feel better. Attempting increased ambulation. Discharge pending disposition planning Plan for today 07/16/2023. Has scattered wheezing bilaterally. However remains on 2 L/min supplemental O2. He is getting nervous about his intermittent wheezing, reassured, Xanax order renewed. Increase steroids to prednisone 80 mg twice daily. I had recently cut him back from every 12 hours of dexamethasone to daily. Discontinue piperacillin/tazobactam and azithromycin has completed an adequate course for possibility of superadded bacterial pneumonia and possible UTI. Ongoing appropriate disposition planning. SBO remains resolved. Attestations 2 Medical Necessity Statement*: Increase steroids today. Ongoing appropriate disposition planning. Coding Level of Care Code Acute Code for [facility] Fwd Diagnoses COVID-19 determined by clinical diagnostic criteria U07.1 Chronic obstructive pulmonary disease J44.9 Acute and chronic respiratory failure with hypoxia J96.21 Acute and chronic respiratory failure with hypercapnia J96.22 Acute exacerbation of chronic obstructive airways disease J44.1 Colovesical fistula N32.1
[2023-07-17] VITALS (11 sets, daily range): BP systolic 118–141; BP diastolic 62–76; PULSE 61–94; RESP 16–18; TEMP 36.4–36.7; O2SAT 98–100
[2023-07-17] MEDS: ipratropium 0.5 mg/2.5 mL Neb INHALATION ×4 (03:00→20:41)
[2023-07-17] MEDS: levalbuterol 1.25 mg/3 mL Neb INHALATION ×4 (03:00→20:41)
[2023-07-17] MEDS: budesonide 0.5 mg/2 mL Neb INHALATION ×2 (07:43→20:41)
[2023-07-17] MEDS: pantoprazole DR 40 mg Tablet PO (08:37)
[2023-07-17] MEDS: FUROsemide 40 mg Tablet PO (08:37)
[2023-07-17] MEDS: ascorbic acid 500 mg Tablet 1000 MG PO ×2 (08:37→17:22)
[2023-07-17] MEDS: predniSONE 20 mg Tablet 40 MG PO ×2 (08:37→17:22)
[2023-07-17] MEDS: metoprolol tartrate 25 mg Tablet PO ×2 (08:37→20:50)
[2023-07-17] MEDS: ALPRAZolam 0.5 mg Tablet 0.25 MG PO ×2 (08:38→20:50)
[2023-07-17] MEDS: enoxaparin 40 mg/0.4 mL Syringe SUBCUT (08:38)
--- NOTE | 2023-07-17 08:51 | PC.NURSE ---
Potassium level 3.2. Dr. Dubose notified and a verbal order of 40meq K[place] was ordered.
[2023-07-17] MEDS: potassium chloride ER 20 mEq Tablet 40 MEQ PO (10:08)
[2023-07-17 11:35] LABS: Alanine Aminotransferase 10 U/L (0-41); Albumin Level 2.9 g/dL (3.5-5.2); Alkaline Phosphatase 66 U/L (40-130); Anion Gap 5.7 (5-19); Aspartate Amino Transferase 10 U/L (0-40); Blood Urea Nitrogen 17 mg/dL (8-23); Calcium 8.7 mg/dL (8.5-10.5); Carbon Dioxide 39 mmol/L (22-29); Chloride 95 mmol/L (98-107); Globulin 3.1 g/dL (1.3-4.6); Glucose 123 mg/dL (65-115); Osmolality Calculated 285 mOsm/kg (285-295); Potassium 3.7 mmol/L (3.5-5.1); Sodium 136 mmol/L (136-145); Total Bilirubin 0.2 mg/dL (0.15-1.2)
--- NOTE | 2023-07-17 12:22 | PC.SOCIAL ---
IMM Updated Updated pt & family on IMM. No questions voiced. Provided pt a copy. Initialed, dated, & timed copy in chart.
[2023-07-17 13:12] LABS: Basophils % 0.1 %; Eosinophils % 0.1 %; Hematocrit 32.6 % (37-53); Lymphocytes # 0.6 10^3/uL (0.8-4.8); Lymphocytes % 6.2 %; Mean Corpuscular Hemoglobin 32.2 pg (27-33); Mean Platelet Volume 10.4 fL (7.4-10.4); Monocytes # 0.6 10^3/uL (0.2-0.9); Monocytes % 6.2 %; Neutrophils # 8.26 10^3/uL (1.8-7.7); Neutrophils % 86.9 %; Nucleated Red Blood Cells % 0 %; Platelet Count 262 10^3/cmm (157-399); Red Blood Count 3.26 10^6/uL (3.85-5.65); Red Cell Distribution Width 11.9 % (12.1-15.1); White Blood Count 9.51 10^3/uL (3.29-11.43)
[2023-07-17 13:13] LABS: Mean Corpuscular HGB Conc 32.2 g/dL (30-55)
--- NOTE | 2023-07-17 16:46 | P.PN_ITS ---
Subjective 2 Subjective: patient countinues to have wheezing, complains of generalized weakness Vitals/I&O/Wt Last Vital Signs Temp 97.6 F 07/17/23 15:22 Pulse 79 07/17/23 15:22 Resp 16 07/17/23 15:22 BP 122/66 07/17/23 15:22 Pulse Ox 98 07/17/23 15:22 O2 Del Method Nasal Cannula 07/17/23 15:22 O2 Flow Rate 2 07/17/23 15:17 FiO2 30 07/11/23 20:30 07/17/23 07/17/23 07/17/23 06:59 14:59 22:59 Intake Total 240 / 1780 720 / 720 Output Total 400 / 2150 Balance -160 / -370 720 / 720 Weight last 48 hrs Weight 50.859 kg Weight 51.573 kg Physical Exam 2 Const: COMMON NORMALS: no acute distress and patient oriented x3 Resp: COMMON NORMALS: normal respiratory effort, No retractions and No use of accessory muscles AUSCULTATION: wheezes Cardio: COMMON NORMALS: regular rate, regular rhythm, S1 normal heart sound present and S2 normal heart sound present RATE: regular rate RHYTHM: r egular rhythm HEART SOUNDS: S1 normal heart sound present and S2 normal heart sound present GI: COMMON NORMALS: Normal to inspection, nondistended, normoactive bowel sounds present and non-tender Extremity: COMMON NORMALS: no pedal edema Neuro: COMMON NORMALS: patient oriented x3 Psych: COMMON NORMALS: mental status grossly normal Urinary Catheter Management: Garcia: Cath Placed During This Visit: no Reason for Continuing Indwelling Catheter: Acute Urinary Retention or Obstruction Data 07/17/23 11:00 07/17/23 11:00 A&P Assessment and plan (1) COVID-19 determined by clinical diagnostic criteria: (2) Chronic obstructive pulmonary disease: (3) Acute and chronic respiratory failure with hypoxia: (4) Acute and chronic respiratory failure with hypercapnia: (5) Acute exacerbation of chronic obstructive airways disease: (6) Colovesical fistula: Plan Patient is a 77-year-old male with a past medical history of class B COPD, chronic hypoxic hypercapnic respiratory failure typically on home oxygen, 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 History, history of recurrent SBO's notes, past medical history of PE in February 2022. He is not on anticoagulation due to history of disease with anticoagulation on Eliquis. Currently admitted since 07/08/2023 after presenting to the hospital with worsening shortness of breath. Current hospital course is notable for COVID-19 pneumonia and acute on chronic COPD exacerbation. # COVID-19 pneumonia completed remdisivir 200mg iv x 1 followed by 100mg iv daily Dexamethasone 6mg IVP daily duoneb q6h, budesonide q12h completed empiric piperacillin/tazobactam and azithromycin sputum culture with Klebsiella pneumoniae and haemophilus influenza. Above antibiotics with adequate coverage. Flutter valve/spirometer at bedside trend inflammatory markers including CRP CTA 07/08 negative for PE, findings of acute bronchitis with increased diffuse bronchial wall thickening and secretions. Nonspecific hilar lymphadenopathy. Slightly increased known left upper lobe nodule. # Acute bronchitis Likely triggered by acute viral infection with COVID-19 Possibility of superadded bacterial infection not excluded. Empiric antibiotic coverage as above. # CRP continues to be persistently elevated at 208. Patient additionally complaining of abdominal pain. Elevated CRP in the 200 range does not appear to correlate clinically with CT and x-ray findings. Will obtain CT of the abdomen and pelvis with contrast today. He has a complicated history of what appears to be colovesical fistula for which she is following with a colorectal surgeon in [place]. Currently he has a suprapubic catheter which has not been in place since February however is nonfunctioning. He also has a Garcia catheter which is changed every 3 weeks or so. He has a colostomy from past history of colon cancer with reduced output currently. X-ray of the abdomen performed earlier today showed dilated bowel loops, nonspecific. CT will further characterize if there may be recurrent SBO versus ileus currently. Additionally possible that patient may have chronic cystitis given his history of recurrent infections. UA and urine culture. Possibly both of these which show early microbes as anticipated with a colovesical fistula. Getting the cultures to a certain if patient may be colonized with any particularly resistant organisms which would warrant broadening of his current antibiotic coverage DVT ppx:prophylactic dose of Lovenox today. PUD prophylaxis: Start Protonix 40 mg p.o. daily alongside steroids. Full code Attestations 2 Medical Necessity Statement*: Patient requires hospitalization for COPD exacerbation, COVID-19 Diagnoses COVID-19 determined by clinical diagnostic criteria U07.1 Chronic obstructive pulmonary disease J44.9 Acute and chronic respiratory failure with hypoxia J96.21 Acute and chronic respiratory failure with hypercapnia J96.22 Acute exacerbation of chronic obstructive airways disease J44.1 Colovesical fistula N32.1
[2023-07-18] VITALS (8 sets, daily range): BP systolic 119–150; BP diastolic 71–77; PULSE 70–82; RESP 16–18; TEMP 36.4–36.5; O2SAT 96–100
[2023-07-18] MEDS: ipratropium 0.5 mg/2.5 mL Neb INHALATION ×2 (02:58→07:47)
[2023-07-18] MEDS: levalbuterol 1.25 mg/3 mL Neb INHALATION ×3 (02:58→12:37)
[2023-07-18 05:08] LABS: Hematocrit 32.7 % (37-53); Lymphocytes # 0.3 10^3/uL (0.8-4.8); Lymphocytes % 3.2 %; Mean Corpuscular HGB Conc 31.8 g/dL (30-55); Mean Corpuscular Hemoglobin 31.5 pg (27-33); Mean Corpuscular Volume 99.1 fl (82-101); Monocytes # 0.2 10^3/uL (0.2-0.9); Monocytes % 2.2 %; Neutrophils # 8.33 10^3/uL (1.8-7.7); Neutrophils % 94.3 %; Nucleated Red Blood Cells % 0 %; Platelet Count 283 10^3/cmm (157-399); Red Cell Distribution Width 11.8 % (12.1-15.1); White Blood Count 8.83 10^3/uL (3.29-11.43)
[2023-07-18 05:27] LABS: Alanine Aminotransferase 12 U/L (0-41); Albumin Level 3.1 g/dL (3.5-5.2); Alkaline Phosphatase 68 U/L (40-130); Anion Gap 5.6 (5-19); Aspartate Amino Transferase 8 U/L (0-40); Blood Urea Nitrogen 16 mg/dL (8-23); Carbon Dioxide 40 mmol/L (22-29); Chloride 94 mmol/L (98-107); Glucose 149 mg/dL (65-115); Magnesium 1.7 mg/dL (1.7-2.3); Osmolality Calculated 284 mOsm/kg (285-295); Phosphorus 1.7 mg/dL (2.5-4.5); Potassium 4.6 mmol/L (3.5-5.1); Sodium 135 mmol/L (136-145); Total Bilirubin 0.2 mg/dL (0.15-1.2); Total Protein 6.1 g/dL (6.6-8.7)
[2023-07-18] MEDS: budesonide 0.5 mg/2 mL Neb INHALATION (07:47)
[2023-07-18] MEDS: predniSONE 20 mg Tablet 40 MG PO (08:56)
[2023-07-18] MEDS: pantoprazole DR 40 mg Tablet PO (08:56)
[2023-07-18] MEDS: ascorbic acid 500 mg Tablet 1000 MG PO (08:56)
[2023-07-18] MEDS: enoxaparin 40 mg/0.4 mL Syringe SUBCUT (08:56)
[2023-07-18] MEDS: ALPRAZolam 0.5 mg Tablet 0.25 MG PO (08:56)
[2023-07-18] MEDS: metoprolol tartrate 25 mg Tablet PO (08:56)
[2023-07-18] MEDS: FUROsemide 40 mg Tablet PO (08:56)
--- NOTE | 2023-07-18 11:19 | P.DS_ITS ---
Discharge Providers Date of Admission: 07/08/23 14:26 Date of Discharge: July 18, 2023 Attending Provider at Admission: Palma Polanco MD Attending Provider at Discharge: Blaise Dubose MD Primary Care Provider: Andrea Santiago DO Diagnoses at Discharge Discharge Diagnosis (1) COVID-19 determined by clinical diagnostic criteria: Status: Acute (2) Chronic obstructive pulmonary disease: Status: Acute (3) Acute and chronic respiratory failure with hypoxia: Status: Acute (4) Acute and chronic respiratory failure with hypercapnia: Status: Acute (5) Acute exacerbation of chronic obstructive airways disease: Status: Acute (6) Colovesical fistula: Status: Acute Reason for Visit Reason for Visit: sob,cough,fever Hospital Course Hospital Course Doroteo Ba is a 77 year old male with previous history of COPD, oxygen dependent, uses 2 L at baseline, follows up with urology at [facility], recently had bowel perforation when suprapubic catheter was inserted by nurse practitioner, patient is being followed by colorectal surgeon at [facility], they have not recommended any surgical intervention, patient has not experienced any signs of obstruction or bleeding, presenting with chief complaint of worsening of shortness of breath. is at the bedside stating that at baseline Mr. Ba uses 2 L of oxygen, his symptoms started on Monday when they went to the doctor's appointment he was not able to lay flat he was severely anxious and short of breath, he started spiking fever on , for his COPD he uses inhalers and nebulizers, his oxygen requirement worsened a little bit, today in the ER he has been diagnosed with COVID-19, CTA chest rule out PE but it is showing excessive airway secretions no active mucous plug, patient was in hypoxic hypercapnic respiratory failure required BiPAP which showed improvement 1 with change settings to AVAPS At the time of my evaluation patient is on Precedex, no respiratory distress, he is calm able to answer simple questions, is at the bedside, patient is full code, no previous history of CHF or coronary disease, rectal cancer was treated in 2003 and that is in remission, he does have a chronic indwelling catheter Had a detailed discussion with the regarding current clinical scenario and risk of future complications including mucous plug, acute hypoxia worsening, indication for intubation, chances of developing clots, A-fib, cardiac arrest, all questions were answered to her satisfaction, I did encourage her to tell rest of her family members that Mr. Ba is severely sick with COVID-19 infection At baseline he is not a very healthy individual, he has been losing weight, he has significant muscle mass loss, not very physically active at home This is a 77-year-old male who presents to [facility] for COVID-19 pneumonia, acute bronchitis, COPD exacerbation required antibiotic therapy, remdesivir, Decadron, clinical monitoring. Overall patient clinically improved, will be discharged on a long prednisone taper due to persistent wheezing and shortness of breath, follow-up with pulmonary as outpatient Patient's hospitalization was complicated with small bowel obstruction, history of colovesicular fistula, general surgery was consulted, he was medically managed, overall clinically improving, having bowel movements, no recurrent abdominal pain Physical Exam Const: COMMON NORMALS: no acute distress and patient oriented x3 Resp: COMMON NORMALS: normal respiratory effort, No retractions, No use of accessory muscles and clear to auscultation bilaterally AUSCULTATION: clear to auscultation bilaterally Cardio: COMMON NORMALS: regular rate, regular rhythm, S1 normal heart sound present and S2 normal heart sound present RATE: regular rate RHYTHM: regular rhythm HEART SOUNDS: S1 normal heart sound present and S2 normal heart sound present GI: COMMON NORMALS: Normal to inspection, nondistended, normoactive bowel sounds present and non-tender Extremity: COMMON NORMALS: no pedal edema Neuro: COMMON NORMALS: patient oriented x3 Psych: COMMON NORMALS: mental status grossly normal Urinary Catheter Management: Garcia: Cath Placed During This Visit: no Reason for Continuing Indwelling Catheter: Acute Urinary Retention or Obstruction Discharge Data Studies Completed and Pending Completed Studies During Hospitalization Category Date Time Status CT abdomen pelvis w con* [id number] Routine Cat Scan 07/11/23 11:[address] angio chest PE protcl [id number] Stat Cat Scan 07/08/23 13:39 Completed CXRP [XR chest 1V portable [id number]] Routine Exams 07/11/23 14:41 Completed CXRP [XR chest 1V portable [id number]] Stat Exams 07/08/23 20:30 Completed XR KUB portable [id number] Stat Exams 07/12/23 00:58 Completed XR abdomen 1V* [id number] Urgent Exams 07/10/23 20:40 Completed XR chest 1V portable [id number] Stat Exams 07/08/23 12:23 Completed XR chest 1V portable [id number] Stat Exams 07/11/23 19:00 Completed Pending at discharge Category Date Time Status Complete Blood Count w/Auto AM LABS Lab 07/19/23 04:00 Ordered Complete Blood Count w/Auto AM LABS Lab 07/20/23 04:00 Ordered Comprehensive Metabolic Panel AM LABS Lab 07/19/23 04:00 Ordered Comprehensive Metabolic Panel AM LABS Lab 07/20/23 04:00 Ordered Magnesium AM LABS Lab 07/19/23 04:00 Ordered Magnesium AM LABS Lab 07/20/23 04:00 Ordered Phosphorus AM LABS Lab 07/19/23 04:00 Ordered Phosphorus AM LABS Lab 07/20/23 04:00 Ordered Radiology Impressions Chest CTA 07/08/23 13:39 IMPRESSION: 1. No acute pulmonary emboli. 2. COPD with findings of acute bronchitis with increased diffuse bronchial wall thickening and patchy secretions/mucous impaction. 3. Prominent bilateral hilar lymph nodes are nonspecific but suspected reactive. 4. Slightly increased size of left upper lobe nodule now measuring 8 mm. 5. Additional chronic and incidental findings as above. Abdomen X-Ray 07/10/23 20:40 IMPRESSION: Dilated small bowel which could be due to distal obstruction or ileus. Abdomen/Pelvis CT 07/11/23 11:24 IMPRESSION: Findings consistent with small bowel obstruction with transition point in presacral region with adjacent free fluid in the pelvis. No free air seen. Air within the urinary bladder with Garcia catheter in place. Chest X-Ray 07/11/23 19:00 IMPRESSION: The NG tube is positioned with its tip in the proximal stomach and its side-hole in the distal esophagus. Consider advancing the NG tube 8 cm for optimal positioning. KUB X-Ray 07/12/23 00:58 IMPRESSION: Nasogastric tube with side hole and tip in the stomach. Dilated small bowel loops. Laboratory Results WBC 8.83 10^3/uL (3.29-11.43) 07/18/23 05:01 Corrected WBC Cancelled 07/13/23 03:52 RBC 3.30 10^6/uL (3.85-5.65) L 07/18/23 05:01 Hgb 10.40 g/dL (11.27-16.99) L 07/18/23 05:01 Hct 32.7 % (37-53) L 07/18/23 05:01 MCV 99.1 fl (82-101) 07/18/23 05:01 MCH 31.5 pg (27-33) 07/18/23 05:01 MCHC 31.8 g/dL (30-55) 07/18/23 05:01 RDW 11.8 % (12.1-15.1) L 07/18/23 05:01 Plt Count 283 10^3/cmm (157-399) 07/18/23 05:01 MPV 9.0 fL (7.4-10.4) 07/18/23 05:01 Gran % Cancelled 07/13/23 03:52 Neut % (Auto) 94.3 % 07/18/23 05:01 Lymph % (Auto) 3.2 % 07/18/23 05:01 [place] % (Auto) 2.2 % 07/18/23 05:01 Eos % (Auto) 0.0 % 07/18/23 05:01 Baso % (Auto) 0.0 % 07/18/23 05:01 Neut # (Auto) 8.33 10^3/uL (1.8-7.7) H 07/18/23 05:01 Lymph # (Auto) 0.3 10^3/uL (0.8-4.8) L 07/18/23 05:01 [place] # (Auto) 0.2 10^3/uL (0.2-0.9) 07/18/23 05:01 Eos # (Auto) 0.0 10^3/uL (0.0-0.8) 07/18/23 05:01 Baso # (Auto) 0.0 10^3/uL (0.0-0.1) 07/18/23 05:01 Absolute Gran (auto) Cancelled 07/13/23 03:52 Nucleated RBC % (auto) 0 % 07/18/23 05:01 Nucleated RBCs # 0.0 /100WBC 07/18/23 05:01 D-Dimer 5.38 ug/mLFEU (0-0.59) H 07/08/23 12:52 Specimen Type Arterial 07/09/23 04:35 Sample Site Radial, left 07/09/23 04:35 ABG pH 7.50 (7.35-7.45) H 07/09/23 04:35 ABG pCO2 51.2 mmHg (35-45) H 07/09/23 04:35 ABG pO2 64.0 mmHg (80.0-100.0) L 07/09/23 04:35 ABG PO2/FiO2 Ratio 0 07/09/23 04:35 ABG HCO3 39.5 mmol/L (22-26) H 07/09/23 04:35 ABG O2 Saturation 96.8 07/08/23 14:45 ABG Base Excess 14.5 mmol/L (-2.0-2.0) H 07/09/23 04:35 Payam Test Pos 07/09/23 04:35 A-a O2 Gradient 7.1 mmHg (5-10) 07/08/23 14:45 Hematocrit 29.5 % (42-52) L 07/09/23 04:35 Hgb O2 Saturation 94.1 % (95-100) L 07/08/23 14:45 Carboxyhemoglobin 2.1 %THgb (0.4-20.1) 07/08/23 14:45 Methemoglobin 0.7 % (0.4-1.5) 07/08/23 14:45 Total Hemoglobin 9.9 g/dL (14-18) L 07/08/23 14:45 Sodium 143.0 mmol/L (131-143) 07/08/23 14:45 Potassium 4.2 mmol/L (3.5-5.0) 07/08/23 14:45 Glucose 116.0 mg/dL (70-115) H 07/08/23 14:45 Ionized Calcium 1.3 mmol/L (1.1-1.4) 07/08/23 14:45 O2 Delivery Device Bipap 07/09/23 04:35 O2 Liters/Min 3.0 % 07/08/23 12:50 FiO2 30.0 % 07/09/23 04:35 Managing Partner [employer] ID Cak 07/09/23 04:35 Sodium 135 mmol/L (136-145) L 07/18/23 05:01 Potassium 4.6 mmol/L (3.5-5.1) 07/18/23 05:01 Chloride 94 mmol/L (98-107) L 07/18/23 05:01 Carbon Dioxide 40 mmol/L (22-29) H 07/18/23 05:01 Anion Gap 5.6 (5-19) 07/18/23 05:01 BUN 16 mg/dL (8-23) 07/18/23 05:01 Creatinine 0.5 mg/dL (0.7-1.2) L 07/18/23 05:01 GFR Calculation Not Reportable 07/18/23 05:01 Glucose 149 mg/dL (65-115) H 07/18/23 05:01 Calculated Osmolality 284 mOsm/kg (285-295) L 07/18/23 05:01 Lactic Acid 1.7 mmol/L (0.5-2.2) 07/08/23 16:20 Calcium 9.0 mg/dL (8.5-10.5) 07/18/23 05:01 Phosphorus 1.7 mg/dL (2.5-4.5) L 07/18/23 05:01 Magnesium 1.7 mg/dL (1.7-2.3) 07/18/23 05:01 Total Bilirubin 0.2 mg/dL (0.15-1.2) 07/18/23 05:01 AST 8 U/L (0-40) 07/18/23 05:01 ALT 12 U/L (0-41) 07/18/23 05:01 Alkaline Phosphatase 68 U/L (40-130) 07/18/23 05:01 Troponin T Baseline 42 ng/L (0-15) H 07/12/23 12:55 Troponin T 120 Minute 45.32 ng/L (0-15) H 07/12/23 14:08 Delta Troponin T 3.32 ABS# (0-10) 07/12/23 14:08 Troponin T Hi Sens 6Hr 40.80 ng/L (0-15) H 07/12/23 18:05 Troponin T Hi Sens 6Hr Delta -1.20 ng/L (0-12) L 07/12/23 18:05 C-Reactive Protein 16.9 mg/L (0.0-4.9) H 07/15/23 05:40 NT-Pro-B Natriuret Pep 4189 pg/mL (0-450) H 07/08/23 12:32 Total Protein 6.1 g/dL (6.6-8.7) L 07/18/23 05:01 Albumin 3.1 g/dL (3.5-5.2) L 07/18/23 05:01 Globulin 3.0 g/dL (1.3-4.6) 07/18/23 05:01 Procalcitonin 0.15 ng/mL (0-0.5) 07/08/23 12:32 TSH 1.11 uIU/mL (0.27-4.20) 07/08/23 12:32 Urine Color Yellow (Yellow) 07/11/23 11:40 Urine Appearance Sl hazy (CLEAR) A 07/11/23 11:40 Urine pH 5 (5-7) 07/11/23 11:40 Ur Specific [place] 1.020 (1.005-1.030) 07/11/23 11:40 Urine Protein 1+ (Negative) H 07/11/23 11:40 Urine Glucose (UA) Norm (Normal) 07/11/23 11:40 Urine Ketones 1+ (Negative) H 07/11/23 11:40 Urine Blood 3+ (Negative) H 07/11/23 11:40 Urine Nitrate Negative (Negative) 07/11/23 11:40 Urine Bilirubin Neg (Negative) 07/11/23 11:40 Urine Urobilinogen Norm mg/dL (Negative) 07/11/23 11:40 Ur Leukocyte Esterase 1+ (Negative) H 07/11/23 11:40 Urine RBC 0-4 /hpf (0-2) H 07/11/23 11:40 Urine WBC 5-10 /hpf (0-5) H 07/11/23 11:40 Ur Squamous Epith Cells 0-4 /hpf (0-5) H 07/11/23 11:40 Uric Acid Crystals 25-40 /hpf H 07/11/23 11:40 Amorphous Sediment Not Reportable 07/11/23 11:40 Urine Bacteria Trace /hpf (NONE) 07/11/23 11:40 Hyaline Casts 0-4 /lpf H 07/11/23 11:40 Urine Mucus 1+ /hpf 07/11/23 11:40 Nasal Influ A H1 2009 PCR Not detected (NOT DETECT) 07/08/23 12:40 Coronavirus 229E (PCR) Not detected (NOT DETECT) 07/08/23 12:40 Influenza A (H1) PCR Not detected (NOT DETECT) 07/08/23 12:40 Influenza A (H3) PCR Not detected (NOT DETECT) 07/08/23 12:40 Influenza Type A Ag Cancelled 07/08/23 12:40 Influenza Type A (PCR) Not detected (NOT DETECT) 07/08/23 12:40 Influenza Type B Ag Cancelled 07/08/23 12:40 Influenza Type B (PCR) Not detected (NOT DETECT) 07/08/23 12:40 SARS-CoV-2 (PCR) Detected (NOT DETECT) A 07/08/23 12:40 MRSA (PCR) Not detected (NOT DETECTED) 07/11/23 12:12 Vitals Last Vital Signs Temp 97.7 F 07/18/23 07:34 Pulse 75 07/18/23 07:49 Resp 17 07/18/23 07:49 BP 150/76 07/18/23 07:34 Pulse Ox 98 07/18/23 07:49 O2 Del Method Nasal Cannula 07/18/23 07:49 O2 Flow Rate 3 07/18/23 08:00 FiO2 30 07/11/23 20:30 Discharge Plan Discharge Patient Disposition: Home Condition: Stable Prescriptions: New prednisone 20 mg Tablet See Rx Instructions .ROUTE .COMPLEX Qty: 53 0RF Rx Instructions: 3 tabs a day for 5 days, 2.5 tab for 5, 2 tab for 5 days, 1.5 tab for 5, 1 t ab for 5, 0.5 tab for 5 days pantoprazole 40 mg Tablet,Delayed Release (Dr/Ec) 40 mg PO DAILY 30 Days Qty: 30 0RF metoprolol tartrate 25 mg Tablet 25 mg PO BID@0900,2100 30 Days Qty: 30 0RF Continued (DME) BIPAP See Rx Instructions .Route .MEDSUPPLY Qty: 1 0RF Rx Instructions: Standard Bi-level IPAP 10, EPAP 5 (DME) oxygen See Rx Instructions .Route .MEDSUPPLY Qty: 1 0RF Rx Instructions: 2 LPM in line BIPAP albuterol sulfate 2.5 mg /3 mL (0.083 %) solution for nebulization 2.5 mg INHALATION Q4H furosemide 40 mg tablet 40 mg PO DAILY PRN (Reason: Edema) paroxetine HCl 10 mg tablet 10 mg PO QAM trazodone 50 mg tablet 25 - 50 mg PO BEDTIME pantoprazole 40 mg tablet,delayed release (DR/EC) 40 mg PO BID budesonide 0.5 mg/2 mL suspension for nebulization 0.5 mg inhalation BID Qty: 120 6RF Spiriva Respimat 1.25 mcg/actuation mist 2 puff inhalation DAILY Qty: 4 6RF cholecalciferol (vitamin D3) [Vitamin D3] 50 mcg (2,000 unit) Capsule 50 mcg PO BEDTIME arformoterol 15 mcg/2 mL Solution For Nebulization 2 ml INHALATION BID Ventolin HFA 90 mcg/actuation Hfa Aerosol Inhaler 2 puff INHALATION QID PRN (Reason: Shortness Of Breath) Discharge Orders: Discharge Order (Routine); Ordered 07/18/23 Ordered By: Blaise Dubose Referrals: [facility] [Other] Datar,Elbert Francis MD [Physician] - 4-7 days Andrea Santiago DO [Primary Care Provider] - 08/03/23 8:30 am Discharge Diet: Cardiac Discharge Activity: Resume usual activity Patient Instructions: Metoprolol (By mouth), Prednisone (By mouth), Pantoprazole (By mouth), Opioid Safety, Pain Management Discharge Attestations Time Spent in Discharge Care*: greater than 30 min Quality Metrics Clinical Quality Measures [ No reported AMI, CVA or VTE this stay] Coding Level of Care Code 05165 Total time (in minutes) for Discharge: 45 Diagnoses COVID-19 determined by clinical diagnostic criteria U07.1 Chronic obstructive pulmonary disease J44.9 Acute and chronic respiratory failure with hypoxia J96.21 Acute and chronic respiratory failure with hypercapnia J96.22 Acute exacerbation of chronic obstructive airways disease J44.1 Colovesical fistula N32.1
--- NOTE | 2023-07-18 12:17 | PC.NURSE ---
This nurse called report to Brii at [facility] in [place], [place] at 1216.
== END 2023-07-18 14:50 | disposition skilled nursing facility (03) | DRG 177 ==
LOC: ER 13:23 → ICU 15:00 → MEDSURG 07-13 21:58
PROVIDERS: Internal Medicine; Student in an Organized Health Care Education/Training Program; Admitting Provider Internal Medicine; Emergency Provider Family Medicine; PCP Emergency Medicine Emergency Medical Services; Visit Provider Family Medicine
DX: U07.1 COVID-19 (principal); E43 Unspecified severe protein-calorie malnutrition; J12.82 Pneumonia due to coronavirus disease 2019; J96.22 Acute and chronic respiratory failure with hypercapnia; J96.21 Acute and chronic respiratory failure with hypoxia; J44.0 Chronic obstructive pulmonary disease with (acute) lower respiratory infection; J44.1 Chronic obstructive pulmonary disease with (acute) exacerbation; N32.1 Vesicointestinal fistula; Z68.1 Body mass index [BMI] 19.9 or less, adult; K56.609 Unspecified intestinal obstruction, unspecified as to partial versus complete obstruction; J20.9 Acute bronchitis, unspecified; Z99.81 Dependence on supplemental oxygen; Z85.048 Personal history of other malignant neoplasm of rectum, rectosigmoid junction, and anus; Z90.49 Acquired absence of other specified parts of digestive tract; Z87.891 Personal history of nicotine dependence; N40.0 Benign prostatic hyperplasia without lower urinary tract symptoms; Z92.21 Personal history of antineoplastic chemotherapy; Z92.3 Personal history of irradiation; Z93.3 Colostomy status; N30.20 Other chronic cystitis without hematuria
CPT/HCPCS: 36415; 36573; 36592; 36600; 71045; 71275; 74018; 74177; 80048; 80051; 80053; 81001; 82330; 82803; 82805; 83605; 83735; 83880; 84100; 84145; 84443; 84484; 85025; 85378; 86140; 86403; 87040; 87070; 87077; 87086; 87186; 87205; 87449; 87631; 87635; 87641; 93005; 94640; 94660; 94664; 96365; 96366; 96367; 96372; 96376; 97110; 97116; 97163; 97530; 99291; J0248; J0456; J0696; J1100; J1170; J1650; J2405; J2543; J2550; J2765; J7050; J7512; J7614; J7626; J7644; Q0144; Q3014; Q9967

== ENCOUNTER → 2023-08-08 14:53 | Outpatient (BNVA) | payer OTHER, SELFPAY | PROVIDERS: PCP Emergency Medicine Emergency Medical Services; Visit Provider Internal Medicine Pulmonary Disease | DX: R91.1 Solitary pulmonary nodule (principal); Z09 Encounter for follow-up examination after completed treatment for conditions other than malignant neoplasm; J44.9 Chronic obstructive pulmonary disease, unspecified; J96.12 Chronic respiratory failure with hypercapnia; Z99.81 Dependence on supplemental oxygen; Z87.891 Personal history of nicotine dependence; Z86.16 Personal history of COVID-19 | CPT/HCPCS: 99214 ==

== ENCOUNTER → 2023-08-31 11:07 | Outpatient (BNVA) | payer OTHER, SELFPAY | PROVIDERS: PCP Emergency Medicine Emergency Medical Services; Visit Provider Dermatology | DX: L57.0 Actinic keratosis (principal); D22.62 Melanocytic nevi of left upper limb, including shoulder; L98.8 Other specified disorders of the skin and subcutaneous tissue; L72.0 Epidermal cyst; L82.1 Other seborrheic keratosis; L89.139 Pressure ulcer of right lower back, unspecified stage | CPT/HCPCS: 17000; 99204 ==

== ENCOUNTER 2023-09-14 17:58 | Inpatient (IN) | payer OTHER, SELFPAY ==
[2023-09-14] VITALS (8 sets, daily range): BP systolic 108–166; BP diastolic 61–97; PULSE 84–97; RESP 15–25; TEMP 36.7–36.8; O2SAT 90–96; BMI 16.9
--- NOTE | 2023-09-14 18:17 | XRR_ITS ---
PROCEDURE INFORMATION: Exam: XR Chest Exam date and time: 09/14/2023 6:47 PM Age: 77 years old Clinical indication: Dyspnea TECHNIQUE: Imaging protocol: Radiologic exam of the chest. Views: 1 view. COMPARISON: CR XR chest 1V portable [id number] 07/11/2023 8:14 PM FINDINGS: Lungs: Severe consolidation in the right lower lobe is new from 07/11/2023. Hyperinflated lungs compatible with COPD. Small right pleural effusion. Pleural spaces: See Lungs finding. Heart/Mediastinum: Unremarkable. No cardiomegaly. Bones/joints: Unremarkable. XR/XR chest 1V portable [id number] IMPRESSION: Severe right lower lobe pneumonic consolidation. Aspiration may be considered. Small right effusion. Radiographic follow-up resolution recommended.
--- NOTE | 2023-09-14 18:17 | ECG_ITS ---
[facility] Test Date: 2023-09-14 Pat Name: Doroteo Ba Department: Room: Gender: Male Object Oriented Developer: : 1945 Requested By: Vasquez Cole Order Number: [id number] Debra MD: Marquis Mishra M.D. Measurements Intervals Reva Rate: 83 P: 91 GA: 171 QRS: 87 QRSD: 108 T: 82 QT: 353 QTc: 417 Interpretive Statements SINUS RHYTHM WITH OCCASIONAL VENTRICULAR PREMATURE COMPLEXES POSSIBLE LEFT ATRIAL ENLARGEMENT [-0.1mV P-WAVE IN V1/V2] INDETERMINATE AXIS PATTERN CONSISTENT WITH PULMONARY DISEASE INCOMPLETE RIGHT BUNDLE BRANCH BLOCK [90+ ms QRS DURATION, TERMINAL R IN V1/V2, 40+ ms S IN I/aVL/V4/V5/V6] SEPTAL MYOCARDIAL INFARCTION , OF INDETERMINATE AGE [40+ ms Q WAVE IN V1/V2] Compared to ECG 07/12/2023 18:39:08 Ventricular premature complex(es) now present Sinus arrhythmia no longer present Myocardial infarct finding still present Electronically Signed On 09-15-2023 10:02:44 [employer] by Marquis Mishra M.D. [email or web address]
[2023-09-14 18:51] LABS: Influenza A by IFA negative (Negative); Influenza B by IFA negative (Negative)
[2023-09-14 18:53] LABS: SARS Covid-2 Antigen negative (Negative)
[2023-09-14 19:22] LABS: Basophils % 0.1 %; Hematocrit 34.5 % (37-53); Lymphocytes # 0.8 10^3/uL (0.8-4.8); Lymphocytes % 7.2 %; Mean Corpuscular Hemoglobin 31.8 pg (27-33); Mean Corpuscular Volume 102.7 fl (82-101); Mean Platelet Volume 9.7 fL (7.4-10.4); Neutrophils # 9.02 10^3/uL (1.8-7.7); Neutrophils % 83.3 %; Nucleated Red Blood Cells % 0 %; Platelet Count 213 10^3/cmm (157-399); Red Blood Count 3.36 10^6/uL (3.85-5.65); Red Cell Distribution Width 12.6 % (12.1-15.1); White Blood Count 10.82 10^3/uL (3.29-11.43)
--- NOTE | 2023-09-14 19:22 | W.ED.SOB ---
HPI - SOB/Dyspnea General: Chief Complaint: Shortness of Breath/Dyspnea Stated Complaint: Sob, Time Seen by Provider: 09/14/23 18:15 History of Present Illness: HPI Narrative: 77-year-old male presents emergency department with complaints of increased shortness of breath. He states that last night he was taking his normal medications when he felt like a pill got stuck he started coughing and continued to have shortness of breath after he felt like he cleared the medications. He states his throat is continued to feel irritated but he is felt like he is having increased shortness of breath although his oxygen saturation is 99%. He does have a history of COPD and is chronically on 2 L nasal cannula supplemental oxygen. He states he feels like he has increased work of breathing and is having 3-5 word dyspnea. Patient's initial oxygen saturation on presentation to the emergency department was 90% and on 4 L. He denies fevers chills or night sweats. He states he does have a history of cancer and does have a spot on his lung that his pulmonary doctor is monitoring. Review of Systems General: Reports: 10 or more systems reviewed and unremarkable except in HPI and below Resp: Reports: dyspnea and productive cough [facility] PFSH: Medical History Change in bowel habit Chronic hypercapnic respiratory failure Pulmonary embolism Pleural effusion Pulmonary embolism Chronic respiratory failure with hypoxia Colon cancer Pulmonary nodule Rectal cancer COPD (chronic obstructive pulmonary disease) Surgical History S/P bronchoscopy History of colon resection OCT-2004 Family History Father Lung disease Mother Cancer Social History Smoking and tobacco/nicotine status: former use of tobacco/nicotine Quit status (tobacco/nicotine): has quit using Year quit tobacco: 2007 - PPD x 50 Years Alcohol intake: never Substance/Drug Use: never Lives independently: Yes Household members: spouse Marital status: Current occupational status: retired Do you think of yourself as: Straight/Heterosexual Current gender identity: Male Physical Exam Narrative: EXAM NARRATIVE: Constitutional: the patient appears well nourished and of normal development. Vital signs as documented. No acute distress at present. Alert and oriented-to person, place, time and situation. Head, eyes, ears, nose, mouth, throat: Normocephalic, atraumatic. Pupils-equal, round, reactive to light. No scleral icterus. Normal-appearing external ears. Normal appearing nasal turbinates, no drainage. No obvious oral lesions, posterior oropharynx without erythema or exudates. Neck: Supple, trachea is midline, no lymphadenopathy, no jugular venous distension, thyromegaly, or carotid bruits. Carotid upstrokes are brisk bilaterally. Lungs: Coarse bilaterally greater on the right than the left. Symmetrical rise and fall of chest, obvious signs of increased work of breathing at present. Cardiac: Regular rate and rhythm, positive S1, S2. No murmurs, rubs or gallops that I can appreciate Abdomen: Soft, non-tender to palpation. Colostomy noted to left lower quadrant stoma is beefy and red in color without signs of ischemia. Extremities: 2+ pulses in the upper extremities that are equal bilaterally, 2+ pulses in the lower extremities that are equal bilaterally. Non-edematous. Moves all extremities well, sensation to all extremities are noted. Skin: Warm, dry, intact. Course Vital Signs: Vital signs: Vital Signs Temperature 98.3 F 09/14/23 18:12 Pulse Rate 89 09/14/23 20:35 Respiratory Rate 16 09/14/23 20:35 Blood Pressure 108/61 09/14/23 20:35 Pulse Oximetry 95 09/14/23 20:35 Oxygen Delivery Me thod Nasal Cannula 09/14/23 18:30 Oxygen Flow Rate 4 09/14/23 18:30 MDM - SOB/Dyspnea Medical Decision Making Physical exam completed and documented given the patient's radiographic findings and increased feeling of shortness of breath I will contact the hospitalist for admission of the patient for his severe pneumonia and have consulted pulmonology and discussed the patient's potential need for bronchoscopy. I have provided IV antibiotics. Medical Records I reviewed the patient's medical records. Lab Data I reviewed the patient's lab results. 09/14/23 19:08 09/14/23 19:08 Labs/Radiology: Radiology Impressions Chest X-Ray 09/14/23 18:17 IMPRESSION: Severe right lower lobe pneumonic consolidation. Aspiration may be considered. Small right effusion. Radiographic follow-up resolution recommended. ADDENDUM: 09/14/231920 COMMENT: THIS REPORT CONTAINS FINDINGS THAT MAY BE CRITICAL TO PATIENT CARE. The exam findings were verbally communicated by me to MIRIAN Blackburn via telephone conference at 7:18 PM FLEXIBLE MACHINING SYSTEM MACHINIST on 09/14/2023. The findings were acknowledged and understood. Laboratory Results WBC 10.82 10^3/uL (3.29-11.43) 09/14/23 19:08 RBC 3.36 10^6/uL (3.85-5.65) L 09/14/23 19:08 Hgb 10.70 g/dL (11.27-16.99) L 09/14/23 19:08 Hct 34.5 % (37-53) L 09/14/23 19:08 MCV 102.7 fl (82-101) H 09/14/23 19:08 MCH 31.8 pg (27-33) 09/14/23 19:08 MCHC 31.0 g/dL (30-55) 09/14/23 19:08 RDW 12.6 % (12.1-15.1) 09/14/23 19:08 Plt Count 213 10^3/cmm (157-399) 09/14/23 19:08 MPV 9.7 fL (7.4-10.4) 09/14/23 19:08 Neut % (Auto) 83.3 % 09/14/23 19:08 Lymph % (Auto) 7.2 % 09/14/23 19:08 [place] % (Auto) 9.0 % 09/14/23 19:08 Eos % (Auto) 0.0 % 09/14/23 19:08 Baso % (Auto) 0.1 % 09/14/23 19:08 Neut # (Auto) 9.02 10^3/uL (1.8-7.7) H 09/14/23 19:08 Lymph # (Auto) 0.8 10^3/uL (0.8-4.8) 09/14/23 19:08 [place] # (Auto) 1.0 10^3/uL (0.2-0.9) H 09/14/23 19:08 Eos # (Auto) 0.0 10^3/uL (0.0-0.8) 09/14/23 19:08 Baso # (Auto) 0.0 10^3/uL (0.0-0.1) 09/14/23 19:08 Nucleated RBC % (auto) 0 % 09/14/23 19:08 Nucleated RBCs # 0.0 /100WBC 09/14/23 19:08 PT 13.10 SECONDS (12.1-14.9) 09/14/23 19:08 INR 0.96 (0.8-1.2) 09/14/23 19:08 D-Dimer 2.71 ug/mLFEU (0-0.59) H 09/14/23 19:08 Sodium 135 mmol/L (136-145) L 09/14/23 19:08 Potassium 4.0 mmol/L (3.5-5.1) 09/14/23 19:08 Chloride 89 mmol/L (98-107) L 09/14/23 19:08 Carbon Dioxide 42 mmol/L (22-29) H* 09/14/23 19:08 Anion Gap 8.0 (5-19) 09/14/23 19:08 BUN 14 mg/dL (8-23) 09/14/23 19:08 Creatinine 0.6 mg/dL (0.7-1.2) L 09/14/23 19:08 GFR Calculation Not Reportable 09/14/23 19:08 Glucose 123 mg/dL (65-115) H 09/14/23 19:08 Calculated Osmolality 282 mOsm/kg (285-295) L 09/14/23 19:08 Calcium 9.3 mg/dL (8.5-10.5) 09/14/23 19:08 Total Bilirubin 0.2 mg/dL (0.15-1.2) 09/14/23 19:08 AST 11 U/L (0-40) 09/14/23 19:08 ALT 8 U/L (0-41) 09/14/23 19:08 Alkaline Phosphatase 90 U/L (40-130) 09/14/23 19:08 Troponin T Baseline 67 ng/L (0-15) H 09/14/23 19:08 Total Protein 6.8 g/dL (6.6-8.7) 09/14/23 19:08 Albumin 3.8 g/dL (3.5-5.2) 09/14/23 19:08 Globulin 3.0 g/dL (1.3-4.6) 09/14/23 19:08 Influenza Type A Ag negative (Negative) 09/14/23 18:32 Influenza Type B Ag negative (Negative) 09/14/23 18:32 SARS-CoV-2 Ag (Rapid) negative (Negative) 09/14/23 18:32 All radiology interpretation(s) finalized by discharge EKG Data EKG 1: Interpretation: Twelve-lead EKG obtained at 1834 and reviewed at 1834 demonstrates underlying sinus rhythm with occasional unifocal PVC, ventricular rate of 83 bpm, MD interval 171, QRS duration 108, QT 353, QTc 393, at present there is no ST elevation or depression to demonstrate acute ischemia or infarction. Discharge Plan Discharge Patient Disposition: Admitted As Inpatient Clinical Impression: Aspiration pneumonia of right lower lobe, Aspiration pneumonitis, Acute dyspnea Condition: Stable Coding Level of Care Code ED Choir Singer for Blanca Vides
[2023-09-14 19:30] LABS: INR 0.96 (0.8-1.2)
[2023-09-14] MEDS: cefTRIAXone 2,000 MG in sodium chloride 0.9% (plus) 50 ML 100 MG IV (19:30)
[2023-09-14 19:33] LABS: D Dimer 2.71 ug/mLFEU (0-0.59)
[2023-09-14 19:38] LABS: Alanine Aminotransferase 8 U/L (0-41); Albumin Level 3.8 g/dL (3.5-5.2); Alkaline Phosphatase 90 U/L (40-130); Aspartate Amino Transferase 11 U/L (0-40); Blood Urea Nitrogen 14 mg/dL (8-23); Calcium 9.3 mg/dL (8.5-10.5); Chloride 89 mmol/L (98-107); Creatinine Clr Calc Pharmacy 56.1477; Glucose 123 mg/dL (65-115); Osmolality Calculated 282 mOsm/kg (285-295); Sodium 135 mmol/L (136-145); Total Bilirubin 0.2 mg/dL (0.15-1.2); Total Protein 6.8 g/dL (6.6-8.7)
[2023-09-14 19:40] LABS: Carbon Dioxide 42 mmol/L (22-29)
--- NOTE | 2023-09-14 20:29 | P.CONIM_ITS ---
Providers/Reason For Consult 2 Consulting Physician/Specialty*: Elbert Polanco MD, [facility]/pulmonary critical care Reason for Consult*: Foreign body aspiration Requesting Physician: Dr. Vasquez Cole Attending Physician: Dr. Elam Primary Care Provider: Andrea Santiago DO History of Present Illness History of Present Illness Doroteo Ba is a 77 year old male with past medical history of COPD and significant smoking history` 100 pack years quit in 2007. In June 2023-he was admitted for COVID-19 pneumonia, acute bronchitis, COPD exacerbation. His hospitalization was complicated with small bowel obstruction, history of colovesicular fistula. He follows up with urology at [facility] as well as colorectal surgeon at [facility]. He has gold class D COPD-CT scans consistent with severe emphysema-PFTs consistent with very severe airflow obstruction FEV1 28%-he is on Spiriva, budesonide, Perforomist and nebs at home. He is on baseline 2 L oxygen; he uses BiPAP machine at nighttime. He had a CTA June 2023 which showed 8 mm left upper lobe nodule.-A PET/CT was requested as outpatient He has previous history of PE on CT chest February 2022 for which she was treated with Eliquis. Today's D-dimer was elevated-is started on Lovenox while awaiting for CTA Today comes to the emergency room with complaints of increasing shortness of breath. States that he was taking his medications felt really got stuck and he started coughing.Upon arrival in ER he was requiring 4 L oxygen However he continued to cough and oxygen requirement was down to his baseline 2 L. Admission chest x-ray showed severe right lower lobe pneumonia/aspiration. Patient was admitted for IV antibiotics. Pulmonary consultation requested for bronchoscopic evaluation I have seen patient at bedside He reported that his breathing has been improving but still brings up dark- colored sputum. He had a CTA today morning which did not show any pulmonary embolism-but there is a new large area of consolidation right lower lobe consistent with pneumonia. Review of Systems 2 General: Reports: 10 or more systems reviewed and unremarkable except in HPI and below Medications/Allergies Home Medications Medication Instructions Recorded Confirmed Last Taken Type albuterol sulfate 2.5 mg/3 mL 2.5 mg inhalation Q4H 11/27/19 09/14/23 09/14/23 History (0.083 %) solution for nebulization cholecalciferol (vitamin D3) 50 50 mcg PO BEDTIME 03/16/22 09/14/23 07/07/23 History mcg (2,000 unit) capsule (Vitamin D3) BIPAP #1 ea 04/06/22 09/14/23 Unknown Rx oxygen #1 ea 04/06/22 09/14/23 Unknown Rx furosemide 40 mg tablet 40 mg PO DAILY PRN Edema 12/07/22 09/14/23 09/14/23 History pantoprazole 40 mg tablet,delayed 40 mg PO BID 12/07/22 09/14/23 09/14/23 History release paroxetine HCl 10 mg tablet 10 mg PO QAM 12/07/22 09/14/23 09/14/23 History trazodone 50 mg tablet 25 - 50 mg PO BEDTIME 12/07/22 09/14/23 09/14/23 History tiotropium bromide 1.25 2 puff inhalation DAILY #4 grams 05/08/23 09/14/23 09/14/23 Rx mcg/actuation mist for inhalation (Spiriva Respimat) albuterol sulfate 90 mcg/actuation 2 puff inhalation QID PRN 07/08/23 09/14/23 Unknown History aerosol inhaler (Ventolin HFA) Shortness Of Breath arformoterol 15 mcg/2 mL solution 2 ml inhalation BID 07/08/23 09/14/23 09/14/23 History for nebulization budesonide 0.5 mg/2 mL suspension 0.5 mg (2 mL) inhalation BID #120 08/28/23 09/14/23 09/14/23 Rx for nebulization mL Vitamin C 500 mg PO DAILY 09/14/23 09/14/23 09/14/23 History docusate sodium 100 mg capsule 100 mg PO BID PRN Constipation 09/14/23 09/14/23 09/13/23 History ferrous sulfate 325 mg (65 mg 325 mg PO DAILY 09/14/23 09/14/23 09/14/23 History iron) tablet folic acid 1 mg tablet 1 mg PO DAILY 09/14/23 09/14/23 09/14/23 History metoprolol tartrate 25 mg tablet 25 mg PO BID 09/14/23 09/14/23 09/14/23 History zinc sulfate 220 mg capsule 220 mg PO DAILY 09/14/23 09/14/2309/14/24 History Allergies Allergy/AdvReac Type Severity Reaction Status Date / Time morphine AdvReac Severe ADR-Halluci Verified 08/08/23 15:08 nating PFSH Acute 2 PFSH: Medical History Change in bowel habit Chronic hypercapnic respiratory failure Pulmonary embolism Pleural effusion Pulmonary embolism Chronic respiratory failure with hypoxia Colon cancer Pulmonary nodule Rectal cancer COPD (chronic obstructive pulmonary disease) Surgical History S/P bronchoscopy History of colon resection OCT-2004 Family History Father Lung disease Mother Cancer Social History Smoking and tobacco/nicotine status: former use of tobacco/nicotine Quit status (tobacco/nicotine): has quit using Year quit tobacco: 2007 - PPD x 50 Years Alcohol intake: never Substance/Drug Use: never Lives independently: Yes Household members: spouse Marital status: Current occupational status: retired Do you think of yourself as: Straight/Heterosexual Current gender identity: Male Vitals/I&O/Wt Last Vital Signs Temp 98.3 F 09/14/23 18:12 Pulse 84 09/14/23 19:30 Resp 16 09/14/23 19:30 BP 118/64 09/14/23 19:30 Pulse Ox 96 09/14/23 19:30 O2 Del Method Nasal Cannula 09/14/23 18:30 O2 Flow Rate 4 09/14/23 18:30 Weight last 48 hrs Weight 115 lb Physical Exam 2 Narrative: General: alert, NAD HEENT: conj clear, EOMI, PERRL, mmm, Neck: supple, no meningismus Heme: no cervical LAP Respiratory: Inspection: No visible deformity of the chest wall Palpation: Trachea is mildly deviated to the right, bilateral symmetric expansion Percussion: Bilateral tympanic percussion note both anterior and posteriorly Auscultation: Crackles in right lower lung zone Cardiovascular: rrr, nl s1s2, no mrg Abdomen: soft, nt, nd, no r/g, bs+ Extremities: pulses +, no edema, no c/c : no CVA tenderness Skin: intact, no rash MSK: no back or neck pain Neurologic: grossly intact Data 09/15/23 00:57 02 00:57 Other Labs: Radiology Impressions Chest X-Ray 09/14/23 23:29 IMPRESSION: Severe right lower lobe pneumonia/aspiration again demonstrated without significant radiographic change from earlier today. Increased hyperinflation of the lungs. Laboratory Results WBC 8.57 10^3/uL (3.29-11.43) 09/15/23 00:57 RBC 3.06 10^6/uL (3.85-5.65) L 09/15/23 00:57 Hgb 9.80 g/dL (11.27-16.99) L 09/15/23 00:57 Hct 31.5 % (37-53) L 09/15/23 00:57 MCV 102.9 fl (82-101) H 09/15/23 00:57 MCH 32.0 pg (27-33) 09/15/23 00:57 MCHC 31.1 g/dL (30-55) 09/15/23 00:57 RDW 12.8 % (12.1-15.1) 09/15/23 00:57 Plt Count 193 10^3/cmm (157-399) 09/15/23 00:57 MPV 10.3 fL (7.4-10.4) 09/15/23 00:57 Neut % (Auto) 77.5 % 09/15/23 00:57 Lymph % (Auto) 11.4 % 09/15/23 00:57 Surry % (Auto) 10.2 % 09/15/23 00:57 Eos % (Auto) 0.4 % 09/15/23 00:57 Baso % (Auto) 0.1 % 09/15/23 00:57 Neut # (Auto) 6.65 10^3/uL (1.8-7.7) 09/15/23 00:57 Lymph # (Auto) 1.0 10^3/uL (0.8-4.8) 09/15/23 00:57 [place]ry # (Auto) 0.9 10^3/uL (0.2-0.9) 09/15/23 00:57 Eos # (Auto) 0.0 10^3/uL (0.0-0.8) 09/15/23 00:57 Baso # (Auto) 0.0 10^3/uL (0.0-0.1) 09/15/23 00:57 Nucleated RBC % (auto) 0 % 09/15/23 00:57 Nucleated RBCs # 0.0 /100WBC 09/15/23 00:57 PT 13.10 SECONDS (12.1-14.9) 09/14/23 19:08 INR 0.96 (0.8-1.2) 09/14/23 19:08 D-Dimer 2.71 ug/mLFEU (0-0.59) H 09/14/23 19:08 Specimen Type Arterial 09/14/23 23:47 Sample Site Brachial, left 09/14/23 23:47 ABG pH 7.45 (7.35-7.45) 09/14/23 23:47 ABG pCO2 62.6 mmHg (35-45) H* 09/14/23 23:47 ABG pO2 84.1 mmHg (80.0-100.0) 09/14/23 23:47 ABG PO2/FiO2 Ratio 0 09/14/23 23:47 ABG HCO3 43.8 mmol/L (22-26) H 09/14/23 23:47 ABG O2 Saturation 97.7 09/14/23 23:47 ABG Base Excess 17.2 mmol/L (-2.0-2.0) H 09/14/23 23:47 Payam Test N/a 09/14/23 23:47 A-a O2 Gradient 21.0 mmHg (5-10) H 09/14/23 23:47 Hematocrit 32.8 % (42-52) L 09/14/23 23:47 Hgb O2 Saturation 96.0 % (95-100) 09/14/23 23:47 Carboxyhemoglobin 1.3 %THgb (0.4-20.1) 09/14/23 23:47 Methemoglobin 0.4 % (0.4-1.5) 09/14/23 23:47 Total Hemoglobin 10.7 g/dL (14-18) L 09/14/23 23:47 Sodium 138.0 mmol/L (131-143) 09/14/23 23:47 Potassium 3.2 mmol/L (3.5-5.0) L 09/14/23 23:47 Glucose 113.0 mg/dL (70-115) 09/14/23 23:47 Ionized Calcium 1.2 mmol/L (1.1-1.4) 09/14/23 23:47 O2 Delivery Device Bipap 09/14/23 23:47 FiO2 45.0 % 09/14/23 23:47 Balloon Sander ID Alewe 09/14/23 23:47 Sodium 134 mmol/L (136-145) L 09/15/23 00:57 Potassium 3.2 mmol/L (3.5-5.1) L 09/15/23 00:57 Chloride 89 mmol/L (98-107) L 09/15/23 00:57 Carbon Dioxide 37 mmol/L (22-29) H 09/15/23 00:57 Anion Gap 11.2 (5-19) 09/15/23 00:57 BUN 14 mg/dL (8-23) 09/15/23 00:57 Creatinine 0.5 mg/dL (0.7-1.2) L 09/15/23 00:57 GFR Calculation Not Reportable 09/15/23 00:57 Glucose 110 mg/dL (65-115) 09/15/23 00:57 Calculated Osmolality 279 mOsm/kg (285-295) L 09/15/23 00:57 Lactic Acid 0.8 mmol/L (0.5-2.2) 09/14/23 20:37 Calcium 8.7 mg/dL (8.5-10.5) 09/15/23 00:57 Total Bilirubin 0.2 mg/dL (0.15-1.2) 09/14/23 19:08 AST 11 U/L (0-40) 09/14/23 19:08 ALT 8 U/L (0-41) 09/14/23 19:08 Alkaline Phosphatase 90 U/L (40-130) 09/14/23 19:08 Troponin T Baseline 67 ng/L (0-15) H 09/14/23 19:08 Troponin T 120 Minute 63.02 ng/L (0-15) H 09/14/23 21:05 Delta Troponin T -3.98 ABS# (0-10) L 09/14/23 21:05 Troponin T Hi Sens 6Hr 72.02 ng/L (0-15) H 09/15/23 00:57 Troponin T Hi Sens 6Hr Delta 5.02 ng/L (0-12) 09/15/23 00:57 NT-Pro-B Natriuret Pep 835 pg/mL (0-450) H 09/14/23 19:08 Total Protein 6.8 g/dL (6.6-8.7) 09/14/23 19:08 Albumin 3.8 g/dL (3.5-5.2) 09/14/23 19:08 Globulin 3.0 g/dL (1.3-4.6) 09/14/23 19:08 Triglycerides 75 mg/dL (0-150) 09/15/23 00:57 Cholesterol 158 mg/dL (0-200) 09/15/23 00:57 LDL Cholesterol, Calc 86 mg/dL (50-129) 09/15/23 00:57 HDL Cholesterol 57 mg/dL (60-100) L 09/15/23 00:57 LDL/HDL Ratio 1.51 RATIO (0.00-3.22) 09/15/23 00:57 Cholesterol/HDL Ratio 2.77 mg/dL (1.0-5.00) 09/15/23 00:57 Procalcitonin 0.14 ng/mL (0-0.5) 09/14/23 20:37 Influenza Type A Ag negative (Negative) 09/14/23 18:32 Influenza Type B Ag negative (Negative) 09/14/23 18:32 SARS-CoV-2 Ag (Rapid) negative (Negative) 09/14/23 18:32 A&P Assessment and plan (1) Aspiration pneumonia of right lower lobe: Patient reported history of aspirating his pills followed by violent coughing Imaging suggestive of right lower lobe aspiration material causing consolidation Today we will proceed with bronchoscopic evaluation of airway inspection and retrieval of any reflow or foreign body Currently he is receiving ceftriaxone-I will recommend to switch to Zosyn Qualifiers: Aspiration pneumonia type: unspecified Qualified Code(s): J69.0 - Pneumonitis due to inhalation of food and vomit (2) Chronic obstructive pulmonary disease: He has gold class D COPD-CT scans consistent with severe emphysema-PFTs consistent with very severe airflow obstruction FEV1 28%-he is on Spiriva, budesonide, Perforomist and nebs at home. In the hospital he is on DuoNeb nebulizations, Pulmicort nebulization, Solu- Medrol 40 every 6 hours Recommended to taper down Solu-Medrol to 40 every every 12 daily He is on baseline 2 L oxygen; he uses BiPAP machine at nighttime. (3) Left upper lobe pulmonary nodule: He had a CTA June 2023 which showed 8 mm left upper lobe nodule.-A PET/CT was requested as outpatient; however today CTA did not show any change in his left upper lobe nodule. Will repeat PET/CT in 3 months as outpatient (4) D-dimer, elevated: Today's D-dimer was elevated He has previous history of PE on CT chest February 2022 for which she was treated with Eliquis. Received a dose of Lovenox while awaiting for CTA He is CTA today morning did not show any evidence of Lovenox-we will switch to prophylactic heparin Consult Attestations 2 Medical Necessity Statement: Deferred to hospitalist Coding Level of Care Code Acute Code for [facility] Diagnoses Aspiration pneumonia of right lower lobe J69.0 Aspiration pneumonia type: unspecified Chronic obstructive pulmonary disease J44.9 Left upper lobe pulmonary nodule R91.1 D-dimer, elevated R79.89 Time Spent (min) 53
[2023-09-14 20:38] LABS: Troponin(5th) Baseline 67 ng/L (0-15)
[2023-09-14 20:47] LABS: NT Pro B Type Natriuretic Pept 835 pg/mL (0-450)
[2023-09-14 21:11] LABS: Lactic Sepsis W/Reflex 0.8 mmol/L (0.5-2.2)
[2023-09-14 21:18] LABS: Procalcitonin 0.14 ng/mL (0-0.5)
[2023-09-14 21:25] LABS: Troponin 5 2HR 63.02 ng/L (0-15)
[2023-09-14 21:26] LABS: Troponin 5 2HR Delta -3.98 ABS# (0-10)
--- NOTE | 2023-09-14 21:38 | PM.HP ---
Providers/Chief Complaint Admitting Physician: Kodi Banks Primary Care Provider: Andrea Santiago DO Chief Complaint: Sob, History of Present Illness Pleasant 77-year-old gentleman came into ER due to increasing shortness of breath, productive cough with copious sputum. In ER also noted with worsened oxygen requirement, normally on 2 L, he requiring 4 L. He aspirated yesterday while taking some pills. He feels that he may have coughed up most of them but is not sure. Chest x-ray with severe right lower lobe pneumonic consolidation. Review of Systems Const: Denies: fever(s), chills, body aches or malaise Card: Denies: chest pain, edema, pre-syncope or dyspnea on exertion Resp: Reports: dyspnea and productive cough; Denies: hemoptysis GI: Denies: abdominal pain, nausea, vomiting, diarrhea, constipation, hematochezia or melena : Denies: flank pain, difficulty urinating, urinary frequency or hematuria Musc: Denies: back pain, joint swelling or joint redness Skin/Breast: Denies: rash or new lesions Medications/Allergies Home Medications Medication Instructions Recorded Confirmed Last Taken Type albuterol sulfate 2.5 mg/3 mL 2.5 mg inhalation Q4H 11/27/19 09/14/23 09/14/23 History (0.083 %) solution for nebulization cholecalciferol (vitamin D3) 50 50 mcg PO BEDTIME 03/16/22 09/14/23 07/07/23 History mcg (2,000 unit) capsule (Vitamin D3) BIPAP #1 ea 04/06/22 08/08/23 Unknown Rx oxygen #1 ea 04/06/22 08/08/23 Unknown Rx furosemide 40 mg tablet 40 mg PO DAILY PRN Edema 12/07/22 09/14/23 09/14/23 History pantoprazole 40 mg tablet,delayed 40 mg PO BID 12/07/22 09/14/23 09/14/23 History release paroxetine HCl 10 mg tablet 10 mg PO QAM 12/07/22 09/14/23 09/14/23 History trazodone 50 mg tablet 25 - 50 mg PO BEDTIME 12/07/22 09/14/23 09/14/23 History tiotropium bromide 1.25 2 puff inhalation DAILY #4 grams 05/08/23 09/14/23 09/14/23 Rx mcg/actuation mist for inhalation (Spiriva Respimat) albuterol sulfate 90 mcg/actuation 2 puff inhalation QID PRN 07/08/23 09/14/23 Unknown History aerosol inhaler (Ventolin HFA) Shortness Of Breath arformoterol 15 mcg/2 mL solution 2 ml inhalation BID 07/08/23 09/14/23 09/14/23 History for nebulization prednisone 20 mg tablet See Rx Instructions .Route 07/18/23 08/08/23 Unknown Rx .COMPLEX #53 tabs budesonide 0.5 mg/2 mL suspension 0.5 mg (2 mL) inhalation BID #120 08/28/23 09/14/23 09/14/23 Rx for nebulization mL Vitamin C 500 mg PO DAILY 09/14/23 09/14/23 09/14/23 History docusate sodium 100 mg capsule 100 mg PO BID PRN Constipation 09/14/23 09/14/23 09/13/23 History ferrous sulfate 325 mg (65 mg 325 mg PO DAILY 09/14/23 09/14/23 09/14/23 History iron) tablet folic acid 1 mg tablet 1 mg PO DAILY 09/14/23 09/14/23 09/14/23 History metoprolol tartrate 25 mg tablet 25 mg PO BID 09/14/23 09/14/23 09/14/23 History zinc sulfate 220 mg capsule 220 mg PO DAILY 09/14/23 09/14/23 09/14/23 History Allergies Allergy/AdvReac Type Severity Reaction Status Date / Time morphine AdvReac Severe A[facility]-Halluci Verified 08/08/23 15:[facility] Acute PFSH: Medical History Change in bowel habit Chronic hypercapnic respiratory failure Pulmonary embolism Pleural effusion Pulmonary embolism Chronic respiratory failure with hypoxia Colon cancer Pulmonary nodule Rectal cancer COPD (chronic obstructive pulmonary disease) Surgical History S/P bronchoscopy History of colon resection OCT-2004 Family History Father Lung disease Mother Cancer Social History Smoking and tobacco/nicotine status: former use of tobacco/nicotine Quit status (tobacco/nicotine): has quit using Year quit tobacco: 2008 - PPD x 50 Years Alcohol intake: never Substance/Drug Use: never Lives independently: Yes Household members: spouse Marital status: Current occupational status: retired Do you think of yourself as: Straight/Heterosexual Current gender identity: Male Vitals/I&O/Wt Last Vital Signs Temp 98.3 F 09/14/23 18:12 Pulse 86 09/14/23 21:22 Resp 15 09/14/23 21:22 BP 118/71 09/14/23 21:22 Pulse Ox 95 09/14/23 21:22 O2 Del Method Nasal Cannula 09/14/23 21:22 O2 Flow Rate 2 09/14/23 21:22 Weight last 48 hrs Weight 52.163 kg Physical Exam Const: COMMON NORMALS: patient oriented x3 and alert GENERAL APPEARANCE: cooperative ORIENTATION/CONSCIOUSNESS: Yes awake HENMT: COMMON NORMALS: oropharynx normal Neck/C-Spine: COMMON NORMALS: no JVD Resp: EFFORT & INSPECTION: Yes tachypneic AUSCULTATION: diminished lung sounds on the right in the lower lung lucas Cardio: COMMON NORMALS: no JVD, regular rhythm, S1 normal heart sound present, S2 normal heart sound present and No murmurs present (Cardio) RHYTHM: regular rhythm HEART SOUNDS: S1 normal heart sound present and S2 normal heart sound present GI: COMMON NORMALS: Normal to inspection, nondistended, normoactive bowel sounds present, Soft to palpation and non-tender PALPATION: Yes Soft to palpation Extremity: COMMON NORMALS: no joint enlargement and no pedal edema Neuro: COMMON NORMALS: patient oriented x3 and moves all extremities SENSORIUM/ORIENTATION: Yes alert Skin: COMMON NORMALS: no rashes or lesions noted GENERAL SKIN EXAM: no rashes or lesions noted Data 09/14/23 19:08 09/14/23 19:08 Micro: Microbiology 09/14/23 20:42 Blood Culture - Preliminary Blood SPECIMEN COLLECTED 09/14/23 20:37 Blood Culture - Preliminary Blood SPECIMEN COLLECTED A&P Assessment and plan (1) Aspiration pneumonia: Progressively worsening dyspnea, Cough productive of copious sputum after aspiration while taking tablets yesterday. He feels coughed up most of them but is not sure. Has tried using his flutter valve at home. Severe right lower lobe consolidation on chest x-ray. Acute on chronic respiratory failure with tachypnea, worsening oxygenation requirement needing 4 L of oxygen compared to usual 2. Received ceftriaxone, continue, monitor for any worsening at which case escalated to Zosyn. Continue pulmonary toilet, flutter valve, at 3.5% nebs, DuoNebs. Reviewed vitals, CBC, CMP, procalcitonin, rapid influenza, rapid COVID, EKG, chest x-ray, ER note, discussed with ER physician. Appreciate pulmonology consultation for additional assessment with consideration of bronchoscopy. Check sputum culture, MRSA PCR, urine Legionella antigen, urine bacterial antigen. Blood culture has been collected. Consider reassessment for complicated pneumonia in case of lack of progression or worsening. May be at risk of empyema or postobstructive pneumonia. (2) D-dimer, elevated: With remote history of PE, previously on anticoagulation. No longer on anticoagulation. He does not appear to have symptoms of PE, no chest pain or pleuritic pain, no tachycardia, cough is productive, no hemoptysis, symptoms more likely related to his aspiration pneumonitis/pneumonia. However, D-dimer is elevated 2.71, history of PE. We currently also are unable to assess with CTA and there is shortage of V/Q kits as well. Given history of PE, persistently elevated D-dimer consideration may be given to resumption of continuation of anticoagulation. Appreciate pulmonology opinion with regards to this. Plan Moderate troponin elevation: In the 60s. Suspect demand ischemia secondary to acute on chronic respiratory failure. He does not have any chest pain. EKG on my interpretation with incomplete right bundle lizbeth block, T wave inversion in V2, Q wave V1, V2. No definitive findings of acute CT. May have underlying coronary disease with prior history of smoking. Would benefit from follow-up with additional assessment/risk stratification/stress testing. Complete troponin EKG series. Monitor on telemetry. Will add aspirin. Continue beta-constance. Check lipid panel History of PE: No longer on anticoagulation, but D-dimer noted elevated. COPD: Continue budesonide. Add scheduled and as needed DuoNebs. Chronically on 2 L nasal cannula. Attestations Medical Necessity Statement*: Admission of over 2 midnights anticipated for assessment management of acute on chronic respiratory failure with aspiration pneumonia. Diagnoses Aspiration pneumonia J69.0 D-dimer, elevated R79.89
[2023-09-14] MEDS: enoxaparin 40 mg/0.4 mL Syringe SUBCUT (22:26)
--- NOTE | 2023-09-14 23:29 | XRR_ITS ---
PROCEDURE INFORMATION: Exam: XR Chest Exam date and time: 09/14/2023 11:35 PM Age: 77 years old Clinical indication: Other: Worsened hypoxia TECHNIQUE: Imaging protocol: Radiologic exam of the chest. Views: 1 view. COMPARISON: CR XR chest 1V portable [id number] 09/14/2023 6:47 PM FINDINGS: Lungs: Severe pneumonic consolidation in the right lower lobe is not significantly changed. Apparent increased hyperinflation of the lungs although limited by lordotic positioning on this exam. Pleural spaces: Unremarkable. No pleural effusion. No obvious pneumothorax. Skin folds noted overlying the left chest. Heart/Mediastinum: Unremarkable. No cardiomegaly. Bones/joints: Unremarkable. XR/XR chest 1V portable [id number] IMPRESSION: Severe right lower lobe pneumonia/aspiration again demonstrated without significant radiographic change from earlier today. Increased hyperinflation of the lungs.
[2023-09-14] MEDS: methylPREDNISolone sod succ 40 mg/mL INJ IVP (23:52)
[2023-09-15] VITALS (28 sets, daily range): BP systolic 107–139; BP diastolic 57–77; PULSE 74–105; RESP 14–20; TEMP 36.2–37; O2SAT 95–100; BMI 17.5
[2023-09-15 00:03] LABS: ABG PCO2 62.6 mmHg (35-45); ABG PH Result 7.45 (7.35-7.45); Arterial Blood Gas Hematocrit 32.8 % (42-52); Base Excess ABG 17.2 mmol/L (-2.0-2.0); Blood Gas Sample Site Brachial, left; Blood Gas Sample Type Arterial; Carboxyhemoglobin 1.3 %THgb (0.4-20.1); HCO3 ABG 43.8 mmol/L (22-26); Ionized Calcium Level - ABG 1.2 mmol/L (1.1-1.4); Methemoglobin 0.4 % (0.4-1.5); Oxygen Device BIPAP; Oxygen Saturation ABG 97.7; PO2 ABG 84.1 mmHg (80.0-100.0); PO2 FiO2 Ratio Arterial Blood 0; Potassium Level - ABG 3.2 mmol/L (3.5-5.0); Total Hemoglobin 10.7 g/dL (14-18)
--- NOTE | 2023-09-15 00:20 | ECG_ITS ---
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 Measurements Intervals [place] Rate: 86 P: 67 VA: 170 QRS: 84 QRSD: 105 T: 80 QT: 350 QTc: 421 Interpretive Statements SINUS RHYTHM WITH OCCASIONAL VENTRICULAR PREMATURE COMPLEXES POSSIBLE LEFT ATRIAL ENLARGEMENT [-0.1mV P-WAVE IN V1/V2] INDETERMINATE AXIS INCOMPLETE RIGHT BUNDLE BRANCH BLOCK [90+ ms QRS DURATION, TERMINAL R IN V1/V2, 40+ ms S IN I/aVL/V4/V5/V6] ANTEROSEPTAL MYOCARDIAL INFARCTION , OF INDETERMINATE AGE [40+ ms Q WAVE IN V1-V4] Compared to ECG 09/14/2023 18:34:54 No significant changes Electronically Signed On 09-15-2023 10:03:28 WAITER/[employer]RESS [employer] by Marquis Mishra M.D. [email or web address]
--- NOTE | 2023-09-15 00:58 | PC.NURSE ---
This nurse heard patient coughing very loudly in his room. Upon entering room patient stated I can't breathe. When assessing the patient he was very short of breath his breathing was labored. He was 80% on 2L NC and heart rate in the 120s. His oxygen was turned up to 6L and he was then saturating at 90%. His lung sounds have crackles. RT came to bedside to assess and Dr. Banks was notified and gave an order to put patient on BIPAP and he placed orders for solumedrol and a chest xray. Patient is now on bipap resting comfortably in bed, saturating above 95%. He states his breathing feels much better.
[2023-09-15 01:21] LABS: Anion Gap 11.2 (5-19); Blood Urea Nitrogen 14 mg/dL (8-23); Calcium 8.7 mg/dL (8.5-10.5); Carbon Dioxide 37 mmol/L (22-29); Chloride 89 mmol/L (98-107); Creatinine Clr Calc Pharmacy 56.1477; Glucose 110 mg/dL (65-115); Osmolality Calculated 279 mOsm/kg (285-295); Potassium 3.2 mmol/L (3.5-5.1); Sodium 134 mmol/L (136-145)
[2023-09-15 01:22] LABS: Chol HDL Ratio 2.77 mg/dL (1.0-5.00); Cholesterol 158 mg/dL (0-200); HDL Cholesterol 57 mg/dL (60-100); LDL Cholesterol Calculated 86 mg/dL (50-129); LDL HDL Ratio 1.51 RATIO (0.00-3.22); Triglycerides 75 mg/dL (0-150); Troponin 5 6HR 72.02 ng/L (0-15); Troponin 5 6HR Delta 5.02 ng/L (0-12)
[2023-09-15 01:38] LABS: Basophils % 0.1 %; Eosinophils % 0.4 %; Hematocrit 31.5 % (37-53); Lymphocytes % 11.4 %; Mean Corpuscular HGB Conc 31.1 g/dL (30-55); Mean Corpuscular Volume 102.9 fl (82-101); Mean Platelet Volume 10.3 fL (7.4-10.4); Monocytes # 0.9 10^3/uL (0.2-0.9); Monocytes % 10.2 %; Neutrophils # 6.65 10^3/uL (1.8-7.7); Neutrophils % 77.5 %; Nucleated Red Blood Cells % 0 %; Platelet Count 193 10^3/cmm (157-399); Red Blood Count 3.06 10^6/uL (3.85-5.65); Red Cell Distribution Width 12.8 % (12.1-15.1); White Blood Count 8.57 10^3/uL (3.29-11.43)
[2023-09-15] MEDS: ipratropium-albuterol 3 mL Neb INHALATION ×4 (02:29→20:32)
--- NOTE | 2023-09-15 05:01 | PC.NURSE ---
Dr. Banks stated to not give PO meds tonight due to patient being high aspiration risk.
[2023-09-15] MEDS: methylPREDNISolone sod succ 40 mg/mL INJ IVP ×2 (05:03→16:36)
[2023-09-15] MEDS: budesonide 0.5 mg/2 mL Neb INHALATION ×2 (08:00→20:32)
--- NOTE | 2023-09-15 08:03 | CT_ITS ---
WS: [id number] CT CHEST ANGIOGRAPHY WITH REFORMATS HISTORY: sob, hx of covid, elevated d dimer TECHNIQUE: Contiguous axial images are obtained through the chest during arterial injection of intrav enous contrast. Images are reconstructed to evaluate the pulmonary arteries. MIP imaging also reviewe d. All CT scans at [facility] use at least one of these dose optimization techniques: automat ed exposure control; mA and/or kV adjustment per patient size (includes targeted exams where dose is matched to clinical indication); or iterative reconstruction. CONTRAST: Omnipaque 350; 100 mL IV. DLP: 220.91 mGy.cm COMPARISON: 07/08/2023, 04/12/2021 Very good opacification of the pulmonary arteries. No pulmonary embolism. Normal size pulmonary arter y. Mild atherosclerosis thoracic aorta. No dissection and no aneurysm. Heart is normal size with no R IGHT heart strain. Increasing area of dense consolidation consistent with pneumonia in the RIGHT lower lobe. Nearly 50% of the RIGHT lower lobe is involved with consolidation. Additional areas of tree-in-bud airspace dise ase in the RIGHT lower lobe. Severe centrilobular emphysema. Patient has a known noncalcified 8 mm LE FT upper lobe nodule for which surveillance has been recommended. Very slight increase in size since 04/12/2021. Please note PET CT has been requested. No mediastinal or hilar adenopathy. Mildly prominent lymphoid tissue at the RIGHT hilum is similar to prior studies. This is probably reactive from the pneumonia. Suprarenal calcifications in the abdominal aorta. Fluid-filled mass in the LEFT upper abdomen is prob ably a renal cyst. This has been described on multiple prior examinations dating back to at least 02/28. No adrenal mass. Simple hepatic cyst. Mild tricuspid regurgitation into the hepatic veins. IMPRESSION: 1. No pulmonary embolism. 2. Severe centrilobular emphysema. 3. New large area of consolidation in the RIGHT lower lobe consistent with pneumonia with mildly jorge ctive RIGHT hilar lymph nodes. 4. 8 mm noncalcified LEFT upper lobe nodule. Surveillance has been recommended and PET CT has been r equested.
[2023-09-15] MEDS: iohexol 350 mg/mL 500 mL Btl (per mL) IV (08:41)
--- NOTE | 2023-09-15 09:16 | PC.CHAP ---
Pastoral Care Encounter/Spiritual Assessment Type of Contact [] Declined mine deputy visit [] Patient/Family/Request visit [] Outpatient visit [] Follow-up visit [] Physician referral [] Code/Alert [x] Routine visit [] Staff referral [] Actively dying [] Patient sleeping [] Family support [] [] Out of room [] Palliative care [] [] Receiving care in room [] Pre-surgical visit [] Trauma [] Long length of stay [] ICU visit [] Other: Relational/Emotional Strength [x] Patient feels connected with others/family/visitors/staff [] Distress [] Loneliness/isolation [] Abandonment Spirituality of Patient [x] Person of Elif [] Attends Pentecostal of their Elif [x] Believes in Prayer [] Reads Bible or Tenriism materials [] There are Spiritual issues to be addressed Tour Operator Interventions [x] Prayer [x] Active listening [] Non-anxious presence [x] Spiritual/emotional support [] Crisis/trauma care [] Spiritual counseling [] Bereavement support [] Provided bereavement packet [] Provided Bible/devotional materials [] Provided toy/stuffed animal, coloring book to patient or family member [] Provided Communion [] Anointing/[place] [] Salvation [x] Completed spiritual assessment [] Other: Impact on Illness or Injury [] Angry [] Fearful [] Anxious [] Often cries [] Exhaustion [] Unable to work [] Unable to attend confucianist [] Unable to walk/stand [] Unable to read [] Unable to drive [] Unable to eat/drink [] Unable to sleep [] Unable to be with family [] Patient intubated [] Other: Summary Time spent with patient 5 min
[2023-09-15] MEDS: lidocaine 1% 5 ML in potassium chloride premix 100 ML 26.25 ML IV (09:35)
[2023-09-15] MEDS: piperacillin-tazobactam 3.375 GM in sodium chloride 0.9% (plus) 50 ML IV ×2 (10:43→18:12)
--- NOTE | 2023-09-15 11:23 | PC.SOCIAL ---
IMM Update pg 2 of IMM updated and reviewed w/ patient. Copy provided and copy dated, initialed and placed in chart.
[2023-09-15] MEDS: albuterol 2.5 mg/3 mL Neb INHALATION (11:41)
[2023-09-15] MEDS: ipratropium 0.5 mg/2.5 mL Neb INHALATION (11:42)
[2023-09-15] MEDS: sodium chloride 0.9% 1,000 ML 30 ML IV (11:42)
--- NOTE | 2023-09-15 12:19 | P.ANESASSM_ITS ---
Pre-Anesthetic Assessment Height/Weight: Height 1.75 m Weight 53.841 kg Temp Pulse Resp BP Pulse Ox O2 Del Method O2 Flow Rate 97.2 F L 89 20 H 137/67 100 Nasal Cannula 4 09/15/23 11:43 09/15/23 11:47 09/15/23 11:43 09/15/23 11:43 09/15/23 11:43 09/15/23 11:43 09/15/23 11:43 FiO2 45 09/15/23 02:36 Operation Date: 09/15/23 12:00 Proposed Procedures p Bronchoscopy Bronchoscopy For Airway Clearence/Foreign Body Removal(Not Applicable) - Elbert Francis DatarMD Familial anesthetic complications: none Was Beta Butch taken within 24 hours: Yes Was Clonidine taken within 24 hours: N/A Last intake: Intake Last Liquid Date 09/14/23 Last Liquid Time 08:00 Last Solid Date 09/14/23 Last Solid Time 07:00 Social No alcohol and No tobacco Exam alert, oriented x 3 and regular rate & rhythm Airway Submandibular: within normal limits Cervical ROM: within normal limits Mallampati: Class I Dentition: false Pulmonary Chronic Obstructive Pulmonary Disease Pneumonia CV/HEM Anemia and Hypertension GI Gastroesophageal Reflux Disease Metabolic Cachectic Anesthetic Plan ASA status: 4 Anesthesia: General Medications/Allergies Home Medications Medication Instructions Recorded Confirmed Last Taken Type albuterol sulfate 2.5 mg/3 mL 2.5 mg inhalation Q4H 11/27/19 09/14/23 09/14/23 History (0.083 %) solution for nebulization cholecalciferol (vitamin D3) 50 50 mcg PO BEDTIME 03/16/22 09/14/23 07/07/23 History mcg (2,000 unit) capsule (Vitamin D3) BIPAP #1 ea 04/06/22 09/14/23 Unknown Rx oxygen #1 ea 04/06/22 09/14/23 Unknown Rx furosemide 40 mg tablet 40 mg PO DAILY PRN Edema 12/07/22 09/14/23 09/14/23 History pantoprazole 40 mg tablet,delayed 40 mg PO BID 12/07/22 09/14/23 09/14/23 History release paroxetine HCl 10 mg tablet 10 mg PO QAM 12/07/22 09/14/23 09/14/23 History trazodone 50 mg tablet 25 - 50 mg PO BEDTIME 12/07/22 09/14/23 09/14/23 History tiotropium bromide 1.25 2 puff inhalation DAILY #4 grams 05/08/23 09/14/23 09/14/23 Rx mcg/actuation mist for inhalation (Spiriva Respimat) albuterol sulfate 90 mcg/actuation 2 puff inhalation QID PRN 07/08/23 09/14/23 Unknown History aerosol inhaler (Ventolin HFA) Shortness Of Breath arformoterol 15 mcg/2 mL solution 2 ml inhalation BID 07/08/23 09/14/23 09/14/23 History for nebulization budesonide 0.5 mg/2 mL suspension 0.5 mg (2 mL) inhalation BID #120 08/28/23 09/14/23 09/14/23 Rx for nebulization mL Vitamin C 500 mg PO DAILY 09/14/23 09/14/23 09/14/23 History docusate sodium 100 mg capsule 100 mg PO BID PRN Constipation 09/14/23 09/14/23 09/13/23 History ferrous sulfate 325 mg (65 mg 325 mg PO DAILY 09/14/23 09/14/23 09/14/23 History iron) tablet folic acid 1 mg tablet 1 mg PO DAILY 09/14/23 09/14/23 09/14/23 History metoprolol tartrate 25 mg tablet 25 mg PO BID 09/14/23 09/14/23 09/14/23 History zinc sulfate 220 mg capsule 220 mg PO DAILY 09/14/23 09/14/23 09/14/23 History Allergies Allergy/AdvReac Type Severity Reaction Status Date / Time morphine AdvReac Severe ADR-Halluci Verified 08/08/23 15:08 nating Current Medications Generic Name Dose Route Start Last Admin Trade Name Freq PRN Reason Stop Dose Admin Albuterol/Ipratropium 3 ml 09/15/23 02:00 09/15/23 08:00 Ipratropium-Albuterol 3 Ml Neb INHALATION 3 ml Q6H.RESP IMELDA Administration Aspirin 81 mg 09/14/23 22:00 09/15/23 10:32 Aspirin 81 Mg Ec Tablet PO Not Given DAILY IMELDA Budesonide 0.5 mg 09/14/23 21:50 09/15/23 08:00 Budesonide 0.5 Mg/2 Ml Neb INHALATION 0.5 mg BID.RESPIRATORY IMELDA Administration Lidocaine HCl 5 ml/ Potassium 105 mls @ 26.25 mls/hr 09/15/23 09:24 09/15/23 09:35 Chloride IV 09/15/23 13:23 26.25 mls/hr ONCE ONE Administration Piperacillin Sod/Tazobactam 50 mls @ 12.5 mls/hr 09/15/23 10:30 09/15/23 10:43 Sod 3.375 gm/ Sodium Chloride IV 12.5 mls/hr Q8H IMELDA Administration Sodium Chloride 1,000 mls @ 30 mls/hr 09/15/23 11:45 09/15/23 11:42 Sodium Chloride 0.9% IV 09/16/23 11:44 30 mls/hr .Q24H IMELDA Administration Metoprolol Tartrate 25 mg 09/14/23 22:00 09/15/23 10:32 Metoprolol Tartrate 25 Mg Tablet PO Not Given BID IMELDA Paroxetine HCl 10 mg 09/15/23 06:00 09/15/23 05:50 Paroxetine 20 Mg Tablet PO Not Given QAM IMELDA Sodium Chloride 4 ml 09/14/23 21:55 09/15/23 08:02 Sodium Chloride 3.5% Neb 4 Ml Neb INHALATION Not Given BID.RESPIRATORY IMELDA PFSH Anesthesia Medical History Change in bowel habit Chronic hypercapnic respiratory failure Pulmonary embolism Pleural effusion Pulmonary embolism Chronic respiratory failure with hypoxia Colon cancer Pulmonary nodule Rectal cancer COPD (chronic obstructive pulmonary disease) Surgical History S/P bronchoscopy History of colon resection OCT-2004 Family History Father Lung disease Mother Cancer Social History Smoking and tobacco/nicotine status: former use of tobacco/nicotine Quit status (tobacco/nicotine): has quit using Year quit tobacco: 2007 - PPD x 50 Years Alcohol intake: never Substance/Drug Use: never Lives independently: Yes Household members: spouse Marital status: Current occupational status: retired Do you think of yourself as: Straight/Heterosexual Current gender identity: Male Data Anesthesia 09/15/23 00:57 09/15/23 00:57 Short CBC 09/14/23 09/15/23 Range/Units 19:08 00:57 WBC 10.82 8.57 (3.29-11.43) 10^3/uL Hgb 10.70 L 9.80 L (11.27-16.99) g/dL Hct 34.5 L 31.5 L (37-53) % MCV 102.7 H 102.9 H (82-101) fl Plt Count 213 193 (157-399) 10^3/cmm Neut % (Auto) 83.3 77.5 % Neut # (Auto) 9.02 H 6.65 (1.8-7.7) 10^3/uL BMP 09/14/23 09/15/23 19:08 00:57 Sodium 135 L 134 L Potassium 4.0 3.2 L Chloride 89 L 89 L Carbon Dioxide 42 H* 37 H BUN 14 14 Creatinine 0.6 L 0.5 L Glucose 123 H 110 Calcium 9.3 8.7 Cardiac Enzymes 09/14/23 09/14/23 09/15/23 Range/Units 19:08 21:05 00:57 Troponin T Baseline 67 H (0-15) ng/L Troponin T 120 Minute 63.02 H (0-15) ng/L Delta Troponin T -3.98 L (0-10) ABS# Troponin T Hi Sens 6Hr 72.02 H (0-15) ng/L Troponin T Hi Sens 6Hr Delta 5.02 (0-12) ng/L NT-Pro-B Natriuret Pep 835 H (0-450) pg/mL Liver Function 09/14/23 Range/Units 19:08 Total Bilirubin 0.2 (0.15-1.2) mg/dL AST 11 (0-40) U/L ALT 8 (0-41) U/L Alkaline Phosphatase 90 (40-130) U/L Albumin 3.8 (3.5-5.2) g/dL COVID Results 09/14/23 18:32 SARS-CoV-2 Ag (Rapid) negative Coags 09/14/23 19:08 PT 13.10 INR 0.96 D-Dimer 2.71 H ABG 09/14/23 23:47 Specimen Type Arterial Sample Site Brachial, left ABG pH 7.45 ABG pCO2 62.6 H* ABG pO2 84.1 ABG PO2/FiO2 Ratio 0 ABG HCO3 43.8 H ABG O2 Saturation 97.7 ABG Base Excess 17.2 H A-a O2 Gradient 21.0 H O2 Delivery Device Bipap FiO2 45.0 Microbiology 09/15/23 00:00 Gram Stain - Final Sputum - Expectorated Sputum 09/14/23 22:40 Legionella Urinary Antigen - Final Urine Suprapubic Bacterial Antigens - Final 09/14/23 20:42 Blood Culture - Preliminary Blood SPECIMEN COLLECTED 09/14/23 20:37 Blood Culture - Preliminary Blood SPECIMEN COLLECTED Cardiac Studies: 2 Echocardiogram 03/21/22 Echocardiogram Ultrasound 12/20/19
--- NOTE | 2023-09-15 12:29 | PC.SLP ---
Patient unable to be assessed by FIELD SUPERINTENDENT at this time as he is off the floor due to bronchoscopy.
--- NOTE | 2023-09-15 12:29 | PM.OP ---
Operative Report Date of procedure: September 15, 2023 Pre-op diagnosis: Suspected foreign body aspiration Post-op diagnosis: Thrush and pneumonia Procedure done: Dx Bronchoscope w/BAL Dx Bronchoscopy w/Bronchial or Endobronchial biopsy(s), single or multiple sites Bronchoscopy w/ therapeutic aspiration of the tracheobronchial tree (clearance of airway secretions, removal of mucus plugs) Surgeon: Elbert Polanco MD Brief History: 77-year-old male Mr. Doroteo Ba admitted to hospital for right lower lobe pneumonia/consolidation precipitated by suspected foreign body aspiration 1 day prior to admission. Today scheduled for bronchoscopic evaluation, airway inspection, removal of foreign body, obtaining BAL Procedure: Dx Bronchoscope w/BAL Dx Bronchoscopy w/Bronchial or Endobronchial biopsy(s), single or multiple sites Bronchoscopy w/ therapeutic aspiration of the tracheobronchial tree (clearance of airway secretions, removal of mucus plugs) Indication: Suspected history of foreign body aspiration resulting in right lower lobe consolidation Anesthesia: General anesthesia. Local anesthesia: The jaime in the right and left mainstem bronchi were anesthetized with 1% lidocaine, 3 mL. Description of the procedure: The procedure was explained to the patient and the consent was obtained. The patient was brought to the OR. The patient underwent induction for general anesthesia and laryngeal mask airway was placed. The bronchoscope was advanced through the laryngeal mask airway. The vocal cords visualized. 1 mL 1% lidocaine was instilled on the vocal cords. They appear normal and mobile. The bronchoscope was advanced through the vocal cords. Tracheal mucosa appeared normal, no endotracheal lesion was seen. The jaime was sharp. 1 mL each of 1% lidocaine was instilled in the trachea the right and left mainstem bronchi for local anesthesia. In a systematic manner bilateral bronchial tree was then examined. The bronchoscope was then introduced into the right mainstem bronchus. There was a visible white patches all along the right tracheobronchial tree. The right upper lobe, right middle lobe and right lower lobe bronchi were examined up to the third subsegmental level and no abnormalities were identified. There are no foreign bodies, endobronchial lesions or mucous plugs blocking the airways. The mucosa in the right lower lobe, right middle lobe, bronchus intermedius is friable and started to bleed as soon as bronchoscope touched the surface. There were mucous secretions which were suctioned right away. There was mild bleeding noted in right lower lobe segments. The bronchoscope was advanced into the left mainstem bronchus. The left upper lobe, and lingula were examined up to the third subsegmental level and no abnormalities were identified. Mucosa of left upper lobe, left lower lobe and lingula appeared normal with no endobronchial lesion. There were clear secretions which were suctioned right away.. With the help of forceps-endobronchial biopsies were taken from the whitish patchy areas of right bronchus intermedius. It was easily peeled off with no evidence of bleeding. Bronchoalveolar lavage was taken from right lower lobe. After making sure there is no active bleeding, bronchoscope retracted and procedure terminated. Samples: 1. Endobronchial biopsies from right bronchus intermedius-placed in formalin and sent for histopathology. I doubt this will be malignant. These look more like fungal thrush. 2. Bronchoalveolar lavage was performed after wedging the bronchoscope at the medial segment of right lower lobe. 60 mL of saline was instilled, fluid return was 25 mL. Bronchoalveolar lavage specimen was sent for cell count and differential, gram stain and culture, cytology, fungal cultures Complications: None.The patient was extubated and brought to the PACU in stable condition. Disposition: Patient will be transferred back to medical floor.
[2023-09-15] MEDS: lidocaine 1% INJ 10 mL (per mL) XX (12:30)
[2023-09-15 13:00] LABS: Apprearance, Bronch Wash Bloody (CLEAR); Bronch Source Right Lower Lobe; Color, Bronc Wash Red; Cyto Order Verification Order Verified
[2023-09-15 13:18] LABS: Total Cells Counted Bronch 200
[2023-09-15 13:19] LABS: PATH Referral Yes
[2023-09-15] MEDS: sodium chloride 0.9% 1,000 ML 100 ML IV (13:19)
--- NOTE | 2023-09-15 13:56 | ANE.PACU2 ---
Inpatient post-anesthesia follow up: Airway intact: Yes Vital signs: Temperature 98.0 F Pulse Rate 92 Respiratory Rate 16 Blood Pressure 134/70 Pulse Oximetry 97 Oxygen Delivery Me thod Nasal Cannula Oxygen Flow Rate 3 Fraction of Inspir ed Oxygen 45 Hydration adequate: Yes Nausea and vomiting: No Pain level: 2 Mental status: Baseline
--- NOTE | 2023-09-15 14:11 | PC.SLP ---
Pt still not back to room after bronch. SPECIFICATIONS WRITER will follow-up with the pt tomorrow.
--- NOTE | 2023-09-15 15:32 | PC.SLP ---
Patient was in fact back in room. VICE PRESIDENT [employer]ELOPMENT completed assessment.
--- NOTE | 2023-09-15 15:57 | P.PN_ITS ---
Subjective 2 Subjective: Patient was seen this morning, he does report scant hemoptysis, does report weight loss, no fevers, does report at times intermittent dysphagia, no fevers, no chills, no abdominal pain, does report shortness of breath Vitals/I&O/Wt Last Vital Signs Temp 97.8 F 09/15/23 15:25 Pulse 92 09/15/23 15:25 Resp 15 09/15/23 15:25 BP 139/72 09/15/23 15:25 Pulse Ox 97 09/15/23 15:25 O2 Del Method Nasal Cannula 09/15/23 15:25 O2 Flow Rate 3 09/15/23 12:57 FiO2 45 09/15/23 02:36 09/15/23 09/15/23 09/15/23 06:59 14:59 22:59 Intake Total 50 / 50 Output Total 500 / 500 0 / 0 Balance -500 / -450 50 / 50 Weight last 48 hrs Weight 53.841 kg Weight 52.163 kg Weight 52.163 kg Physical Exam 2 Const: COMMON NORMALS: no acute distress and patient oriented x3 Resp: COMMON NORMALS: normal respiratory effort, No retractions, No use of accessory muscles and clear to auscultation bilaterally AUSCULTATION: clear to auscultation bilaterally Cardio: COMMON NORMALS: regular rate, regular rhythm, S1 normal heart sound present and S2 normal heart sound present RATE: regular rate RHYTHM: r egular rhythm HEART SOUNDS: S1 normal heart sound present and S2 normal heart sound present GI: COMMON NORMALS: Normal to inspection, nondistended, normoactive bowel sounds present and non-tender Extremity: COMMON NORMALS: no pedal edema Neuro: COMMON NORMALS: patient oriented x3 Psych: COMMON NORMALS: mental status grossly normal Data 09/15/23 00:57 09/15/23 00:57 Micro: Microbiology 09/15/23 00:00 Gram Stain - Final Sputum - Expectorated Sputum 09/14/23 22:40 Legionella Urinary Antigen - Final Urine Suprapubic Bacterial Antigens - Final 09/14/23 20:42 Blood Culture - Preliminary Blood SPECIMEN COLLECTED 09/14/23 20:37 Blood Culture - Preliminary Blood SPECIMEN COLLECTED A&P Assessment and plan (1) Aspiration pneumonia: - Will get bronchoscopy today -Continue Zosyn -Continue Solu-Medrol 40 IV every 12 hours -Speech therapy eval, dysphagia level 5 diet, modified barium swallow (2) D-dimer, elevated: - CT angiogram no PE Plan Moderate troponin elevation: In the 60s. Suspect demand ischemia secondary to acute on chronic respiratory failure. He does not have any chest pain. EKG on my interpretation with incomplete right bundle lizbeth block, T wave inversion in V2, Q wave V1, V2. No definitive findings of acute [place]. May have underlying coronary disease with prior history of smoking. Would benefit from follow-up with additional assessment/risk stratification/stress testing. Complete troponin EKG series. Monitor on telemetry. Will add aspirin. Continue beta- constance. Check lipid panel History of PE: No longer on anticoagulation, COPD: Continue budesonide. Add scheduled and as needed DuoNebs. Chronically on 2 L nasal cannula. Full code Subcu heparin for DVT prophylaxis Attestations 2 Medical Necessity Statement*: Patient requires hospitalization for aspiration pneumonia Diagnoses Aspiration pneumonia J69.0 D-dimer, elevated R79.89
[2023-09-15] MEDS: fluconazole premix 200 MG/100 ML PREMIX 100 MG IV (16:32)
[2023-09-15] MEDS: metoprolol tartrate 25 mg Tablet PO (17:09)
[2023-09-15] MEDS: ALPRAZolam 0.5 mg Tablet PO (17:32)
[2023-09-15] MEDS: sodium chloride 3.5% neb 4 mL Neb INHALATION (20:32)
[2023-09-15] MEDS: trazodone 50 mg Tablet 25 MG PO (20:42)
[2023-09-15] MEDS: heparin 5,000 unit/mL INJ 1 mL 5000 UNIT SUBCUT (20:43)
[2023-09-16] VITALS (16 sets, daily range): BP systolic 96–164; BP diastolic 55–91; PULSE 65–87; RESP 17–24; TEMP 36.4–37.2; O2SAT 93–100
[2023-09-16] MEDS: piperacillin-tazobactam 3.375 GM in sodium chloride 0.9% (plus) 50 ML IV ×3 (02:32→17:59)
[2023-09-16] MEDS: ipratropium-albuterol 3 mL Neb INHALATION ×4 (03:15→20:25)
[2023-09-16 04:18] LABS: Eosinophils % 0.2 %; Lymphocytes # 0.5 10^3/uL (0.8-4.8); Lymphocytes % 9.5 %; Mean Corpuscular HGB Conc 44.5 g/dL (30-55); Mean Corpuscular Hemoglobin 48.9 pg (27-33); Mean Corpuscular Volume 109.9 fl (82-101); Mean Platelet Volume 11.7 fL (7.4-10.4); Monocytes # 0.3 10^3/uL (0.2-0.9); Neutrophils # 4.77 10^3/uL (1.8-7.7); Neutrophils % 84.1 %; Nucleated Red Blood Cells % 0 %; Platelet Count 160 10^3/cmm (157-399); Red Blood Count 1.82 10^6/uL (3.85-5.65); Red Cell Distribution Width 14.3 % (12.1-15.1); White Blood Count 5.67 10^3/uL (3.29-11.43)
[2023-09-16 04:30] LABS: Slide Review Slide Review Perform
[2023-09-16 04:32] LABS: Blood Urea Nitrogen 14 mg/dL (8-23); Calcium 8.5 mg/dL (8.5-10.5); Carbon Dioxide 36 mmol/L (22-29); Chloride 93 mmol/L (98-107); Creatinine Clr Calc Pharmacy 71.0296; Glucose 133 mg/dL (65-115); Osmolality Calculated 278 mOsm/kg (285-295); Sodium 133 mmol/L (136-145)
[2023-09-16 04:34] LABS: Anion Gap 8.6 (5-19); Potassium 4.6 mmol/L (3.5-5.1)
[2023-09-16] MEDS: methylPREDNISolone sod succ 40 mg/mL INJ IVP ×2 (05:11→17:08)
[2023-09-16] MEDS: PARoxetine 20 mg Tablet 10 MG PO (05:15)
[2023-09-16] MEDS: budesonide 0.5 mg/2 mL Neb INHALATION ×2 (09:01→20:25)
[2023-09-16] MEDS: sodium chloride 3.5% neb 4 mL Neb INHALATION ×2 (09:02→20:25)
[2023-09-16 09:16] LABS: Ferritin 176 ng/mL (30-400); Iron 60 ug/dL (59-158)
[2023-09-16 09:32] LABS: Vitamin B12 334 pg/mL (232-1245)
[2023-09-16] MEDS: aspirin 81 mg EC Tablet PO (09:48)
[2023-09-16] MEDS: metoprolol tartrate 25 mg Tablet PO ×2 (09:48→17:08)
[2023-09-16 10:02] LABS: Folate Level > 20.0 ng/mL (4.5-32.2)
[2023-09-16 10:58] LABS: Hematocrit 31.4 % (37-53); Lymphocytes # 0.4 10^3/uL (0.8-4.8); Lymphocytes % 5.1 %; Mean Corpuscular HGB Conc 31.5 g/dL (30-55); Mean Corpuscular Hemoglobin 32.9 pg (27-33); Mean Corpuscular Volume 104.3 fl (82-101); Mean Platelet Volume 9.9 fL (7.4-10.4); Monocytes # 0.4 10^3/uL (0.2-0.9); Neutrophils # 6.97 10^3/uL (1.8-7.7); Neutrophils % 89.6 %; Nucleated Red Blood Cells % 0 %; Platelet Count 198 10^3/cmm (157-399); Red Blood Count 3.01 10^6/uL (3.85-5.65); Red Cell Distribution Width 13.1 % (12.1-15.1); White Blood Count 7.78 10^3/uL (3.29-11.43)
--- NOTE | 2023-09-16 13:50 | P.PN_ITS ---
Subjective 2 Subjective: Patient was seen this morning, patient's daughter is at bedside he continues to have scant frothy pink cough, denies any fevers, no chills, does report generalized weakness Vitals/I&O/Wt Last Vital Signs Temp 97.6 F 09/16/23 04:00 Pulse 87 09/16/23 12:00 Resp 17 09/16/23 12:00 BP 143/71 09/16/23 12:00 Pulse Ox 97 09/16/23 12:00 O2 Del Method Nasal Cannula 09/16/23 12:00 O2 Flow Rate 3 09/16/23 09:00 FiO2 30 09/16/23 00:13 09/15/23 09/16/23 09/16/23 22:59 06:59 14:59 Intake Total 1013.333 / 1063.333 410 / 410 Output Total 800 / 800 300 / 300 Balance 1013.333 / 1063.333 -800 / 263.333 110 / 110 Weight last 48 hrs Weight 58.922 kg Weight 53.841 kg Weight 52.163 kg Weight 52.163 kg Physical Exam 2 Const: COMMON NORMALS: no acute distress and patient oriented x3 Resp: COMMON NORMALS: normal respiratory effort, No retractions and No use of accessory muscles AUSCULTATION: wheezes Cardio: COMMON NORMALS: regular rate, regular rhythm, S1 normal heart sound present and S2 normal heart sound present RATE: regular rate RHYTHM: r egular rhythm HEART SOUNDS: S1 normal heart sound present and S2 normal heart sound present GI: COMMON NORMALS: Normal to inspection, nondistended, normoactive bowel sounds present and non-tender Extremity: COMMON NORMALS: no pedal edema Neuro: COMMON NORMALS: patient oriented x3 Psych: COMMON NORMALS: mental status grossly normal Data 09/16/23 10:52 09/16/23 02:57 Micro: Microbiology 09/15/23 12:18 Gram Stain - Final Lung Right Lower Lobe Bronchial Washings Culture - Preliminary 09/15/23 00:00 Gram Stain - Final Sputum - Expectorated Sputum Sputum Culture - Preliminary Gram Negative Rods 09/14/23 20:42 Blood Culture - Preliminary Blood NEGATIVE TO DATE 09/14/23 20:37 Blood Culture - Preliminary Blood NEGATIVE TO DATE 09/14/23 22:40 Legionella Urinary Antigen - Final Urine Suprapubic Bacterial Antigens - Final A&P Assessment and plan (1) Aspiration pneumonia: - Status post bronchoscopy -Continue Zosyn -Continue Diflucan -Continue Solu-Medrol 40 IV every 12 hours -Speech therapy eval, dysphagia level 5 diet, modified barium swallow (2) D-dimer, elevated: - CT angiogram no PE Plan Moderate troponin elevation: In the 60s. Suspect demand ischemia secondary to acute on chronic respiratory failure. He does not have any chest pain. EKG on my interpretation with incomplete right bundle lizbeth block, T wave inversion in V2, Q wave V1, V2. No definitive findings of acute [place]. May have underlying coronary disease with prior history of smoking. Would benefit from follow-up with additional assessment/risk stratification/stress testing. Complete troponin EKG series. Monitor on telemetry. Will add aspirin. Continue beta- constance. Check lipid panel History of PE: No longer on anticoagulation, COPD: Continue budesonide. Add scheduled and as needed DuoNebs. Chronically on 2 L nasal cannula. Weight loss, poor appetite start Remeron tonight Anemia, with scant hemoptysis hold heparin Full code Subcu heparin for DVT prophylaxis currently on hold due to frothy pink hemoptysis, SCDs Attestations 2 Medical Necessity Statement*: Patient requires hospitalization for aspiration pneumonia requiring IV antibiotics, Diagnoses Aspiration pneumonia J69.0 D-dimer, elevated R79.89
[2023-09-16 15:30] LABS: Methicillin-Resist S.aureu PCR NOT DETECTED (NOT DETECTED)
[2023-09-16] MEDS: nystatin 100,000 unit/mL UDC 5 mL 100000 UNIT PO ×3 (15:33→20:57)
[2023-09-16] MEDS: benzonatate 100 mg Capsule 200 MG PO (15:33)
[2023-09-16] MEDS: fluconazole premix 200 MG/100 ML PREMIX 100 MG IV (17:07)
[2023-09-16] MEDS: ALPRAZolam 0.5 mg Tablet PO (19:33)
[2023-09-16] MEDS: trazodone 50 mg Tablet 25 MG PO (20:57)
[2023-09-17] VITALS (16 sets, daily range): BP systolic 121–169; BP diastolic 50–86; PULSE 54–84; RESP 16–20; TEMP 36.4–36.6; O2SAT 9–100; BMI 18.8
[2023-09-17] MEDS: ipratropium-albuterol 3 mL Neb INHALATION ×4 (01:04→19:40)
[2023-09-17] MEDS: piperacillin-tazobactam 3.375 GM in sodium chloride 0.9% (plus) 50 ML IV ×3 (02:27→18:24)
[2023-09-17] MEDS: methylPREDNISolone sod succ 40 mg/mL INJ IVP ×2 (05:33→16:42)
[2023-09-17] MEDS: PARoxetine 20 mg Tablet 10 MG PO (05:34)
[2023-09-17 05:59] LABS: Hematocrit 29.4 % (37-53); Lymphocytes # 0.6 10^3/uL (0.8-4.8); Lymphocytes % 6.7 %; Mean Corpuscular HGB Conc 30.6 g/dL (30-55); Mean Corpuscular Hemoglobin 32.1 pg (27-33); Mean Platelet Volume 9.8 fL (7.4-10.4); Monocytes # 0.5 10^3/uL (0.2-0.9); Monocytes % 6.4 %; Neutrophils # 7.19 10^3/uL (1.8-7.7); Neutrophils % 86.3 %; Nucleated Red Blood Cells % 0 %; Platelet Count 213 10^3/cmm (157-399); Red Cell Distribution Width 12.7 % (12.1-15.1); White Blood Count 8.33 10^3/uL (3.29-11.43)
[2023-09-17 06:15] LABS: Anion Gap 7.3 (5-19); Blood Urea Nitrogen 19 mg/dL (8-23); Calcium 8.7 mg/dL (8.5-10.5); Carbon Dioxide 38 mmol/L (22-29); Chloride 97 mmol/L (98-107); Creatinine Clr Calc Pharmacy 71.0296; Glucose 135 mg/dL (65-115); Osmolality Calculated 290 mOsm/kg (285-295); Potassium 4.3 mmol/L (3.5-5.1); Sodium 138 mmol/L (136-145)
[2023-09-17 06:19] LABS: C Reactive Protein 13.4 mg/L (0.0-4.9); Phosphorus 3.9 mg/dL (2.5-4.5)
[2023-09-17 07:04] LABS: NT Pro B Type Natriuretic Pept 924 pg/mL (0-450); Procalcitonin 0.07 ng/mL (0-0.5)
[2023-09-17] MEDS: budesonide 0.5 mg/2 mL Neb INHALATION ×2 (08:39→19:40)
[2023-09-17] MEDS: sodium chloride 3.5% neb 4 mL Neb INHALATION ×2 (08:39→19:40)
[2023-09-17] MEDS: metoprolol tartrate 25 mg Tablet PO ×2 (08:58→18:01)
[2023-09-17] MEDS: nystatin 100,000 unit/mL UDC 5 mL 100000 UNIT PO ×4 (08:59→20:33)
[2023-09-17] MEDS: benzonatate 100 mg Capsule 200 MG PO ×2 (08:59→16:42)
[2023-09-17] MEDS: aspirin 81 mg EC Tablet PO (08:59)
[2023-09-17] MEDS: polyethylene glycol 3350 Pkt 17 gm PO (09:00)
--- NOTE | 2023-09-17 10:01 | P.PN_ITS ---
Subjective 2 Subjective: Patient was seen this morning, is at bedside, denies any fevers, no chills continues to have frothy pink cough, no lightheadedness, no dizziness, he is a bit more short of breath with a few sentences compared to yesterday, he does report that during the night it was difficult for him to use the BiPAP as the mask kept slipping on his face, Vitals/I&O/Wt Last Vital Signs Temp 97.6 F 09/17/23 08:00 Pulse 84 09/17/23 08:55 Resp 18 09/17/23 08:39 BP 168/80 09/17/23 08:00 Pulse Ox 9 L 09/17/23 08:39 O2 Del Method Nasal Cannula 09/17/23 08:39 O2 Flow Rate 3 09/17/23 08:39 FiO2 40 09/17/23 01:04 09/16/23 09/17/23 09/17/23 22:59 06:59 14:59 Intake Total 270 / 730 50 / 780 1480 / 1480 Output Total 800 / 1100 Balance 270 / 430 -750 / -320 1480 / 1480 Weight last 48 hrs Weight 58.06 kg Weight 58.922 kg Physical Exam 2 Const: COMMON NORMALS: no acute distress and patient oriented x3 Resp: COMMON NORMALS: normal respiratory effort, No retractions, No use of accessory muscles and clear to auscultation bilaterally AUSCULTATION: clear to auscultation bilaterally Cardio: COMMON NORMALS: regular rate, regular rhythm, S1 normal heart sound present and S2 normal heart sound present RATE: regular rate RHYTHM: r egular rhythm HEART SOUNDS: S1 normal heart sound present and S2 normal heart sound present GI: COMMON NORMALS: Normal to inspection, nondistended, normoactive bowel sounds present and non-tender Extremity: COMMON NORMALS: no pedal edema Neuro: COMMON NORMALS: patient oriented x3 Psych: COMMON NORMALS: mental status grossly normal Skin: NARRATIVE SKIN EXAM: Evidence of severe protein calorie malnutrition including peripheral muscle wasting, temporal muscle wasting, bilateral thighs, bilateral calves, muscle wasting Data 09/17/23 05:24 09/17/23 05:24 Micro: Microbiology 09/15/23 12:18 Gram Stain - Final Lung Right Lower Lobe Bronchial Washings Culture - Preliminary 09/15/23 00:00 Gram Stain - Final Sputum - Expectorated Sputum Sputum Culture - Preliminary Gram Negative Rods A&P Assessment and plan (1) Aspiration pneumonia: - Status post bronchoscopy -Continue Zosyn -Continue Diflucan -Continue Solu-Medrol 40 IV every 12 hours -Speech therapy eval, dysphagia level 5 diet, modified barium swallow tommorow (2) D-dimer, elevated: - CT angiogram no PE (3) Physical deconditioning: (4) Protein calorie malnutrition: (5) Muscle wasting: (6) Weight loss: (7) Acute respiratory failure: -as above (8) COPD exacerbation: -as above (9) Cough with hemoptysis: Plan Moderate troponin elevation: In the 60s. Suspect demand ischemia secondary to acute on chronic respiratory failure. He does not have any chest pain. EKG on my interpretation with incomplete right bundle lizbeth block, T wave inversion in V2, Q wave V1, V2. No definitive findings of acute AR. May have underlying coronary disease with prior history of smoking. Would benefit from follow-up with additional assessment/risk stratification/stress testing. Complete troponin EKG series. Monitor on telemetry. Will add aspirin. Continue beta- constance. Check lipid panel History of PE: No longer on anticoagulation, COPD: Continue budesonide. Add scheduled and as needed DuoNebs. Chronically on 2 L nasal cannula. Weight loss, poor appetite start Remeron tonight Anemia, with scant hemoptysis hold heparin Severe protein calorie malnutrition, physical deconditioning, muscle wasting, weight loss, likely secondary to severe COPD, dietary consulted Full code Subcu heparin for DVT prophylaxis currently on hold due to frothy pink hemoptysis, SCDs Attestations 2 Medical Necessity Statement*: Patient requires hospitalization, for COPD exacerbation, respiratory failure, aspiration pneumonia, scant hemoptysis, severe protein calorie malnutrition, physical deconditioning, weight loss Diagnoses Aspiration pneumonia J69.0 D-dimer, elevated R79.89 Physical deconditioning R53.81 Protein calorie malnutrition E46 Muscle wasting M62.50 Weight loss R63.4 Acute respiratory failure J96.00 COPD exacerbation J44.1 Cough with hemoptysis R04.2
[2023-09-17] MEDS: fluconazole premix 200 MG/100 ML PREMIX 100 MG IV (16:42)
[2023-09-17] MEDS: trazodone 50 mg Tablet 25 MG PO (20:33)
[2023-09-17] MEDS: ALPRAZolam 0.5 mg Tablet PO (20:36)
[2023-09-18] VITALS (18 sets, daily range): BP systolic 128–155; BP diastolic 60–82; PULSE 47–82; RESP 14–20; TEMP 36.4–37; O2SAT 93–99; BMI 17.7
[2023-09-18] MEDS: piperacillin-tazobactam 3.375 GM in sodium chloride 0.9% (plus) 50 ML IV ×3 (01:57→18:15)
[2023-09-18] MEDS: ipratropium-albuterol 3 mL Neb INHALATION ×5 (03:13→22:31)
[2023-09-18 05:16] LABS: Hematocrit 28.6 % (37-53); Lymphocytes # 0.6 10^3/uL (0.8-4.8); Lymphocytes % 8.4 %; Mean Corpuscular HGB Conc 32.2 g/dL (30-55); Mean Corpuscular Hemoglobin 35.1 pg (27-33); Mean Corpuscular Volume 109.2 fl (82-101); Mean Platelet Volume 9.7 fL (7.4-10.4); Monocytes # 0.5 10^3/uL (0.2-0.9); Monocytes % 6.9 %; Neutrophils # 5.72 10^3/uL (1.8-7.7); Neutrophils % 84.1 %; Nucleated Red Blood Cells % 0 %; Platelet Count 209 10^3/cmm (157-399); Red Blood Count 2.62 10^6/uL (3.85-5.65); Red Cell Distribution Width 12.8 % (12.1-15.1)
[2023-09-18 05:40] LABS: Alanine Aminotransferase 7 U/L (0-41); Albumin Level 3.1 g/dL (3.5-5.2); Alkaline Phosphatase 61 U/L (40-130); Anion Gap 8.5 (5-19); Aspartate Amino Transferase 6 U/L (0-40); Blood Urea Nitrogen 20 mg/dL (8-23); Calcium 8.6 mg/dL (8.5-10.5); Carbon Dioxide 37 mmol/L (22-29); Chloride 101 mmol/L (98-107); Creatinine Clr Calc Pharmacy 58.5889; Globulin 2.3 g/dL (1.3-4.6); Glucose 129 mg/dL (65-115); Osmolality Calculated 298 mOsm/kg (285-295); Potassium 4.5 mmol/L (3.5-5.1); Sodium 142 mmol/L (136-145); Total Bilirubin 0.2 mg/dL (0.15-1.2); Total Protein 5.4 g/dL (6.6-8.7)
[2023-09-18 05:43] LABS: NT Pro B Type Natriuretic Pept 1291 pg/mL (0-450)
[2023-09-18 05:47] LABS: Procalcitonin 0.05 ng/mL (0-0.5)
[2023-09-18 05:58] LABS: C Reactive Protein 6.6 mg/L (0.0-4.9); Phosphorus 3.2 mg/dL (2.5-4.5)
[2023-09-18] MEDS: PARoxetine 20 mg Tablet 10 MG PO (06:06)
[2023-09-18] MEDS: methylPREDNISolone sod succ 40 mg/mL INJ IVP (06:06)
[2023-09-18] MEDS: budesonide 0.5 mg/2 mL Neb INHALATION (08:41)
[2023-09-18] MEDS: sodium chloride 3.5% neb 4 mL Neb INHALATION (08:41)
[2023-09-18] MEDS: nystatin 100,000 unit/mL UDC 5 mL 100000 UNIT PO ×3 (09:44→20:36)
[2023-09-18] MEDS: aspirin 81 mg EC Tablet PO (09:44)
[2023-09-18] MEDS: polyethylene glycol 3350 Pkt 17 gm PO (09:44)
[2023-09-18] MEDS: metoprolol tartrate 25 mg Tablet PO ×2 (09:44→18:15)
[2023-09-18] MEDS: benzonatate 100 mg Capsule 200 MG PO ×2 (09:44→20:36)
--- NOTE | 2023-09-18 12:32 | PC.SOCIAL ---
IMM Updated Updated pt on IMM. No questions voiced. Provided pt a copy. Initialed, dated, & timed copy in chart.
--- NOTE | 2023-09-18 14:36 | PM.PN ---
Subjective Subjective: Patient on 2 L nasal cannula. He has been on 2 L for the past 24 hours. This is his baseline. Upon assessment, he is up in the chair watching television. His is bedside. She reports her planning on the swallow study today. Patient denies any dysphagia or choking with swallowing. Discussed his improvement and discussed initiating discharge planning given improving condition. She is concerned as his oxygen had to be turned up to 3 L with exertion. She was also inquiring what the airline reservation agent said this morning. Patient denies nausea, vomiting, fevers or chills. Vitals/I&O/Wt Last Vital Signs Temp 97.9 F 09/18/23 12:00 Pulse 69 09/18/23 13:05 Resp 16 09/18/23 13:05 BP 153/66 09/18/23 12:00 Pulse Ox 96 09/18/23 13:05 O2 Del Method Nasal Cannula 09/18/23 13:05 O2 Flow Rate 2 09/18/23 13:05 FiO2 40 09/18/23 03:14 09/17/23 09/18/23 09/18/23 22:59 06:59 14:59 Intake Total 800 / 2760 50 / 2810 1010 / 1010 Output Total 200 / 550 450 / 1000 Balance 600 / 2210 -400 / 1810 1010 / 1010 Weight last 48 hrs Weight 54.431 kg Weight 58.06 kg Physical Exam Narrative: General: Patient is awake. Alert. Watching television. Chronically frail and cachectic appearing. Head: Normocephalic. Atraumatic. EOM intact. Neck: No JVD. Cardiovascular: RRR. No gallops. No murmurs. Hypertensive. Lungs: Moderate air movement. Prolonged expiratory weights. No wheezing or rales. No crackles. On 2 L. Skin: No jaundice. No rashes. Abdomen: Normal bowel sounds, abdomen soft and nontender. Genito Urinary: Genital exam not performed since complaints not related. Rectal: Rectal exam not performed since no symptoms indicated blood loss. Extremities: No cyanosis or clubbing. Musculoskeletal: No swollen or erythematous joints. Neurological: Moves all 4 extremities. No myoclonus. Data 09/18/23 04:29 09/18/23 04:29 Micro: Microbiology 09/15/23 12:18 Gram Stain - Final Lung Right Lower Lobe Bronchial Washings Culture - Final Klebsiella pneumoniae Serratia marcescens 09/15/23 00:00 Gram Stain - Final Sputum - Expectorated Sputum Sputum Culture - Final Klebsiella pneumoniae A&P Assessment and plan (1) Protein calorie malnutrition: (2) Physical deconditioning: (3) Chronic obstructive pulmonary disease: (4) Acute and chronic respiratory failure with hypercapnia: Plan Chronic hypoxic respiratory failure, oxygen requirement at baseline Suspect community-acquired RLL aspiration pneumonitis/pneumonia with cough/light hemoptysis COPD with acute exacerbation Pulmonary cachexia Compensatory metabolic alkalosis -Status post bronchoscopy upon admission, cultures reviewed, s/f K. pneumo and S. 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 Coding Level of Care Code Acute Code for Chg Fwd Diagnoses Protein calorie malnutrition E46 Physical deconditioning R53.81 Chronic obstructive pulmonary disease J44.9 Acute and chronic respiratory failure with hypercapnia J96.22
[2023-09-18] MEDS: ALPRAZolam 0.5 mg Tablet PO (20:36)
[2023-09-18] MEDS: trazodone 50 mg Tablet 25 MG PO (20:36)
[2023-09-19] VITALS (19 sets, daily range): BP systolic 128–162; BP diastolic 61–76; PULSE 56–88; RESP 12–20; TEMP 36.6–37; O2SAT 95–100
[2023-09-19] MEDS: piperacillin-tazobactam 3.375 GM in sodium chloride 0.9% (plus) 50 ML IV ×3 (01:51→17:32)
[2023-09-19] MEDS: ipratropium-albuterol 3 mL Neb INHALATION ×4 (02:03→19:45)
[2023-09-19 04:30] LABS: Platelet Count 231 10^3/cmm (157-399)
[2023-09-19] MEDS: polyethylene glycol 3350 Pkt 17 gm PO (08:35)
[2023-09-19] MEDS: nystatin 100,000 unit/mL UDC 5 mL 100000 UNIT PO ×2 (08:35→17:30)
[2023-09-19] MEDS: PARoxetine 20 mg Tablet 10 MG PO ×2 (08:36→15:16)
[2023-09-19] MEDS: aspirin 81 mg EC Tablet PO (08:36)
[2023-09-19] MEDS: benzonatate 100 mg Capsule 200 MG PO (08:36)
[2023-09-19] MEDS: predniSONE 20 mg Tablet 40 MG PO (08:36)
[2023-09-19] MEDS: metoprolol tartrate 25 mg Tablet PO ×2 (08:37→17:30)
[2023-09-19] MEDS: sodium chloride 3.5% neb 4 mL Neb INHALATION (08:49)
[2023-09-19] MEDS: budesonide 0.5 mg/2 mL Neb INHALATION ×2 (08:49→19:45)
--- NOTE | 2023-09-19 14:26 | P.PN_ITS ---
Subjective 2 Subjective: Patient visibly dyspneic and in respiratory distress despite a duoneb treatment. He has hemoptysis that I noted. Per , the bright red hue of he hemoptysis has been worsening since admission. He denies CP, palpiations, dizziness, light headedness, f/c, abd pain, n/v. Vitals/I&O/Wt Last Vital Signs Temp 97.8 F 09/19/23 11:45 Pulse 68 09/19/23 11:45 Resp 16 09/19/23 11:45 BP 162/76 09/19/23 08:00 Pulse Ox 97 09/19/23 11:45 O2 Del Method Nasal Cannula 09/19/23 11:45 O2 Flow Rate 2 09/19/23 08:49 FiO2 40 09/19/23 02:05 09/18/23 09/19/23 09/19/23 22:59 06:59 14:59 Intake Total 170 / 1180 170 / 1350 240 / 240 Output Total 700 / 700 Balance 170 / 1180 -530 / 650 240 / 240 Weight last 48 hrs Weight 53.751 kg Weight 54.431 kg Physical Exam 2 Const: GENERAL APPEARANCE: cooperative, well kempt and anxious; not comfortable NUTRITIONAL APPEARANCE: cachectic O RIENTATION/CONSCIOUSNESS: Yes awake, Yes oriented to person, Yes oriented to place and Yes oriented to time HENMT: COMMON NORMALS: normocephalic, atraumatic, external ears normal and Normal external nose present HEAD & SCALP: normocephalic and atraumatic N OSE: Normal external nose present EXTERNAL EAR: Yes external ears normal M OUTH: Normal oral and palatal mucosa present THROAT: posterior oropharynx normal Eye: COMMON NORMALS: Equal, round and reactive pupils present and conjunctivae normal CONJUNCTIVA: Yes conjunctivae normal PUPIL: Yes Equal, round and reactive pupils present EOM: No EOM abnormal Lymph: LYMPHATIC: No lymphadenopathy Resp: OTHER: diminished breath sounds in all lung lucas bilaterally, but no wheezes rales or rhonchi. Cardio: OTHER: Regular rate and rhythm, no murmurs, rubs, gallops, or clicks. No carotid bruits bilaterally. 2+ radial pulses and dorsalis pedis pulses appreciated. GI: OTHER: Bowel sounds positive, nontender, nondistended, no rebound, no guarding, no rigidity, no organomegaly. LLQ colostomy and colostomy bag was noted. An ostomy bag over the suprapubic area, which is where the colovesical fistula is located was also noted. : OTHER: chronic bolden catheter draining yellow urine Extremity: GENERAL: No clubbing, No cyanosis and No edema Neuro: SENSORIUM/ORIENTATION: Yes oriented to person, Yes oriented to place and Yes oriented to time CRANIAL NERVES: Yes CN normal except as noted S PEECH: speech normal SENSORY EXAM: No sensory level loss detected MOTOR EXAM: 5/5 motor strength present throughout and Normal motor muscle tone present throughout Psych: COMMON NORMALS: Normal thought process present and speech normal A PPEARANCE: Yes well kempt ATTITUDE: Yes calm and Yes engaged A CTIVITY/MOTOR BEHAVIOR: Yes appropriate eye contact SPEECH: Yes normal speech MOOD & AFFECT: Yes anxious THOUGHT PROCESS: Normal thought process present THOUGHT CONTENT: Yes Normal thought content present A TTENTION/CONCENTRATION: Yes attention grossly intact MEMORY/COGNITION: Yes memory grossly intact Skin: COMMON NORMALS: no rashes or lesions noted GENERAL SKIN EXAM: no rashes or lesions noted Data 09/20/23 17:24 09/20/23 17:24 Micro: Microbiology 09/15/23 12:18 Fungal Smear - Preliminary Other Source 09/15/23 12:18 Gram Stain - Final Lung Right Lower Lobe Bronchial Washings Culture - Final Klebsiella pneumoniae Serratia marcescens A&P Assessment and plan (1) Acute on chronic respiratory failure with hypoxia and hypercapnia: (2) Pneumonia due to gram-negative bacteria: (3) Hemoptysis, unspecified: (4) Physical deconditioning: (5) Severe protein-calorie malnutrition: (6) Anxiety: (7) Macrocytic anemia: (8) Thrush: Plan Mr. Ba is a 77yo man w/ COPD, chronic hypoxic/hyercapnic respiratory failure on BiPAP at night and chronic continuous 2L NC, hx rectal cancer s/p abdominal perineal sugery in 2004 w/ end colostomy, with a suprapubic catheter perforating the bladder and colon in 02/2023 w/ resultant colovesical fistula being managed by a colorectal surgeon in [place] presented to the ED on 09/14/2023 with complaints of increased dyspnea, productive cough with copious sputum and concern that he had aspirated while taking some medications the day before. In the ED, his O2 requirements worsened to 4L, and his CXR showed a R. LL pneumonia. He was given Ceftriaxone and admitted for acute on chronic hypoxic/hypercapnic respiratory failure, and a right lower lobe pneumonia concerning for aspiration. At this time, the fistula is being managed conservatively w/ a bag over the suprapubic located fistula. On admission, ceftriaxone was escalated to Zosyn. The [employer] was consulted, who did a bronchoscopy and therapeutic aspiration of the tracheobronchial tree to clear airway secretions and remove mucous plugs on 09/15/2023. Endobronchial biopsies sent that was deemed to look like fungal/, and BAL was also done and sent for Gram stain/culture, fungal cultures, and cytology. #Acute on chronic hypoxic/hyercapnic respiratory failure on BiPAP and chronic 2L NC at baseline. - He is now on his baseline 2L NC. #R.LL K. Pneumoniae & Serratia Marcescens Pneumonia - Noted on BAL as well as sputum cx. - Fungal cx also showing azar albicans. -On Zosyn. #Aspiration pneumonia - Swallow study pending to be done on 09/20/2023 - On Zosyn #Acute COPD exacerbation: Solumedrol d/c'ed. On prednisone. Continue duonebs. #Hemoptysis - Will speak w/ [employer] about the Hemoptysis - Hold Aspirin also. #Thrush: Likely what is noted in his BAL. Will d/c nystatin and start fluconazole for 7 days. #8mm YAS pulmonary nodule: F/u w/ outpatient PET CT scan #Macrocytic anemia: Iron studies, b12, folate, retic count and peripheral smear ordered. #Hx of PE noted on 03/21/2023 CT scan, but no DVT: - No longer noted on 09/15/2023 CTA chest. - No longer on therapeutic anticoagulation #Hx of recurrent SBO #Anxiety: He has been on Paroxetine 10mg daily for ~1year now. He also uses THC gummies at home to help. Increased Paroxetine to 20mg. #Severe Protein Calorie Malnutrition (Cachexia): Video Journalist consulted & following. Appreciate recs. #Debility and physical de-conditioning: Patient and declined SNF. Plan to d/c home. DVT ppx: SCD for now Attestations 2 Medical Necessity Statement*: Patient remains hospitalized due to his unstable respiratory status and need for active management. Coding Level of Care Code 39935 Diagnoses Acute on chronic respiratory failure with hypoxia and hypercapnia J96.21; J96.22 Pneumonia due to gram-negative bacteria J15.69 Hemoptysis, unspecified R04.2 Physical deconditioning R53.81 Severe protein-calorie malnutrition E43 Anxiety F41.9 Macrocytic anemia D53.9 Thrush B37.0
[2023-09-19] MEDS: hyDROXYzine 25 mg Capsule PO ×2 (14:55→20:32)
[2023-09-19] MEDS: fluconazole 100 mg Tablet 200 MG PO (20:32)
[2023-09-19] MEDS: trazodone 50 mg Tablet 25 MG PO (20:32)
[2023-09-20] VITALS (14 sets, daily range): BP systolic 132–169; BP diastolic 67–83; PULSE 52–77; RESP 12–20; TEMP 36.4–36.7; O2SAT 93–100
[2023-09-20] MEDS: ipratropium-albuterol 3 mL Neb INHALATION ×4 (02:18→20:21)
[2023-09-20] MEDS: piperacillin-tazobactam 3.375 GM in sodium chloride 0.9% (plus) 50 ML IV ×3 (02:18→17:38)
[2023-09-20] MEDS: budesonide 0.5 mg/2 mL Neb INHALATION ×2 (08:00→20:21)
--- NOTE | 2023-09-20 08:00 | FL_ITS ---
WS: [id number] EXAMINATION: FL barium swallow modifd [id number] ORDER DATE: 09/20/2023 8:00 AM REASON FOR EXAM: Oropharyngeal dysphagia COMPARISON: None available. FLUOROSCOPY TIME: 2min [id number] # OF SPOT FILMS: 8 video runs FINDINGS: There is good oral motor control. Mild free spill over an limited pooling was identified in the vallecula. There was no penetration or aspiration with any of the ingested consistencies. IMPRESSION: Mild free spillover and pooling in the vallecula. There was no penetration or aspiration.
[2023-09-20] MEDS: predniSONE 20 mg Tablet 40 MG PO (10:05)
[2023-09-20] MEDS: aspirin 81 mg EC Tablet PO (10:06)
[2023-09-20] MEDS: metoprolol tartrate 25 mg Tablet PO ×2 (10:06→17:38)
[2023-09-20] MEDS: fluconazole 100 mg Tablet 200 MG PO (10:06)
[2023-09-20] MEDS: PARoxetine 20 mg Tablet PO (10:07)
--- NOTE | 2023-09-20 10:08 | PC.NURSE ---
Patient refused Polyethylene Glycol due to large bm today.
--- NOTE | 2023-09-20 13:08 | PC.SOCIAL ---
IMM Updated Updated pt & on IMM. No questions voiced. Provided pt a copy. Initialed, dated, & timed copy in chart.
--- NOTE | 2023-09-20 17:02 | CTR_ITS ---
PROCEDURE INFORMATION: Exam: CT Chest Without Contrast; Diagnostic Exam date and time: 09/20/2023 6:06 PM Age: 77 years old Clinical indication: Other: Hemoptysis TECHNIQUE: Imaging protocol: Diagnostic computed tomography of the chest without contrast. Radiation optimization: All CT scans at this facility use at least one of these dose optimization techniques: automated exposure control; mA and/or kV adjustment per patient size (includes targeted exams where dose is matched to clinical indication); or iterative reconstruction. COMPARISON: CT angio chest PE protcl [id number] 09/15/2023 8:37 AM RADIATION DOSE METRICS: Total DLP (mGy-cm): 316 FINDINGS: Lungs: Severe emphysematous changes are again noted there is improved aeration of the right lower lobe with decreased consolidative changes. The anterior border of the superior aspect of the consolidation is linear which is nonspecific . Left posterior lower lobe atelectasis is slightly worsened. A 9 mm left anterior lobe nodule is stable. There is likely a trace right pleural effusion. Pleural spaces: See Lungs finding. Heart: Unremarkable. No cardiomegaly. No pericardial effusion. Coronary arteries: Mild coronary artery calcification. Lymph nodes: There are no enlarged mediastinal or axillary lymph nodes. The jo are not well evaluated due to lack of intravenous contrast. Calcified mediastinal and right hilar lymph nodes are stable. Vasculature: Unremarkable. No aortic aneurysm. Bones/joints: Unremarkable. No acute fracture. Soft tissues: Unremarkable. CT/CT chest con [id number] IMPRESSION: 1. Improved aeration of right basilar consolidations. 2. Slight worsening left posterior lower lobe atelectasis. 3. Otherwise stable CT appearance of the chest compared to 09/15/2023.
--- NOTE | 2023-09-20 17:11 | PC.OT ---
OT treatment attempted with patient declining; will attempt at later time.
[2023-09-20 17:48] LABS: Lymphocytes # 0.6 10^3/uL (0.8-4.8); Lymphocytes % 6.1 %; Mean Corpuscular HGB Conc 31.4 g/dL (30-55); Mean Corpuscular Volume 101.7 fl (82-101); Mean Platelet Volume 9.4 fL (7.4-10.4); Monocytes # 0.2 10^3/uL (0.2-0.9); Monocytes % 2.1 %; Neutrophils % 91.5 %; Nucleated Red Blood Cells % 0 %; Platelet Count 294 10^3/cmm (157-399); Red Blood Count 3.44 10^6/uL (3.85-5.65); Red Cell Distribution Width 12.4 % (12.1-15.1)
[2023-09-20 18:11] LABS: Alanine Aminotransferase 12 U/L (0-41); Albumin Level 3.5 g/dL (3.5-5.2); Alkaline Phosphatase 80 U/L (40-130); Anion Gap 8.5 (5-19); Aspartate Amino Transferase 8 U/L (0-40); Blood Urea Nitrogen 19 mg/dL (8-23); Calcium 9.1 mg/dL (8.5-10.5); Carbon Dioxide 39 mmol/L (22-29); Chloride 93 mmol/L (98-107); Creatinine Clr Calc Pharmacy 55.8118; Ferritin 156 ng/mL (30-400); Globulin 2.7 g/dL (1.3-4.6); Glucose 172 mg/dL (65-115); Iron 33 ug/dL (59-158); Magnesium 1.8 mg/dL (1.7-2.3); Osmolality Calculated 288 mOsm/kg (285-295); Percent Saturation 14.6 % (20-50); Phosphorus 3.5 mg/dL (2.5-4.5); Potassium 4.5 mmol/L (3.5-5.1); Sodium 136 mmol/L (136-145); Total Bilirubin 0.2 mg/dL (0.15-1.2); Total Iron Binding Capacity 225 mcg/dl; Total Protein 6.2 g/dL (6.6-8.7); Unsaturated Iron Binding 192 ug/dL (112-347)
[2023-09-20 18:12] LABS: Iron 34 ug/dL (59-158)
[2023-09-20 18:25] LABS: Vitamin B12 449 pg/mL (232-1245)
[2023-09-20 18:27] LABS: Reticulocyte % 1.1 % (0.5-2.0)
--- NOTE | 2023-09-20 18:57 | P.PN_ITS ---
Subjective 2 Subjective: Patient states that he had an increased episode of hemoptysis this morning, but after the episode of hemoptysis this morning, he has had minimal bloody sputum throughout the day. According to the who is at bedside, the patient also used his BiPAP for most of the night till 4 AM this morning, so he has been less dyspneic. The patient endorses that he is less dyspneic today. He worked with PT today. He denies CP, palpiations, dizziness, light headedness, f/c, abd pain, n/v. I will order CT chest scan today to evaluate his hemoptysis Medications: Reviewed: Yes Vitals/I&O/Wt Last Vital Signs Temp 97.8 F 09/20/23 11:51 Pulse 62 09/20/23 16:00 Resp 15 09/20/23 16:00 BP 132/74 09/20/23 16:00 Pulse Ox 97 09/20/23 16:00 O2 Del Method Nasal Cannula 09/20/23 16:00 O2 Flow Rate 2 09/20/23 13:15 FiO2 40 09/20/23 04:00 09/20/23 09/20/23 09/20/23 06:59 14:59 22:59 Intake Total 250 / 1070 650 / 650 120 / 770 Output Total 1500 / 1650 1100 / 1100 Balance -1250 / -580 650 / 650 -980 / -330 Weight last 48 hrs Weight 51.851 kg Weight 53.751 kg Physical Exam 2 Const: GENERAL APPEARANCE: cooperative, well kempt and anxious; not comfortable NUTRITIONAL APPEARANCE: cachectic O RIENTATION/CONSCIOUSNESS: Yes awake, Yes oriented to person, Yes oriented to place and Yes oriented to time HENMT: COMMON NORMALS: normocephalic, atraumatic, external ears normal and Normal external nose present HEAD & SCALP: normocephalic and atraumatic N OSE: Normal external nose present EXTERNAL EAR: Yes external ears normal M OUTH: Normal oral and palatal mucosa present THROAT: posterior oropharynx normal Eye: COMMON NORMALS: Equal, round and reactive pupils present and conjunctivae normal CONJUNCTIVA: Yes conjunctivae normal PUPIL: Yes Equal, round and reactive pupils present EOM: No EOM abnormal Lymph: LYMPHATIC: No lymphadenopathy Resp: OTHER: diminished breath sounds in all lung lucas bilaterally, but no wheezes rales or rhonchi. Cardio: OTHER: Regular rate and rhythm, no murmurs, rubs, gallops, or clicks. No carotid bruits bilaterally. 2+ radial pulses and dorsalis pedis pulses appreciated. GI: OTHER: Bowel sounds positive, nontender, nondistended, no rebound, no guarding, no rigidity, no organomegaly. LLQ colostomy and colostomy bag was noted. An ostomy bag over the suprapubic area, which is where the colovesical fistula is located was also noted. : OTHER: chronic bolden catheter draining yellow urine Extremity: GENERAL: No clubbing, No cyanosis and No edema Neuro: SENSORIUM/ORIENTATION: Yes oriented to person, Yes oriented to place and Yes oriented to time CRANIAL NERVES: Yes CN normal except as noted S PEECH: speech normal SENSORY EXAM: No sensory level loss detected MOTOR EXAM: 5/5 motor strength present throughout and Normal motor muscle tone present throughout Psych: COMMON NORMALS: Normal thought process present and speech normal A PPEARANCE: Yes well kempt ATTITUDE: Yes calm and Yes engaged A CTIVITY/MOTOR BEHAVIOR: Yes appropriate eye contact SPEECH: Yes normal speech MOOD & AFFECT: Yes anxious THOUGHT PROCESS: Normal thought process present THOUGHT CONTENT: Yes Normal thought content present A TTENTION/CONCENTRATION: Yes attention grossly intact MEMORY/COGNITION: Yes memory grossly intact Skin: COMMON NORMALS: no rashes or lesions noted GENERAL SKIN EXAM: no rashes or lesions noted Data 09/20/23 17:24 09/20/23 17:24 Micro: Microbiology 09/14/23 20:42 Blood Culture - Final Blood NO GROWTH AFTER 5 DAYS 09/14/23 20:37 Blood Culture - Final Blood NO GROWTH AFTER 5 DAYS A&P Assessment and plan (1) Acute on chronic respiratory failure with hypoxia and hypercapnia: (2) Pneumonia due to gram-negative bacteria: (3) Hemoptysis, unspecified: (4) Physical deconditioning: (5) Severe protein-calorie malnutrition: (6) Anxiety: (7) Macrocytic anemia: (8) Thrush: Plan Mr. Ba is a 77yo man w/ COPD, chronic hypoxic/hyercapnic respiratory failure on BiPAP at night and chronic continuous 2L NC, hx rectal cancer s/p abdominal perineal sugery in 2004 w/ end colostomy, with a suprapubic catheter perforating the bladder and colon in 02/2023 w/ resultant colovesical fistula being managed by a colorectal surgeon in [place] presented to the ED on 09/14/2023 with complaints of increased dyspnea, productive cough with copious sputum and concern that he had aspirated while taking some medications the day before. In the ED, his O2 requirements worsened to 4L, and his CXR showed a R. LL pneumonia. He was given Ceftriaxone and admitted for acute on chronic hypoxic/hypercapnic respiratory failure, and a right lower lobe pneumonia concerning for aspiration. At this time, the fistula is being managed conservatively w/ a bag over the suprapubic located fistula. On admission, ceftriaxone was escalated to Zosyn. The Freight Car Builder was consulted, who did a bronchoscopy and therapeutic aspiration of the tracheobronchial tree to clear airway secretions and remove mucous plugs on 09/15/2023. Endobronchial biopsies sent that was deemed to look like fungal/, and BAL was also done and sent for Gram stain/culture, fungal cultures, and cytology. #Acute on chronic hypoxic/hyercapnic respiratory failure on BiPAP and chronic 2L NC at baseline. - He is now on his baseline 2L NC. Continue to encourage use of BiPAP at night. #R.LL K. Pneumoniae & Serratia Marcescens Pneumonia - Noted on BAL as well as sputum cx. - Fungal cx also showing azar albicans. -On Zosyn. #Aspiration pneumonia - Swallow study pending to be done on 09/20/2023 - On Zosyn #Acute COPD exacerbation: Solumedrol d/c'ed. On prednisone. Continue duonebs. #Hemoptysis -Per discussion with the Freight Car Builder about the Hemoptysis, will repeat CT chest without contrast, ensure that the patient remains hemodynamically stable, and that his Hgb is not decreasing drastically. - Hold Aspirin also. #CAD: On Aspirin #Thrush: Likely what is noted in his BAL. Will d/c nystatin and start fluconazole for 7 days. #8mm YAS pulmonary nodule: F/u w/ outpatient PET CT scan #Macrocytic anemia: F/u retic count and peripheral smear ordered. #AOCD w/ iron deficiency: Started Iron Sucrose (Venofer) at 300mg IV on 09/20/2023. #Hx of PE noted on 03/21/2023 CT scan, but no DVT: - No longer noted on 09/15/2023 CTA chest. - No longer on therapeutic anticoagulation #Hx of recurrent SBO #Anxiety: He has been on Paroxetine 10mg daily for ~1year now. He also uses THC gummies at home to help. Increased Paroxetine to 20mg. #Severe Protein Calorie Malnutrition (Cachexia): Hobbing Machine Operator consulted & following. Appreciate recs. #Debility and physical de-conditioning: Patient and declined SNF. Plan to d/c home. DVT ppx: SCD for now Code status discussion: I had an extended discussion with the patient and his , and based on our discussion, the patient, himself, told me that he is full code. I do not believe that the patient and his are in the mindset of discussing palliative care or even hospice care. Given that, it would not be in anyone's best interest to pursue discussion of palliative care or hospice care in the outpatient setting at this time. Attestations 2 Medical Necessity Statement*: Patient remains hospitalized for Coding Level of Care Code 31733 Diagnoses Acute on chronic respiratory failure with hypoxia and hypercapnia J96.21; J96.22 Pneumonia due to gram-negative bacteria J15.69 Hemoptysis, unspecified R04.2 Physical deconditioning R53.81 Severe protein-calorie malnutrition E43 Anxiety F41.9 Macrocytic anemia D53.9 Thrush B37.0
[2023-09-20] MEDS: trazodone 50 mg Tablet 25 MG PO (21:01)
[2023-09-20] MEDS: hyDROXYzine 25 mg Capsule PO (21:01)
[2023-09-20 21:16] LABS: LAB Peripheral Smear Sent for Review
[2023-09-20] MEDS: iron sucrose 300 MG in sodium chloride 0.9% (100 ml) 100 ML 220 MG IV (22:29)
[2023-09-21] VITALS (15 sets, daily range): BP systolic 127–167; BP diastolic 57–81; PULSE 48–96; RESP 12–17; TEMP 36.3–36.7; O2SAT 94–99
[2023-09-21] MEDS: piperacillin-tazobactam 3.375 GM in sodium chloride 0.9% (plus) 50 ML IV ×2 (03:00→11:28)
[2023-09-21] MEDS: ipratropium-albuterol 3 mL Neb INHALATION ×4 (03:03→20:07)
[2023-09-21 05:35] LABS: Eosinophils % 0.1 %; Hematocrit 30.3 % (37-53); Lymphocytes % 13.8 %; Mean Corpuscular Volume 106.3 fl (82-101); Mean Platelet Volume 9.4 fL (7.4-10.4); Monocytes # 0.8 10^3/uL (0.2-0.9); Monocytes % 10.5 %; Neutrophils # 5.39 10^3/uL (1.8-7.7); Neutrophils % 75.3 %; Nucleated Red Blood Cells % 0 %; Platelet Count 237 10^3/cmm (157-399); Red Blood Count 2.85 10^6/uL (3.85-5.65); Red Cell Distribution Width 12.6 % (12.1-15.1); White Blood Count 7.16 10^3/uL (3.29-11.43)
[2023-09-21 05:59] LABS: Alanine Aminotransferase 9 U/L (0-41); Albumin Level 3.1 g/dL (3.5-5.2); Alkaline Phosphatase 67 U/L (40-130); Aspartate Amino Transferase 8 U/L (0-40); Blood Urea Nitrogen 14 mg/dL (8-23); Carbon Dioxide 40 mmol/L (22-29); Chloride 98 mmol/L (98-107); Creatinine Clr Calc Pharmacy 59.1379; Globulin 2.3 g/dL (1.3-4.6); Glucose 96 mg/dL (65-115); Osmolality Calculated 292 mOsm/kg (285-295); Phosphorus 2.6 mg/dL (2.5-4.5); Sodium 141 mmol/L (136-145); Total Bilirubin 0.2 mg/dL (0.15-1.2); Total Protein 5.4 g/dL (6.6-8.7)
[2023-09-21] MEDS: budesonide 0.5 mg/2 mL Neb INHALATION ×2 (08:02→20:07)
[2023-09-21] MEDS: fluconazole 100 mg Tablet 200 MG PO (08:28)
[2023-09-21] MEDS: PARoxetine 20 mg Tablet PO (08:28)
[2023-09-21] MEDS: predniSONE 20 mg Tablet 30 MG PO (08:29)
[2023-09-21] MEDS: metoprolol tartrate 25 mg Tablet PO ×2 (08:36→17:05)
[2023-09-21] MEDS: iron sucrose 300 MG in sodium chloride 0.9% (100 ml) 100 ML 220 MG IV (14:08)
--- NOTE | 2023-09-21 14:52 | ECG_ITS ---
[facility] Test Date: 2023-09-21 Pat Name: Doroteo Ba Department: Room: 255 Gender: Male Duck Bill Operator: : 1945 Requested By: Sulma Lagunas Order Number: [id number] Debra MD: Keron Powers M.D. Measurements Intervals [place] Rate: 74 P: 95 W[place]: 135 QRS: 85 QRSD: 113 T: 75 QT: 362 QTc: 402 Interpretive Statements SINUS RHYTHM WITH FREQUENT VENTRICULAR PREMATURE COMPLEXES INDETERMINATE AXIS INCOMPLETE RIGHT BUNDLE BRANCH BLOCK [90+ ms QRS DURATION, TERMINAL R IN V1/V2, 40+ ms S IN I/aVL/V4/V5/V6] POSSIBLE ANTERIOR MYOCARDIAL INFARCTION , OF INDETERMINATE AGE [30 ms Q WAVE IN V3/V4, OR R < 0.2 mV IN V4] Compared to ECG 09/15/2023 00:20:19 No significant changes Electronically Signed On 09-21-2023 20:06:11 MID LEVEL DEVELOPER by Keron Powers M.D. [id number]
--- NOTE | 2023-09-21 14:53 | PC.NURSE ---
Notified Dr. Lagunas of run of PVCs and Frequent PVCs. Verbal order to run EKG.
[2023-09-21] MEDS: cefTRIAXone 1,000 MG in sodium chloride 0.9% (plus) 50 ML 100 MG IV (15:14)
[2023-09-21] MEDS: FUROsemide 10 mg/mL SDV 2mL 20 MG IVP (15:55)
[2023-09-21] MEDS: acetaZOLAMIDE 250 mg Tablet PO (15:55)
--- NOTE | 2023-09-21 19:10 | P.PN_ITS ---
Subjective 2 Subjective: Patient states that he had an decreased episode of hemoptysis this morning. He was able to wear the BiPAP throughout the night, but did not have very restful sleep. He denies CP, palpiations, dizziness, light headedness, f/c, abd pain, n/v. His potassium is 5.0 today and it is unclear why. He has frequent PVCs per the nurses, but that has been the case for the last few days. His did not bring his oxygen tank, so he is an unsafe discharge. Will give him IV iron, Ceftriaxone, Lasix x 1, and Medications: Reviewed: Yes Vitals/I&O/Wt Last Vital Signs Temp 97.6 F 09/21/23 15:23 Pulse 96 09/21/23 15:23 Resp 14 09/21/23 15:23 BP 143/65 09/21/23 15:23 Pulse Ox 95 09/21/23 15:23 O2 Del Method Nasal Cannula 09/21/23 15:23 O2 Flow Rate 2 09/21/23 13:03 FiO2 40 09/21/23 08:04 09/21/23 09/21/23 09/21/23 06:59 14:59 22:59 Intake Total 162.5 / 982.5 480 / 480 455 / 935 Output Total 900 / 2200 250 / 250 Balance -737.5 / -1217.5 230 / 230 455 / 685 Weight last 48 hrs Weight 54.941 kg Weight 51.851 kg Physical Exam 2 Const: GENERAL APPEARANCE: cooperative, well kempt and anxious; not comfortable NUTRITIONAL APPEARANCE: cachectic O RIENTATION/CONSCIOUSNESS: Yes awake, Yes oriented to person, Yes oriented to place and Yes oriented to time HENMT: COMMON NORMALS: normocephalic, atraumatic, external ears normal and Normal external nose present HEAD & SCALP: normocephalic and atraumatic N OSE: Normal external nose present EXTERNAL EAR: Yes external ears normal M OUTH: Normal oral and palatal mucosa present THROAT: posterior oropharynx normal Eye: COMMON NORMALS: Equal, round and reactive pupils present and conjunctivae normal CONJUNCTIVA: Yes conjunctivae normal PUPIL: Yes Equal, round and reactive pupils present EOM: No EOM abnormal Lymph: LYMPHATIC: No lymphadenopathy Resp: OTHER: diminished breath sounds in all lung lucas bilaterally, but no wheezes rales or rhonchi. Cardio: OTHER: Regular rate and rhythm, no murmurs, rubs, gallops, or clicks. No carotid bruits bilaterally. 2+ radial pulses and dorsalis pedis pulses appreciated. GI: OTHER: Bowel sounds positive, nontender, nondistended, no rebound, no guarding, no rigidity, no organomegaly. LLQ colostomy and colostomy bag was noted. An ostomy bag over the suprapubic area, which is where the colovesical fistula is located was also noted. : OTHER: chronic bolden catheter draining yellow urine Extremity: GENERAL: No clubbing, No cyanosis and No edema Neuro: SENSORIUM/ORIENTATION: Yes oriented to person, Yes oriented to place and Yes oriented to time CRANIAL NERVES: Yes CN normal except as noted S PEECH: speech normal SENSORY EXAM: No sensory level loss detected MOTOR EXAM: 5/5 motor strength present throughout and Normal motor muscle tone present throughout Psych: COMMON NORMALS: Normal thought process present and speech normal A PPEARANCE: Yes well kempt ATTITUDE: Yes calm and Yes engaged A CTIVITY/MOTOR BEHAVIOR: Yes appropriate eye contact SPEECH: Yes normal speech MOOD & AFFECT: Yes anxious THOUGHT PROCESS: Normal thought process present THOUGHT CONTENT: Yes Normal thought content present A TTENTION/CONCENTRATION: Yes attention grossly intact MEMORY/COGNITION: Yes memory grossly intact Skin: COMMON NORMALS: no rashes or lesions noted GENERAL SKIN EXAM: no rashes or lesions noted Data 09/22/23 04:13 09/22/23 04:13 A&P Assessment and plan (1) Acute on chronic respiratory failure with hypoxia and hypercapnia: (2) Pneumonia due to gram-negative bacteria: (3) Hemoptysis, unspecified: (4) Physical deconditioning: (5) Severe protein-calorie malnutrition: (6) Anxiety: (7) Macrocytic anemia: (8) Thrush: (9) COPD exacerbation: Plan Mr. Ba is a 77yo man w/ COPD, chronic hypoxic/hyercapnic respiratory failure on BiPAP at night and chronic continuous 2L NC, hx rectal cancer s/p abdominal perineal sugery in 2004 w/ end colostomy, with a suprapubic catheter perforating the bladder and colon in 02/2023 w/ resultant colovesical fistula being managed by a colorectal surgeon in [place] presented to the ED on 09/14/2023 with complaints of increased dyspnea, productive cough with copious sputum and concern that he had aspirated while taking some medications the day before. In the ED, his O2 requirements worsened to 4L, and his CXR showed a R. LL pneumonia. He was given Ceftriaxone and admitted for acute on chronic hypoxic/hypercapnic respiratory failure, and a right lower lobe pneumonia concerning for aspiration. At this time, the fistula is being managed conservatively w/ a bag over the suprapubic located fistula. On admission, ceftriaxone was escalated to Zosyn. The Airport Shuttle Driver was consulted, who did a bronchoscopy and therapeutic aspiration of the tracheobronchial tree to clear airway secretions and remove mucous plugs on 09/15/2023. Endobronchial biopsies sent that was deemed to look like fungal/, and BAL was also done and sent for Gram stain/culture, fungal cultures, and cytology. #Acute on chronic hypoxic/hyercapnic respiratory failure on BiPAP and chronic 2L NC at baseline. - He is now on his baseline 2L NC. Continue to encourage use of BiPAP at night. #R.LL K. Pneumoniae & Serratia Marcescens Pneumonia - Noted on BAL as well as sputum cx. - Fungal cx also showing azar albicans. -On Zosyn. #Aspiration pneumonia - Swallow study pending to be done on 09/20/2023 - On Zosyn #Acute COPD exacerbation: Solumedrol d/c'ed. On prednisone. Continue duonebs. #Hemoptysis -Per discussion with the Airport Shuttle Driver about the Hemoptysis, will repeat CT chest without contrast, ensure that the patient remains hemodynamically stable, and that his Hgb is not decreasing drastically. - Hold Aspirin also. #CAD: On Aspirin #Thrush: Likely what is noted in his BAL. Will d/c nystatin and start fluconazole for 7 days. #8mm YAS pulmonary nodule: F/u w/ outpatient PET CT scan #Macrocytic anemia: F/u retic count and peripheral smear ordered. #AOCD w/ iron deficiency: Started Iron Sucrose (Venofer) at 300mg IV on 09/20/2023. gave another dose on 09/21/2022. #Hx of PE noted on 03/21/2023 CT scan, but no DVT: - No longer noted on 09/15/2023 CTA chest. - No longer on therapeutic anticoagulation #Hx of recurrent SBO #Anxiety: He has been on Paroxetine 10mg daily for ~1year now. He also uses THC gummies at home to help. Increased Paroxetine to 20mg. #Severe Protein Calorie Malnutrition (Cachexia): Surgery Aid consulted & following. Appreciate recs. #Debility and physical de-conditioning: Patient and declined SNF. Plan to d/c home. DVT ppx: SCD for now Code status discussion: I had an extended discussion with the patient and his , and based on our discussion, the patient, himself, told me that he is full code. I do not believe that the patient and his are in the mindset of discussing palliative care or even hospice care. Given that, it would not be in anyone's best interest to pursue discussion of palliative care or hospice care in the outpatient setting at this time. Attestations 2 Medical Necessity Statement*: Patient remains hospitalized for his medical problems and is not a safe discharge at this time. Plan for discharge on 09/22/2023 Coding Level of Care Code Acute Code for Chg Fwd Diagnoses Acute on chronic respiratory failure with hypoxia and hypercapnia J96.21; J96.22 Pneumonia due to gram-negative bacteria J15.69 Hemoptysis, unspecified R04.2 Physical deconditioning R53.81 Severe protein-calorie malnutrition E43 Anxiety F41.9 Macrocytic anemia D53.9 Thrush B37.0 COPD exacerbation J44.1
[2023-09-21] MEDS: trazodone 50 mg Tablet 25 MG PO (19:47)
[2023-09-21] MEDS: hyDROXYzine 25 mg Capsule PO (19:47)
[2023-09-22] VITALS (10 sets, daily range): BP systolic 110–148; BP diastolic 65–73; PULSE 51–74; RESP 15–20; TEMP 36.4–36.8; O2SAT 91–99; BMI 17.4
[2023-09-22] MEDS: ipratropium-albuterol 3 mL Neb INHALATION ×3 (02:46→13:27)
[2023-09-22 04:42] LABS: Basophils % 0.1 %; Eosinophils % 0.5 %; Hematocrit 31.8 % (37-53); Mean Corpuscular HGB Conc 31.1 g/dL (30-55); Mean Corpuscular Hemoglobin 32.1 pg (27-33); Mean Corpuscular Volume 103.2 fl (82-101); Mean Platelet Volume 9.2 fL (7.4-10.4); Monocytes # 0.9 10^3/uL (0.2-0.9); Monocytes % 11.1 %; Neutrophils # 5.87 10^3/uL (1.8-7.7); Neutrophils % 74.8 %; Nucleated Red Blood Cells % 0 %; Platelet Count 251 10^3/cmm (157-399); Red Blood Count 3.08 10^6/uL (3.85-5.65); Red Cell Distribution Width 12.7 % (12.1-15.1); White Blood Count 7.85 10^3/uL (3.29-11.43)
[2023-09-22 05:07] LABS: Alanine Aminotransferase 11 U/L (0-41); Albumin Level 3.2 g/dL (3.5-5.2); Alkaline Phosphatase 68 U/L (40-130); Aspartate Amino Transferase 10 U/L (0-40); Blood Urea Nitrogen 22 mg/dL (8-23); Calcium 9.4 mg/dL (8.5-10.5); Carbon Dioxide 36 mmol/L (22-29); Chloride 98 mmol/L (98-107); Creatinine Clr Calc Pharmacy 59.1379; Globulin 2.3 g/dL (1.3-4.6); Glucose 91 mg/dL (65-115); Osmolality Calculated 293 mOsm/kg (285-295); Phosphorus 2.6 mg/dL (2.5-4.5); Sodium 140 mmol/L (136-145); Total Bilirubin 0.2 mg/dL (0.15-1.2); Total Protein 5.5 g/dL (6.6-8.7)
[2023-09-22] MEDS: budesonide 0.5 mg/2 mL Neb INHALATION (08:20)
[2023-09-22 10:27] LABS: Magnesium 1.9 mg/dL (1.7-2.3); Phosphorus 2.1 mg/dL (2.5-4.5)
[2023-09-22] MEDS: cefTRIAXone 2,000 MG in sodium chloride 0.9% (plus) 50 ML 100 MG IV (10:51)
[2023-09-22] MEDS: fluconazole 100 mg Tablet 200 MG PO (10:53)
[2023-09-22] MEDS: hyDROXYzine 25 mg Capsule PO (10:53)
[2023-09-22] MEDS: predniSONE 20 mg Tablet 30 MG PO (10:54)
[2023-09-22] MEDS: metoprolol tartrate 25 mg Tablet PO (10:54)
[2023-09-22] MEDS: PARoxetine 20 mg Tablet PO (10:54)
[2023-09-22] MEDS: iron sucrose 300 MG in sodium chloride 0.9% (100 ml) 100 ML 220 MG IV (11:47)
--- NOTE | 2023-09-22 13:01 | PC.SOCIAL ---
IMM Updated Updated pt & on IMM. No questions voiced. Provided pt a copy. Initialed, dated, & timed copy in chart.
--- NOTE | 2023-09-22 14:55 | P.DS_ITS ---
Discharge Providers Date of Admission: 09/14/23 21:19 Date of Discharge: September 22, 2023 Attending Provider at Admission: Kodi Banks Attending Provider at Discharge: Sulma Lagunas MD Primary Care Provider: Andrea Santiago DO Diagnoses at Discharge Discharge Diagnosis (1) Acute on chronic respiratory failure with hypoxia and hypercapnia: Status: Resolved (2) Pneumonia due to gram-negative bacteria: Status: Resolved (3) Hemoptysis, unspecified: Status: Resolved (4) Physical deconditioning: Status: Resolved (5) Severe protein-calorie malnutrition: Status: Inactive (6) Anxiety: Status: Inactive (7) Macrocytic anemia: Status: Inactive (8) Thrush: Status: Resolved (9) COPD exacerbation: Status: Resolved Reason for Visit Reason for Visit: Sob, Hospital Course Hospital Course Mr. Ba is a 77yo man w/ COPD, chronic hypoxic/hyercapnic respiratory failure on BiPAP at night and chronic continuous 2L NC, hx rectal cancer s/p abdominal perineal sugery in 2004 w/ end colostomy, with a suprapubic catheter perforating the bladder and colon in 02/2023 w/ resultant colovesical fistula being managed by a colorectal surgeon in [place] presented to the ED on 09/14/2023 with complaints of increased dyspnea, productive cough with copious sputum and concern that he had aspirated while taking some medications the day before. In the ED, his O2 requirements worsened to 4L, and his CXR showed a R. LL pneumonia. He was given Ceftriaxone and admitted for acute on chronic hypoxic/hypercapnic respiratory failure, and a right lower lobe pneumonia concerning for aspiration. On admission, ceftriaxone was escalated to Zosyn. The Head Inspector And Center Marker was consulted, who did a bronchoscopy and therapeutic aspiration of the tracheobronchial tree to clear airway secretions and remove mucous plugs on 09/15/2023. Endobronchial biopsies were sent appeared like fungal thrush in the airways were sent. BAL was also done and sent for Gram stain/culture, fungal cultures, and cytology. Patient's Sputum Cx was positive for K. pneumoniae. His BAL showed K. Pneumoniae & Serratia Marcescens pneumoniae. His fungal cx showed azar albicans. He was managed with Zosyn, and Nystatin but eventually switched to Fluconazole. He had a modified barium swallow study on 09/20/2023 that was negative for penetration or Aspiration. He was encouraged to eat moist and soft foods and to chew very well prior to swallowing. while hospitalized, he and his complained of hemoptysis, but with him being switched to fluconazole, the hemoptysis started to resolve. He was switched to ceftriaxone on his last 2 days while hospitalized. He received a total of 9 days of IV antibiotics while hospitalized. He did not need antibiotics at the time of discharge. He was discharged with enough Fluconazole to complete a 10-day course. 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 While hospitalized, the patient and his mentioned that the patient was very anxious, and he has been taking 10 mg of Paroxetine daily at home for ap proximately 1 year. At baseline he also uses THC Gummies at home to help with the anxiety. I informed them that the maximum dose of paroxetine is 80 mg, and his dose was increased to 20 mg daily. They were informed that his dose can be increased every 4 to 6 weeks if he continues to feel anxious. Hydroxyzine as well as as needed Xanax was added to his regimen while hospitalized. He felt relief with his hydroxyzine, as well as with Xanax, such that he could tolerate the BiPAP. He was discharged with both hydroxyzine and a one-time prescription of Xanax to use interchangeably, with the understanding that he will likely not be able to get a refill of his Xanax, especially because [facility]. While hospitalized he was also given 3 days of Iron Sucrose (Venofer) at 300mg IV Of note, at this time, the colovesical fistula is being managed conservatively w/ an ostomy bag over the suprapubic located fistula. #Acute on chronic hypoxic/hyercapnic respiratory failure on BiPAP and chronic 2L NC at baseline. - He is now on his baseline 2L NC. Continue to encourage use of BiPAP at night. #R.LL K. Pneumoniae & Serratia Marcescens Pneumonia #Oral Thrush #Aspiration pneumonia #Acute COPD exacerbation: Solumedrol d/c'ed. On prednisone. Continue duonebs. #Hemoptysis #8mm YAS pulmonary nodule: F/u w/ outpatient PET CT scan #Macrocytic anemia: F/u retic count and peripheral smear ordered. #AOCD w/ iron deficiency: Started Iron Sucrose (Venofer) at 300mg IV on 09/20/2023. #Hx of PE noted on 03/21/2023 CT scan, but no DVT. - No longer noted on 09/15/2023 CTA chest. - No longer on therapeutic anticoagulation #Hx of recurrent SBO #Anxiety: He has been on Paroxetine 10mg daily for ~1year now. He also uses THC gummies at home to help. Increased Paroxetine to 20mg. #CAD: On Aspirin #Severe Protein Calorie Malnutrition (Cachexia): Contribution Solicitor consulted & following. Appreciate recs. #Debility and physical de-conditioning: Patient and declined SNF. Plan to d/c home. Code status discussion: I had an extended discussion with the patient and his , and based on our discussion, the patient, himself, told me that he is full code. I do not believe that the patient and his are in the mindset of discussing palliative care or even hospice care. Given that, it would not be in anyone's best interest to pursue discussion of palliative care or hospice care in the outpatient setting at this time. Physical Exam Const: GENERAL APPEARANCE: cooperative, well kempt and anxious; not comfortable NUTRITIONAL APPEARANCE: cachectic ORIENTATION/CONSCIOUSNESS: Yes awake, Yes oriented to person, Yes oriented to place and Yes oriented to time HENMT: COMMON NORMALS: normocephalic, atraumatic, external ears normal and Normal external nose present HEAD & SCALP: normocephalic and atraumatic NOSE: Normal external nose present EXTERNAL EAR: Yes external ears normal MOUTH: Normal oral and palatal mucosa present THROAT: posterior oropharynx normal Eye: COMMON NORMALS: Equal, round and reactive pupils present and conjunctivae normal CONJUNCTIVA: Yes conjunctivae normal PUPIL: Yes Equal, round and reactive pupils present EOM: No EOM abnormal Lymph: LYMPHATIC: No lymphadenopathy Resp: OTHER: diminished breath sounds in all lung lucas bilaterally, but no wheezes rales or rhonchi. Cardio: OTHER: Regular rate and rhythm, no murmurs, rubs, gallops, or clicks. No carotid bruits bilaterally. 2+ radial pulses and dorsalis pedis pulses appreciated. GI: OTHER: Bowel sounds positive, nontender, nondistended, no rebound, no guarding, no rigidity, no organomegaly. LLQ colostomy and colostomy bag was noted. An ostomy bag over the suprapubic area, which is where the colovesical fistula is located was also noted. : OTHER: chronic bolden catheter draining yellow urine Extremity: GENERAL: No clubbing, No cyanosis and No edema Neuro: SENSORIUM/ORIENTATION: Yes oriented to person, Yes oriented to place and Yes oriented to time CRANIAL NERVES: Yes CN normal except as noted SPEECH: speech normal SENSORY EXAM: No sensory level loss detected MOTOR EXAM: 5/5 motor strength present throughout and Normal motor muscle tone present throughout Psych: COMMON NORMALS: Normal thought process present and speech normal APPEARANCE: Yes well kempt ATTITUDE: Yes calm and Yes engaged ACTIVITY/MOTOR BEHAVIOR: Yes appropriate eye contact SPEECH: Yes normal speech MOOD & AFFECT: Yes anxious THOUGHT PROCESS: Normal thought process present THOUGHT CONTENT: Yes Normal thought content present ATTENTION/CONCENTRATION: Yes attention grossly intact MEMORY/COGNITION: Yes memory grossly intact Skin: COMMON NORMALS: no rashes or lesions noted GENERAL SKIN EXAM: no rashes or lesions noted Discharge Data Studies Completed and Pending Completed Studies During Hospitalization Category Date Time Status CT angio chest PE protcl 09203 Stat Cat Scan 09/15/23 08:[address] chest wo con [id number] Routine Cat Scan 09/20/23 17:02 Completed CXRP [XR chest 1V portable [id number]] Routine Exams 09/14/23 23:29 Completed FL barium swallow modifd [id number] Routine Exams 09/20/23 08:00 Completed XR chest 1V portable [id number] Stat Exams 09/14/23 18:17 Completed Cytology [PTH] Routine Pth 09/15/23 12:17 Completed Pathology: Surgical [PTH] Routine Pth 09/15/23 12:31 Completed Pending at discharge Category Date Time Status CBC Auto Diff [Complete Blood Count w/Auto] AM LABS Lab 09/23/23 04:00 Ordered CMP [Comprehensive Metabolic Panel] AM LABS Lab 09/23/23 04:00 Ordered Fungal Culture not HR/SK/BL Routine Lab 09/15/23 12:18 Results Radiology Impressions Chest X-Ray 09/14/23 23:29 IMPRESSION: Severe right lower lobe pneumonia/aspiration again demonstrated without significant radiographic change from earlier today. Increased hyperinflation of the lungs. Chest CT 09/20/23 17:02 IMPRESSION: 1. Improved aeration of right basilar consolidations. 2. Slight worsening left posterior lower lobe atelectasis. 3. Otherwise stable CT appearance of the chest compared to 09/15/2023. Laboratory Results WBC 7.85 10^3/uL (3.29-11.43) 09/22/23 04:13 RBC 3.08 10^6/uL (3.85-5.65) L 09/22/23 04:13 Hgb 9.90 g/dL (11.27-16.99) L 09/22/23 04:13 Hct 31.8 % (37-53) L 09/22/23 04:13 MCV 103.2 fl (82-101) H 09/22/23 04:13 MCH 32.1 pg (27-33) 09/22/23 04:13 MCHC 31.1 g/dL (30-55) 09/22/23 04:13 RDW 12.7 % (12.1-15.1) 09/22/23 04:13 Plt Count 251 10^3/cmm (157-399) 09/22/23 04:13 MPV 9.2 fL (7.4-10.4) 09/22/23 04:13 Neut % (Auto) 74.8 % 09/22/23 04:13 Lymph % (Auto) 13.0 % 09/22/23 04:13 Edmunds % (Auto) 11.1 % 09/22/23 04:13 Eos % (Auto) 0.5 % 09/22/23 04:13 Baso % (Auto) 0.1 % 09/22/23 04:13 Reticulocyte % (Auto) 1.1 % (0.5-2.0) 09/20/23 17:24 Neut # (Auto) 5.87 10^3/uL (1.8-7.7) 09/22/23 04:13 Lymph # (Auto) 1.0 10^3/uL (0.8-4.8) 09/22/23 04:13 Edmunds # (Auto) 0.9 10^3/uL (0.2-0.9) 09/22/23 04:13 Eos # (Auto) 0.0 10^3/uL (0.0-0.8) 09/22/23 04:13 Baso # (Auto) 0.0 10^3/uL (0.0-0.1) 09/22/23 04:13 Nucleated RBC % (auto) 0 % 09/22/23 04:13 Nucleated RBCs # 0.0 /100WBC 09/22/23 04:13 Peripher Smr Path Cons Sent for review 09/20/23 17:24 PT 13.10 SECONDS (12.1-14.9) 09/14/23 19:08 INR 0.96 (0.8-1.2) 09/14/23 19:08 D-Dimer 2.71 ug/mLFEU (0-0.59) H 09/14/23 19:08 Specimen Type Arterial 09/14/23 23:47 Sample Site Brachial, left 09/14/23 23:47 O2 Sat Pulse Oximetry Cancelled 09/14/23 18:48 ABG pH 7.45 (7.35-7.45) 09/14/23 23:47 ABG pCO2 62.6 mmHg (35-45) H* 09/14/23 23:47 ABG pO2 84.1 mmHg (80.0-100.0) 09/14/23 23:47 ABG PO2/FiO2 Ratio 0 09/14/23 23:47 ABG HCO3 43.8 mmol/L (22-26) H 09/14/23 23:47 ABG O2 Saturation 97.7 09/14/23 23:47 ABG Base Excess 17.2 mmol/L (-2.0-2.0) H 09/14/23 23:47 Payam Test N/a 09/14/23 23:47 A-a O2 Gradient 21.0 mmHg (5-10) H 09/14/23 23:47 Hematocrit 32.8 % (42-52) L 09/14/23 23:47 Hgb O2 Saturation 96.0 % (95-100) 09/14/23 23:47 Carboxyhemoglobin 1.3 %THgb (0.4-20.1) 09/14/23 23:47 Methemoglobin 0.4 % (0.4-1.5) 09/14/23 23:47 Total Hemoglobin 10.7 g/dL (14-18) L 09/14/23 23:47 Sodium 138.0 mmol/L (131-143) 09/14/23 23:47 Potassium 3.2 mmol/L (3.5-5.0) L 09/14/23 23:47 Glucose 113.0 mg/dL (70-115) 09/14/23 23:47 Ionized Calcium 1.2 mmol/L (1.1-1.4) 09/14/23 23:47 Respiration Rate Cancelled 09/14/23 18:48 O2 Delivery Device Bipap 09/14/23 23:47 O2 Liters/Min Cancelled 09/14/23 18:48 SIMV Cancelled 09/14/23 18:48 Vent Mode Cancelled 09/14/23 18:48 Mechanical Rate Cancelled 09/14/23 18:48 Spontaneous Rate Cancelled 09/14/23 18:48 FiO2 45.0 % 09/14/23 23:47 Tidal Volume Cancelled 09/14/23 18:48 PEEP Cancelled 09/14/23 18:48 Pressure Support Cancelled 09/14/23 18:48 Pressure Control Cancelled 09/14/23 18:48 CPAP Cancelled 09/14/23 18:48 Mode BiPAP Cancelled 09/14/23 18:48 Specimen Drawn By Cancelled 09/14/23 18:48 Net Developer ID Casey 09/14/23 23:47 Crit Value Read Back Cancelled 09/14/23 18:48 Blood Gas Notified Time Cancelled 09/14/23 18:48 Sodium 140 mmol/L (136-145) 09/22/23 04:13 Potassium 4.0 mmol/L (3.5-5.1) 09/22/23 04:13 Chloride 98 mmol/L (98-107) 09/22/23 04:13 Carbon Dioxide 36 mmol/L (22-29) H 09/22/23 04:13 Anion Gap 10.0 (5-19) 09/22/23 04:13 BUN 22 mg/dL (8-23) 09/22/23 04:13 Creatinine 0.7 mg/dL (0.7-1.2) 09/22/23 04:13 GFR Calculation Not Reportable 09/22/23 04:13 Glucose 91 mg/dL (65-115) 09/22/23 04:13 Calculated Osmolality 293 mOsm/kg (285-295) 09/22/23 04:13 Lactic Acid 0.8 mmol/L (0.5-2.2) 09/14/23 20:37 Calcium 9.4 mg/dL (8.5-10.5) 09/22/23 04:13 Phosphorus 2.1 mg/dL (2.5-4.5) L 09/22/23 09:54 Magnesium 1.9 mg/dL (1.7-2.3) 09/22/23 09:54 Iron 33 ug/dL (59-158) L 09/20/23 17:24 Iron 34 ug/dL (59-158) L 09/20/23 17:24 TIBC 225 mcg/dl 09/20/23 17:24 % Saturation 14.6 % (20-50) L 09/20/23 17:24 Unsat Iron Binding 192 ug/dL (112-347) 09/20/23 17:24 Ferritin 156 ng/mL (30-400) 09/20/23 17:24 Total Bilirubin 0.2 mg/dL (0.15-1.2) 09/22/23 04:13 AST 10 U/L (0-40) 09/22/23 04:13 ALT 11 U/L (0-41) 09/22/23 04:13 Alkaline Phosphatase 68 U/L (40-130) 09/22/23 04:13 Troponin T Baseline 67 ng/L (0-15) H 09/14/23 19:08 Troponin T 120 Minute 63.02 ng/L (0-15) H 09/14/23 21:05 Delta Troponin T -3.98 ABS# (0-10) L 09/14/23 21:05 Troponin T Hi Sens 6Hr 72.02 ng/L (0-15) H 09/15/23 00:57 Troponin T Hi Sens 6Hr Delta 5.02 ng/L (0-12) 09/15/23 00:57 C-Reactive Protein 6.6 mg/L (0.0-4.9) H 09/18/23 04:29 NT-Pro-B Natriuret Pep 1291 pg/mL (0-450) H 09/18/23 04:29 Total Protein 5.5 g/dL (6.6-8.7) L 09/22/23 04:13 Albumin 3.2 g/dL (3.5-5.2) L 09/22/23 04:13 Globulin 2.3 g/dL (1.3-4.6) 09/22/23 04:13 Triglycerides 75 mg/dL (0-150) 09/15/23 00:57 Cholesterol 158 mg/dL (0-200) 09/15/23 00:57 LDL Cholesterol, Calc 86 mg/dL (50-129) 09/15/23 00:57 HDL Cholesterol 57 mg/dL (60-100) L 09/15/23 00:57 LDL/HDL Ratio 1.51 RATIO (0.00-3.22) 09/15/23 00:57 Cholesterol/HDL Ratio 2.77 mg/dL (1.0-5.00) 09/15/23 00:57 Vitamin B12 449 pg/mL (232-1245) 09/20/23 17:24 Folate 17.0 ng/mL (4.5-32.2) 09/20/23 17:24 Procalcitonin 0.05 ng/mL (0-0.5) 09/18/23 04:29 Bronch Specimen Source Right lower lobe 09/15/23 12:18 Bronchial Fluid Color Red 09/15/23 12:18 Bronchial Fluid Appearance Bloody (CLEAR) 09/15/23 12:18 Bronch Cells Counted 200 09/15/23 12:18 Bronchial Neutrophils 93.00 % (0.9-2.3) H 09/15/23 12:18 Bronchial Lymphocytes 2.00 % (10.71-12.91) L 09/15/23 12:18 Bronchial Macrophages 5.00 % (83.6-86.8) L 09/15/23 12:18 Bronchial Diff Comment Yes 09/15/23 12:18 Influenza Type A Ag negative (Negative) 09/14/23 18:32 Influenza Type B Ag negative (Negative) 09/14/23 18:32 SARS-CoV-2 Ag (Rapid) negative (Negative) 09/14/23 18:32 MRSA (PCR) Not detected (NOT DETECTED) 09/14/23 22:30 Vitals Last Vital Signs Temp 98.3 F 09/22/23 14:48 Pulse 69 09/22/23 14:48 Resp 16 09/22/23 14:48 BP 110/68 09/22/23 14:48 Pulse Ox 96 09/22/23 14:48 O2 Del Method Nasal Cannula 09/22/23 13:27 O2 Flow Rate 2 09/22/23 13:27 FiO2 40 09/22/23 04:00 Discharge Plan Discharge Patient Disposition: Home Health Service Condition: Stable Prescriptions: New fluconazole 100 mg Tablet 200 mg PO DAILY 6 Days Qty: 6 0RF aspirin 81 mg Tablet,Delayed Release (Dr/Ec) 81 mg PO DAILY 30 Days Qty: 30 0RF benzonatate 100 mg Capsule 200 mg PO TID PRN (Reason: Cough) 10 Days Qty: 30 0RF Xanax 0.5 mg tablet 0.25 mg PO BID PRN (Reason: anxiety) Qty: 30 0RF hydroxyzine pamoate 25 mg Capsule 25 mg PO QID PRN (Reason: Anxiety) 30 Days Qty: 90 0RF paroxetine HCl 20 mg Tablet 20 mg PO DAILY 60 Days Qty: 60 0RF prednisone 10 mg tablet 10 mg PO DAILY 10 Days Qty: 14 0RF Rx Instructions: Take 3 tabs on 09/23/2023, take 2 tabs daily for 3 days, then 1 tab daily for 3 days then 1/2tab daily for 3 days then stop. Continued (DME) BIPAP See Rx Instructions .Route .MEDSUPPLY Qty: 1 0RF Rx Instructions: Standard Bi-level IPAP 10, EPAP 5 (DME) oxygen See Rx Instructions .Route .MEDSUPPLY Qty: 1 0RF Rx Instructions: 2 LPM in line BIPAP albuterol sulfate 2.5 mg /3 mL (0.083 %) solution for nebulization 2.5 mg INHALATION Q4H furosemide 40 mg tablet 40 mg PO DAILY PRN (Reason: Edema) trazodone 50 mg tablet 25 - 50 mg PO BEDTIME pantoprazole 40 mg tablet,delayed release (DR/EC) 40 mg PO BID Spiriva Respimat 1.25 mcg/actuation mist 2 puff inhalation DAILY Qty: 4 6RF budesonide 0.5 mg/2 mL suspension for nebulization 0.5 mg inhalation BID Qty: 120 6RF cholecalciferol (vitamin D3) [Vitamin D3] 50 mcg (2,000 unit) Capsule 50 mcg PO BEDTIME metoprolol tartrate 25 mg tablet 25 mg PO BID Vitamin C 500 mg tablet 500 mg PO DAILY zinc sulfate 220 mg Capsule 220 mg PO DAILY ferrous sulfate 325 mg (65 mg iron) Tablet 325 mg PO DAILY folic acid 1 mg Tablet 1 mg PO DAILY docusate sodium 100 mg Capsule 100 mg PO BID PRN (Reason: Constipation) arformoterol 15 mcg/2 mL Solution For Nebulization 2 ml INHALATION BID albuterol sulfate [Ventolin HFA] 90 mcg/actuation Hfa Aerosol Inhaler 2 puff INHALATION QID PRN (Reason: Shortness Of Breath) Discontinued paroxetine HCl 10 mg tablet 10 mg PO QAM Discharge Orders: Discharge Order (Routine); Ordered 09/22/23 Ordered By: Sulma Lagunas Referrals: [facility] [Other] Datar,Elbert Francis MD [Physician] - 11/17/23 10:30 am Andrea Santiago DO [Primary Care Provider] - 09/26/23 11:30 am () Discharge Diet: Soft Mechanical Discharge Activity: Resume usual activity and Increase activity as tolerated Patient Instructions: COPD, Benzonatate (By mouth), Alprazolam (By mouth), Prednisone (By mouth), Aspirin (By mouth), Fluconazole (By mouth), Hydroxyzine (By mouth), Paroxetine (By mouth), Pneumonitis (GEN), Opioid Safety Activity Restrictions/Additional Instructions: For your Prednisone, Take 3 tabs on 09/23/2023, then starting on 09/24/2023, take 2 tabs daily for 3 days, then 1 tab daily for 3 days then 1/2tab daily for 3 days then stop. Discharge Attestations Time Spent in Discharge Care*: greater than 30 min Quality Metrics Clinical Quality Measures [ No reported AMI, CVA or VTE this stay] Coding Level of Care Code 65240 Diagnoses Acute on chronic respiratory failure with hypoxia and hypercapnia J96.21; J96.22 Pneumonia due to gram-negative bacteria J15.69 Hemoptysis, unspecified R04.2 Physical deconditioning R53.81 Severe protein-calorie malnutrition E43 Anxiety F41.9 Macrocytic anemia D53.9 Thrush B37.0 COPD exacerbation J44.1
== END 2023-09-22 16:20 | disposition home health service (06) | DRG 177 ==
LOC: ER 20:05 → MEDSURG 21:19
PROVIDERS: Family Medicine; Internal Medicine Pulmonary Disease; Admitting Provider Internal Medicine; Emergency Provider Internal Medicine; PCP Emergency Medicine Emergency Medical Services; Visit Provider Internal Medicine
PROC: 0BJ08ZZ Inspection of Tracheobronchial Tree, Via Natural or Artificial Opening Endoscopic (ICD-10-PCS; CPT 31622; principal; 2023-09-15 12:00)
DX: J15.0 Pneumonia due to Klebsiella pneumoniae (principal); E43 Unspecified severe protein-calorie malnutrition; J96.21 Acute and chronic respiratory failure with hypoxia; J96.22 Acute and chronic respiratory failure with hypercapnia; R04.2 Hemoptysis; N32.1 Vesicointestinal fistula; Z68.1 Body mass index [BMI] 19.9 or less, adult; E87.3 Alkalosis; B37.0 Candidal stomatitis; J15.69 Pneumonia due to other Gram-negative bacteria; Z99.81 Dependence on supplemental oxygen; Z87.891 Personal history of nicotine dependence; J69.0 Pneumonitis due to inhalation of food and vomit; F41.9 Anxiety disorder, unspecified; Z93.3 Colostomy status; J43.9 Emphysema, unspecified; Z86.711 Personal history of pulmonary embolism; Z86.16 Personal history of COVID-19; I25.10 Atherosclerotic heart disease of native coronary artery without angina pectoris; M62.552 Muscle wasting and atrophy, not elsewhere classified, left thigh; M62.551 Muscle wasting and atrophy, not elsewhere classified, right thigh; M62.562 Muscle wasting and atrophy, not elsewhere classified, left lower leg; M62.561 Muscle wasting and atrophy, not elsewhere classified, right lower leg; M62.58 Muscle wasting and atrophy, not elsewhere classified, other site; R79.89 Other specified abnormal findings of blood chemistry; R63.4 Abnormal weight loss; E88.A Wasting disease (syndrome) due to underlying condition; G47.00 Insomnia, unspecified; R91.1 Solitary pulmonary nodule; D63.8 Anemia in other chronic diseases classified elsewhere; D53.9 Nutritional anemia, unspecified; D50.9 Iron deficiency anemia, unspecified
CPT/HCPCS: 36415; 36600; 71045; 71250; 71275; 74230; 80048; 80051; 80053; 80061; 80503; 82330; 82607; 82728; 82746; 82805; 83540; 83550; 83605; 83735; 83880; 84100; 84145; 84484; 85025; 85045; 85049; 85378; 85610; 86140; 86403; 87040; 87070; 87077; 87102; 87186; 87205; 87206; 87426; 87449; 87641; 87804; 88112; 88305; 89050; 92523; 92526; 92610; 92611; 93005; 94640; 94660; 94664; 94762; 96372; 96374; 97116; 97161; 97165; 97530; 97535; 99285; J0696; J1450; J1644; J1650; J1756; J1940; J2371; J2405; J2543; J2704; J2920; J3010; J3480; J3490; J7030; J7512; J7613; J7626; J7644; Q9967

== ENCOUNTER 2023-10-17 10:10 | Outpatient (CLI) | payer OTHER, SELFPAY ==
--- NOTE | 2023-10-17 10:30 | PETR_ITS ---
PROCEDURE INFORMATION: Exam: PET/CT Skull Base to Mid-thigh Exam date and time: 10/17/2023 11:05 AM Age: 78 years old Clinical indication: Abnormal findings; Follow up left upper lobe nodule. History of colon cancer with colon resection. History of chemotherapy and radiation therapy in 2003. LABS AND CLINICAL REPORTS: Glucose: 118 mg/dl Treatment strategy for malignancy (PET staging): Initial Staging (PI) TECHNIQUE: Imaging protocol: Following at least four-hour fasting and following the injection of radiopharmaceutical, low dose CT images were obtained. Then, PET images were obtained. Attenuation corrected images were constructed using the CT scan. Fused images of PET and CT were reviewed. The standardized uptake values (SUV) reported below are maximum values within a region of interest, expressed in gm/ml. Exam includes orbital meatal line to mid-thigh. Radiopharmaceutical: 12.09 mCi F-18 FDG (Fluorodeoxyglucose), IV. Time of imaging post radiopharmaceutical administration: 1 hour Injection site: Right antecubital COMPARISON: CT chest [facility] [id number] 09/20/2023 6:06 PM, CT abdomen and pelvis 07/11/2023 FINDINGS: Tubes, catheters and devices: A percutaneous catheter entering the anterior mid pelvic rectus abdominus sheath terminates within the lumen of a segment of colon. Brain: Visualized brain has normal physiologic uptake. Pharynx: No abnormal uptake. Larynx: No abnormal uptake. Lungs, pleura and trachea: Moderate appearing bilateral centrilobular emphysematous changes are noted. A similar in size solid anterior left upper lobe 8 mm nodule on series 3, image 110 is noted without elevated uptake, SUV max 0.3.Mild dependent streaky density in the lungs is noted and has significantly decreased since the prior CT of 09/20/2023 likely representing atelectasis or scarring. Heart: Normal physiologic uptake. Mediastinal space: No abnormal uptake. Liver: No abnormal uptake. Similar low-density lesions in the liver. Examples: A low-density medial right liver lobe 1.3 cm in diameter structure on series 3, image 156 is not radiotracer avid. An additional non radiotracer avid low-density lesion in the left lobe of the liver on series 3, image 165 measures 1.7 cm. These structures are compatible with probable benign cysts or hemangiomas. Gallbladder and bile ducts: No abnormal uptake. Pancreas: No abnormal uptake. Spleen: No abnormal uptake. Calcified granulomas in the spleen are present. Adrenal glands: No abnormal uptake. Kidneys and ureters: An ovoid low-density structure arising exophytically from the left kidney measuring 7.3 x 3.9 cm on series 3, image 153 likely represents a benign cyst. Unremarkable right kidney. Stomach and bowel: No abnormal uptake. There is a left lower quadrant colostomy site. Urinary bladder: The urinary bladder is mildly distended with an air/fluid level which may be related to catheterization. Uptake along the course of the catheter is noted including within the region of the expected location of the prostate gland on series 3, image 239, SUV max 23.4. Vasculature: No abnormal uptake. Diffuse atherosclerotic calcifications are noted. Lymph nodes: No abnormal uptake. Benign-appearing calcified non radiotracer avid right hilar and subcarinal lymph nodes are present. Bones/joints: No abnormal uptake in the visualized axial and appendicular skeleton. Degenerative changes in the spine are noted. Soft tissues: There is benign-appearing likely physiologic or inflammatory uptake in the proximal anterior left thigh musculature without evidence of a correlating lesion on the CT images. METRICS: Mediastinal blood pool: SUV max 1.7 [id number] IMPRESSION: 1. No evidence of abnormal uptake within a similar in size solid left upper lobe pulmonary nodule. Lack of uptake favors a benign etiology however assessment of small nodules can be limited by PET-CT. 2. Non radiotracer avid low-density lesions in the liver are present, compatible with benign cysts or hemangiomas. 3. Similar simple appearing likely benign left renal cyst. 4. Elevated uptake in the expected location of the prostate gland likely represents urinary radiotracer activity in the urinary bladder catheter. A malignant etiology is less likely. 5. Additional nonurgent findings as detailed above.
== END 2023-10-17 10:11 | disposition home or self-care (01) ==
LOC: RAD 10:13
PROVIDERS: PCP Emergency Medicine Emergency Medical Services; Visit Provider Internal Medicine Pulmonary Disease
DX: R91.1 Solitary pulmonary nodule (principal); K76.9 Liver disease, unspecified; Z85.038 Personal history of other malignant neoplasm of large intestine; Z92.3 Personal history of irradiation; Z92.21 Personal history of antineoplastic chemotherapy; Z90.49 Acquired absence of other specified parts of digestive tract; Z96.0 Presence of urogenital implants
CPT/HCPCS: 78815; A9552

== ENCOUNTER → 2023-11-17 10:25 | Outpatient (BNVA) | payer OTHER, SELFPAY | PROVIDERS: PCP Emergency Medicine Emergency Medical Services; Visit Provider Internal Medicine Pulmonary Disease | DX: J44.9 Chronic obstructive pulmonary disease, unspecified (principal); J96.12 Chronic respiratory failure with hypercapnia; R91.1 Solitary pulmonary nodule; J98.6 Disorders of diaphragm; Z87.891 Personal history of nicotine dependence | CPT/HCPCS: 99214 ==

== ENCOUNTER 2023-12-06 20:00 | Outpatient (CLI) | payer OTHER, SELFPAY | END 2023-12-06 20:01 | disposition home or self-care (01) | LOC: SLEEP 12-07 05:34 | PROVIDERS: PCP Emergency Medicine Emergency Medical Services; Visit Provider Internal Medicine Pulmonary Disease | DX: J96.12 Chronic respiratory failure with hypercapnia (principal); J44.9 Chronic obstructive pulmonary disease, unspecified; J96.22 Acute and chronic respiratory failure with hypercapnia; R91.1 Solitary pulmonary nodule | CPT/HCPCS: 95810 ==

== ENCOUNTER → 2023-12-26 13:04 | Outpatient (BNVA) | payer OTHER, SELFPAY | PROVIDERS: PCP Emergency Medicine Emergency Medical Services; Visit Provider Internal Medicine Pulmonary Disease | DX: J44.9 Chronic obstructive pulmonary disease, unspecified (principal); J96.12 Chronic respiratory failure with hypercapnia; R91.1 Solitary pulmonary nodule; J98.6 Disorders of diaphragm; R05.8 Other specified cough | CPT/HCPCS: 71046; 99214 ==

== ENCOUNTER 2023-12-29 10:48 | Inpatient (IN) | payer OTHER, MEDICARE, SELFPAY ==
[2023-12-29] VITALS (14 sets, daily range): BP systolic 100–139; BP diastolic 60–87; PULSE 69–86; RESP 14–20; TEMP 36.7; O2SAT 93–98
--- NOTE | 2023-12-29 10:49 | XR_ITS ---
WS: [id number] Exam: XR chest 1V portable [id number] Date/Time of Exam: 12/29/2023 11:10 AM Reason For Exam: dyspnea/cough Comparison 12/26/2023. The lungs are hyperinflated and clear. Chronic interstitial changes. Normal cardiomediastinal silhoue tte. No pleural effusions. Bony structures are intact. XR/XR chest 1V portable [id number] IMPRESSION: 1. Pulmonary hyperinflation and chronic interstitial changes. No acute finding.
--- NOTE | 2023-12-29 10:49 | ECG_ITS ---
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 Measurements Intervals Cobb Rate: 77 P: 87 MA: 161 QRS: 64 QRSD: 108 T: 66 QT: 378 QTc: 428 Interpretive Statements SINUS RHYTHM WITH OCCASIONAL VENTRICULAR PREMATURE COMPLEXES INDETERMINATE AXIS RIGHT BUNDLE BRANCH BLOCK [120+ ms QRS DURATION, UPRIGHT V1, 40+ ms S IN I/aVL/V4/V5/V6] ANTEROSEPTAL MYOCARDIAL INFARCTION , OF INDETERMINATE AGE [40+ ms Q WAVE IN V1-V4] Compared to ECG 09/21/2023 15:09:26 Right bundle-branch block now present Incomplete right bundle-branch block no longer present Myocardial infarct finding still present Electronically Signed On 12-29-2023 12:32:07 CDT by Marquis Mishra M.D. [id number]
--- NOTE | 2023-12-29 11:09 | PC.PHAR ---
[facility] 12/29/23 11:09AM
--- NOTE | 2023-12-29 11:20 | W.ED.SOB ---
HPI - SOB/Dyspnea General: Chief Complaint: Shortness of Breath/Dyspnea Stated Complaint: sob Time Seen by Provider: 12/29/23 10:48 Source: patient Mode of arrival: ambulatory History of Present Illness: HPI Narrative: 78-year-old male presents emergency room complaining of shortness of breath. He has a history of COPD he has a BiPAP at home he has had difficulty with BiPAP he has been on the BiPAP for a couple of months. This morning he fever short of breath they increased his oxygen his oxygen saturation was reported by them to have dipped into the 50s and 60s and improved with increasing his oxygen and then was normal with EMS and route to the hospital. Is been normal since he is arrived here. He currently is on Levaquin which was started earlier this week he is not on any steroids. He uses inhaled steroids at home but has not been using any rescue inhaler. MD elicited complaint: shortness of breath and cough Pertinent past history: COPD Associated symptoms: Reports chest congestion and cough; Deny abdominal pain, chest pain, diaphoresis, dizziness, extremity pain, fever(s), hemoptysis, lightheadedness, myalgias, nausea, orthopnea, palpitations, paresthesias, polydipsia, polyuria, rash, sense of impending doom, syncope or vomiting Treatment prior to arrival: oxygen and bronchodilator Review of Systems Const: Denies: fever(s), chills or diaphoresis Card: Denies: chest pain, palpitations, lightheadedness, syncope or orthopnea Resp: Reports: chest congestion; Denies: dyspnea or hemoptysis GI: Denies: abdominal pain, nausea or vomiting : Denies: dysuria, urinary frequency or urinary urgency Musc: Denies: neck pain, back pain or extremity pain Skin/Breast: Denies: rash Neuro: Denies: dizziness Endo: Denies: polyuria or polydipsia PFS ED PFSH: Medical History Macrocytic anemia Anxiety Severe protein-calorie malnutrition Chronic obstructive pulmonary disease COPD exacerbation Aspiration pneumonia Cough with hemoptysis Acute respiratory failure Weight loss D-dimer, elevated Acute dyspnea Aspiration pneumonia of right lower lobe Aspiration pneumonitis Left upper lobe pulmonary nodule COVID-19 determined by clinical diagnostic criteria Acute exacerbation of chronic obstructive airways disease Chronic hypercapnic respiratory failure Change in bowel habit Chronic hypercapnic respiratory failure Pulmonary embolism Pleural effusion Pulmonary embolism Chronic respiratory failure with hypoxia Colon cancer Pulmonary nodule Rectal cancer COPD (chronic obstructive pulmonary disease) Surgical History S/P bronchoscopy History of colon resection OCT-2004 Family History Father Lung disease Mother Cancer Social History Smoking and tobacco/nicotine status: former use of tobacco/nicotine Quit status (tobacco/nicotine): has quit using Year quit tobacco: 2007 - PPD x 50 Years Alcohol intake: never Substance/Drug Use: never Lives independently: Yes Household members: spouse Marital status: Current occupational status: retired Do you think of yourself as: Straight/Heterosexual Current gender identity: Male Physical Exam Const: GENERAL APPEARANCE: cooperative and comfortable ORIENTATION/CONSCIOUSNESS: Yes awake, Yes oriented to person, Yes oriented to place and Yes oriented to time HENMT: COMMON NORMALS: normocephalic, atraumatic and hearing grossly normal bilaterally HEAD & SCALP: normocephalic and atraumatic Resp: COMMON NORMALS: No retractions and No use of accessory muscles AUSCULTATION: wheezes and diminished lung sounds Cardio: COMMON NORMALS: regular rate, regular rhythm and No murmurs present (Cardio) RATE: regular rate RHYTHM: regular rhythm GI: COMMON NORMALS: Soft to palpation and No hepatosplenomegaly present AUSCULTATION: Yes normoactive bowel sounds PALPATION: Yes Soft to palpation, No Tenderness to palpation present (GI), No Guarding due to palpation present (GI) and Yes No hepatosplenomegaly present Extremity: COMMON NORMALS: normal to inspection, capillary refill normal, no clubbing, cyanosis or edema, no calf tenderness and no pedal edema Neuro: SENSORIUM/ORIENTATION: Yes oriented to person, Yes oriented to place and Yes oriented to time Skin: COMMON NORMALS: no rashes or lesions noted GENERAL SKIN EXAM: no rashes or lesions noted Course Vital Signs: Vital signs: Vital Signs Pulse Rate 80 12/29/23 14:00 Respiratory Rate 16 12/29/23 12:40 Blood Pressure 100/67 12/29/23 14:00 Pulse Oximetry 94 12/29/23 14:00 Oxygen Delivery Me thod Nasal Cannula 12/29/23 15:11 Oxygen Flow Rate 2 12/29/23 12:00 Fraction of Inspir ed Oxygen 28 12/29/23 12:40 MDM - SOB/Dyspnea Medical Decision Making Exacerbation COPD with hypercapnia. Placed on observation on BiPAP. Cover with antibiotics steroids aggressive pulmonary toilet. Discussed Dr. Blankenship orders written Medical Records I reviewed the patient's medical records. Lab Data I reviewed the patient's lab results. 12/29/23 11:02 12/29/23 11:02 Labs/Radiology: Radiology Impressions Chest X-Ray 12/29/23 10:49 IMPRESSION: 1. Pulmonary hyperinflation and chronic interstitial changes. No acute finding. Laboratory Results WBC 5.80 10^3/uL (3.29-11.43) 12/29/23 11:02 RBC 3.48 10^6/uL (3.85-5.65) L 12/29/23 11:02 Hgb 10.90 g/dL (11.27-16.99) L 12/29/23 11:02 Hct 36.1 % (37-53) L 12/29/23 11:02 MCV 103.7 fl (82-101) H 12/29/23 11:02 MCH 31.3 pg (27-33) 12/29/23 11:02 MCHC 30.2 g/dL (30-55) 12/29/23 11:02 RDW 11.9 % (12.1-15.1) L 12/29/23 11:02 Plt Count 261 10^3/cmm (157-399) 12/29/23 11:02 MPV 9.4 fL (7.4-10.4) 12/29/23 11:02 Neut % (Auto) 83.0 % 12/29/23 11:02 Lymph % (Auto) 6.4 % 12/29/23 11:02 Hudson % (Auto) 9.8 % 12/29/23 11:02 Eos % (Auto) 0.3 % 12/29/23 11:02 Baso % (Auto) 0.2 % 12/29/23 11:02 Neut # (Auto) 4.81 10^3/uL (1.8-7.7) 12/29/23 11:02 Lymph # (Auto) 0.4 10^3/uL (0.8-4.8) L 12/29/23 11:02 Hudson # (Auto) 0.6 10^3/uL (0.2-0.9) 12/29/23 11:02 Eos # (Auto) 0.0 10^3/uL (0.0-0.8) 12/29/23 11:02 Baso # (Auto) 0.0 10^3/uL (0.0-0.1) 12/29/23 11:02 Nucleated RBC % (auto) 0 % 12/29/23 11:02 Nucleated RBCs # 0.0 /100WBC 12/29/23 11:02 Specimen Type Arterial 12/29/23 11:55 Sample Site Radial, right 12/29/23 11:55 ABG pH 7.44 (7.35-7.45) 12/29/23 11:55 ABG pCO2 75.1 mmHg (35-45) H* 12/29/23 11:55 ABG pO2 58.5 mmHg (80.0-100.0) L 12/29/23 11:55 ABG HCO3 50.4 mmol/L (22-26) H 12/29/23 11:55 ABG O2 Saturation 92.4 12/29/23 11:55 ABG Base Excess 22.6 mmol/L (-2.0-2.0) H 12/29/23 11:55 Payam Test Pos 12/29/23 11:55 A-a O2 Gradient 0.2 mmHg (5-10) L 12/29/23 11:55 Hematocrit 31.1 % (42-52) L 12/29/23 11:55 Hgb O2 Saturation 90.5 % (95-100) L 12/29/23 11:55 Carboxyhemoglobin 1.7 %THgb (0.4-20.1) 12/29/23 11:55 Methemoglobin 0.3 % (0.4-1.5) L 12/29/23 11:55 Total Hemoglobin 10.1 g/dL (14-18) L 12/29/23 11:55 Sodium 139.0 mmol/L (131-143) 12/29/23 11:55 Potassium 3.3 mmol/L (3.5-5.0) L 12/29/23 11:55 Glucose 113.0 mg/dL (70-115) 12/29/23 11:55 Ionized Calcium 1.2 mmol/L (1.1-1.4) 12/29/23 11:55 O2 Delivery Device Nc 12/29/23 11:55 O2 Liters/Min 2.0 % 12/29/23 11:55 Fur Trimming Machine Operator ID [place] 12/29/23 11:55 Sodium 140 mmol/L (136-145) 12/29/23 11:02 Potassium 3.6 mmol/L (3.5-5.1) 12/29/23 11:02 Chloride 86 mmol/L (98-107) L 12/29/23 11:02 Carbon Dioxide 47 mmol/L (22-29) H* 12/29/23 11:02 Anion Gap 10.6 (5-19) 12/29/23 11:02 BUN 15 mg/dL (8-23) 12/29/23 11:02 Creatinine 0.6 mg/dL (0.7-1.2) L 12/29/23 11:02 GFR Calculation Not Reportable 12/29/23 11:02 Glucose 138 mg/dL (65-115) H 12/29/23 11:02 Calculated Osmolality 293 mOsm/kg (285-295) 12/29/23 11:02 Calcium 9.3 mg/dL (8.5-10.5) 12/29/23 11:02 Total Bilirubin 0.2 mg/dL (0.15-1.2) 12/29/23 11:02 AST 12 U/L (0-40) 12/29/23 11:02 ALT 14 U/L (0-41) 12/29/23 11:02 Alkaline Phosphatase 116 U/L (40-130) 12/29/23 11:02 Total Protein 7.3 g/dL (6.6-8.7) 12/29/23 11:02 Albumin 3.7 g/dL (3.5-5.2) 12/29/23 11:02 Globulin 3.6 g/dL (1.3-4.6) 12/29/23 11:02 All radiology interpretation(s) finalized by discharge Discharge Plan Discharge Patient Disposition: Placed in Observation Admit Provider: Carmen Blankenship Clinical Impression: Acute exacerbation of chronic obstructive airways disease, Hypercapnia Coding Level of Care Code ED Captain/Airline Pilot for Blanca Vides
[2023-12-29 11:21] LABS: Basophils % 0.2 %; Eosinophils % 0.3 %; Hematocrit 36.1 % (37-53); Lymphocytes # 0.4 10^3/uL (0.8-4.8); Lymphocytes % 6.4 %; Mean Corpuscular HGB Conc 30.2 g/dL (30-55); Mean Corpuscular Hemoglobin 31.3 pg (27-33); Mean Corpuscular Volume 103.7 fl (82-101); Mean Platelet Volume 9.4 fL (7.4-10.4); Monocytes # 0.6 10^3/uL (0.2-0.9); Monocytes % 9.8 %; Neutrophils # 4.81 10^3/uL (1.8-7.7); Nucleated Red Blood Cells % 0 %; Platelet Count 261 10^3/cmm (157-399); Red Blood Count 3.48 10^6/uL (3.85-5.65); Red Cell Distribution Width 11.9 % (12.1-15.1)
--- NOTE | 2023-12-29 11:36 | PC.PHAR ---
[facility]ED [facility] HAS PRESENTED MEDICATION LIST AND VERIFIED ALL MEDS ON IT. 12/29/23
[2023-12-29 11:43] LABS: Alanine Aminotransferase 14 U/L (0-41); Albumin Level 3.7 g/dL (3.5-5.2); Alkaline Phosphatase 116 U/L (40-130); Anion Gap 10.6 (5-19); Aspartate Amino Transferase 12 U/L (0-40); Blood Urea Nitrogen 15 mg/dL (8-23); Calcium 9.3 mg/dL (8.5-10.5); Chloride 86 mmol/L (98-107); Creatinine Clr Calc Pharmacy 55.2421; Globulin 3.6 g/dL (1.3-4.6); Glucose 138 mg/dL (65-115); Osmolality Calculated 293 mOsm/kg (285-295); Potassium 3.6 mmol/L (3.5-5.1); Sodium 140 mmol/L (136-145); Total Bilirubin 0.2 mg/dL (0.15-1.2); Total Protein 7.3 g/dL (6.6-8.7)
[2023-12-29 11:48] LABS: Carbon Dioxide 47 mmol/L (22-29)
[2023-12-29 12:06] LABS: ABG PH Result 7.44 (7.35-7.45); Alveolar-Arterial Oxygen Gradi 0.2 mmHg (5-10); Arterial Blood Gas Hematocrit 31.1 % (42-52); Base Excess ABG 22.6 mmol/L (-2.0-2.0); Blood Gas Allen Test Pos; Blood Gas Operator Identificat WALCI; Blood Gas Sample Site Radial, right; Blood Gas Sample Type Arterial; Carboxyhemoglobin 1.7 %THgb (0.4-20.1); HCO3 ABG 50.4 mmol/L (22-26); HGB O2 Sat 90.5 % (95-100); Ionized Calcium Level - ABG 1.2 mmol/L (1.1-1.4); Methemoglobin 0.3 % (0.4-1.5); Oxygen Device NC; Oxygen Saturation ABG 92.4; PO2 ABG 58.5 mmHg (80.0-100.0); Potassium Level - ABG 3.3 mmol/L (3.5-5.0); Total Hemoglobin 10.1 g/dL (14-18)
[2023-12-29 12:07] LABS: ABG PCO2 75.1 mmHg (35-45)
[2023-12-29] MEDS: ipratropium-albuterol 3 mL Neb INHALATION ×2 (12:42→19:23)
--- NOTE | 2023-12-29 13:22 | P.HP_ITS ---
Providers/Chief Complaint 2 Primary Care Provider: Andrea Santiago DO Chief Complaint: sob History of Present Illness Doroteo Ba is a 78 year old male with history of chronic hypoxic hypercarbic respiratory failure, uses 2 L of oxygen the daytime and BiPAP at night, rectal cancer status post abdominal perineal surgery 2004 with end colostomy bag with suprapubic catheter perforated N: 03/22 with resultant colovesical fistula being managed by colorectal surgeon in [place], presenting to the hospital for worsening of shortness of breath. Patient is stating that he has been struggling to use his BiPAP stating that recently he has changed the mask of the BiPAP from medium to large and after few hours he will just get pressure here that he cannot tolerate. He has not noticed any fever, nausea vomiting chest pain nonproductive cough. 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 Previous BAL culture showed Serratia and Klebsiella fungal culture positive for Gabby in the past. He was encouraged to eat dysphagia diet, also history of hemoptysis in the past. He sometimes uses THC Gummies to help his anxiety, he is on paroxetine as well. Goals of care discussed with the patient stating that he is DO NOT RESUSCITATE DO NOT INTUBATE, goals of care were discussed in front of respiratory therapist Review of Systems 2 Const: Denies: fever(s) Eyes: Denies: change in vision ENMT: Denies: throat pain Card: Denies: chest pain Resp: Reports: dyspnea GI: Denies: abdominal pain Medications/Allergies Home Medications Medication Instructions Recorded Confirmed Last Taken Type albuterol sulfate 2.5 mg/3 mL 2.5 mg inhalation Q4H 11/27/19 12/29/23 12/29/23 History (0.083 %) solution for nebulization cholecalciferol (vitamin D3) 50 50 mcg PO BEDTIME 03/16/22 12/29/23 12/28/23 History mcg (2,000 unit) capsule (Vitamin D3) BIPAP #1 ea 04/06/22 12/29/23 Unknown Rx oxygen #1 ea 04/06/22 12/29/23 Unknown Rx furosemide 40 mg tablet 40 mg PO DAILY PRN Edema 12/07/22 12/29/23 09/14/23 History pantoprazole 40 mg tablet,delayed 40 mg PO BID 12/07/22 12/29/23 12/28/23 History release trazodone 50 mg tablet 25 - 50 mg PO BEDTIME 12/07/22 12/29/23 12/28/23 History tiotropium bromide 1.25 2 puff inhalation DAILY #4 grams 05/08/23 12/29/23 12/28/23 Rx mcg/actuation mist for inhalation (Spiriva Respimat) albuterol sulfate 90 mcg/actuation 2 puff inhalation QID PRN 07/08/23 12/29/23 Unknown History aerosol inhaler (Ventolin HFA) Shortness Of Breath budesonide 0.5 mg/2 mL suspension 0.5 mg (2 mL) inhalation BID #120 08/28/23 12/29/23 12/29/23 Rx for nebulization mL docusate sodium 100 mg capsule 100 mg PO BID PRN Constipation 09/14/23 12/29/23 09/13/23 History ferrous sulfate 325 mg (65 mg 325 mg PO DAILY 09/14/23 12/29/23 12/28/23 History iron) tablet folic acid 1 mg tablet 1 mg PO DAILY 09/14/23 12/29/23 12/28/23 History metoprolol tartrate 25 mg tablet 25 mg PO BID 09/14/23 12/29/23 12/28/23 History Chest Vest (Afflo) #1 ea 11/17/23 12/29/23 Unknown Rx guaifenesin 200 mg/5 mL oral liquid 400 mg (10 mL) PO Q6H PRN cough 11/17/23 12/29/23 Unknown Rx #473 mL arformoterol 15 mcg/2 mL solution 2 ml inhalation BID #120 mL 12/26/23 12/29/23 Unknown Rx for nebulization cetirizine 10 mg tablet (Zyrtec) 10 mg PO DAILY PRN ALLERGIES 12/26/23 12/29/23 Unknown History fluticasone propionate 50 1 spray intranasal BID 12/26/23 12/29/23 12/28/23 History mcg/actuation nasal spray,suspension levofloxacin 500 mg tablet 500 mg PO DAILY 7 days #7 tabs 12/26/23 12/29/23 12/28/23 Rx ascorbic acid (vitamin C) 500 mg 500 mg PO DAILY 12/29/23 12/29/23 12/28/23 History tablet (Vitamin C) hydroxyzine pamoate 25 mg capsule 25 mg PO QID PRN Anxiety 12/29/23 12/29/23 Unknown History paroxetine HCl 20 mg tablet 20 mg PO DAILY 12/29/23 12/29/23 12/28/23 History zinc sulfate 50 mg zinc (220 mg) 50 mg PO DAILY 12/29/23 12/29/23 12/28/23 History capsule Allergies Allergy/AdvReac Type Severity Reaction Status Date / Time morphine AdvReac Severe ADR-Halluci Verified 12/29/23 11:00 nating PFSH Acute 2 PFSH: Medical History (Updated 12/29/23 @ 18:38 by Carmen Blankenship MD) Anxiety Severe protein-calorie malnutrition Weight loss Acute dyspnea Macrocytic anemia Chronic obstructive pulmonary disease COPD exacerbation Aspiration pneumonia Cough with hemoptysis Acute respiratory failure D-dimer, elevated Aspiration pneumonia of right lower lobe Aspiration pneumonitis Left upper lobe pulmonary nodule COVID-19 determined by clinical diagnostic criteria Acute exacerbation of chronic obstructive airways disease Chronic hypercapnic respiratory failure Change in bowel habit Chronic hypercapnic respiratory failure Pulmonary embolism Pleural effusion Pulmonary embolism Chronic respiratory failure with hypoxia Colon cancer Pulmonary nodule Rectal cancer COPD (chronic obstructive pulmonary disease) Surgical History S/P bronchoscopy History of colon resection OCT-2004 Family History Father Lung disease Mother Cancer Social History Smoking and tobacco/nicotine status: former use of tobacco/nicotine Quit status (tobacco/nicotine): has quit using Year quit tobacco: 2007 - PPD x 50 Years Alcohol intake: never Substance/Drug Use: never Lives independently: Yes Household members: spouse Marital status: Current occupational status: retired Do you think of yourself as: Straight/Heterosexual Current gender identity: Male Vitals/I&O/Wt Last Vital Signs Pulse 74 12/29/23 13:00 Resp 16 12/29/23 12:40 BP 115/60 12/29/23 13:00 Pulse Ox 93 12/29/23 13:00 O2 Del Method BiPAP 12/29/23 13:00 O2 Flow Rate 2 12/29/23 12:00 FiO2 28 12/29/23 12:40 Weight last 48 hrs Weight 52.163 kg Physical Exam 2 Narrative: Pleasant cooperative GCS 15 Nonfocal neuroexam Colostomy bag in place Suprapubic bag also intact Patient has a chronic indwelling catheter Currently on 2 L Awake and alert able to follow commands Cachectic, malnourished S1, S2 Data 12/29/23 11:02 12/29/23 11:02 A&P Assessment and plan (1) Acute exacerbation of chronic obstructive airways disease: (2) Diaphragm dysfunction: (3) Hypercapnia: (4) Goals of care, counseling/discussion: (5) Anxiety: (6) Weight loss: (7) Severe protein-calorie malnutrition: (8) Acute dyspnea: Plan End-stage COPD Acute exacerbation of COPD I have put him back on BiPAP with settings 14 and 6 FiO2 40%, respiratory 12 If his Rester distress worsen can transfer him to ICU to use Precedex however would like to monitor him on MedSurg Goals of care discussed with the patient, he does not want intubation at any cost, stating that he is in the, does not want intubation chest compressions or defibrillation I will put him on ceftriaxone and azithromycin for COPD exacerbation I am anticipating his D-dimer will stay high secondary to cancer and history of thromboembolic phenomenon Rectal cancer status post colostomy bag Chronic indwelling catheter which gets changed every month by the urology Cachectic, malnourished Protein calorie malnourishment Patient is not able to eat dinner because of worsening of shortness of breath Will request dietary recommendations Recent PET scan did not show recurrence of cancer Goals of care discussed with the patient he is DNR/DNI this was discussed in front of respiratory therapist Will keep him on dysphagia diet Patient does use BiPAP at nighttime and 2 L of oxygen at daytime Attestations 2 Medical Necessity Statement*: Anticipating discharge within 48 hours Diagnoses Acute exacerbation of chronic obstructive airways disease J44.1 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
--- NOTE | 2023-12-29 13:25 | PC.NURSE ---
ANTIBIOTICS BEING HELD UNTIL BLOOD CULTURES DRAWN.
[2023-12-29] MEDS: dexamethasone 10 mg/mL INJ IM (14:01)
[2023-12-29] MEDS: levofloxacin-dextrose 5 % 750 MG/150 ML PREMIX 100 MG IV (14:12)
[2023-12-29] MEDS: enoxaparin 40 mg/0.4 mL Syringe SUBCUT (15:34)
[2023-12-29] MEDS: sodium chloride 0.9% 1,000 ML 100 ML IV (15:35)
[2023-12-29] MEDS: metoprolol tartrate 25 mg Tablet PO (17:23)
--- NOTE | 2023-12-29 18:44 | CTR_ITS ---
PROCEDURE INFORMATION: Exam: CTA Chest With Contrast Exam date and time: 12/29/2023 8:31 PM Age: 78 years old Clinical indication: Abnormal findings; Abnormal diagnostic tests; Elevated d-dimer; Shortness of breath; Patient HX: SOB with hypoxia. Hypercapnic. Dimer 2.59. History of copd and colon cancer. TECHNIQUE: Imaging protocol: Computed tomographic angiography of the chest with contrast. Exam focused on the arteries. 3D rendering (Not supervised by radiologist): MIP and/or 3D reconstructed images were created by the technologist. Radiation optimization: All CT scans at this facility use at least one of these dose optimization techniques: automated exposure control; mA and/or kV adjustment per patient size (includes targeted exams where dose is matched to clinical indication); or iterative reconstruction. Contrast material: OMNI 350; Contrast volume: 64 ml; Contrast route: INTRAVENOUS (IV); COMPARISON: CT angio chest PE protcl [id number] 09/15/2023 8:37 AM RADIATION DOSE METRICS: Total DLP (mGy-cm): 215.81 FINDINGS: Pulmonary arteries: No pulmonary emboli. Aorta: Unremarkable. No aortic aneurysm. No aortic dissection. Lungs: Severe emphysematous changes throughout both lungs with an upper lobe predominance. Again demonstrated is an 8 mm, previously 8 mm, pulmonary nodule in the left upper lobe (series 5, image 38). Mucous plugging subsegmental bronchioles supplying the lung bases with subsequent low attenuation of the lung parenchyma in the lung bases consistent air trapping. Pleural spaces: Unremarkable. No pneumothorax. No pleural effusion. Heart: Unremarkable. No cardiomegaly. No pericardial effusion. Lymph nodes: Unremarkable. No enlarged lymph nodes. Bones/joints: Unremarkable. No acute fracture. Soft tissues: Unremarkable. CT/CT angio chest PE protcl [id number] IMPRESSION: 1. No pulmonary emboli. 2. Severe emphysematous changes throughout both lungs with an upper lobe predominance. 3. Mucous plugging subsegmental bronchioles supplying the lung bases with subsequent low attenuation of the lung parenchyma in the lung bases consistent air trapping. 4. Again demonstrated is an 8 mm, previously 8 mm, pulmonary nodule in the left upper lobe (series 5, image 38). For patients at low risk (minimal or absent history of smoking and of other known risk factors), recommend CT Chest at 6-12 months, then consider CT Chest at 18-24 months. For patients at high risk (history of smoking or of other known risk factors), recommend CT Chest at 6-12 months, then CT Chest at 18-24 months. (Reference: Rico). Note that this nodule was 1st imaged on the chest CT dated 07/08/2023 and is unchanged in size when calculating the next follow-up chest CT. References: Rico Ríos, et al. Guidelines for Management of Incidental Pulmonary Nodules Detected on CT Images: From the Fleischner Society 2017. Radiology. 2017;284(1):228-243.
[2023-12-29 18:49] LABS: D Dimer 2.59 ug/mLFEU (0-0.59)
[2023-12-29] MEDS: iohexol 350 mg/mL 500 mL Btl (per mL) IV (20:34)
[2023-12-30] VITALS (19 sets, daily range): BP systolic 104–174; BP diastolic 68–115; PULSE 61–154; RESP 16–30; TEMP 36.3–36.7; O2SAT 90–100
[2023-12-30] MEDS: ipratropium-albuterol 3 mL Neb INHALATION ×4 (02:29→19:12)
[2023-12-30 05:08] LABS: ABG PCO2 61.7 mmHg (35-45); ABG PH Result 7.51 (7.35-7.45); Arterial Blood Gas Hematocrit 30.6 % (42-52); Base Excess ABG 23.1 mmol/L (-2.0-2.0); Blood Gas Allen Test Pos; Blood Gas Sample Site Radial, left; Blood Gas Sample Type Arterial; HCO3 ABG 49.2 mmol/L (22-26); Oxygen Device BIPAP; PO2 ABG 59.8 mmHg (80.0-100.0); PO2 FiO2 Ratio Arterial Blood 0
[2023-12-30 06:39] LABS: Basophils % 0.2 %; Eosinophils % 0.4 %; Hematocrit 31.1 % (37-53); Lymphocytes # 1.1 10^3/uL (0.8-4.8); Lymphocytes % 19.5 %; Mean Corpuscular HGB Conc 32.2 g/dL (30-55); Mean Corpuscular Volume 102.6 fl (82-101); Mean Platelet Volume 9.6 fL (7.4-10.4); Monocytes # 0.9 10^3/uL (0.2-0.9); Monocytes % 15.7 %; Neutrophils # 3.48 10^3/uL (1.8-7.7); Nucleated Red Blood Cells % 0 %; Platelet Count 238 10^3/cmm (157-399); Red Blood Count 3.03 10^6/uL (3.85-5.65); Red Cell Distribution Width 12.5 % (12.1-15.1); White Blood Count 5.43 10^3/uL (3.29-11.43)
[2023-12-30 07:01] LABS: Anion Gap 10.6 (5-19); Blood Urea Nitrogen 16 mg/dL (8-23); C Reactive Protein 30.2 mg/L (0.0-4.9); Calcium 9.2 mg/dL (8.5-10.5); Chloride 87 mmol/L (98-107); Glucose 94 mg/dL (65-115); Magnesium 1.7 mg/dL (1.7-2.3); Osmolality Calculated 289 mOsm/kg (285-295); Potassium 3.6 mmol/L (3.5-5.1); Sodium 139 mmol/L (136-145)
[2023-12-30 07:15] LABS: Carbon Dioxide 45 mmol/L (22-29); Creatinine Clr Calc Pharmacy 60.6219
[2023-12-30] MEDS: pantoprazole DR 40 mg Tablet PO ×2 (09:42→18:10)
[2023-12-30] MEDS: azithromycin 250 mg Tablet 500 MG PO (09:42)
[2023-12-30] MEDS: methylPREDNISolone sod succ 40 mg/mL INJ IVP ×2 (09:43→20:36)
[2023-12-30] MEDS: cefTRIAXone 1,000 MG in sodium chloride 0.9% (plus) 50 ML 100 MG IV (09:43)
[2023-12-30] MEDS: PARoxetine 20 mg Tablet PO (09:43)
--- NOTE | 2023-12-30 12:19 | P.PN_ITS ---
Subjective 2 Subjective: Patient this morning feeling slightly better Off BiPAP, currently on 2 L I have requested Mucomyst and chest vest physiotherapy 3 times a day Family is at the bedside and the daughter present at the bedside, son is on the phone We had detailed discussion regarding gradual decline in underlying COPD, advanced COPD I also discussed goals of care Family is wanting to discuss goals of care 1 more time and then let us know later in the day I will request RT for Mucomyst and chest vest CT scans finding were discussed with the patient and the family is telling me that they were in the process of getting chest vest at home through [facility] Vitals/I&O/Wt Last Vital Signs Temp 97.6 F 12/30/23 11:52 Pulse 85 12/30/23 11:52 Resp 18 12/30/23 11:52 BP 158/83 12/30/23 11:52 Pulse Ox 96 12/30/23 11:52 O2 Del Method Nasal Cannula 12/30/23 11:52 O2 Flow Rate 2 12/30/23 08:08 FiO2 28 12/30/23 08:11 12/29/23 12/30/23 12/30/23 22:59 06:59 14:59 Intake Total 1205 / 1205 240 / 1445 530 / 530 Output Total 450 / 450 300 / 750 Balance 755 / 755 -60 / 695 530 / 530 Weight last 48 hrs Weight 57.243 kg Weight 53.524 kg Weight 52.163 kg Physical Exam 2 Narrative: Cachectic, malnourished GCS 15 Awake and alert Pursed lip breathing Able to comprehend Nonfocal neuroexam Family at the bedside S1, S2 Abdomen flat Lower extremity no swelling Bilateral diminished breath sounds no active wheezing Data 12/30/23 06:17 12/30/23 06:17 Micro: Microbiology 12/29/23 12:28 Blood Culture - Preliminary Blood SPECIMEN COLLECTED 12/29/23 13:32 Blood Culture - Preliminary Blood SPECIMEN COLLECTED A&P Assessment and plan (1) Goals of care, counseling/discussion: (2) Anxiety: (3) Weight loss: (4) Severe protein-calorie malnutrition: (5) Acute dyspnea: (6) Acute exacerbation of chronic obstructive airways disease: (7) Diaphragm dysfunction: (8) Hypercapnia: (9) Mucus plugging of bronchi: Plan Doroteo Mejia is a 78 year old male with history of chronic hypoxic hypercarbic respiratory failure, uses 2 L of oxygen the daytime and BiPAP at night, rectal cancer status post abdominal perineal surgery 2004 with end colostomy bag with suprapubic catheter perforated 03/22 with resultant colovesical fistula being managed by colorectal surgeon in [place], presenting to the hospital for worsening of shortness of breath. Acute hypoxic hypercapnic respite failure Improved with BiPAP Mucous plug noted on CT chest Added Mucomyst and chest vest therapy I will continue ceftriaxone and azithromycin because of COPD exacerbation Chronic hypoxia: Currently patient is doing well on 2 L oxygen saturating above 90% Increased work of breathing, labored breathing, pursed lip breathing end-stage COPD I was very honest and blunt with the patient and his family that considering his significant muscle mass loss and pursed lip breathing, he wanted able to keep up with the current pace and will tire out in the future and get dependent on the BiPAP and then he will get dehydrated, hyponatremic and confused We discussed in detail regarding current conditions, prognosis and future expectations, was asking me details about palliative care she wanted to understand the difference between palliative versus hospice Goals of care discussed again this morning, yesterday patient wanted to change his CODE STATUS from full code to DNR/DNI however today he wants to discuss murmur time with his family son, daughter and report is involved to help him make a decision Charge nurse is aware His BiPAP settings at home are as follows: 20/8 FiO2 35%, respiratory 12-14 Rectal cancer status post colostomy bag Functional Chronic indwelling catheter which patient is exchanged every month at urology clinic Most likely patient will stay here till Monday Attestations 2 Medical Necessity Statement*: Continue medical management Diagnoses Goals of care, counseling/discussion Z71.89 Anxiety F41.9 Weight loss R63.4 Severe protein-calorie malnutrition E43 Acute dyspnea R06.00 Acute exacerbation of chronic obstructive airways disease J44.1 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
[2023-12-30] MEDS: acetylcysteine 200 mg/mL SDV 4 mL INHALATION ×2 (13:07→19:12)
[2023-12-30] MEDS: ALPRAZolam 0.5 mg Tablet PO (14:32)
--- NOTE | 2023-12-30 14:38 | ECG_ITS ---
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 Measurements Intervals [place] Rate: 133 P: 89 NE: 168 QRS: -83 QRSD: 108 T: 89 QT: 297 QTc: 442 Interpretive Statements SINUS TACHYCARDIA WITH FREQUENT VENTRICULAR PREMATURE COMPLEXES LEFT AXIS DEVIATION [QRS AXIS < -30] INCOMPLETE RIGHT BUNDLE BRANCH BLOCK [90+ ms QRS DURATION, TERMINAL R IN V1/V2, 40+ ms S IN I/aVL/V4/V5/V6] Anterior wall myocardial infarction, old with subtle ST elevation in leads V2 and V3 Compared to ECG 12/29/2023 11:08:12 Left-axis deviation now present Sinus rhythm no longer present Indeterminate axis no longer present Right bundle-branch block no longer present Myocardial infarct finding still present Electronically Signed On 12-31-2023 11:37:22 CDT by Renato Bronson M.D. [id number]
[2023-12-30 15:49] LABS: Troponin(5th) Baseline 79 ng/L (0-15)
[2023-12-30 18:08] LABS: Troponin 5 2HR 103.8 ng/L (0-15); Troponin 5 2HR Delta 24.8 ABS# (0-10)
[2023-12-30] MEDS: metoprolol tartrate 25 mg Tablet PO (18:10)
--- NOTE | 2023-12-30 18:17 | ECG_ITS ---
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 Measurements Intervals [place] Rate: 103 P: 84 CO: 166 QRS: 200 QRSD: 106 T: 85 QT: 338 QTc: 444 Interpretive Statements SINUS TACHYCARDIA INDETERMINATE AXIS INCOMPLETE RIGHT BUNDLE BRANCH BLOCK [90+ ms QRS DURATION, TERMINAL R IN V1/V2, 40+ ms S IN I/aVL/V4/V5/V6] ANTEROSEPTAL MYOCARDIAL INFARCTION , indeterminate age Compared to ECG 12/30/2023 14:38:55 Indeterminate axis now present Ventricular premature complex(es) no longer present Left-axis deviation no longer present Myocardial infarct finding still present Electronically Signed On 12-31-2023 11:44:33 CDT by Renato Bronson M.D. [id number]
[2023-12-30] MEDS: enoxaparin 60 mg/0.6 mL Syringe SUBCUT (20:24)
[2023-12-30] MEDS: aspirin 325 mg EC Tablet PO (20:24)
--- NOTE | 2023-12-30 20:43 | ECG_ITS ---
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 Measurements Intervals [place] Rate: 78 P: 84 HI: 181 QRS: 67 QRSD: 101 T: -86 QT: 385 QTc: 441 Interpretive Statements SINUS RHYTHM WITH OCCASIONAL VENTRICULAR PREMATURE COMPLEXES INDETERMINATE AXIS INCOMPLETE RIGHT BUNDLE BRANCH BLOCK [90+ ms QRS DURATION, TERMINAL R IN V1/V2, 40+ ms S IN I/aVL/V4/V5/V6] ANTEROSEPTAL MYOCARDIAL INFARCTION , OF INDETERMINATE AGE [40+ ms Q WAVE IN V1-V4] Compared to ECG 12/30/2023 18:17:16 Ventricular premature complex(es) now present Sinus tachycardia no longer present Myocardial infarct finding still present Electronically Signed On 12-31-2023 11:45:55 CDT by Renato Bronson M.D. [id number]
[2023-12-30 21:23] LABS: Troponin 5 6HR 147.2 ng/L (0-15); Troponin 5 6HR Delta 68.2 ng/L (0-12)
[2023-12-31] VITALS (15 sets, daily range): BP systolic 111–146; BP diastolic 70–95; PULSE 67–116; RESP 16–20; TEMP 36.4–36.7; O2SAT 90–98
[2023-12-31] MEDS: ipratropium-albuterol 3 mL Neb INHALATION ×4 (03:08→19:45)
[2023-12-31] MEDS: acetylcysteine 200 mg/mL SDV 4 mL INHALATION ×4 (03:08→19:45)
[2023-12-31 04:26] LABS: ABG PH Result 7.53 (7.35-7.45); Arterial Blood Gas Hematocrit 34.5 % (42-52); Base Excess ABG 20.3 mmol/L (-2.0-2.0); Blood Gas Allen Test Pos; Blood Gas Operator Identificat ED; Blood Gas Sample Site Radial, left; Blood Gas Sample Type Arterial; HCO3 ABG 45.8 mmol/L (22-26); Oxygen Device BIPAP; PO2 ABG 81.4 mmHg (80.0-100.0); PO2 FiO2 Ratio Arterial Blood 0
--- NOTE | 2023-12-31 06:00 | USCV_ITS ---
Doroteo Ba Age: 78 Gender: M : 1945 Exam Date: 12/31/2023 07:35 Ordering Phys: Carmen Blankenship MD Technologist: Adonay Chance [place] [facility] [place]ication: UA BP: 120 / 77 HR: Rhythm: Sinus Technical Quality: Suboptimal MEASUREMENTS (Male / Female) Normal Values 2D ECHO LV Diastolic Diameter PLAX 4.3 cm 4.2 - 5.9 / 3.9 - 5.3 cm IVS Diastolic Thickness 0.9 cm 0.6 - 1.0 / 0.6 - 0.9 cm IVS Systolic Thickness 1.2 cm LVPW Diastolic Thickness 1.3 cm 0.6 - 1.0 / 0.6 - 0.9 cm LVPW Systolic Thickness 1.4 cm LVOT Diameter 2.1 cm LV Ejection Fraction 2D Teich 10.5 % LA Diameter 3.1 cm RA Systolic Volume 4C AL 35.6 ml RA Systolic Volume 4C MOD 35.0 ml Aorta at Sinotubular Diameter 2.3 cm IVC Diameter 2.1 cm M-MODE LA Ao Ratio MM 0.9 AV Cusp Separation MM 2.0 cm DOPPLER PV Peak Velocity 72.0 cm/s RV Ejection Time 0.3 s FINDINGS Left Ventricle The ventricle is seen only in 2 views adequately. The apical view is poor and not of any use. The ventricle is upper limit of normal in size. There are segmental wall motion disturbances. The mid anterior wall is nearly akinetic. The apex, inferior posterior and lateral moon are mildly to moderately hypokinetic. Both bases contract normally. Ejection fraction is about 30 to 35%. Grade 2 diastolic dysfunction. Right Ventricle Normal right ventricular size and systolic function. Right Atrium The right atrium is normal in size. Left Atrium The left atrium is normal in size. Mitral Valve Structurally normal mitral valve. Trace mitral valve regurgitation. Aortic Valve Structurally normal aortic valve without significant sclerosis or stenosis. There is no aortic regurgitation. Tricuspid Valve Structurally normal tricuspid valve. Pulmonic Valve Pulmonic valve not well visualized. Pericardium Normal pericardium without effusion. Aorta Normal ascending aorta dimension. IVC The inferior vena cava appears normal. CONCLUSIONS The ventricle is seen only in 2 views adequately. The apical view is poor and not of any use. The ventricle is upper limit of normal in size. There are segmental wall motion disturbances. The mid anterior wall is nearly akinetic. The apex, inferior posterior and lateral moon are mildly to moderately hypokinetic. Both bases contract normally. Ejection fraction is about 30 to 35%. Grade 2 diastolic dysfunction. Structurally normal mitral valve. Trace mitral valve regurgitation. Previous study was done March 22, 2022. New findings are the segmental wall motion disturbances and decreased left ventricular function. Otherwise essentially no change. Dr. Renato Bronson MD (Electronically Signed) Final Date: 31 December 2023 09:57 S
[2023-12-31 07:16] LABS: Blood Urea Nitrogen 18 mg/dL (8-23); Calcium 9.4 mg/dL (8.5-10.5); Chloride 86 mmol/L (98-107); Glucose 133 mg/dL (65-115); Osmolality Calculated 284 mOsm/kg (285-295); Sodium 135 mmol/L (136-145)
[2023-12-31 07:18] LABS: Creatinine Clr Calc Pharmacy 61.2171
[2023-12-31 07:19] LABS: Anion Gap 13.1 (5-19); Potassium 5.1 mmol/L (3.5-5.1)
[2023-12-31 07:22] LABS: Carbon Dioxide 41 mmol/L (22-29)
[2023-12-31 07:24] LABS: Basophils % 0.1 %; Lymphocytes # 1.3 10^3/uL (0.8-4.8); Lymphocytes % 16.5 %; Mean Corpuscular HGB Conc 31.3 g/dL (30-55); Mean Corpuscular Hemoglobin 31.2 pg (27-33); Mean Corpuscular Volume 99.7 fl (82-101); Monocytes # 0.7 10^3/uL (0.2-0.9); Monocytes % 8.4 %; Neutrophils % 74.5 %; Nucleated Red Blood Cells % 0 %; Platelet Count 227 10^3/cmm (157-399); Red Blood Count 3.81 10^6/uL (3.85-5.65); Red Cell Distribution Width 12.8 % (12.1-15.1); White Blood Count 7.93 10^3/uL (3.29-11.43)
[2023-12-31] MEDS: cefTRIAXone 1,000 MG in sodium chloride 0.9% (plus) 50 ML 100 MG IV (08:42)
[2023-12-31] MEDS: methylPREDNISolone sod succ 40 mg/mL INJ IVP ×2 (08:43→20:10)
[2023-12-31] MEDS: pantoprazole DR 40 mg Tablet PO ×2 (08:44→17:37)
[2023-12-31] MEDS: PARoxetine 20 mg Tablet PO (08:44)
[2023-12-31] MEDS: metoprolol tartrate 25 mg Tablet PO ×2 (08:44→17:37)
[2023-12-31] MEDS: enoxaparin 60 mg/0.6 mL Syringe SUBCUT ×2 (08:45→20:09)
[2023-12-31] MEDS: azithromycin 250 mg Tablet 500 MG PO (08:46)
--- NOTE | 2023-12-31 11:27 | P.PN_ITS ---
Subjective 2 Subjective: Echo showed reduced action fraction No active chest pain Patient has been started on therapeutic Lovenox yesterday Continue dual antiplatelet therapy Patient is considered a very poor candidate for an angiogram, he cannot lay flat without the help of BiPAP Patient is choosing to stay AND Vitals/I&O/Wt Last Vital Signs Temp 97.8 F 12/31/23 07:32 Pulse 111 H 12/31/23 09:07 Resp 20 H 12/31/23 08:54 BP 122/76 12/31/23 07:32 Pulse Ox 98 12/31/23 09:07 O2 Del Method Nasal Cannula 12/31/23 08:54 O2 Flow Rate 3 12/31/23 08:54 FiO2 30 12/31/23 09:07 12/30/23 12/31/23 12/31/23 22:59 06:59 14:59 Intake Total 480 / 1490 530 / 530 Output Total 800 / 800 100 / 900 Balance -320 / 690 -100 / 590 530 / 530 Weight last 48 hrs Weight 57.805 kg Weight 57.243 kg Weight 53.524 kg Physical Exam 2 Narrative: Awake and alert Euvolemic Bilateral breath sounds rhonchi GCS 15 Pleasant and cooperative at the bedside Currently on BiPAP Nonfocal neuroexam Data 12/31/23 06:01 12/31/23 06:01 Micro: Microbiology 12/29/23 12:28 Blood Culture - Preliminary Blood NEGATIVE TO DATE 12/29/23 13:32 Blood Culture - Preliminary Blood NEGATIVE TO DATE 12/30/23 09:20 Gram Stain - Final Sputum - Expectorated Sputum A&P Assessment and plan (1) Cardiomyopathy: (2) Goals of care, counseling/discussion: (3) Anxiety: (4) Weight loss: (5) Severe protein-calorie malnutrition: (6) Acute exacerbation of chronic obstructive airways disease: (7) Acute dyspnea: (8) Mucus plugging of bronchi: (9) Hypercapnia: (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: (11) Reduced ejection fraction concurrent with and due to acute heart failure: Plan Reduced ejection fraction heart failure Diastolic dysfunction present as well Patient not a good candidate to go for angiogram because he cannot lay flat without the help of BiPAP He was started on therapeutic Lovenox along with loading dose of aspirin 12/29, wall motion abnormalities present on the echo Mucous plug: Patient is getting chest vest with therapy along Mucomyst along DuoNeb End-stage COPD BiPAP dependent Will request PT evaluation today as well Goals of care discussed: Patient is DNR/DNI Chronic indwelling catheter: Chronic colostomy bag Follows up with urology and general surgery Disposition: Monday: Home Guarded prognosis Attestations 2 Medical Necessity Statement*: Continue medical management Diagnoses Cardiomyopathy I42.9 Goals of care, counseling/discussion Z71.89 Anxiety F41.9 Weight loss R63.4 Severe protein-calorie malnutrition E43 Acute exacerbation of chronic obstructive airways disease J44.1 Acute dyspnea R06.00 Mucus plugging of bronchi T17.500A Hypercapnia R06.89 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
[2023-12-31] MEDS: clopidogrel 300 mg Tablet PO (12:46)
[2023-12-31] MEDS: FUROsemide 10 mg/mL SDV 2mL 20 MG IVP (12:46)
[2023-12-31] MEDS: aspirin 81 mg EC Tablet PO (12:46)
--- NOTE | 2023-12-31 13:30 | P.CONIM_ITS ---
Providers/Reason For Consult 2 Consulting Physician/Specialty*: Cardiovascular medicine Reason for Consult*: New EKG changes, troponin elevation and new echo abnormalities Requesting Physician: Hospitalist Attending Physician: Carmen Blankenship MD Primary Care Provider: Andrea Santiago DO History of Present Illness History of Present Illness Doroteo Ba is a 78 year old male who unfortunately has end-stage COPD. He has struggled with this for many years having a 140-ydir-alev smoking history. He has chronic hypercapnic respiratory failure with chronic respiratory acidosis and compensated metabolic alkalosis. He is cachectic with protein calorie malnutrition. Complicating all of this was colorectal cancer which was removed surgically sometime ago and he has been left with a colostomy bag. Sometime ago a suprapubic catheter was placed and a bowel perforation occurred. Suprapubic catheter was removed and he now has a chronic indwelling Garcia but has been left with a fistula which I think originates in the urinary bladder but chronically drains into the skin. The fistula may originate in the colon however. He is in and out of the hospital frequently with respiratory insufficiency. Discussions are ongoing as to his future care. There has been discussions raised about palliative care versus hospice. He is DO NOT RESUSCITATE and has the status of allow natural . He was admitted 2 days ago with worsening shortness of breath. He could not get his BiPAP to work well and was profoundly short of breath. He was hypoxic into the 50s. After admission he improved slightly. Yesterday afternoon he had an episode of more profound shortness of breath with tachycardia. He denied any chest pain but his stated he might have had chest pain. An EKG was done which was apparently thought to be abnormal. Serial troponins were done which of course are abnormal. They were 79, 104 and 68. This of course prompted an echocardiogram which showed new wall motion disturbances from the previous echo. His last echo before today was in February 2022 which showed normal left ventricular function and grade 1 diastolic dysfunction. Today's echo revealed akinesis of the mid anterior wall with hypokinesis elsewhere and now an ejection fraction of about 30 to 35%. Chronically his EKGs reveal sinus rhythm with left atrial abnormality evidence of an old septal and anterior wall SD with right bundle branch block and findings of pulmonary disease. These have been chronic until yesterday at 1435 when those chronic changes still existed but there was subtle ST segment elevation in leads V2, V3 and V4. By [address] changes had resolved but he now has Q waves from leads V1 through V4. He had another EKG was done last night at 2117 hrs. revealing the same findings. He denies any chest pain yesterday or today. He is fairly comfortable today. His was present throughout this entire discussion. His CBC is unremarkable. His pO2 is chronically low with a chronically high pCO2 around 55 or 60. His pH is chronically mildly elevated about 7.5. Creatinines have been normal. His serum bicarbonate is 41-47. Review of Systems 2 Narrative: Review of systems is positive in multiple distributions but primarily involves his pulmonary status. Medications/Allergies Home Medications Medication Instructions Recorded Confirmed Last Taken Type albuterol sulfate 2.5 mg/3 mL 2.5 mg inhalation Q4H 11/27/19 12/29/23 12/29/23 History (0.083 %) solution for nebulization cholecalciferol (vitamin D3) 50 50 mcg PO BEDTIME 03/16/22 12/29/23 12/28/23 History mcg (2,000 unit) capsule (Vitamin D3) BIPAP #1 ea 04/06/22 12/29/23 Unknown Rx oxygen #1 ea 04/06/22 12/29/23 Unknown Rx furosemide 40 mg tablet 40 mg PO DAILY PRN Edema 12/07/22 12/29/23 09/14/23 History pantoprazole 40 mg tablet,delayed 40 mg PO BID 12/07/22 12/29/23 12/28/23 History release trazodone 50 mg tablet 25 - 50 mg PO BEDTIME 12/07/22 12/29/23 12/28/23 History tiotropium bromide 1.25 2 puff inhalation DAILY #4 grams 05/08/23 12/29/23 12/28/23 Rx mcg/actuation mist for inhalation (Spiriva Respimat) albuterol sulfate 90 mcg/actuation 2 puff inhalation QID PRN 07/08/23 12/29/23 Unknown History aerosol inhaler (Ventolin HFA) Shortness Of Breath budesonide 0.5 mg/2 mL suspension 0.5 mg (2 mL) inhalation BID #120 08/28/23 12/29/23 12/29/23 Rx for nebulization mL docusate sodium 100 mg capsule 100 mg PO BID PRN Constipation 09/14/23 12/29/23 09/13/23 History ferrous sulfate 325 mg (65 mg 325 mg PO DAILY 09/14/23 12/29/23 12/28/23 History iron) tablet folic acid 1 mg tablet 1 mg PO DAILY 09/14/23 12/29/23 12/28/23 History metoprolol tartrate 25 mg tablet 25 mg PO BID 09/14/23 12/29/23 12/28/23 History Chest Vest (Afflo) #1 ea 11/17/23 12/29/23 Unknown Rx guaifenesin 200 mg/5 mL oral liquid 400 mg (10 mL) PO Q6H PRN cough 11/17/23 12/29/23 Unknown Rx #473 mL arformoterol 15 mcg/2 mL solution 2 ml inhalation BID #120 mL 12/26/23 12/29/23 Unknown Rx for nebulization cetirizine 10 mg tablet (Zyrtec) 10 mg PO DAILY PRN ALLERGIES 12/26/23 12/29/23 Unknown History fluticasone propionate 50 1 spray intranasal BID 12/26/23 12/29/23 12/28/23 History mcg/actuation nasal spray,suspension levofloxacin 500 mg tablet 500 mg PO DAILY 7 days #7 tabs 12/26/23 12/29/23 12/28/23 Rx ascorbic acid (vitamin C) 500 mg 500 mg PO DAILY 12/29/23 12/29/23 12/28/23 History tablet (Vitamin C) hydroxyzine pamoate 25 mg capsule 25 mg PO QID PRN Anxiety 12/29/23 12/29/23 Unknown History paroxetine HCl 20 mg tablet 20 mg PO DAILY 12/29/23 12/29/23 12/28/23 History zinc sulfate 50 mg zinc (220 mg) 50 mg PO DAILY 12/29/23 12/29/23 12/28/23 History capsule Allergies Allergy/AdvReac Type Severity Reaction Status Date / Time morphine AdvReac Severe ADR-Halluci Verified 12/29/23 11:00 nating Current Medications Generic Name Dose Route Start Last Admin Trade Name Freq PRN Reason Stop Dose Admin Acetylcysteine 200 mg 12/30/23 12:00 12/31/23 12:03 Acetylcysteine 200 Mg/Ml Sdv 4 Ml INHALATION Not Given Q4H.RESPIRATORY IMELDA Albuterol/Ipratropium 3 ml 12/29/23 15:10 12/31/23 08:54 Ipratropium-Albuterol 3 Ml Neb INHALATION 3 ml Q6H PRN Administration SHORTNESS OF BREATH Alprazolam 0.5 mg 12/29/23 18:52 12/30/23 14:32 Alprazolam 0.5 Mg Tablet PO 0.5 mg TID PRN Administration ANXIETY Aspirin 81 mg 12/31/23 11:30 12/31/23 12:46 Aspirin 81 Mg Ec Tablet PO 81 mg DAILY IMELDA Administration Azithromycin 500 mg 12/30/23 09:00 12/31/23 08:46 Azithromycin 250 Mg Tablet PO 500 mg DAILY IMELDA Administration Protocol Enoxaparin Sodium 60 mg 12/30/23 21:00 12/31/23 08:45 Enoxaparin 60 Mg/0.6 Ml Syringe SUBCUT 60 mg Q12H IMELDA Administration Ceftriaxone Sodium 1,000 mg/ 50 mls @ 100 mls/hr 12/30/23 09:00 12/31/23 10:35 Sodium Chloride IV Infused DAILY IMELDA Infusion Protocol Methylprednisolone Sodium Succinate 40 mg 12/30/23 09:00 12/31/23 08:43 Methylprednisolone Sod Succ 40 Mg/Ml Inj IVP 40 mg Q12H IMELDA Administration Metoprolol Tartrate 25 mg 12/29/23 18:00 12/31/23 08:44 Metoprolol Tartrate 25 Mg Tablet PO 25 mg BID IMELDA Administration Pantoprazole Sodium 40 mg 12/30/23 09:00 12/31/23 08:[address] 40 Mg Tablet PO 40 mg BID IMELDA Administration Paroxetine HCl 20 mg 12/30/23 09:00 12/31/23 08:44 Paroxetine 20 Mg Tablet PO 20 mg DAILY IMELDA Administration PFSH Acute 2 PFSH: Medical History (Updated 12/31/23 @ 14:02 by Renato Bronson MD) 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 History of pulmonary embolism Anemia Chronic respiratory failure Anxiety Severe protein-calorie malnutrition Weight loss Acute dyspnea Macrocytic anemia Chronic obstructive pulmonary disease COPD exacerbation Aspiration pneumonia Cough with hemoptysis Acute respiratory failure D-dimer, elevated Aspiration pneumonia of right lower lobe Aspiration pneumonitis Left upper lobe pulmonary nodule COVID-19 determined by clinical diagnostic criteria Acute exacerbation of chronic obstructive airways disease Chronic hypercapnic respiratory failure Change in bowel habit Chronic hypercapnic respiratory failure Pulmonary embolism Pleural effusion Pulmonary embolism Chronic respiratory failure with hypoxia Colon cancer Pulmonary nodule Rectal cancer COPD (chronic obstructive pulmonary disease) Surgical History S/P bronchoscopy History of colon resection OCT-2004 Family History Father Lung disease Mother Cancer Social History Smoking and tobacco/nicotine status: former use of tobacco/nicotine Quit status (tobacco/nicotine): has quit using Year quit tobacco: 2007 - PPD x 50 Years Alcohol intake: never Substance/Drug Use: never Lives independently: Yes Household members: spouse Marital status: Current occupational status: retired Do you think of yourself as: Straight/Heterosexual Current gender identity: Male Vitals/I&O/Wt Last Vital Signs Temp 97.6 F 12/31/23 11:54 Pulse 95 12/31/23 11:54 Resp 18 12/31/23 11:54 BP 111/70 12/31/23 11:54 Pulse Ox 92 12/31/23 11:54 O2 Del Method BiPAP 12/31/23 11:54 O2 Flow Rate 3 12/31/23 08:54 FiO2 30 12/31/23 09:07 12/30/23 12/31/23 12/31/23 22:59 06:59 14:59 Intake Total 480 / 1490 770 / 770 Output Total 800 / 800 100 / 900 350 / 350 Balance -320 / 690 -100 / 590 420 / 420 Weight last 48 hrs Weight 127 lb 7 oz Weight 126 lb 3.2 oz Weight 118 lb Physical Exam 2 Narrative: GENERAL: In general he is lying in bed with his head at about 40 degrees elevation. He appears mildly chronically short of breath at rest HEENT: Exam within normal limits. NECK: Supple without jugular vein distention. The carotid upstroke is normal without bruits. BACK: Exam normal. LUNGS: Significantly decreased breath sounds bilaterally. Expiratory phase for greater than the inspiratory phase. Occasional scattered wheezes. He uses pursed lip breathing. HEART: Regular rate and rhythm. ABDOMEN: Benign without organomegaly or tenderness. EXTREMITIES: No edema. NEUROLOGIC: Exam normal. SKIN: Unremarkable. Data 12/31/23 06:01 12/31/23 06:01 Micro: Microbiology 12/29/23 12:28 Blood Culture - Preliminary Blood NEGATIVE TO DATE 12/29/23 13:32 Blood Culture - Preliminary Blood NEGATIVE TO DATE 12/30/23 09:20 Gram Stain - Final Sputum - Expectorated Sputum A&P Assessment and plan (1) Cardiomyopathy: (2) Anxiety: (3) Weight loss: (4) Severe protein-calorie malnutrition: (5) Acute dyspnea: (6) Mucus plugging of bronchi: (7) Hypercapnia: (8) Acute exacerbation of chronic obstructive airways disease: (9) Chronic respiratory failure: (10) Anemia: (11) History of pulmonary embolism: (12) Colostomy in place: (13) Colocutaneous fistula: Plan He has obviously had a myocardial infarction between February 2022 and today. It is very likely he had a small anterior wall myocardial infarction 2 days ago or yesterday. The ST changes seen on yesterday's EKG at 1435 hrs. probably did represent an anterior wall injury. That resolved over time and the ST changes were no longer present at 1817 hrs. and 2118 hrs. The troponin elevation is minimal but likely reflects that injury. The echo findings are confirmatory. There is no indication for any further testing. He is not a candidate for coronary angiography. There is certainly no indication for stress testing. Medical therapy is the only treatment going forward here. I explained this in detail to the patient and his and they both are understanding and accepting of this. His is concerned that he may be discharged too soon. She is worried that he has not been up and around and may not be able to manage it at home. Consult Attestations 2 Medical Necessity Statement: Hospitalization for end-stage COPD and High Time for a total of 60 minutes, includes reviewing past or interval history, examining/interviewing patient, placing orders, counseling patient/family/other support, updating patient/family/other support, discussing plan of care with staff, communicating with other healthcare providers and documenting encounter Diagnoses Cardiomyopathy I42.9 Anxiety F41.9 Weight loss R63.4 Severe protein-calorie malnutrition E43 Acute dyspnea R06.00 Mucus plugging of bronchi T17.500A Hypercapnia R06.89 Acute exacerbation of chronic obstructive airways disease J44.1 Chronic respiratory failure J96.10 Anemia D64.9 History of pulmonary embolism Z86.[address] Z93.3 Colocutaneous fistula K63.2
[2023-12-31] MEDS: ondansetron 2 mg/ML SDV 2 mL 4 MG IVP (21:17)
[2024-01-01] VITALS (17 sets, daily range): BP systolic 106–130; BP diastolic 71–85; PULSE 73–100; RESP 16–22; TEMP 36.4–36.8; O2SAT 92–99
[2024-01-01] MEDS: ipratropium-albuterol 3 mL Neb INHALATION ×3 (06:14→19:48)
[2024-01-01] MEDS: ondansetron 2 mg/ML SDV 2 mL 4 MG IVP (08:09)
[2024-01-01] MEDS: methylPREDNISolone sod succ 40 mg/mL INJ IVP ×2 (08:11→21:32)
[2024-01-01] MEDS: pantoprazole DR 40 mg Tablet PO ×2 (08:11→17:35)
[2024-01-01] MEDS: clopidogrel 75 mg Tablet PO (08:11)
[2024-01-01] MEDS: PARoxetine 20 mg Tablet PO (08:11)
[2024-01-01] MEDS: aspirin 81 mg EC Tablet PO (08:11)
[2024-01-01] MEDS: metoprolol tartrate 25 mg Tablet PO ×2 (08:11→17:34)
[2024-01-01] MEDS: enoxaparin 60 mg/0.6 mL Syringe SUBCUT ×2 (08:12→21:03)
[2024-01-01] MEDS: cefTRIAXone 1,000 MG in sodium chloride 0.9% (plus) 50 ML 100 MG IV (08:12)
--- NOTE | 2024-01-01 08:27 | P.PN_ITS ---
Subjective 2 Subjective: Doroteo is struggling with nausea this morning. He has no appetite. His shortness of breath is basically unchanged. He was being given Zofran as I was in the room. He is concerned about the development of another small bowel obstruction. His is uncomfortable and is worried that he may be discharged too soon. Vitals/I&O/Wt Last Vital Signs Temp 98.2 F 01/01/24 07:27 Pulse 86 01/01/24 07:27 Resp 17 01/01/24 07:27 BP 129/80 01/01/24 07:27 Pulse Ox 96 01/01/24 07:27 O2 Del Method Nasal Cannula 01/01/24 07:27 O2 Flow Rate 6 01/01/24 07:27 FiO2 30 12/31/23 09:07 12/31/23 01/01/24 01/01/24 22:59 06:59 14:59 Intake Total 720 / 1490 Output Total 1250 / 1600 100 / 1700 Balance -530 / -110 -100 / -210 Weight last 48 hrs Weight 129 lb Weight 127 lb 7 oz Physical Exam 2 Narrative: GENERAL: Lying in bed with his head up short of breath at rest with pursed lip breathing HEENT: Exam within normal limits. NECK: Supple without jugular vein distention. The carotid upstroke is normal without bruits. BACK: Exam normal. LUNGS: Severely decreased breath sounds bilaterally with occasional scattered wheezes and prolonged expiratory phase HEART: Regular rate and rhythm. ABDOMEN: Benign without organomegaly or tenderness. EXTREMITIES: No edema. NEUROLOGIC: Exam normal. SKIN: Unremarkable. Data 12/31/23 06:01 12/31/23 06:01 Micro: Microbiology 12/30/23 09:20 Gram Stain - Final Sputum - Expectorated Sputum Sputum Culture - Preliminary Corynebacterium species A&P Assessment and plan (1) Cardiomyopathy: (2) Reduced ejection fraction concurrent with and due to acute heart failure: (3) History of pulmonary embolism: (4) Severe protein-calorie malnutrition: (5) Colostomy in place: (6) Colocutaneous fistula: (7) Chronic respiratory failure: Plan No change from yesterday. Treat nausea. Diseases are at end-stage. Attestations 2 Medical Necessity Statement*: Hospitalization for management of end-stage COPD and Moderate Time for a total of 30 minutes, includes reviewing past or interval history, examining/interviewing patient, counseling patient/family/other support, updating patient/family/other support, discussing plan of care with staff, communicating with other healthcare providers and documenting encounter Diagnoses Cardiomyopathy I42.9 Reduced ejection fraction concurrent with and due to acute heart failure I50.21 History of pulmonary embolism Z86.711 Severe protein-calorie malnutrition E43 [address]ostomy [address] Z93.3 Colocutaneous fistula K63.2 Chronic respiratory failure J96.10
--- NOTE | 2024-01-01 08:29 | XR_ITS ---
WS: [id number] XR KUB portable [id number] REASON FOR EXAM: abd pain FINDINGS: No free air or retroperitoneal air. Moderate amount of retained fecal material in the right colon. Moderate distention of small bowel loops in the central and left upper abdomen. Similar bowel gas pat tern has been seen on previous examinations. No mass or significant calcification seen. XR/XR KUB portable [id number] IMPRESSION: No acute abnormality.
--- NOTE | 2024-01-01 09:23 | P.PN_ITS ---
Subjective 2 Subjective: Patient is very deconditioned Complaining of nausea no active vomiting This morning he was able to eat a little breakfast Requested KUB Patient is stating that his output from colostomy bag has decreased Request KUB, if it shows constipation then we will use lactulose Vitals/I&O/Wt Last Vital Signs Temp 98.2 F 01/01/24 07:27 Pulse 91 01/01/24 08:45 Resp 18 01/01/24 08:45 BP 129/80 01/01/24 07:27 Pulse Ox 97 01/01/24 08:45 O2 Del Method Nasal Cannula 01/01/24 08:45 O2 Flow Rate 3 01/01/24 08:45 FiO2 30 12/31/23 09:07 12/31/23 01/01/24 01/01/24 22:59 06:59 14:59 Intake Total 720 / 1490 Output Total 1250 / 1600 100 / 1700 400 / 400 Balance -530 / -110 -100 / -210 -400 / -400 Weight last 48 hrs Weight 58.513 kg Weight 57.805 kg Physical Exam 2 Narrative: Patient is deconditioned Euvolemic Awake and alert Currently on 3 L nasal cannula Nonfocal neuroexam Pleasant and cooperative at the bedside Muscle mass loss Sarcopenia Data 12/31/23 06:01 12/31/23 06:01 Micro: Microbiology 12/30/23 09:20 Gram Stain - Final Sputum - Expectorated Sputum Sputum Culture - Preliminary Corynebacterium species A&P Assessment and plan (1) Goals of care, counseling/discussion: (2) Anxiety: (3) Cardiomyopathy: (4) Reduced ejection fraction concurrent with and due to acute heart failure: (5) History of pulmonary embolism: (6) Weight loss: (7) Severe protein-calorie malnutrition: (8) 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: (10) Acute exacerbation of chronic obstructive airways disease: (11) Acute dyspnea: (12) Mucus plugging of bronchi: (13) Chronic respiratory failure: (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: (15) Hypercapnia: Plan Requested KUB to rule obstruction Patient is noticing poor output from colostomy bag Will give 1 dose of lactulose Reduced ejection fraction heart failure status post subacute GA: Conservative/medical management End-stage COPD BiPAP dependent Patient is deconditioned requested PT eval is stating that they will like to get hospital bed through [facility], we are willing to go with palliative care get a referral Attestations 2 Medical Necessity Statement*: PT evaluation today Diagnoses Goals of care, counseling/discussion Z71.89 Anxiety F41.9 Cardiomyopathy I42.9 Reduced ejection fraction concurrent with and due to acute heart failure I50.21 History of pulmonary embolism Z86.711 Weight loss R63.4 Severe protein-calorie malnutrition E43 Colostomy [address] Z93.3 Colocutaneous fistula K63.2 Acute exacerbation of chronic obstructive airways disease J44.1 Acute dyspnea R06.00 Mucus plugging of bronchi T17.500A Chronic respiratory failure J96.10 Diaphragm dysfunction J98.6 Hypercapnia R06.89
--- NOTE | 2024-01-01 09:28 | PC.CHAP ---
Pastoral Care Encounter/Spiritual Assessment Type of Contact [] Declined striping machine operator visit [] Patient/Family/Request visit [] Outpatient visit [] Follow-up visit [] Physician referral [] Code/Alert [] Routine visit [] Staff referral [] Actively dying [] Patient sleeping [x] Family support [] [] Out of room [] Palliative care [] [] Receiving care in room [] Pre-surgical visit [] Trauma [] Long length of stay [] ICU visit [] Other: Relational/Emotional Strength [] Patient feels connected with others/family/visitors/staff [] Distress [] Loneliness/isolation [] Abandonment Spirituality of Patient [x] Person of Elif [] Attends Cheondoism of their Elif [x] Believes in Prayer [] Reads Bible or Synagogue materials [] There are Spiritual issues to be addressed Insurance Rater Interventions [x] Prayer [x] Active listening [] Non-anxious presence [] Spiritual/emotional support [] Crisis/trauma care [] Spiritual counseling [] Bereavement support [] Provided bereavement packet [x] Provided Bible/devotional materials [] Provided toy/stuffed animal, coloring book to patient or family member [] Provided Communion [] Anointing/[place] [] Salvation [x] Completed spiritual assessment [] Other: Impact on Illness or Injury [] Angry [] Fearful [] Anxious [] Often cries [] Exhaustion [] Unable to work [] Unable to attend jainism [] Unable to walk/stand [] Unable to read [] Unable to drive [] Unable to eat/drink [] Unable to sleep [] Unable to be with family [] Patient intubated [] Other: Summary Time spent with patient 10 min
[2024-01-01] MEDS: azithromycin 250 mg Tablet 500 MG PO (09:32)
[2024-01-01] MEDS: lactulose oral liq 20 gm/30 mL UDC 10 GM PO (11:31)
[2024-01-01] MEDS: acetylcysteine 200 mg/mL SDV 4 mL INHALATION ×2 (11:51→19:48)
--- NOTE | 2024-01-01 15:42 | PC.SOCIAL ---
IMM Updated Updated pt on IMM. No questions voiced. Provided pt a copy. Initialed, dated, & timed a copy & placed in chart.
[2024-01-01] MEDS: ALPRAZolam 0.5 mg Tablet PO (23:46)
[2024-01-02] VITALS (14 sets, daily range): BP systolic 127–145; BP diastolic 77–87; PULSE 68–77; RESP 16–22; TEMP 36.4–36.7; O2SAT 93–98
[2024-01-02] MEDS: ipratropium-albuterol 3 mL Neb INHALATION ×4 (02:58→20:14)
[2024-01-02] MEDS: acetylcysteine 200 mg/mL SDV 4 mL INHALATION ×4 (03:00→20:15)
--- NOTE | 2024-01-02 08:10 | P.PN_ITS ---
Subjective 2 Subjective: Less nausea this morning. Undergoing breathing treatments during the visit. Breathing about the same. Vitals/I&O/Wt Last Vital Signs Temp 97.9 F 01/02/24 06:59 Pulse 77 01/02/24 08:03 Resp 16 01/02/24 08:03 BP 145/87 01/02/24 06:59 Pulse Ox 95 01/02/24 08:03 O2 Del Method Nasal Cannula 01/02/24 08:03 O2 Flow Rate 3.5 01/02/24 08:03 FiO2 30 12/31/23 09:07 01/01/24 01/02/24 01/02/24 22:59 06:59 14:59 Intake Total 50 / 150 Output Total 500 / 900 300 / 1200 Balance -450 / -750 -300 / -1050 Weight last 48 hrs Weight 127 lb 6 oz Weight 129 lb Physical Exam 2 Narrative: GENERAL: Short of breath at rest HEENT: Exam within normal limits. NECK: Supple without jugular vein distention. The carotid upstroke is normal without bruits. BACK: Exam normal. LUNGS: Decreased breath sounds. Increased expiratory phase. Scattered wheezes. HEART: Regular rate and rhythm. ABDOMEN: Benign without organomegaly or tenderness. EXTREMITIES: No edema. NEUROLOGIC: Exam normal. SKIN: Unremarkable. Data 12/31/23 06:01 12/31/23 06:01 Micro: Microbiology 12/30/23 09:20 Gram Stain - Final Sputum - Expectorated Sputum Sputum Culture - Final Corynebacterium species A&P Assessment and plan (1) Cardiomyopathy: (2) History of pulmonary embolism: (3) Severe protein-calorie malnutrition: (4) Chronic respiratory failure: (5) Hypercapnia: Plan No changes today. Attestations 2 Medical Necessity Statement*: Continued hospitalization for management of end-stage COPD and Straight Forward/Low Time for a total of 15 minutes, includes reviewing past or interval history, examining/interviewing patient, counseling patient/family/other support, communicating with other healthcare providers and documenting encounter Diagnoses Cardiomyopathy I42.9 History of pulmonary embolism Z86.711 Severe protein-calorie malnutrition E43 Chronic respiratory failure J96.10 Hypercapnia R06.89
[2024-01-02] MEDS: methylPREDNISolone sod succ 40 mg/mL INJ IVP (08:27)
[2024-01-02] MEDS: PARoxetine 20 mg Tablet PO (08:29)
[2024-01-02] MEDS: azithromycin 250 mg Tablet 500 MG PO (08:29)
[2024-01-02] MEDS: clopidogrel 75 mg Tablet PO (08:29)
[2024-01-02] MEDS: metoprolol tartrate 25 mg Tablet PO ×2 (08:29→18:18)
[2024-01-02] MEDS: aspirin 81 mg EC Tablet PO (08:30)
[2024-01-02] MEDS: pantoprazole DR 40 mg Tablet PO ×2 (08:30→18:18)
[2024-01-02] MEDS: cefTRIAXone 1,000 MG in sodium chloride 0.9% (plus) 50 ML 100 MG IV (08:30)
[2024-01-02] MEDS: enoxaparin 60 mg/0.6 mL Syringe SUBCUT ×2 (08:39→21:03)
--- NOTE | 2024-01-02 12:10 | P.PN_ITS ---
Subjective 2 Subjective: is agreeable for hospice care, she was asking questions regarding [facility] [place] is telling me that [facility] hospital bed on 01/02 Spoke with urology clinic at [place], No complicated anatomy will be able to exchange Garcia catheter today as well Vitals/I&O/Wt Last Vital Signs Temp 98.1 F 01/02/24 11:14 Pulse 72 01/02/24 11:14 Resp 16 01/02/24 08:03 BP 134/83 01/02/24 11:14 Pulse Ox 94 01/02/24 11:14 O2 Del Method Nasal Cannula 01/02/24 11:14 O2 Flow Rate 4 01/02/24 11:14 FiO2 30 12/31/23 09:07 01/01/24 01/02/24 01/02/24 22:59 06:59 14:59 Intake Total 50 / 150 50 / 50 Output Total 500 / 900 300 / 1200 Balance -450 / -750 -300 / -1050 50 / 50 Weight last 48 hrs Weight 57.776 kg Weight 58.513 kg Physical Exam 2 Narrative: Patient's clinical condition has not changed significantly Currently on 2 L nasal cannula Saturating well Laying supine Nonfocal neuroexam Cachectic malnourished sarcopenia Able to communicate Nonfocal neuroexam Data 12/31/23 06:01 12/31/23 06:01 Micro: Microbiology 12/30/23 09:20 Gram Stain - Final Sputum - Expectorated Sputum Sputum Culture - Final Corynebacterium species A&P Assessment and plan (1) Goals of care, counseling/discussion: (2) Colostomy in place: (3) Weight loss: (4) Severe protein-calorie malnutrition: (5) Cardiomyopathy: (6) Mucus plugging of bronchi: (7) Acute exacerbation of chronic obstructive airways disease: (8) Acute dyspnea: (9) Diaphragm dysfunction: (10) Chronic respiratory failure: (11) Hypercapnia: Plan Plan is [facility] for hospital bed which will be delivered by tomorrow If hospital because low today I should be able to discharge him afterwards Continue Mucomyst and chest vest for the therapy DNR/DNI Guarded prognosis, subacute [place] with cardiomyopathy Conservative management Attestations 2 Medical Necessity Statement*: Continue medical management Diagnoses Goals of care, counseling/discussion Z71.[address] Z93.3 Weight loss R63.4 Severe protein-calorie malnutrition E43 Cardiomyopathy I42.9 Mucus plugging of bronchi T17.500A Acute exacerbation of chronic obstructive airways disease J44.1 Acute dyspnea R06.00 Diaphragm dysfunction J98.6 Chronic respiratory failure J96.10 Hypercapnia R06.89
[2024-01-02] MEDS: ALPRAZolam 0.5 mg Tablet PO (16:33)
[2024-01-03] VITALS (12 sets, daily range): BP systolic 121–130; BP diastolic 66–83; PULSE 66–83; RESP 14–20; TEMP 36.4–36.8; O2SAT 89–98
[2024-01-03] MEDS: acetylcysteine 200 mg/mL SDV 4 mL INHALATION ×2 (01:21→08:01)
[2024-01-03] MEDS: ipratropium-albuterol 3 mL Neb INHALATION ×3 (01:21→13:42)
--- NOTE | 2024-01-03 08:02 | P.PN_ITS ---
Subjective 2 Subjective: Doroteo is essentially unchanged. He still struggles to breathe. He has been fearful of the BiPAP due to some nosebleeds he had the other day. Today he is sitting on the side of the bed and appears comfortable without significant labored breathing. The nausea he had the other day has largely resolved. Plan is for delivery of a bed to his house today and home with hospice as I understand it. Vitals/I&O/Wt Last Vital Signs Temp 98.3 F 01/03/24 07:24 Pulse 83 01/03/24 07:24 Resp 14 01/03/24 07:24 BP 128/83 01/03/24 07:24 Pulse Ox 93 01/03/24 07:24 O2 Del Method Nasal Cannula 01/03/24 07:24 O2 Flow Rate 3 01/03/24 01:23 FiO2 30 12/31/23 09:07 01/02/24 01/03/24 01/03/24 22:59 06:59 14:59 Intake Total 700 / 750 0 / 750 Output Total 900 / 900 250 / 1150 Balance -200 / -150 -250 / -400 Weight last 48 hrs Weight 122 lb 4.8 oz Weight 127 lb 6 oz Physical Exam 2 Narrative: GENERAL: In general he is comfortable sitting upright on the side of the bed HEENT: Exam within normal limits. NECK: Supple without jugular vein distention. The carotid upstroke is normal without bruits. BACK: Exam normal. LUNGS: Decreased breath sounds, increased expiratory phase, scattered wheeze. HEART: Regular rate and rhythm. ABDOMEN: Benign without organomegaly or tenderness. EXTREMITIES: No edema. NEUROLOGIC: Exam normal. SKIN: Unremarkable. Urinary Catheter Management: Garcia: Cath Placed During This Visit: yes Reason for Continuing Indwelling Catheter: Chronic Indwelling Urinary Catheter on Admission Urinary Catheter Date of Insertion: 01/02/24 Urinary Catheter Time of Insertion: 17:30 Data 12/31/23 06:01 12/31/23 06:01 A&P Assessment and plan (1) Cardiomyopathy: (2) History of pulmonary embolism: (3) Severe protein-calorie malnutrition: (4) Colostomy in place: (5) Colocutaneous fistula: (6) Chronic respiratory failure: Plan Home with hospice today. Attestations 2 Medical Necessity Statement*: Home with hospice today and Straight Forward/Low Time for a total of 15 minutes, includes reviewing past or interval history, examining/interviewing patient, counseling patient/family/other support, updating patient/family/other support and documenting encounter Diagnoses Cardiomyopathy I42.9 History of pulmonary embolism Z86.711 Severe protein-calorie malnutrition E43 [address]ostomy [address] Z93.3 Colocutaneous fistula K63.2 Chronic respiratory failure J96.10
[2024-01-03] MEDS: clopidogrel 75 mg Tablet PO (09:05)
[2024-01-03] MEDS: metoprolol tartrate 25 mg Tablet PO (09:05)
[2024-01-03] MEDS: PARoxetine 20 mg Tablet PO (09:05)
[2024-01-03] MEDS: pantoprazole DR 40 mg Tablet PO (09:05)
[2024-01-03] MEDS: aspirin 81 mg EC Tablet PO (09:05)
[2024-01-03] MEDS: cefTRIAXone 1,000 MG in sodium chloride 0.9% (plus) 50 ML 100 MG IV (09:06)
[2024-01-03] MEDS: enoxaparin 60 mg/0.6 mL Syringe SUBCUT (09:06)
[2024-01-03] MEDS: azithromycin 250 mg Tablet 500 MG PO (09:11)
--- NOTE | 2024-01-03 09:12 | PC.SOCIAL ---
IMM Updated Updated pt on IMM. No questions voiced. Provided pt a copy. Initialed, dated, & timed copy in chart.
--- NOTE | 2024-01-03 09:45 | PM.DCS ---
Discharge Providers Date of Admission: 12/30/23 12:18 Date of Discharge: January 03, 2024 Attending Provider at Admission: Carmen Blankenship MD Attending Provider at Discharge: Carmen Blankenship MD Primary Care Provider: Andrea Santiago DO Diagnoses at Discharge Discharge Diagnosis (1) Cardiomyopathy: Status: Acute (2) Anxiety: Status: Acute (3) Weight loss: Status: Acute (4) Severe protein-calorie malnutrition: Status: Acute (5) Acute dyspnea: Status: Acute (6) Mucus plugging of bronchi: Status: Acute (7) Hypercapnia: Status: Acute (8) Acute exacerbation of chronic obstructive airways disease: Status: Acute (9) Chronic respiratory failure: Status: Acute (10) Anemia: Status: Acute (11) History of pulmonary embolism: Status: Acute (12) Colostomy in place: Status: Acute (13) Colocutaneous fistula: Status: Acute Reason for Visit Reason for Visit: sob Hospital Course Hospital Course Mr. Ba is a 77yo man w/ end-stage COPD, chronic hypoxic/hyercapnic respiratory failure on BiPAP at night and chronic continuous 2L NC, hx rectal cancer s/p abdominal perineal sugery in 2004 w/ end colostomy, with a suprapubic catheter perforating the bladder and colon in 02/2023 w/ resultant colovesical fistula being managed by a colorectal surgeon in [place] presented with respiratory distress Despite w normal pH patient was put on BiPAP to decrease his work of breathing, he is BiPAP dependent, during hospitalization patient complained of chest pain, he was put on ACS protocol for rising troponin, echo was requested which showed significantly reduced EF, cardiology was consulted who recommended medical management, he is not a good candidate for coronary angiogram at this point, he is being managed conservatively at this point, multiple goals of care discussion took place with the patient in front of his family, they have decided to pursue DNR/DNI status. wanted to look into palliative option in the beginning that decided to go with hospice referral. They are not ready for hospice yet. Final decision will be made depending on patient's progress. Patient has significant cachexia malnourishment and muscle mass loss. I have clearly stated to the patient that he might not be able to sustain his current lifestyle which is BiPAP dependency poor p.o. intake and now with this subacute [place] his condition will deteriorate further. He does have guarded prognosis, patient and family not interested in pursuing detention placement. At the time of discharge I will add aspirin, Plavix because of significant troponin leakage, azithromycin for a few days, opiates for as needed basis. Physical Exam Narrative: Cachectic, malnourished, GCS 15 Sarcopenia 3 L nasal cannula Discharge Data Studies Completed and Pending Completed Studies During Hospitalization Category Date Time Status CT angio chest PE protcl [id number] Routine Cat Scan 12/29/23 18:44 Completed XR chest 1V portable [id number] Stat Exams 12/29/23 10:49 Completed CV. echo complete* [id number] Routine Ultrasound 12/31/23 06:00 Completed Pending at discharge Category Date Time Status Blood Culture Stat Lab 12/29/23 12:28 Results Sputum Culture and Gram Stain Stat Lab 12/30/23 09:20 Results Radiology Impressions Chest X-Ray 12/29/23 10:49 IMPRESSION: 1. Pulmonary hyperinflation and chronic interstitial changes. No acute finding. Chest CTA 12/29/23 18:44 IMPRESSION: 1. No pulmonary emboli. 2. Severe emphysematous changes throughout both lungs with an upper lobe predominance. 3. Mucous plugging subsegmental bronchioles supplying the lung bases with subsequent low attenuation of the lung parenchyma in the lung bases consistent air trapping. 4. Again demonstrated is an 8 mm, previously 8 mm, pulmonary nodule in the left upper lobe (series 5, image 38). For patients at low risk (minimal or absent history of smoking and of other known risk factors), recommend CT Chest at 6-12 months, then consider CT Chest at 18-24 months. For patients at high risk (history of smoking or of other known risk factors), recommend CT Chest at 6-12 months, then CT Chest at 18-24 months. (Reference: Rico). Note that this nodule was 1st imaged on the chest CT dated 07/08/2023 and is unchanged in size when calculating the next follow-up chest CT. References: Rico Ríos, et al. Guidelines for Management of Incidental Pulmonary Nodules Detected on CT Images: From the Fleischner Society 2017. Radiology. 2017;284(1):228-243. Laboratory Results WBC 7.93 10^3/uL (3.29-11.43) 12/31/23 06:01 RBC 3.81 10^6/uL (3.85-5.65) L 12/31/23 06:01 Hgb 11.90 g/dL (11.27-16.99) 12/31/23 06:01 Hct 38.0 % (37-53) 12/31/23 06:01 MCV 99.7 fl (82-101) 12/31/23 06:01 MCH 31.2 pg (27-33) 12/31/23 06:01 MCHC 31.3 g/dL (30-55) 12/31/23 06:01 RDW 12.8 % (12.1-15.1) 12/31/23 06:01 Plt Count 227 10^3/cmm (157-399) 12/31/23 06:01 MPV 11.0 fL (7.4-10.4) H 12/31/23 06:01 Neut % (Auto) 74.5 % 12/31/23 06:01 Lymph % (Auto) 16.5 % 12/31/23 06:01 [place] % (Auto) 8.4 % 12/31/23 06:01 Eos % (Auto) 0.0 % 12/31/23 06:01 Baso % (Auto) 0.1 % 12/31/23 06:01 Neut # (Auto) 5.90 10^3/uL (1.8-7.7) 12/31/23 06:01 Lymph # (Auto) 1.3 10^3/uL (0.8-4.8) 12/31/23 06:01 [place] # (Auto) 0.7 10^3/uL (0.2-0.9) 12/31/23 06:01 Eos # (Auto) 0.0 10^3/uL (0.0-0.8) 12/31/23 06:01 Baso # (Auto) 0.0 10^3/uL (0.0-0.1) 12/31/23 06:01 Nucleated RBC % (auto) 0 % 12/31/23 06:01 Nucleated RBCs # 0.0 /100WBC 12/31/23 06:01 D-Dimer 2.59 ug/mLFEU (0-0.59) H 12/29/23 18:22 Specimen Type Arterial 12/31/23 04:14 Sample Site Radial, left 12/31/23 04:14 ABG pH 7.53 (7.35-7.45) H 12/31/23 04:14 ABG pCO2 55.0 mmHg (35-45) H 12/31/23 04:14 ABG pO2 81.4 mmHg (80.0-100.0) 12/31/23 04:14 ABG PO2/FiO2 Ratio 0 12/31/23 04:14 ABG HCO3 45.8 mmol/L (22-26) H 12/31/23 04:14 ABG O2 Saturation 92.4 12/29/23 11:55 ABG Base Excess 20.3 mmol/L (-2.0-2.0) H 12/31/23 04:14 [place] Test Pos 12/31/23 04:14 A-a O2 Gradient 0.2 mmHg (5-10) L 12/29/23 11:55 Hematocrit 34.5 % (42-52) L 12/31/23 04:14 Hgb O2 Saturation 90.5 % (95-100) L 12/29/23 11:55 Carboxyhemoglobin 1.7 %THgb (0.4-20.1) 12/29/23 11:55 Methemoglobin 0.3 % (0.4-1.5) L 12/29/23 11:55 Total Hemoglobin 10.1 g/dL (14-18) L 12/29/23 11:55 Sodium 139.0 mmol/L (131-143) 12/29/23 11:55 Potassium 3.3 mmol/L (3.5-5.0) L 12/29/23 11:55 Glucose 113.0 mg/dL (70-115) 12/29/23 11:55 Ionized Calcium 1.2 mmol/L (1.1-1.4) 12/29/23 11:55 O2 Delivery Device Bipap 12/31/23 04:14 O2 Liters/Min 2.0 % 12/29/23 11:55 FiO2 30.0 % 12/31/23 04:14 PEEP 8.0 cmH20 12/31/23 04:14 Scale Adjuster ID Ed 12/31/23 04:14 Sodium 135 mmol/L (136-145) L 12/31/23 06:01 Potassium 5.1 mmol/L (3.5-5.1) 12/31/23 06:01 Chloride 86 mmol/L (98-107) L 12/31/23 06:01 Carbon Dioxide 41 mmol/L (22-29) H 12/31/23 06:01 Anion Gap 13.1 (5-19) 12/31/23 06:01 BUN 18 mg/dL (8-23) 12/31/23 06:01 Creatinine 0.6 mg/dL (0.7-1.2) L 12/31/23 06:01 GFR Calculation Not Reportable 12/31/23 06:01 Glucose 133 mg/dL (65-115) H 12/31/23 06:01 Calculated Osmolality 284 mOsm/kg (285-295) L 12/31/23 06:01 Calcium 9.4 mg/dL (8.5-10.5) 12/31/23 06:01 Phosphorus 2.0 mg/dL (2.5-4.5) L 12/30/23 06:17 Magnesium 1.7 mg/dL (1.7-2.3) 12/30/23 06:17 Total Bilirubin 0.2 mg/dL (0.15-1.2) 12/29/23 11:02 AST 12 U/L (0-40) 12/29/23 11:02 ALT 14 U/L (0-41) 12/29/23 11:02 Alkaline Phosphatase 116 U/L (40-130) 12/29/23 11:02 Troponin T Baseline 79 ng/L (0-15) H 12/30/23 15:24 Troponin T 120 Minute 103.8 ng/L (0-15) H 12/30/23 17:43 Delta Troponin T 24.8 ABS# (0-10) H* 12/30/23 17:43 Troponin T Hi Sens 6Hr 147.2 ng/L (0-15) H 12/30/23 20:55 Troponin T Hi Sens 6Hr Delta 68.2 ng/L (0-12) H* 12/30/23 20:55 C-Reactive Protein 30.2 mg/L (0.0-4.9) H 12/30/23 06:17 Total Protein 7.3 g/dL (6.6-8.7) 12/29/23 11:02 Albumin 3.7 g/dL (3.5-5.2) 12/29/23 11:02 Globulin 3.6 g/dL (1.3-4.6) 12/29/23 11:02 Vitals Last Vital Signs Temp 97.6 F 01/01/24 04:00 Pulse 84 01/01/24 06:15 Resp 16 01/01/24 06:15 BP 120/72 01/01/24 04:00 Pulse Ox 98 01/01/24 06:15 O2 Del Method Nasal Cannula 01/01/24 06:15 O2 Flow Rate 3 01/01/24 06:15 FiO2 30 12/31/23 09:07 Discharge Plan Discharge Patient Disposition: Hospice - Home Condition: Stable Prescriptions: New oxycodone-acetaminophen 5-325 mg tablet 1 tab PO DAILY PRN (Reason: pain) Qty: 10 0RF azithromycin 250 mg Tablet 500 mg PO DAILY Qty: 3 0RF aspirin 81 mg Tablet,Delayed Release (Dr/Ec) 81 mg PO DAILY Qty: 90 0RF clopidogrel 75 mg Tablet 75 mg PO DAILY Qty: 60 0RF lisinopril 5 mg tablet 5 mg PO DAILY Qty: 60 1RF Continued (DME) BIPAP See Rx Instructions .Route .MEDSUPPLY Qty: 1 0RF Rx Instructions: Standard Bi-level IPAP 10, EPAP 5 (DME) oxygen See Rx Instructions .Route .MEDSUPPLY Qty: 1 0RF Rx Instructions: 2 LPM in line BIPAP albuterol sulfate 2.5 mg /3 mL (0.083 %) solution for nebulization 2.5 mg INHALATION Q4H cetirizine [Zyrtec] 10 mg tablet 10 mg PO DAILY PRN (Reason: ALLERGIES) fluticasone propionate 50 mcg/actuation spray,suspension 1 spray intranasal BID Rx Instructions: administer into each nostril arformoterol 15 mcg/2 mL solution for nebulization 2 ml INHALATION BID Qty: 120 3RF furosemide 40 mg tablet 40 mg PO DAILY PRN (Reason: Edema) trazodone 50 mg tablet 25 - 50 mg PO BEDTIME pantoprazole 40 mg tablet,delayed release (DR/EC) 40 mg PO BID guaifenesin 200 mg/5 mL liquid 400 mg PO Q6H PRN (Reason: cough) Qty: 473 3RF (DME) Chest Vest (Afflo) See Rx Instructions .Route .MEDSUPPLY Qty: 1 0RF Rx Instructions: High frequency chest wall oscillation 5Hz-20Hz for 30 minutes twice daily. Spiriva Respimat 1.25 mcg/actuation mist 2 puff inhalation DAILY Qty: 4 6RF budesonide 0.5 mg/2 mL suspension for nebulization 0.5 mg inhalation BID Qty: 120 6RF cholecalciferol (vitamin D3) [Vitamin D3] 50 mcg (2,000 unit) Capsule 50 mcg PO BEDTIME metoprolol tartrate 25 mg tablet 25 mg PO BID ferrous sulfate 325 mg (65 mg iron) Tablet 325 mg PO DAILY folic acid 1 mg Tablet 1 mg PO DAILY docusate sodium 100 mg Capsule 100 mg PO BID PRN (Reason: Constipation) Vitamin C 500 mg Tablet 500 mg PO DAILY paroxetine HCl 20 mg tablet 20 mg PO DAILY hydroxyzine pamoate 25 mg capsule 25 mg PO QID PRN (Reason: Anxiety) zinc sulfate 50 mg zinc (220 mg) Capsule 50 mg PO DAILY albuterol sulfate [Ventolin HFA] 90 mcg/actuation Hfa Aerosol Inhaler 2 puff INHALATION QID PRN (Reason: Shortness Of Breath) Discontinued levofloxacin 500 mg tablet 500 mg PO DAILY 7 Days Qty: 7 0RF Discharge Orders: Discharge Order (Routine); Ordered 01/03/24 Ordered By: Carmen Blankenship Referrals: [facility] [Other] Andrae Santiago DO [Primary Care Provider] - 01/03/24 10:30 am (This appointment is scheduled with Candido Cunningham. ) Patient Instructions: Opioid Safety Discharge Attestations Time Spent in Discharge Care*: greater than 30 min Quality Metrics Clinical Quality Measures [ No reported AMI, CVA or VTE this stay] Coding Level of Care Code Acute Code for Chg Fwd Diagnoses Cardiomyopathy I42.9 Anxiety F41.9 Weight loss R63.4 Severe protein-calorie malnutrition E43 Acute dyspnea R06.00 Mucus plugging of bronchi T17.500A Hypercapnia R06.89 Acute exacerbation of chronic obstructive airways disease J44.1 Chronic respiratory failure J96.10 Anemia D64.9 History of pulmonary embolism Z86.[address] Z93.3 Colocutaneous fistula K63.2
== END 2024-01-03 14:04 | disposition hospice, home (50) | DRG 190 ==
LOC: ER 13:23 → MEDSURG 14:26
PROVIDERS: Admitting Provider Internal Medicine; Emergency Provider Family Medicine; PCP Emergency Medicine Emergency Medical Services; Visit Provider Internal Medicine
DX: J44.1 Chronic obstructive pulmonary disease with (acute) exacerbation (principal); E43 Unspecified severe protein-calorie malnutrition; J96.22 Acute and chronic respiratory failure with hypercapnia; J96.21 Acute and chronic respiratory failure with hypoxia; I50.21 Acute systolic (congestive) heart failure; Z68.1 Body mass index [BMI] 19.9 or less, adult; I42.9 Cardiomyopathy, unspecified; K63.2 Fistula of intestine; T17.590A Other foreign object in bronchus causing asphyxiation, initial encounter; Z87.891 Personal history of nicotine dependence; Z99.89 Dependence on other enabling machines and devices; Z86.711 Personal history of pulmonary embolism; Z66 Do not resuscitate; Z51.5 Encounter for palliative care; Z85.048 Personal history of other malignant neoplasm of rectum, rectosigmoid junction, and anus; Z93.3 Colostomy status; Z96.0 Presence of urogenital implants; J98.6 Disorders of diaphragm; F41.9 Anxiety disorder, unspecified; R63.4 Abnormal weight loss; W44.F9XA Other object of natural or organic material, entering into or through a natural orifice, initial encounter
CPT/HCPCS: 36415; 36600; 51702; 71045; 71275; 74018; 80048; 80051; 80053; 82330; 82803; 82805; 83735; 84100; 84484; 85025; 85378; 86140; 87040; 87070; 87205; 93005; 93306; 94640; 94660; 94669; 94760; 96365; 96372; 97110; 97116; 97162; 97530; 99291; G0378; J0696; J1100; J1650; J1940; J1956; J2405; J2919; J7030; J7608; Q0144; Q9967